=== PATIENT | female | born 1930 | race American Indian/Alaskan Native ===

== ENCOUNTER 2016-04-16 16:20 | Inpatient (IN) | payer MEDICARE ==
--- NOTE | 2016-04-16 16:50 | Emergency Department Report ---
Chief Complaint: Chest Pain Stated Complaint: CHEST PAIN Time Seen by Provider: 04/16/16 16:48 - HPI History of Present Illness: Patient here reported chest pain after having dialysis today. She is complaining nausea without any vomiting. Patient has a history of coronary artery disease and reported that she's had chest pain in the past. She said the pain is 10 out of 10 and located at the mid chest. She denies any shortness of breath. Patient Kidney doctor is Dr. Rosenberg. She had dialysis today. - ROS Review of Systems: All systems are negative unless stated in HPI above. - Exam Vital Signs: Vital Signs 04/16/16 16:34 Temperature 98.3 F Pulse Rate 89 Respiratory 18 Rate Blood Pressure 151/72 O2 Sat by Pulse 99 Oximetry Physical Exam: GEN: This is a 85-year-old female well-nourished well-developed in no acute distress. CV: S1, S2. Regular rate and rhythm. Dialysis access to right arm. Lungs: Clear to auscultate bilaterally, no rhonchi wheezes or rales. Normal work of breathing. MSE screening note: Focused history and physical exam performed. Due to findings the following was ordered:TBD ED Medical Decision Making - Medical Decision Making Medical decision making: Patient seen by provider in triage area. Appropriate protocol activated and patient to main ED to be seen by physician. ED Disposition for MSE Condition: Stable
[2016-04-16 17:44] LABS: Basophils % (Auto) 0.7 % (0.0-1.8); Eosinophils % (Auto) 3.4 % (0.0-4.3); Hematocrit 37.6 % (30.3-42.9); Hemoglobin 11.9 gm/dl (10.1-14.3); Mean Corpuscular HGB Conc 32 % (30-34); Mean Corpuscular Hemoglobin 25 pg (28-32); Mean Corpuscular Volume 79 fl (79-97); Platelet Count 164 K/mm3 (140-440); Red Blood Count 4.77 M/mm3 (3.65-5.03); Red Cell Distribution Width 16.5 % (13.2-15.2); White Blood Count 5.7 K/mm3 (4.5-11.0)
[2016-04-16 18:12] LABS: Creatine Kinase MB 1.6 ng/mL (0.0-4.0)
[2016-04-16 18:14] LABS: BUN/Creatinine Ratio 4.13; Calcium 9.5 mg/dL (8.4-10.2); Chloride 95.1 mmol/L (98-107); Potassium 4.7 mmol/L (3.6-5.0)
[2016-04-16 18:16] LABS: Alanine Aminotransferase 8 units/L (7-56); Albumin/Globulin Ratio 1.3 %; Alkaline Phosphatase 204 units/L (35-129); Bilirubin,Total 0.7 mg/dL (0.1-1.2); Total Protein 7.1 g/dL (6.3-8.2)
[2016-04-16 18:32] LABS: Bilirubin,Direct < 0.2 mg/dL (0-0.2); Bilirubin,Indirect 0.5 mg/dL
--- NOTE | 2016-04-16 18:32 | Admit Criteria Form ---
Admission Criteria Documentation: CHEST PAIN Clinical Indications for Admission to Inpatient Care (Place 'X' for any and all applicable criteria): Admission is indicated for chest pain and ANY ONE of the following(1)(2)(3)(4)(5 ): [ ]I. Angina with acute coronary syndrome (Also use Myocardial Infarction or Angina guideline) [ ]II. Hemodynamic instability [X]III. Angina needing acute intervention as indicated by ALL of the following( 11)(12): [X]a) Unstable angina is present as indicated by angina that is ANY ONE of the following: [ ]i) New onset [X]ii) Nocturnal [ ]iii) Prolonged at rest [ ]iv) Progressive [X]b) Angina warrants acute intervention as indicated by ANY ONE of the following: [ ]i) Recurrent angina (e.g, not responding as previously to treatment) [ ]ii) Angina at rest or with low-level activities despite initial medical therapy [ ]iii) New or presumably new ST-segment depression on ECG [ ]iv) Signs or symptoms of heart failure (eg, dyspnea, pulmonary edema) [ ]v) New or worsening mitral regurgitation [ ]vi) Hemodynamic instability [ ]vii) Dangerous arrhythmia (eg, sustained ventricular tachycardia) [ ]viii) History of percutaneous coronary intervention within 6 months [ ]ix) History of coronary artery bypass graft surgery [X]x) VALENTE risk score of 2 or greater[A] [ ]xi) History of Diabetes(14) [ ]xii) High-risk cardiac ischemia findings on noninvasive testing (e.g, echocardiogram, treadmill testing, nuclear scan) [X]xiii) Chronic renal insufficiency (ie, estimated GFR less than 60 mL/min/1.732m) [ ]xiv) Left ventricular ejection fraction less than 40% [X]IV. Evidence of GA (eg, cardiac biomarkers positive, ST-segment elevation on ECG) also use Myocardial Infarction Criteria Form. [ ]V. Pulmonary edema [ ]. Respiratory distress [ ]VII. Chest pain indicative of serious diagnosis other than coronary artery disease (eg, aortic dissection) [ ]VIII. Contraindications and/or Inappropriate clinical situations for Observational Care in patients with Chest Pain, when ANY ONE of the following is required: [ ]a) Patient with risk factor for pulmonary embolism, acute coronary syndrome and myocardial infarction (18) [ ]b) Patient with Pulmonary embolism require an average LOS of 4.3 days, therefore emergency department observation management is inappropriate 18,23 [ ]c) Painful condition/s in the elderly, have the highest rate of recidivism after emergency department observation management (10.8%) 20,21,22 [ ]d) Elevated cardiac biomarker requires intensive and exhaustive care (19) [ ]IX. General contraindications and/or Inappropriate clinical situations for Observational Care in patients with Chest Pain, when ANY ONE of the following is required: [ ]a) Prediction of prolongation of LOS based on ANY ONE of the following may be considered as a contraindication for observational care 2, 3, 4, 5, 6, 7, 8, 9, 10, 11 [ ]i) Age > 65 yrs. [ ]ii) Patient arriving by ambulance [ ]iii) Patient with high acuity [ ]iv) Patient requiring vital sign monitoring [ ]v) Patient on IV medication [ ]b) Systolic blood pressures 180mmHg 3,12 [ ]c) Patient with altered mental status including delirium and other alteration of consciousness, (3) [ ]d) Patient whose discharge disposition will be to a snf home or rehabilitation home should not be managed in Emergency Department Observation Unit. CMS rule requires 3 days hospital stay before such placement. 3,13 [ ]e) Patient with failure to thrive due to broad array of etiologies 3,16,17 [ ]f) Inability to ambulate 3,14 Extended stay beyond goal length of stay may be needed for (1)(28): [ ]a) Specific condition diagnosed after evaluation (eg, pulmonary embolism, aortic dissection) [ ]b) Unstable angina [ ]c) Continued suspicion of acute coronary syndrome with inability to complete needed cardiac evaluation (eg, patient clinically unable to undergo stress testing) [ ]d) Myocardial infarction (Contents from ANGINA and CHEST PAIN clinical indications for admission to inpatient care have been integrated in this form) The original [employer] content created by [employer] has been revised. The portions of the content which have been revised are identified through the use of italic text or in bold, and [employer] [employer] has neither reviewed nor approved the modified material. All other unmodified content is copyright [employer]. Please see references footnoted in the original [employer] edition 2016 Admission Criteria Met: Yes
[2016-04-16] MEDS ORDERED: NITROSTAT SL PRN (19:25)
[2016-04-16] MEDS ORDERED: ASPIRIN PO ONE (19:25)
--- NOTE | 2016-04-16 19:27 | Emergency Department Report ---
ED Chest Pain HPI - General Chief Complaint: Chest Pain Stated Complaint: CHEST PAIN Time Seen by Provider: 04/16/16 16:48 Source: patient Mode of arrival: Wheelchair Limitations: No Limitations - History of Present Illness Initial Comments: 85-year-old female presents to the emergency department complaining of chest pain. Patient states that she went to dialysis this morning per usual. She states when she arrived home she began feeling not well. She states that she went to sleep and was awakened at approximately 4:30 this afternoon complaining of midsternal chest pressure radiating to her left arm. She reports associated generalized weakness and nausea. She denies shortness of breath, dizziness, or diaphoresis. Chest pain has persisted since onset. There are no other complaints. MD Complaint: chest pain -: Sudden, This afternoon Time: 16:30 Onset: during rest Pain Location: substernal Pain Radiation: LUE Severity: moderate Severity scale (0 -10): 6 Quality: pressure Consistency: constant Improves With: nothing Worsens With: nothing re: nausea Treatments Prior to Arrival: none Aspirin use within the Past 7 Days: (1) Yes - Related Data Home Medications Medication Instructions Recorded Confirmed Last Taken Aspirin [[place] Aspirin] 81 mg PO DAILY 03/27/13 04/16/16 1 Day Ago Calcium Acetate [Phoslo] 667 mg PO QAM&QHS 03/27/13 04/16/16 1 Day Ago Gabapentin 100 mg PO DAILY 03/27/13 04/16/16 1 Day Ago Hydralazine HCl [Apresoline TAB] 50 mg PO BID 03/27/13 04/16/16 1 Day Ago Simvastatin [Zocor TAB] 40 mg PO DAILY 03/27/13 04/16/16 1 Day Ago Cholecalciferol Vit D3 [Vitamin D3] 1,000 unit PO QDAY 05/23/15 04/16/16 1 Day Ago Vit B Cplx #11/FA/C/Biot/Zn Ox 1 each PO DAILY 05/23/15 04/16/16 1 Day Ago [Dialyvite with Zinc Tablet] Previous Rx's Medication Instructions Recorded Last Taken Type Metoprolol [Lopressor TAB] 25 mg PO BID #60 tablet 02/08/16 Unknown Rx Allergies Allergy/AdvReac Type Severity Reaction Status Date / Time cefazolin sodium [From Anc] Allergy Unknown Verified 06/29/14 10:46 enalapril maleate Allergy Angioedema Verified 06/29/14 10:46 [From Vasotec] enalaprilat dihydrate Allergy Angioedema Verified 06/29/14 10:46 [From Vasotec] pseudoephedrine HCl Allergy Swelling Verified 06/29/14 10:46 [From Sudafed] Sulfa (Sulfonamide Allergy Hives Verified 06/29/14 10:46 Antibiotics) VALENTE score - Valente Score Age > 65: (1) Yes Aspirin use within the Past 7 Days: (1) Yes 3 or more CAD Risk Factors: (1) Yes 2 or more Angina events in past 24 hrs: (0) No Known CAD with more than 50% Stenosis: (0) No Elevated Cardiac Markers: (1) Yes ST Deviation Greater than 0.5mm: (0) No VALENTE Score: 4 ED Review of Systems ROS: Stated complaint: CHEST PAIN Other details as noted in HPI Comment: All other systems reviewed and negative Constitutional: weakness Cardiovascular: chest pain Gastrointestinal: nausea ED Past Medical Hx - Past Medical History Previous Medical History?: Yes Hx Hypertension: Yes Hx Heart Attack/AMI: (coronary artery disease) Hx Congestive Heart Failure: Yes Hx Renal Disease: Yes (dialysis MWF) Hx Arthritis: Yes Hx HIV: No - Surgical History Past Surgical History?: Yes Hx Cholecystectomy: Yes Hx Appendectomy: Yes Additional Surgical History: Hysterectomy, tubal ligation, fistula in right arm , "surgery to place a plate in neck" - Family History Family history: no significant - Social History Smoking Status: Former Smoker Substance Use Type: Prescribed - Medications Home Medications: Home Medications Medication Instructions Recorded Confirmed Last Taken Type Aspirin [[place] Aspirin] 81 mg PO DAILY 03/27/13 04/16/16 1 Day Ago History Calcium Acetate [Phoslo] 667 mg PO QAM&QHS 03/27/13 04/16/16 1 Day Ago History Gabapentin 100 mg PO DAILY 03/27/13 04/16/16 1 Day Ago History Hydralazine HCl [Apresoline TAB] 50 mg PO BID 03/27/13 04/16/16 1 Day Ago History Simvastatin [Zocor TAB] 40 mg PO DAILY 03/27/13 04/16/16 1 Day Ago History Cholecalciferol Vit D3 [Vitamin D3] 1,000 unit PO QDAY 05/23/15 04/16/16 1 Day Ago History Vit B Cplx #11/FA/C/Biot/Zn Ox 1 each PO DAILY 05/23/15 04/16/16 1 Day Ago History [Dialyvite with Zinc Tablet] Metoprolol [Lopressor TAB] 25 mg PO BID #60 tablet 02/08/16 04/16/16 Unknown Rx ED Physical Exam - General Limitations: No Limitations General appearance: alert, in no apparent distress - Head Head exam: Present: atraumatic, normocephalic - Eye Eye exam: Present: normal appearance, PERRL, EOMI - ENT ENT exam: Present: normal exam, normal orophraynx, mucous membranes moist - Neck Neck exam: Present: normal inspection, full ROM. Absent: tenderness - Respiratory Respiratory exam: Present: normal lung sounds bilaterally, chest wall tenderness (anterior chest wall tender to palpation. Tenderness is different than her chief complaint.). Absent: respiratory distress - Cardiovascular Cardiovascular Exam: Present: regular rate, normal rhythm, normal heart sounds - GI/Abdominal GI/Abdominal exam: Present: soft, normal bowel sounds. Absent: distended, tenderness - Extremities Exam Extremities exam: Present: normal inspection, full ROM. Absent: tenderness - Back Exam Back exam: Present: normal inspection, full ROM. Absent: tenderness - Neurological Exam Neurological exam: Present: alert, oriented X3. Absent: motor sensory deficit - Skin Skin exam: Present: warm, dry, intact ED Course Vital Signs 04/16/16 04/16/16 16:34 18:18 Temperature 98.3 F Pulse Rate 89 Respiratory 18 16 Rate Blood Pressure 151/72 O2 Sat by Pulse 99 99 Oximetry ED Medical Decision Making - Lab Data Result diagrams: 04/16/16 17:20 04/16/16 17:20 - EKG Data -: EKG Interpreted by Me EKG shows normal: sinus rhythm, axis, ST-T waves Rate: normal - EKG Data When compared to previous EKG there are: no significant change Interpretation: unchanged when compared t (02/05/2016), other (right bundle branch block) - Radiology Data Radiology results: image reviewed interpreted by me: Chest x-ray shows no acute cardiopulmonary abnormality. - Medical Decision Making Lab and imaging results reviewed and discussed with the patient. I've spoken with Dr. Cooper, cardiology. Patient is to be admitted by the hospitalist. Nephrology will also be consulted. - Differential Diagnosis ACS, chest wall pain, electrolyte abnormality Critical care attestation.: If time is entered above; I have spent that time in minutes in the direct care of this critically ill patient, excluding procedure time. ED Disposition Clinical Impression: Acute chest pain, ESRD on dialysis Disposition: OP ADMITTED IP TO THIS HOSP Is pt being admited?: Yes Condition: Stable Instructions: Chest Pain (ED) Time of Disposition: 19:33
--- NOTE | 2016-04-16 19:40 | History and Physical Report ---
History of Present Illness Date of examination: 04/16/16 Date of admission: 04/16/16 Chief complaint: chest pain today History of present illness: Miss Tracey is an 85-year-old -Citizen Of [place] female who presented to the emergency room complaining of central pressing chest pain which started about 4: 30. She reported that she went to dialysis and had returned home. She started to have some nausea and she decided to lay down. She reported that she was awoken by the chest pain. No radiation. She had shortness of breath and palpitations. No diaphoresis. At the time of evaluation she had no chest pain. Of note she has a history of nonobstructive coronary artery disease and in April she had an abnormal stress test which showed mild ischemia. Continuation of medical management was recommended as her chest pain resolved. Past History Past Medical History: CAD, dialysis, ESRD, hypertension, other Past Surgical History: Other (cholecystectomy, hysterectomy, Other (right arm fistula, metal plate in the neck due to fracture)) Social history: full code. denies: smoking, alcohol abuse, prescription drug abuse, IV drug use Family history: hypertension Medications and Allergies Allergies Allergy/AdvReac Type Severity Reaction Status Date / Time cefazolin sodium [From Ancef] Allergy Unknown Verified 06/29/14 10:46 enalapril maleate Allergy Angioedema Verified 06/29/14 10:46 [From Vasotec] enalaprilat dihydrate Allergy Angioedema Verified 06/29/14 10:46 [From Vasotec] pseudoephedrine HCl Allergy Swelling Verified 06/29/14 10:46 [From Sudafed] Sulfa (Sulfonamide Allergy Hives Verified 06/29/14 10:46 Antibiotics) Home Medications Medication Instructions Recorded Confirmed Last Taken Type Aspirin [[place] Aspirin] 81 mg PO DAILY 03/27/13 04/16/16 1 Day Ago History Calcium Acetate [Phoslo] 667 mg PO QAM&QHS 03/27/13 04/16/16 1 Day Ago History Gabapentin 100 mg PO DAILY 03/27/13 04/16/16 1 Day Ago History Hydralazine HCl [Apresoline TAB] 50 mg PO BID 03/27/13 04/16/16 1 Day Ago History Simvastatin [Zocor TAB] 40 mg PO DAILY 03/27/13 04/16/16 1 Day Ago History Cholecalciferol Vit D3 [Vitamin D3] 1,000 unit PO QDAY 05/23/15 04/16/16 1 Day Ago History Vit B Cplx #11/FA/C/Biot/Zn Ox 1 each PO DAILY 05/23/15 04/16/16 1 Day Ago History [Dialyvite with Zinc Tablet] Metoprolol [Lopressor TAB] 25 mg PO BID #60 tablet 02/08/16 04/16/16 Unknown Rx Active Meds: Active Medications Nitroglycerin (Nitrostat) 0.4 mg SL .Q5MIN PRN PRN Reason: Chest Pain Review of Systems All systems: negative Constitutional: no weight loss, no weight gain, no fever Ears, nose, mouth and throat: no ear pain, no ear discharge, no tinnitis, no decreased hearing Breasts: normal Cardiovascular: other (as in the history of presenting complaint) Respiratory: no cough, no cough with sputum, no excessive sputum, no hemoptysis , no shortness of breath Gastrointestinal: no abdominal pain, no diarrhea Genitourinary Female: other (anuric) Rectal: no pain, no incontinence, no bleeding Musculoskeletal: no neck stiffness, no neck pain, no shooting arm pain Integumentary: no rash, no pruritis, no redness, no sores Neurological: no head injury, no transient paralysis, no paralysis, no weakness Psychiatric: no anxiety, no memory loss, no change in sleep habits Endocrine: no cold intolerance, no heat intolerance, no polyphagia Hematologic/Lymphatic: no easy bruising, no easy bleeding Allergic/Immunologic: no urticaria, no allergic rhinitis Exam - Constitutional Vitals: Temp Pulse Resp BP Pulse Ox 98.3 F 89 16 151/72 99 04/16/16 16:34 04/16/16 16:34 04/16/16 18:18 04/16/16 16:34 04/16/16 18:18 General appearance: Present: no acute distress, well-nourished - EENT Eyes: Present: PERRL, EOM intact. Absent: scleral icterus, conjunctival injection ENT: hearing intact, clear oral mucosa, no oropharyngeal erythema, no poor dentition - Neck Neck: Present: supple, normal ROM. Absent: enlarged thyroid, masses or JVD - Respiratory Respiratory effort: normal Respiratory: negative: diminished, rales, rhonchi, wheezing - Cardiovascular Rhythm: regular Heart Sounds: Present: S1 & S2. Absent: gallop - Extremities Extremities: no ischemia, pulses intact, pulses symmetrical, No edema Peripheral Pulses: within normal limits - Abdominal General gastrointestinal: Present: soft, non-tender, non-distended, normal bowel sounds Female genitourinary: Present: deferred - Rectal Rectal Exam: deferred - Integumentary Integumentary: Present: clear - Musculoskeletal Musculoskeletal: strength equal bilaterally - Psychiatric Psychiatric: appropriate mood/affect, intact judgment & insight, cooperative - Neurologic Neurologic: CNII-XII intact, moves all extremities Results - Labs CBC & Chem 7: 04/16/16 17:20 04/16/16 17:20 Labs: Abnormal lab results 04/16/16 04/16/16 04/16/16 Range/Units 17:20 17:20 17:20 MCH 25 L (28-32) pg RDW 16.5 H (13.2-15.2) % Darke % (Auto) 10.2 H (0.0-7.3) % Lymph # 0.8 L (1.2-5.4) K/mm3 Seg Neutrophils % 70.9 H (40.0-70.0) % Chloride 95.1 L (98-107) mmol/L BUN 19 H (7-17) mg/dL Creatinine 4.6 H (0.7-1.2) mg/dL Alkaline Phosphatase 204 H (35-129) units/L Troponin T 0.031 H (0.00-0.029) ng/mL Non-obstructive CAD [facility] 11/2011: 50-60% mid distal LAD, 40% mid OM2, 40% distal RCA 05/15 stress test- mild ischemia Echocardiogram ejection fraction 55-60%. Diastolic dysfunction - Imaging and Cardiology EKG: image reviewed (RBBB not new; PAC) Chest x-ray: pending Assessment and Plan 1. Atypical chest pain on a background history of nonobstructive coronary artery disease and abnormal stress test in April 2015-we'll admit as an inpatient as more than 2 midnights and required treatment. To rule out acute coronary syndrome. Will do serial cardiac enzymes. Restart her home medications with aspirin and statin. Beta mercy. We'll consult cardiology for further recommendations 2. Benign hypertension-uncontrolled with urgency-will restart antihypertensive medications. IV hydralazine as needed for systolic greater than or equal to 160. 3. End-stage renal disease on hemodialysis-we'll consult nephrology for routine hemodialysis. Monitor electrolytes. Restart home medications. 4. DVT prophylaxis-heparin
[2016-04-16] MEDS: APRESOLINE IV PRN (23:00)
[2016-04-16] MEDS ORDERED: SODIUM CHLORIDE FLUSH SYRINGE 10 ML IV PRN (23:06)
[2016-04-16] MEDS ORDERED: MORPHINE IV PRN (23:06)
[2016-04-16] MEDS ORDERED: APRESOLINE ONE (23:13)
[2016-04-17] MEDS: HEPARIN SUB-Q SCH ×3 (00:52→22:30)
[2016-04-17] MEDS: PEPCID PO SCH ×2 (00:56→12:10)
[2016-04-17] MEDS: APRESOLINE IV PRN (06:23)
[2016-04-17 07:08] LABS: Basophils % (Auto) 0.7 % (0.0-1.8); Eosinophils % (Auto) 4.4 % (0.0-4.3); Hematocrit 32.8 % (30.3-42.9); Hemoglobin 10.5 gm/dl (10.1-14.3); Mean Corpuscular HGB Conc 32 % (30-34); Mean Corpuscular Volume 79 fl (79-97); Platelet Count 151 K/mm3 (140-440); Red Blood Count 4.18 M/mm3 (3.65-5.03); Red Cell Distribution Width 16.4 % (13.2-15.2)
[2016-04-17 07:24] LABS: BUN/Creatinine Ratio 4.31; Calcium 8.5 mg/dL (8.4-10.2); Chloride 101.5 mmol/L (98-107); Creatine Kinase MB 1.2 ng/mL (0.0-4.0); Potassium 4.3 mmol/L (3.6-5.0)
[2016-04-17 07:36] LABS: Mean Corpuscular Hemoglobin 25 pg (28-32)
--- NOTE | 2016-04-17 08:08 | XRay Report ---
ROUTINE CHEST, TWO VIEWS: HISTORY: chest pain. The trachea, heart, mediastinal contour, lung rangel and bony thorax are unremarkable. Lower cervical fusion changes are partially imaged. IMPRESSION: No acute cardiopulmonary process. No significant change since 02/06/16.
[2016-04-17] MEDS ORDERED: NACL 0.9% 1000 ML 100 ML IV PRN (08:58)
--- NOTE | 2016-04-17 08:59 | Consultation ---
<MADONNA BURTON N - Last Filed: 04/17/16 11:16> History of Present Illness Consult date: 04/17/16 Requesting physician: DOLLY KIRBY Consult reason: chest pain History of present illness: The patient is an 85 year old female who is followed by Dr. RYAN Stokes in the office with a history of non-obstructive CAD, hypertension, hyperlipidemia, ESRD on HD who presented with complaints of substernal chest pain that started yesterday morning after she got home from dialysis. She describes the pain as a "tightness" and states that it radiated to her left arm. Associated with nausea. No shortness of breath, vomiting or diaphoresis. She states the pain resolved several hours later after she received aspirin in the ER. Troponin level is 0.026, 0.024. Cardiac cath done 11/2011 showed 50-60% mid distal LAD, 40 % mid OM2, 40% distal RCA. Stress test done 04/2015 showed mild inferior ischemia but the the patient was continued on medical therapy at that time. Medications and Allergies Allergies Allergy/AdvReac Type Severity Reaction Status Date / Time cefazolin sodium [From Ancef] Allergy Unknown Verified 06/29/14 10:46 enalapril maleate Allergy Angioedema Verified 06/29/14 10:46 [From Vasotec] enalaprilat dihydrate Allergy Angioedema Verified 06/29/14 10:46 [From Vasotec] pseudoephedrine HCl Allergy Swelling Verified 06/29/14 10:46 [From Sudafed] Sulfa (Sulfonamide Allergy Hives Verified 06/29/14 10:46 Antibiotics) Home Medications Medication Instructions Recorded Confirmed Last Taken Type Aspirin [[place] Aspirin] 81 mg PO DAILY 03/27/13 04/16/16 1 Day Ago History Calcium Acetate [Phoslo] 667 mg PO QAM&QHS 03/27/13 04/16/16 1 Day Ago History Gabapentin 100 mg PO DAILY 03/27/13 04/16/16 1 Day Ago History Hydralazine HCl [Apresoline TAB] 50 mg PO BID 03/27/13 04/16/16 1 Day Ago History Simvastatin [Zocor TAB] 40 mg PO DAILY 03/27/13 04/16/16 1 Day Ago History Cholecalciferol Vit D3 [Vitamin D3] 1,000 unit PO QDAY 05/23/15 04/16/16 1 Day Ago History Vit B Cplx #11/FA/C/Biot/Zn Ox 1 each PO DAILY 05/23/15 04/16/16 1 Day Ago History [Dialyvite with Zinc Tablet] Metoprolol [Lopressor TAB] 25 mg PO BID #60 tablet 02/08/16 04/16/16 Unknown Rx Active Meds: Active Medications Aspirin (Ecotrin) 325 mg PO QDAY [facility] Epoetin Checo (Epogen) 20,000 unit IV ELDA PRN PRN Reason: hemodialysis Famotidine (Pepcid) 20 mg PO QAM [facility] Last Admin: 04/17/16 00:56 Dose: 20 mg Heparin Sodium (Porcine) (Heparin) 5,000 unit SUB-Q Q12HR [facility] Last Admin: 04/17/16 00:52 Dose: 5,000 unit Heparin Sodium (Porcine) (Heparin 10,000 Units/10 Ml) 1,000 unit IV ELDA PRN PRN Reason: hemodialysis Hydralazine HCl (Apresoline) 5 mg IV Q4H PRN PRN Reason: GIVE FOR SBP>165 Last Admin: 04/17/16 06:23 Dose: 5 mg Sodium Chloride (Nacl 0.9% 1000 Ml) 100 mls @ 999 mls/hr IV ELDA PRN PRN Reason: Hypotension Metoprolol Tartrate (Lopressor) 25 mg PO BID [facility] Morphine Sulfate (Morphine) 1 mg IV Q5MIN PRN PRN Reason: Chest Pain Nitroglycerin (Nitrostat) 0.4 mg SL .Q5MIN PRN PRN Reason: Chest Pain Simvastatin (Zocor) 40 mg PO QHS [facility] Sodium Chloride (Sodium Chloride Flush Syringe 10 Ml) 10 ml IV PRN PRN PRN Reason: LINE FLUSH Physical Examination Vital Signs Temp Pulse Resp BP Pulse Ox 98.3 F 89 18 151/72 99 04/16/16 16:34 04/16/16 16:34 04/16/16 16:34 04/16/16 16:34 04/16/16 16:34 Results 04/17/16 06:04 04/17/16 06:04 Cardiac Enzymes 04/17/16 Range/Units 06:04 CK-MB (CK-2) 1.2 (0.0-4.0) ng/mL CBC 04/17/16 Range/Units 06:04 WBC 5.0 (4.5-11.0) K/mm3 RBC 4.18 (3.65-5.03) M/mm3 Hgb 10.5 (10.1-14.3) gm/dl Hct 32.8 (30.3-42.9) % Plt Count 151 (140-440) K/mm3 Lymph # 1.1 L (1.2-5.4) K/mm3 Charles # 0.6 (0.0-0.8) K/mm3 Eos # 0.2 (0.0-0.4) K/mm3 Baso # 0.0 (0.0-0.1) K/mm3 Comprehensive Metabolic Panel 04/17/16 Range/Units 06:04 Sodium 144 (137-145) mmol/L Potassium 4.3 (3.6-5.0) mmol/L Chloride 101.5 (98-107) mmol/L Carbon Dioxide 29 (22-30) mmol/L BUN 25 H (7-17) mg/dL Creatinine 5.8 H (0.7-1.2) mg/dL Glucose 73 (65-100) mg/dL Calcium 8.5 (8.4-10.2) mg/dL Assessment and Plan Chest pain resolved stress MPI 04/2015: mild inferior ischemia continue ASA, statin, metoprolol Non-obstructive CAD [facility] 11/2011: 50-60% mid distal LAD, 40% mid OM2, 40% distal RCA continue ASA, statin, metoprolol Hypertension Hyperlipidemia ESRD on HD Given resolution of chest pain and only mild ischemia on stress MPI, recommend optimizing medical therapy. If chest pain recurs, may consider repeating left heart cath. Follow up appointment with Dr. RYAN Stokes in the [place] office on at 11:00am. The patient has been seen in conjunction with Dr. Briggs who agrees with the assessment and plan of care. <PEPPER PATHAK - Last Filed: 04/17/16 11:38> History of Present Illness Consult date: 04/17/16 Requesting physician: DOLLY KIRBY Consult reason: chest pain History of present illness: The patient is an 85 year old female who is followed by Dr. RYAN Stokes in the office with a history of non-obstructive CAD, hypertension, hyperlipidemia, ESRD on HD who presented with complaints of substernal chest pain that started yesterday morning after she got home from dialysis. She describes the pain as a "tightness" and states that it radiated to her left arm. Associated with nausea. No shortness of breath, vomiting or diaphoresis. She states the pain resolved several hours later after she received aspirin in the ER. Troponin level is 0.026, 0.024. Cardiac cath done 11/2011 showed 50-60% mid distal LAD, 40 % mid OM2, 40% distal RCA. Stress test done 04/2015 showed mild inferior ischemia but the the patient was continued on medical therapy at that time. Past History Past Medical History: CAD, dialysis, ESRD, hypertension, hyperlipidemia Past Surgical History: Other (cholecystectomy, hysterectomy, Other (right arm fistula, metal plate in the neck due to fracture)) Social history: full code. denies: smoking, alcohol abuse, prescription drug abuse, IV drug use Family history: hypertension Medications and Allergies Active Meds: Active Medications Aspirin (Ecotrin) 325 mg PO QDAY [facility] Famotidine (Pepcid) 20 mg PO QAM [facility] Last Admin: 04/17/16 00:56 Dose: 20 mg Heparin Sodium (Porcine) (Heparin) 5,000 unit SUB-Q Q12HR [facility] Last Admin: 04/17/16 00:52 Dose: 5,000 unit Hydralazine HCl (Apresoline) 5 mg IV Q4H PRN PRN Reason: GIVE FOR SBP>165 Last Admin: 04/17/16 06:23 Dose: 5 mg Morphine Sulfate (Morphine) 1 mg IV Q5MIN PRN PRN Reason: Chest Pain Nitroglycerin (Nitrostat) 0.4 mg SL .Q5MIN PRN PRN Reason: Chest Pain Sodium Chloride (Sodium Chloride Flush Syringe 10 Ml) 10 ml IV PRN PRN PRN Reason: LINE FLUSH Review of Systems Constitutional: no fever, no chills Ears, nose, mouth and throat: no nasal congestion, no nasal discharge, no sinus pressure Cardiovascular: chest pain, no syncope, no shortness of breath, no dyspnea on exertion Respiratory: no cough, no shortness of breath, no dyspnea on exertion, no congestion, no wheezing Gastrointestinal: nausea, no abdominal pain, no vomiting, no diarrhea, no constipation Genitourinary Female: no dysuria, no urgency Musculoskeletal: no neck stiffness, no neck pain, no myalgias Integumentary: no rash, no pruritis Neurological: no parathesias, no numbness, no tingling, no headaches Endocrine: no cold intolerance, no heat intolerance Hematologic/Lymphatic: no easy bruising, no easy bleeding Allergic/Immunologic: no urticaria, no wheezing Physical Examination Vital Signs Temp Pulse Resp BP Pulse Ox 98.3 F 89 18 151/72 99 04/16/16 16:34 04/16/16 16:34 04/16/16 16:34 04/16/16 16:34 04/16/16 16:34 General appearance: no acute distress HEENT: Positive: Normocephaly, Mucus Membranes Moist Neck: Positive: neck supple, trachea midline Cardiac: Positive: Reg Rate and Rhythm, S1/S2 Lungs: Positive: clear to auscultation Neuro: Positive: Grossly Intact Abdomen: Positive: Soft, Active Bowel Sounds. Negative: Tender Skin: Positive: Clear. Negative: Rash Extremities: Present: normal. Absent: edema Results 04/17/16 06:04 04/17/16 06:04 Cardiac Enzymes 04/17/16 Range/Units 06:04 CK-MB (CK-2) 1.2 (0.0-4.0) ng/mL CBC 04/17/16 Range/Units 06:04 WBC 5.0 (4.5-11.0) K/mm3 RBC 4.18 (3.65-5.03) M/mm3 Hgb 10.5 (10.1-14.3) gm/dl Hct 32.8 (30.3-42.9) % Plt Count 151 (140-440) K/mm3 Lymph # 1.1 L (1.2-5.4) K/mm3 Charles # 0.6 (0.0-0.8) K/mm3 Eos # 0.2 (0.0-0.4) K/mm3 Baso # 0.0 (0.0-0.1) K/mm3 Comprehensive Metabolic Panel 04/17/16 Range/Units 06:04 Sodium 144 (137-145) mmol/L Potassium 4.3 (3.6-5.0) mmol/L Chloride 101.5 (98-107) mmol/L Carbon Dioxide 29 (22-30) mmol/L BUN 25 H (7-17) mg/dL Creatinine 5.8 H (0.7-1.2) mg/dL Glucose 73 (65-100) mg/dL Calcium 8.5 (8.4-10.2) mg/dL - Imaging and Cardiology Echo: report reviewed (04/2015: EF 55-60%, diastolic dysfunction, RVSP 54 mmHg, mild-moderate TR) EKG: image reviewed EKG interpretations - Telemetry EKG Rhythm: Sinus Rhythm - EKG Sinus rhythms and dysrhythmias: sinus rhythm AV and intraventricular conduction: right bundle branch block Myocardial infarction: septal NM (old age or ind Assessment and Plan Chest pain resolved stress MPI 04/2015: mild inferior ischemia Echo 04/2015: EF 55-60%, diastolic dysfunction, mild to moderate TR, RVSP 54mmHg initiate imdur 30mg daily Non-obstructive CAD [facility] 11/2011: 50-60% mid distal LAD, 40% mid OM2, 40% distal RCA continue ASA, statin, metoprolol Hypertension Hyperlipidemia ESRD on HD Given recurrent chest pain and mildly abnormal stress test last year, will proceed with left heart cath tomorrow for definitive diagnosis. Risks, benefits and alternatives were discussed with the patient and she agrees to proceed. The patient has been seen in conjunction with Dr. Rader who agrees with the assessment and plan of care. Thank you Dr. Kirby for allowing us to participate in the care of this patient.
--- NOTE | 2016-04-17 09:04 | Consultation ---
History of Present Illness - Reason for Consult Consult date: 04/17/16 end stage renal disease Requesting physician: JIMI GONZALEZ - History of Present Illness 85-year-old lady with a history of nonobstructive coronary artery disease, hypertension, end-stage renal disease on hemodialysis on a Thursday, Thursday and Thursday schedule. Patient was admitted in april 2015 and had a stress test then which showed mild ischemia. Medical management was recommended. She has been having lower abdominal pain and was treated for an infection with antibiotics. She does not believe it was a urinary tract infection. She does not make urine. She says it did not help. She was in this state of health until yesterday after dialysis she ate Grits and eggs and then started becoming nauseated. She went to lay down and was awakened later on with chest pain. She describes as a severe pain in the center of her chest radiating to the left. Pain was sharp, rates his as 10 over 10, persistent and was only relieved with pain medication in the hospital. Pain is worse on lying down. She still has abdominal pain which is severe. There is no associated shortness of breath, palpitations, dizziness or diaphoresis. No diarrhea. No urinary symptoms as she is anuric. Past History Past Medical History: CAD, dialysis, ESRD, hypertension, other Past Surgical History: Other (cholecystectomy, hysterectomy, Other (right arm fistula, metal plate in the neck due to fracture)) Social history: lives with family, full code. denies: smoking, alcohol abuse, prescription drug abuse, IV drug use Family history: diabetes, hypertension, stroke (father had a cerebrovascular accident and ), other (mother of heart disease during childbirth. Brother had hypertension, diabetes mellitus, end-stage renal disease before he ) Medications and Allergies Allergies Allergy/AdvReac Type Severity Reaction Status Date / Time cefazolin sodium [From Ancef] Allergy Unknown Verified 06/29/14 10:46 enalapril maleate Allergy Angioedema Verified 06/29/14 10:46 [From Vasotec] enalaprilat dihydrate Allergy Angioedema Verified 06/29/14 10:46 [From Vasotec] pseudoephedrine HCl Allergy Swelling Verified 06/29/14 10:46 [From Sudafed] Sulfa (Sulfonamide Allergy Hives Verified 06/29/14 10:46 Antibiotics) Home Medications Medication Instructions Recorded Confirmed Last Taken Type Aspirin [[place] Aspirin] 81 mg PO DAILY 03/27/13 04/16/16 1 Day Ago History Calcium Acetate [Phoslo] 667 mg PO QAM&QHS 03/27/13 04/16/16 1 Day Ago History Gabapentin 100 mg PO DAILY 03/27/13 04/16/16 1 Day Ago History Hydralazine HCl [Apresoline TAB] 50 mg PO BID 03/27/13 04/16/16 1 Day Ago History Simvastatin [Zocor TAB] 40 mg PO DAILY 03/27/13 04/16/16 1 Day Ago History Cholecalciferol Vit D3 [Vitamin D3] 1,000 unit PO QDAY 05/23/15 04/16/16 1 Day Ago History Vit B Cplx #11/FA/C/Biot/Zn Ox 1 each PO DAILY 05/23/15 04/16/16 1 Day Ago History [Dialyvite with Zinc Tablet] Metoprolol [Lopressor TAB] 25 mg PO BID #60 tablet 02/08/16 04/16/16 Unknown Rx Active Meds: Active Medications Aspirin (Ecotrin) 325 mg PO QDAY [facility] Epoetin Checo (Epogen) 20,000 unit IV ELDA PRN PRN Reason: hemodialysis Famotidine (Pepcid) 20 mg PO QAM [facility] Last Admin: 04/17/16 00:56 Dose: 20 mg Heparin Sodium (Porcine) (Heparin) 5,000 unit SUB-Q Q12HR [facility] Last Admin: 04/17/16 00:52 Dose: 5,000 unit Heparin Sodium (Porcine) (Heparin 10,000 Units/10 Ml) 1,000 unit IV ELDA PRN PRN Reason: hemodialysis Hydralazine HCl (Apresoline) 5 mg IV Q4H PRN PRN Reason: GIVE FOR SBP>165 Last Admin: 04/17/16 06:23 Dose: 5 mg Sodium Chloride (Nacl 0.9% 1000 Ml) 100 mls @ 999 mls/hr IV ELDA PRN PRN Reason: Hypotension Morphine Sulfate (Morphine) 1 mg IV Q5MIN PRN PRN Reason: Chest Pain Nitroglycerin (Nitrostat) 0.4 mg SL .Q5MIN PRN PRN Reason: Chest Pain Sodium Chloride (Sodium Chloride Flush Syringe 10 Ml) 10 ml IV PRN PRN PRN Reason: LINE FLUSH Review of Systems All systems: negative (Constitutional: no fever but he admits to chills. No anorexia or weight loss. HEENT: No sore throat or sinus drainage no hearing or vision impairment . Cardiovascular: See history of present illness Respiratory : Admits to cough but it is unproductive. No Sputum, shortness of breath, hemoptysis or wheezing. Gastrointestinal: No nausea, vomiting, diarrhea. Admits to lower abdominal pain, hematemesis or melena. Genitourinary: No frequency urgency dysuria or hematuria. hematologic: No abnormal bleeding or bruising. Integumentary: no pruritus or rash. Neurological: Admits to headache last night. No focal weakness or numbness, no syncope or seizures. Musculoskeletal: Admits to joint pains in the legs and low back. No stiffness. Psychiatry: no anxiety or depression) Exam - Vital Signs Vital signs: Vital Signs Temp Pulse Resp BP Pulse Ox 98.3 F 89 18 151/72 99 04/16/16 16:34 04/16/16 16:34 04/16/16 16:34 04/16/16 16:34 04/16/16 16:34 - Physical Exam Narrative exam: Frail elderly -[place] lady lying in bed in no acute distress HEENT normocephalic atraumatic, pupils equal reactive to light, pink, clear oropharynx Neck supple, no thyromegaly no jugular venous distention CVS S1-S2 regular rate rhythm without murmur, rub or gallop Chest clear to auscultation Abdomen soft nondistended nontender no organomegaly no bruit bowel sounds present Extremities arthritic deformities, no edema no cyanosis or clubbing Neuro awake, alert oriented x3 no gross deficit Results - Lab Results 04/18/16 05:18 04/18/16 05:18 Most recent lab results Calcium 8.5 mg/dL (8.4-10.2) 04/17/16 06:04 Assessment and Plan - Patient Problems (1) Acute chest pain Current Visit: Yes Status: Acute Plan to address problem: Patient with history of coronary artery disease. She is being evaluated by blast setter. (2) ESRD on dialysis Current Visit: Yes Status: Chronic Plan to address problem: Resume hemodialysis on a Thursday, Thursday and Thursday schedule (3) Hypertensive chronic kidney disease with stage 5 chronic kidney disease or end stage renal disease Current Visit: Yes Status: Acute Plan to address problem: Resume home medications. Follow-up blood pressure on current medications (4) Anemia in chronic kidney disease (CKD) Current Visit: Yes Status: Acute Plan to address problem: Give erythropoietin on dialysis. (5) Abdominal pain in female patient Current Visit: Yes Status: Acute Plan to address problem: Get abdominal ultrasound.
[2016-04-17] MEDS ORDERED: HEPARIN 10,000 UNITS/10 ML IV PRN (10:00)
--- NOTE | 2016-04-17 11:18 | Consultation ---
History of Present Illness Consult date: 04/17/16 Requesting physician: DOLLY SHELTON Consult reason: chest pain History of present illness: The patient is an 85 year old female who is followed by Dr. RYAN Stokes in the office with a history of non-obstructive CAD, hypertension, hyperlipidemia, ESRD on HD who presented with complaints of substernal chest pain that started yesterday morning after she got home from dialysis. She describes the pain as a "tightness" and states that it radiated to her left arm. Associated with nausea. No shortness of breath, vomiting or diaphoresis. She states the pain resolved several hours later after she received aspirin in the ER. Troponin level is 0.026, 0.024. Cardiac cath done 11/2011 showed 50-60% mid distal LAD, 40 % mid OM2, 40% distal RCA. Stress test done 04/2015 showed mild inferior ischemia but the the patient was continued on medical therapy at that time. Past History Past Medical History: CAD, dialysis, ESRD, hypertension, other Past Surgical History: Other (cholecystectomy, hysterectomy, Other (right arm fistula, metal plate in the neck due to fracture)) Social history: full code. denies: smoking, alcohol abuse, prescription drug abuse, IV drug use Family history: hypertension Medications and Allergies Allergies Allergy/AdvReac Type Severity Reaction Status Date / Time cefazolin sodium [From Ancef] Allergy Unknown Verified 06/29/14 10:46 enalapril maleate Allergy Angioedema Verified 06/29/14 10:46 [From Vasotec] enalaprilat dihydrate Allergy Angioedema Verified 06/29/14 10:46 [From Vasotec] pseudoephedrine HCl Allergy Swelling Verified 06/29/14 10:46 [From Sudafed] Sulfa (Sulfonamide Allergy Hives Verified 06/29/14 10:46 Antibiotics) Home Medications Medication Instructions Recorded Confirmed Last Taken Type Aspirin [[place] Aspirin] 81 mg PO DAILY 03/27/13 04/16/16 1 Day Ago History Calcium Acetate [Phoslo] 667 mg PO QAM&QHS 03/27/13 04/16/16 1 Day Ago History Gabapentin 100 mg PO DAILY 03/27/13 04/16/16 1 Day Ago History Hydralazine HCl [Apresoline TAB] 50 mg PO BID 03/27/13 04/16/16 1 Day Ago History Simvastatin [Zocor TAB] 40 mg PO DAILY 03/27/13 04/16/16 1 Day Ago History Cholecalciferol Vit D3 [Vitamin D3] 1,000 unit PO QDAY 05/23/15 04/16/16 1 Day Ago History Vit B Cplx #11/FA/C/Biot/Zn Ox 1 each PO DAILY 05/23/15 04/16/16 1 Day Ago History [Dialyvite with Zinc Tablet] Metoprolol [Lopressor TAB] 25 mg PO BID #60 tablet 02/08/16 04/16/16 Unknown Rx Active Meds: Active Medications Aspirin (Ecotrin) 325 mg PO QDAY [facility] Epoetin Checo (Epogen) 20,000 unit IV ELDA PRN PRN Reason: hemodialysis Famotidine (Pepcid) 20 mg PO QAM [facility] Last Admin: 04/17/16 00:56 Dose: 20 mg Heparin Sodium (Porcine) (Heparin) 5,000 unit SUB-Q Q12HR [facility] Last Admin: 04/17/16 00:52 Dose: 5,000 unit Heparin Sodium (Porcine) (Heparin 10,000 Units/10 Ml) 1,000 unit IV ELDA PRN PRN Reason: hemodialysis Hydralazine HCl (Apresoline) 5 mg IV Q4H PRN PRN Reason: GIVE FOR SBP>165 Last Admin: 04/17/16 06:23 Dose: 5 mg Sodium Chloride (Nacl 0.9% 1000 Ml) 100 mls @ 999 mls/hr IV ELDA PRN PRN Reason: Hypotension Metoprolol Tartrate (Lopressor) 25 mg PO BID [facility] Morphine Sulfate (Morphine) 1 mg IV Q5MIN PRN PRN Reason: Chest Pain Nitroglycerin (Nitrostat) 0.4 mg SL .Q5MIN PRN PRN Reason: Chest Pain Simvastatin (Zocor) 40 mg PO QHS [facility] Sodium Chloride (Sodium Chloride Flush Syringe 10 Ml) 10 ml IV PRN PRN PRN Reason: LINE FLUSH Physical Examination Vital Signs Temp Pulse Resp BP Pulse Ox 98.3 F 89 18 151/72 99 04/16/16 16:34 04/16/16 16:34 04/16/16 16:34 04/16/16 16:34 04/16/16 16:34 Results 04/17/16 06:04 04/17/16 06:04 Cardiac Enzymes 04/17/16 Range/Units 06:04 CK-MB (CK-2) 1.2 (0.0-4.0) ng/mL CBC 04/17/16 Range/Units 06:04 WBC 5.0 (4.5-11.0) K/mm3 RBC 4.18 (3.65-5.03) M/mm3 Hgb 10.5 (10.1-14.3) gm/dl Hct 32.8 (30.3-42.9) % Plt Count 151 (140-440) K/mm3 Lymph # 1.1 L (1.2-5.4) K/mm3 [place] # 0.6 (0.0-0.8) K/mm3 Eos # 0.2 (0.0-0.4) K/mm3 Baso # 0.0 (0.0-0.1) K/mm3 Comprehensive Metabolic Panel 04/17/16 Range/Units 06:04 Sodium 144 (137-145) mmol/L Potassium 4.3 (3.6-5.0) mmol/L Chloride 101.5 (98-107) mmol/L Carbon Dioxide 29 (22-30) mmol/L BUN 25 H (7-17) mg/dL Creatinine 5.8 H (0.7-1.2) mg/dL Glucose 73 (65-100) mg/dL Calcium 8.5 (8.4-10.2) mg/dL
--- NOTE | 2016-04-17 11:41 | Consultation ---
Addendum entered and electronically signed by MADONNA BURTON MD 12:26: BP high. Will increase Metoprolol to 50 mg BID. Restart hydralazine 50 mg PO BID. Cardiac cath in AM.The benefits and possible risks were discussed in detail with the patient and her son. They understand want us to proceed. Original Note: History of Present Illness Consult date: 04/17/16 Requesting physician: DOLLY KIRBY Consult reason: chest pain History of present illness: The patient is an 85 year old female who is followed by Dr. RYAN Stokes in the office with a history of non-obstructive CAD, hypertension, hyperlipidemia, ESRD on HD who presented with complaints of substernal chest pain that started yesterday morning after she got home from dialysis. She describes the pain as a "tightness" and states that it radiated to her left arm. Associated with nausea. No shortness of breath, vomiting or diaphoresis. She states the pain resolved several hours later after she received aspirin in the ER. Troponin level is 0.026, 0.024. Cardiac cath done 11/2011 showed 50-60% mid distal LAD, 40 % mid OM2, 40% distal RCA. Stress test done 04/2015 showed mild inferior ischemia but the the patient was continued on medical therapy at that time. Past History Past Medical History: CAD, dialysis, ESRD, hypertension, hyperlipidemia Past Surgical History: Other (cholecystectomy, hysterectomy, Other (right arm fistula, metal plate in the neck due to fracture)) Social history: full code. denies: smoking, alcohol abuse, prescription drug abuse, IV drug use Family history: hypertension Medications and Allergies Allergies Allergy/AdvReac Type Severity Reaction Status Date / Time cefazolin sodium [From Ancef] Allergy Unknown Verified 06/29/14 10:46 enalapril maleate Allergy Angioedema Verified 06/29/14 10:46 [From Vasotec] enalaprilat dihydrate Allergy Angioedema Verified 06/29/14 10:46 [From Vasotec] pseudoephedrine HCl Allergy Swelling Verified 06/29/14 10:46 [From Sudafed] Sulfa (Sulfonamide Allergy Hives Verified 06/29/14 10:46 Antibiotics) Home Medications Medication Instructions Recorded Confirmed Last Taken Type Aspirin [Trigg Aspirin] 81 mg PO DAILY 03/27/13 04/16/16 1 Day Ago History Calcium Acetate [Phoslo] 667 mg PO QAM&QHS 03/27/13 04/16/16 1 Day Ago History Gabapentin 100 mg PO DAILY 03/27/13 04/16/16 1 Day Ago History Hydralazine HCl [Apresoline TAB] 50 mg PO BID 03/27/13 04/16/16 1 Day Ago History Simvastatin [Zocor TAB] 40 mg PO DAILY 03/27/13 04/16/16 1 Day Ago History Cholecalciferol Vit D3 [Vitamin D3] 1,000 unit PO QDAY 05/23/15 04/16/16 1 Day Ago History Vit B Cplx #11/FA/C/Biot/Zn Ox 1 each PO DAILY 05/23/15 04/16/16 1 Day Ago History [Dialyvite with Zinc Tablet] Metoprolol [Lopressor TAB] 25 mg PO BID #60 tablet 02/08/16 04/16/16 Unknown Rx Active Meds: Active Medications Aspirin (Ecotrin) 325 mg PO QDAY [facility] Epoetin Checo (Epogen) 20,000 unit IV ELDA PRN PRN Reason: hemodialysis Famotidine (Pepcid) 20 mg PO QAM [facility] Last Admin: 04/17/16 00:56 Dose: 20 mg Heparin Sodium (Porcine) (Heparin) 5,000 unit SUB-Q Q12HR [facility] Last Admin: 04/17/16 00:52 Dose: 5,000 unit Heparin Sodium (Porcine) (Heparin 10,000 Units/10 Ml) 1,000 unit IV ELDA PRN PRN Reason: hemodialysis Hydralazine HCl (Apresoline) 5 mg IV Q4H PRN PRN Reason: GIVE FOR SBP>165 Last Admin: 04/17/16 06:23 Dose: 5 mg Sodium Chloride (Nacl 0.9% 1000 Ml) 100 mls @ 999 mls/hr IV ELDA PRN PRN Reason: Hypotension Isosorbide Mononitrate (Imdur) 30 mg PO QDAY [facility] Metoprolol Tartrate (Lopressor) 25 mg PO BID [facility] Morphine Sulfate (Morphine) 1 mg IV Q5MIN PRN PRN Reason: Chest Pain Nitroglycerin (Nitrostat) 0.4 mg SL .Q5MIN PRN PRN Reason: Chest Pain Simvastatin (Zocor) 40 mg PO QHS JONO Sodium Chloride (Sodium Chloride Flush Syringe 10 Ml) 10 ml IV PRN PRN PRN Reason: LINE FLUSH Review of Systems Constitutional: no fever, no chills Ears, nose, mouth and throat: no nasal congestion, no nasal discharge, no sinus pressure Cardiovascular: chest pain, no syncope, no shortness of breath, no dyspnea on exertion Respiratory: no cough, no shortness of breath, no dyspnea on exertion, no congestion, no wheezing Gastrointestinal: nausea, no abdominal pain, no vomiting, no diarrhea, no constipation Genitourinary Female: no dysuria, no urgency Musculoskeletal: no neck stiffness, no neck pain, no myalgias Integumentary: no rash, no pruritis Neurological: no parathesias, no numbness, no tingling, no headaches Endocrine: no cold intolerance, no heat intolerance Hematologic/Lymphatic: no easy bruising, no easy bleeding Allergic/Immunologic: no urticaria, no wheezing Physical Examination Vital Signs Temp Pulse Resp BP Pulse Ox 98.3 F 89 18 151/72 99 04/16/16 16:34 04/16/16 16:34 04/16/16 16:34 04/16/16 16:34 04/16/16 16:34 General appearance: no acute distress HEENT: Positive: Normocephaly, Mucus Membranes Moist Neck: Positive: neck supple, trachea midline Cardiac: Positive: Reg Rate and Rhythm, S1/S2 Lungs: Positive: clear to auscultation Neuro: Positive: Grossly Intact Abdomen: Positive: Soft, Active Bowel Sounds. Negative: Tender Skin: Positive: Clear. Negative: Rash Musculoskeletal: Normal Range of Motion Extremities: Present: normal. Absent: edema Results 04/17/16 06:04 04/17/16 06:04 Cardiac Enzymes 04/17/16 Range/Units 06:04 CK-MB (CK-2) 1.2 (0.0-4.0) ng/mL CBC 04/17/16 Range/Units 06:04 WBC 5.0 (4.5-11.0) K/mm3 RBC 4.18 (3.65-5.03) M/mm3 Hgb 10.5 (10.1-14.3) gm/dl Hct 32.8 (30.3-42.9) % Plt Count 151 (140-440) K/mm3 Lymph # 1.1 L (1.2-5.4) K/mm3 [place] # 0.6 (0.0-0.8) K/mm3 Eos # 0.2 (0.0-0.4) K/mm3 Baso # 0.0 (0.0-0.1) K/mm3 Comprehensive Metabolic Panel 04/17/16 Range/Units 06:04 Sodium 144 (137-145) mmol/L Potassium 4.3 (3.6-5.0) mmol/L Chloride 101.5 (98-107) mmol/L Carbon Dioxide 29 (22-30) mmol/L BUN 25 H (7-17) mg/dL Creatinine 5.8 H (0.7-1.2) mg/dL Glucose 73 (65-100) mg/dL Calcium 8.5 (8.4-10.2) mg/dL - Imaging and Cardiology Echo: report reviewed (04/2015: EF 55-60%, diastolic dysfunction, mild to moderate TR, RVSP 54mmHg) EKG: image reviewed EKG interpretations - Telemetry EKG Rhythm: Sinus Rhythm - EKG Sinus rhythms and dysrhythmias: sinus rhythm AV and intraventricular conduction: right bundle branch block Myocardial infarction: septal [place] (old age or ind Assessment and Plan Chest pain resolved stress MPI 04/2015: mild inferior ischemia Echo 04/2015: EF 55-60%, diastolic dysfunction, mild to moderate TR, RVSP 54mmHg initiate imdur 30mg daily Non-obstructive CAD [facility] 11/2011: 50-60% mid distal LAD, 40% mid OM2, 40% distal RCA continue ASA, statin, metoprolol Hypertension Hyperlipidemia ESRD on HD Given recurrent chest pain and mildly abnormal stress test last year, will proceed with left heart cath tomorrow for definitive diagnosis. Risks, benefits and alternatives were discussed with the patient and she agrees to proceed. The patient has been seen in conjunction with Dr. Rader who agrees with the assessment and plan of care. Thank you Dr. Kirby for allowing us to participate in the care of this patient.
[2016-04-17] MEDS: ECOTRIN PO SCH (12:10)
[2016-04-17] MEDS: LOPRESSOR PO SCH ×2 (12:24→21:36)
[2016-04-17] MEDS: IMDUR PO SCH (12:24)
--- NOTE | 2016-04-17 18:21 | Progress Note ---
[id number] of nonobstructive coronary artery disease. Followed by cardiology. For cardiac cath in am. ESRD on hemodialysis. Managed by Nephrology. Hypertension. Stable. CAD. had abnormal stress test in Apr 2015 DVT prophylaxis. Full code status History Interval history: Chest pain. shortness of breath nausea Hospitalist Physical - Physical exam Narrative exam: Gen appearance : not in acute distress, HEENT: Normocephalic atraumatic, Neck: supple, no JVD. Lungs: clear to auscultation bilaterally, no crackles no wheezes Heart: S1 and S2 regular, no murmurs no gallop Abdomen: soft, non-tender, non-distended ,normal bowel sounds Extremities: No edema, no clubbing or cyanosis Neuro: Awake alert oriented, no focal signs - Constitutional Vitals: Temp Pulse Resp BP Pulse Ox 99.5 F 83 18 192/80 98 04/17/16 06:00 04/17/16 06:23 04/17/16 06:00 04/17/16 12:24 04/17/16 06:00 General appearance: Present: no acute distress - EENT Eyes: Present: PERRL ENT: hearing intact, clear oral mucosa - Neck Neck: Present: supple, normal ROM - Respiratory Respiratory effort: normal Respiratory: bilateral: CTA, negative: diminished, rales, rhonchi, wheezing - Cardiovascular Rhythm: regular Heart Sounds: Present: S1 & S2 (S1 and S2 reg) - Extremities Extremities: no ischemia, No edema, normal temperature, normal color - Abdominal General gastrointestinal: soft, non-tender, non-distended, normal bowel sounds - Integumentary Integumentary: Present: clear - Neurologic Neurologic: other (awke,alert,oriented) Results - Labs CBC & Chem 7: 04/18/16 05:18 04/18/16 05:18 Labs: Laboratory Last Values WBC 5.0 K/mm3 (4.5-11.0) 04/17/16 06:04 RBC 4.18 M/mm3 (3.65-5.03) 04/17/16 06:04 Hgb 10.5 gm/dl (10.1-14.3) 04/17/16 06:04 Hct 32.8 % (30.3-42.9) 04/17/16 06:04 MCV 79 fl (79-97) 04/17/16 06:04 MCH 25 pg (28-32) L 04/17/16 06:04 MCHC 32 % (30-34) 04/17/16 06:04 RDW 16.4 % (13.2-15.2) H 04/17/16 06:04 Plt Count 151 K/mm3 (140-440) 04/17/16 06:04 Lymph % (Auto) 21.5 % (13.4-35.0) 04/17/16 06:04 [place] % (Auto) 11.4 % (0.0-7.3) H 04/17/16 06:04 Eos % (Auto) 4.4 % (0.0-4.3) H 04/17/16 06:04 Baso % (Auto) 0.7 % (0.0-1.8) 04/17/16 06:04 Lymph # 1.1 K/mm3 (1.2-5.4) L 04/17/16 06:04 [place] # 0.6 K/mm3 (0.0-0.8) 04/17/16 06:04 Eos # 0.2 K/mm3 (0.0-0.4) 04/17/16 06:04 Baso # 0.0 K/mm3 (0.0-0.1) 04/17/16 06:04 Seg Neutrophils % 62.0 % (40.0-70.0) 04/17/16 06:04 Seg Neutrophils # 3.1 K/mm3 (1.8-7.7) 04/17/16 06:04 Sodium 144 mmol/L (137-145) 04/17/16 06:04 Potassium 4.3 mmol/L (3.6-5.0) 04/17/16 06:04 Chloride 101.5 mmol/L (98-107) 04/17/16 06:04 Carbon Dioxide 29 mmol/L (22-30) 04/17/16 06:04 Anion Gap 18 mmol/L 04/17/16 06:04 BUN 25 mg/dL (7-17) H 04/17/16 06:04 Creatinine 5.8 mg/dL (0.7-1.2) H 04/17/16 06:04 Estimated GFR 8 ml/min 04/17/16 06:04 BUN/Creatinine Ratio 4.31 % 04/17/16 06:04 Glucose 73 mg/dL (65-100) 04/17/16 06:04 Calcium 8.5 mg/dL (8.4-10.2) 04/17/16 06:04 Total Bilirubin 0.7 mg/dL (0.1-1.2) 04/16/16 17:20 Direct Bilirubin < 0.2 mg/dL (0-0.2) 04/16/16 17:20 Indirect Bilirubin 0.5 mg/dL 04/16/16 17:20 AST 23 units/L (5-40) 04/16/16 17:20 ALT 8 units/L (7-56) 04/16/16 17:20 Alkaline Phosphatase 204 units/L (35-129) H 04/16/16 17:20 Total Creatine Kinase 40 units/L (30-135) 04/17/16 06:04 CK-MB (CK-2) 1.2 ng/mL (0.0-4.0) 04/17/16 06:04 CK-MB (CK-2) Rel Index 3.0 (0-4) 04/17/16 06:04 Troponin T 0.024 ng/mL (0.00-0.029) 04/17/16 06:04 Total Protein 7.1 g/dL (6.3-8.2) 04/16/16 17:20 Albumin 4.0 g/dL (3.9-5) 04/16/16 17:20 Albumin/Globulin Ratio 1.3 % 04/16/16 17:20 Triglycerides 93 mg/dL (2-149) 04/16/16 17:20 Cholesterol 192 mg/dL (50-199) 04/16/16 17:20 LDL Cholesterol Direct 116 mg/dL (50-130) 04/16/16 17:20 HDL Cholesterol 58 mg/dL (40-59) 04/16/16 17:20 Cholesterol/HDL Ratio 3.31 % 04/16/16 17:20
--- NOTE | 2016-04-17 19:07 | Echocardiography Report ---
Transthoracic Echocardiogram Indication: Chest pain BP: 192/80 Conclusions *Global left ventricular systolic function is normal. *The estimated ejection fraction is 55-60%. *Abnormal left ventricular diastolic filling is observed, consistent with impaired relaxation. *The left atrium is mildly dilated. *The right ventricular global systolic function is normal. *The interatrial septum appears normal. *The aortic valve leaflets are mildly thickened. *There is mitral annular calcification. *There is trace of mitral regurgitation. *There is moderate tricuspid regurgitation. *The right ventricular systolic pressure is calculated at 61 mmHg. *There is evidence of moderate pulmonary hypertension. *A trivial pericardial effusion is visualized. *There is no dilatation of the aortic root. *There is no dilatation of the ascending aorta. Findings Left Ventricle: The left ventricular chamber size is normal. Global left ventricular wall motion and contractility are within normal limits. Global left ventricular systolic function is normal. The estimated ejection fraction is 55-60%. Abnormal left ventricular diastolic filling is observed, consistent with impaired relaxation. Left Atrium: The left atrium is mildly dilated. Right Ventricle: The right ventricular cavity size is normal. The right ventricular global systolic function is normal. Right Atrium: The right atrium appears normal. The interatrial septum appears normal. Aortic Valve: The aortic valve leaflets are mildly thickened. There is no evidence of aortic regurgitation. There is no evidence of aortic stenosis. Mitral Valve: There is mitral annular calcification. The mitral valve leaflets are mildly thickened. There is trace of mitral regurgitation. There is no evidence of mitral stenosis. Tricuspid Valve: The tricuspid valve leaflets are normal. There is moderate tricuspid regurgitation. The right ventricular systolic pressure is calculated at 61 mmHg. There is evidence of moderate pulmonary hypertension. There is no tricuspid stenosis. Pulmonic Valve: The pulmonic valve appears normal. There is trace pulmonic regurgitation. There is no pulmonic stenosis. Pericardium: A trivial pericardial effusion is visualized. Aorta: There is no dilatation of the ascending aorta. There is no dilatation of the descending thoracic aorta. There is no dilatation of the aortic root. Venous: The inferior vena cava appears normal in size. Measurements Chambers MM Name Value Normal Range Ao root diameter (MM) 3 cm (2 - 3.7) LA dimension (AP) MM 4.4 cm (1.9 - 4) LA:Ao ratio (MM) 1.47 ratio - AV cusp separation (MM) 1.3 cm (1.5 - 2.6) Chambers 2D Name Value Normal Range IVSd (2D) 1.03 cm (0.6 - 1.1) LVPWd (2D) 1.08 cm (0.6 - 1.1) IVS:LVPW ratio (2D) 0.95 ratio - LVIDd (2D) 4.86 cm (3.7 - 5.6) LVIDs (2D) 2.76 cm (2 - 3.8) LV FS (Teichholz) (2D) 43.2 % - LV FS (cube) (2D) 43.2 % - EF Teichholz (2D) 74.3 % - Ao root diameter (2D) 3.1 cm (2 - 3.7) LA dimension (AP) 2D 4.2 cm (1.9 - 4) LA:Ao ratio (2D) 1.35 ratio - Volumes/Mass Name Value Normal Range LA ESV SP 4CH (MOD) 41 ml - LA ESV SP 2CH (MOD) 70 ml - LA ESV BP (MOD) 57 ml - LA ESV BP (MOD) index 36.1 ml/m2 - Diastolic/Systolic Function Name Value Normal Range MV E-wave Vmax 0.85 m/sec - MV deceleration time 218 msec - MV A-wave Vmax 1.22 m/sec - MV E:A ratio 0.7 ratio - LV septal e' Vmax 0.04 m/sec - LV lateral e' Vmax 0.07 m/sec - LV E:e' septal ratio 19.2 ratio - LV E:e' lateral ratio 12.6 ratio - Aortic Valve Name Value Normal Range AV VTI 37 cm - AV mean gradient 7 mmHg - LVOT diameter 2 cm - LVOT VTI 28 cm - LVOT mean gradient 3 mmHg - SV LVOT 88 ml - ESTELA (continuity VTI) 2.38 cm2 - Mitral Valve Name Value Normal Range MV PHT 52 msec - MVA (PHT) 4.23 cm2 - Tricuspid Valve Name Value Normal Range TR Vmax 3.81 m/sec - TR peak gradient 58 mmHg - RAP 3 mmHg - RVSP 61 mmHg - Pulmonic Valve/Qp:Qs Name Value Normal Range PV Vmax 1.53 m/sec - PV peak gradient 9 mmHg - IN end-diastolic Vmax 1.01 m/sec - PV acceleration time 123 msec -
[2016-04-17] MEDS ORDERED: NACL 0.9% 500 ML 500 ML IV SCH (20:00)
[2016-04-17] MEDS: ZOCOR PO SCH (21:36)
[2016-04-18] MEDS: APRESOLINE IV PRN (00:33)
[2016-04-18 05:58] LABS: Basophils % (Auto) 0.4 % (0.0-1.8); Eosinophils % (Auto) 3.9 % (0.0-4.3); Hematocrit 32.8 % (30.3-42.9); Hemoglobin 10.3 gm/dl (10.1-14.3); Mean Corpuscular HGB Conc 32 % (30-34); Mean Corpuscular Volume 79 fl (79-97); Platelet Count 148 K/mm3 (140-440); Red Blood Count 4.14 M/mm3 (3.65-5.03); Red Cell Distribution Width 16.4 % (13.2-15.2); White Blood Count 5.8 K/mm3 (4.5-11.0)
[2016-04-18 06:07] LABS: INR 1.19 (0.87-1.13)
[2016-04-18 06:08] LABS: Partial Thromboplastin Time 38.7 Sec. (24.2-36.6)
[2016-04-18 06:10] LABS: Mean Corpuscular Hemoglobin 25 pg (28-32)
[2016-04-18 06:14] LABS: BUN/Creatinine Ratio 4.44; Calcium 8.4 mg/dL (8.4-10.2); Chloride 101.2 mmol/L (98-107); Potassium 4.1 mmol/L (3.6-5.0)
[2016-04-18] MEDS ORDERED: ECOTRIN PO ONE (07:49)
[2016-04-18] MEDS: ECOTRIN PO SCH ×2 (07:52→10:21)
--- NOTE | 2016-04-18 08:43 | Progress Note ---
Addendum entered and electronically signed by PEPPER PATHAK NP 04/18/16 11:24: Cardiac cath revealed non-obstructive disease. Recommend continuing medical management and BP control. Original Note: Assessment and Plan Chest pain resolved stress MPI 04/2015: mild inferior ischemia Echo 03/2016: EF 55-60%, impaired relaxation, RVSP 61 mmHg continue Imdur await left heart cath findings Non-obstructive CAD [facility] 11/2011: 50-60% mid distal LAD, 40% mid OM2, 40% distal RCA continue ASA, statin, metoprolol Hypertension Hyperlipidemia ESRD on HD Await left heart cath findings. The patient has been seen in conjunction with Dr. Stokes who agrees with the assessment and plan of care. Subjective Date of service: 04/18/16 Principal diagnosis: chest pain Interval history: Awaiting left heart cath this morning. Sinus rhythm on the monitor. Objective Last Vital Signs Temp 98.5 F 04/18/16 05:32 Pulse 72 04/18/16 07:30 Resp 18 04/18/16 05:32 BP 152/65 04/18/16 05:32 Pulse Ox 98 04/18/16 05:32 - Physical Examination General: No Apparent Distress HEENT: Positive: Normocephaly, Mucus Membranes Moist Neck: Positive: neck supple, trachea midline Cardiac: Positive: Reg Rate and Rhythm, S1/S2 Lungs: Positive: clear to auscultation Neuro: Positive: Grossly Intact Abdomen: Positive: Soft, Active Bowel Sounds. Negative: Tender Skin: Positive: Clear. Negative: Rash Musculoskeletal: Normal Range of Motion Extremities: Present: normal. Absent: edema - Labs and Meds Coagulation 04/18/16 Range/Units 05:18 PT 15.0 H (12.2-14.9) Sec. INR 1.19 H (0.87-1.13) APTT 38.7 H (24.2-36.6) Sec. CBC 04/18/16 Range/Units 05:18 WBC 5.8 (4.5-11.0) K/mm3 RBC 4.14 (3.65-5.03) M/mm3 Hgb 10.3 (10.1-14.3) gm/dl Hct 32.8 (30.3-42.9) % Plt Count 148 (140-440) K/mm3 Lymph # 1.3 (1.2-5.4) K/mm3 [place] # 0.6 (0.0-0.8) K/mm3 Eos # 0.2 (0.0-0.4) K/mm3 Baso # 0.0 (0.0-0.1) K/mm3 Comprehensive Metabolic Panel 04/18/16 Range/Units 05:18 Sodium 144 (137-145) mmol/L Potassium 4.1 (3.6-5.0) mmol/L Chloride 101.2 (98-107) mmol/L Carbon Dioxide 28 (22-30) mmol/L BUN 32 H (7-17) mg/dL Creatinine 7.2 H (0.7-1.2) mg/dL Glucose 76 (65-100) mg/dL Calcium 8.4 (8.4-10.2) mg/dL - Imaging and Cardiology EKG: image reviewed Echo: report reviewed (03/2016: EF 55-60%, impaired relaxation, RVSP 61 mmHg) - Telemetry EKG Rhythm: Sinus Rhythm - EKG Sinus rhythms and dysrhythmias: sinus rhythm AV and intraventricular conduction: right bundle branch block Myocardial infarction: septal [place] (old age or ind
--- NOTE | 2016-04-18 09:52 | Progress Note ---
Assessment and Plan - Patient Problems (1) Acute chest pain Current Visit: Yes Status: Acute Plan to address problem: Patient with history of coronary artery disease. She is being evaluated by manager pulmonary.She is getting cardiac catheterization this morning. (2) ESRD on dialysis Current Visit: Yes Status: Chronic Plan to address problem: Resume hemodialysis on a Thursday, Thursday and Thursday schedule (3) Anemia in chronic kidney disease (CKD) Current Visit: Yes Status: Acute Plan to address problem: Give erythropoietin on dialysis. (4) Abdominal pain in female patient Current Visit: Yes Status: Acute Plan to address problem: Get CT of the abdomen and pelvis with oral contrast only. (5) Hypertensive chronic kidney disease with stage 5 chronic kidney disease or end stage renal disease Current Visit: Yes Status: Acute Plan to address problem: Blood pressure is still not at goal. Medications adjusted by manager pulmonary. Follow-up blood pressure Subjective Date of service: 04/18/16 Principal diagnosis: chest pain Interval history: Patient seen in preop area. Awaiting cardiac catheterization. No chest pain this morning but did have last night. Still complaining of lower abdominal pain Objective - Exam Narrative Exam: Frail elderly -[place] lady lying in bed in no acute distress HEENT normocephalic atraumatic, pupils equal reactive to light, pink, clear oropharynx Neck supple, no thyromegaly no jugular venous distention CVS S1-S2 regular rate rhythm without murmur, rub or gallop Chest clear to auscultation Abdomen soft nondistended nontender no organomegaly no bruit bowel sounds present Extremities arthritic deformities, no edema Neuro awake, alert oriented x3 no gross deficit - Vital Signs Vital signs: Vital Signs - 12hr 04/18/16 04/18/16 04/18/16 00:53 05:32 07:30 Temperature 98.9 F 98.5 F Pulse Rate 72 Pulse Rate [ 76 78 Right Radial] Respiratory 18 18 Rate Blood Pressure 190/77 152/65 [Left Arm] O2 Sat by Pulse 99 98 Oximetry - Lab 04/18/16 05:18 04/18/16 05:18 Most recent lab results Calcium 8.4 mg/dL (8.4-10.2) 04/18/16 05:18
[2016-04-18] MEDS ORDERED: HEPARIN/NS 5000 UNIT/500ML(CATH LAB) 1,000 ML IR ONE (10:00)
[2016-04-18] MEDS ORDERED: NITROGLYCERIN SYRINGE 0 ML ONE (10:01)
[2016-04-18] MEDS: SUBLIMAZE ONE ×2 (10:15→10:23)
[2016-04-18] MEDS: VERSED ONE ×2 (10:15→10:22)
[2016-04-18] MEDS: XYLOCAINE 2% INFILTRATI ONE ×2 (10:20→10:22)
[2016-04-18] MEDS: APRESOLINE PO SCH ×3 (10:20→22:41)
[2016-04-18] MEDS: LOPRESSOR PO SCH ×2 (10:21→22:41)
[2016-04-18] MEDS: HEPARIN SUB-Q SCH ×2 (10:21→22:42)
[2016-04-18] MEDS: IMDUR PO SCH ×2 (10:21→18:22)
[2016-04-18] MEDS: PEPCID PO SCH ×2 (10:22→18:23)
[2016-04-18] MEDS: APRESOLINE ONE ×2 (10:24→10:35)
--- NOTE | 2016-04-18 11:55 | Cardiac Catherization Report ---
REFERRING PHYSICIAN: Dr. Broderick. INDICATION FOR PROCEDURE: The patient is a pleasant 85-year-old -[place] female with history of dialysis, nonobstructive disease, referred for left heart catheterization. Risks, benefits, and potential alternatives were explained at length prior to obtaining informed consent. PROCEDURE IN DETAIL: The patient was brought to laboratory supervisor in a postabsorptive state, prepped and draped in sterile fashion. She is a dialysis patient. We used the groin approach. An 8 mL of 2% lidocaine used to anesthetize the right groin. A standard 6 [place] sheath used to cannulate the right common femoral artery via modified Seldinger technique. All exchanges performed to exchange a J-tip guidewire. JL3.5 catheter used to engage the left main. No dampening or ventricularization. Cineangiography performed in multiple projections. JR4 catheter used to cross the aortic valve under fluoroscopic guidance. Left ventriculography performed in 30 KIRKL[place] and 30 QATARI projections via hand injections, catheter flushed. Manual pullback performed with continuous pressure monitoring. Catheter used to engage the right coronary. No dampening or ventricularization. Cineangiography performed in multiple projections. Next, catheter removed from the body of wire, sheath removed. Manual pressured used to achieve hemostasis. DATA: Aortic pressure is 180/70, LV pressure is 180, LVEP of 14 mmHg. Left ventriculography revealed hyperdynamic LV with estimated ejection fraction of 65%. Normal LVEDP. No evidence of aortic stenosis. CORONARY ANATOMY: This is a right dominant system. Right coronary is a moderate-sized vessel, courses AV groove, distally bifurcates in the posterior descending and posterolateral branch. No discrete stenosis noted. Left main without significant disease. It bifurcates into left anterior descending and left circumflex. The circumflex is a moderate-sized vessel, courses AV groove. 25% stenosis in the mid segment. No obstructive disease identified. The LAD is a moderate-sized vessel, courses anterior intergroove, wraps around the apex, no significant disease. ASSESSMENT: In summary, the patient is a pleasant 85-year-old -[place] female. 1. Mild nonobstructive coronary artery disease with 25% mid left circumflex stenosis. No other significant stenosis is identified. 2. Right dominant system. 3. Hyperdynamic LV function, estimated ejection fraction is greater than 65%. 4. Uncontrolled hypertension. 5. No evidence of aortic stenosis. These findings are likely consistent with hypertensive heart disease. Aggressive blood pressure control recommended. Risk factor modification. Stable cardiac status post sheath once blood pressure controlled. Bed rest for 6 hours. Dialysis later today. Results of procedure explained in length to the patient and family. All questions and concerns were addressed. JOB# [id number] SBM/NTS
--- NOTE | 2016-04-18 18:00 | Progress Note ---
Assessment and Plan Assessment and plan: Chest pain. He had abnormal stress test in April 2015 and has history of nonobstructive coronary artery disease. Patient had cardiac cath today showing mild nonobstructive coronary artery disease. Chest pain is noncardiac likely GERD. ESRD on hemodialysis. Managed by Nephrology. Hypertension. Stable. CAD, mild nonobstructive. Abdominal pain. Tab Card Press Operator has ordered a CT abdomen to rule out any serious pathology. She may be discharged home if CT abdomen negative DVT prophylaxis. Full code status History Interval history: Chest pain. shortness of breath nausea Hospitalist Physical - Physical exam Narrative exam: Gen appearance : not in acute distress, HEENT: Normocephalic atraumatic, Neck: supple, no JVD. Lungs: clear to auscultation bilaterally, no crackles no wheezes Heart: S1 and S2 regular, no murmurs no gallop Abdomen: soft, non-tender, non-distended ,normal bowel sounds Extremities: No edema, no clubbing or cyanosis Neuro: Awake alert oriented, no focal signs - Constitutional Vitals: Temp Pulse Resp BP Pulse Ox 98.6 F 66 20 170/62 97 04/18/16 17:19 04/18/16 17:19 04/18/16 17:19 04/18/16 17:19 04/18/16 15:00 General appearance: Present: no acute distress Results - Labs CBC & Chem 7: 04/18/16 05:18 04/18/16 05:18 Labs: Laboratory Last Values WBC 5.8 K/mm3 (4.5-11.0) 04/18/16 05:18 RBC 4.14 M/mm3 (3.65-5.03) 04/18/16 05:18 Hgb 10.3 gm/dl (10.1-14.3) 04/18/16 05:18 Hct 32.8 % (30.3-42.9) 04/18/16 05:18 MCV 79 fl (79-97) 04/18/16 05:18 MCH 25 pg (28-32) L 04/18/16 05:18 MCHC 32 % (30-34) 04/18/16 05:18 RDW 16.4 % (13.2-15.2) H 04/18/16 05:18 Plt Count 148 K/mm3 (140-440) 04/18/16 05:18 Lymph % (Auto) 22.1 % (13.4-35.0) 04/18/16 05:18 [place] % (Auto) 9.6 % (0.0-7.3) H 04/18/16 05:18 Eos % (Auto) 3.9 % (0.0-4.3) 04/18/16 05:18 Baso % (Auto) 0.4 % (0.0-1.8) 04/18/16 05:18 Lymph # 1.3 K/mm3 (1.2-5.4) 04/18/16 05:18 [place] # 0.6 K/mm3 (0.0-0.8) 04/18/16 05:18 Eos # 0.2 K/mm3 (0.0-0.4) 04/18/16 05:18 Baso # 0.0 K/mm3 (0.0-0.1) 04/18/16 05:18 Seg Neutrophils % 64.0 % (40.0-70.0) 04/18/16 05:18 Seg Neutrophils # 3.7 K/mm3 (1.8-7.7) 04/18/16 05:18 PT 15.0 Sec. (12.2-14.9) H 04/18/16 05:18 INR 1.19 (0.87-1.13) H 04/18/16 05:18 APTT 38.7 Sec. (24.2-36.6) H 04/18/16 05:18 Sodium 144 mmol/L (137-145) 04/18/16 05:18 Potassium 4.1 mmol/L (3.6-5.0) 04/18/16 05:18 Chloride 101.2 mmol/L (98-107) 04/18/16 05:18 Carbon Dioxide 28 mmol/L (22-30) 04/18/16 05:18 Anion Gap 19 mmol/L 04/18/16 05:18 BUN 32 mg/dL (7-17) H 04/18/16 05:18 Creatinine 7.2 mg/dL (0.7-1.2) H 04/18/16 05:18 Estimated GFR 7 ml/min 04/18/16 05:18 BUN/Creatinine Ratio 4.44 % 04/18/16 05:18 Glucose 76 mg/dL (65-100) 04/18/16 05:18 POC Glucose 80 (70-105) 04/18/16 06:43 Calcium 8.4 mg/dL (8.4-10.2) 04/18/16 05:18 Total Bilirubin 0.7 mg/dL (0.1-1.2) 04/16/16 17:20 Direct Bilirubin < 0.2 mg/dL (0-0.2) 04/16/16 17:20 Indirect Bilirubin 0.5 mg/dL 04/16/16 17:20 AST 23 units/L (5-40) 04/16/16 17:20 ALT 8 units/L (7-56) 04/16/16 17:20 Alkaline Phosphatase 204 units/L (35-129) H 04/16/16 17:20 Total Creatine Kinase 40 units/L (30-135) 04/17/16 06:04 CK-MB (CK-2) 1.2 ng/mL (0.0-4.0) 04/17/16 06:04 CK-MB (CK-2) Rel Index 3.0 (0-4) 04/17/16 06:04 Troponin T 0.024 ng/mL (0.00-0.029) 04/17/16 06:04 Total Protein 7.1 g/dL (6.3-8.2) 04/16/16 17:20 Albumin 4.0 g/dL (3.9-5) 04/16/16 17:20 Albumin/Globulin Ratio 1.3 % 04/16/16 17:20 Triglycerides 93 mg/dL (2-149) 04/16/16 17:20 Cholesterol 192 mg/dL (50-199) 04/16/16 17:20 LDL Cholesterol Direct 116 mg/dL (50-130) 04/16/16 17:20 HDL Cholesterol 58 mg/dL (40-59) 04/16/16 17:20 Cholesterol/HDL Ratio 3.31 % 04/16/16 17:20
[2016-04-18] MEDS: ZOCOR PO SCH (22:41)
[2016-04-18] MEDS ORDERED: TYLENOL PO PRN (23:30)
[2016-04-19] MEDS: APRESOLINE IV PRN (04:32)
--- NOTE | 2016-04-19 10:43 | Progress Note ---
Assessment and Plan Chest pain resolved stress MPI 04/2015: mild inferior ischemia Echo 03/2016: EF 55-60%, impaired relaxation, RVSP 61 mmHg continue Imdur Non-obstructive CAD on cath continue ASA, statin, metoprolol Hypertension Hyperlipidemia ESRD on HD Agree with D/C planning - Patient Problems (1) Chest pain Current Visit: No Status: Acute Qualifiers: Chest pain type: unspecified Qualified Code(s): R07.9 - Chest pain, unspecified (2) CAD (coronary artery disease) Current Visit: No Status: Chronic (3) HTN (hypertension) Current Visit: No Status: Chronic Subjective Date of service: 04/19/16 Principal diagnosis: chest pain Interval history: Doing better Abdominal pain is better.No cardiac sx Discussed with Dr Orellana Objective Vital Signs Temp Pulse Pulse Pulse Pulse Resp Resp 04/19/16 10:33 65 04/19/16 08:25 98.3 F 68 18 04/19/16 05:51 98.6 F 76 18 04/19/16 04:32 76 04/19/16 00:44 20 04/19/16 00:40 98.7 F 81 18 04/18/16 23:44 20 04/18/16 22:41 79 04/18/16 20:26 98.5 F 79 18 04/18/16 19:50 82 20 20 04/18/16 18:56 66 04/18/16 18:22 04/18/16 17:19 98.6 F 66 20 04/18/16 16:55 66 04/18/16 16:45 72 04/18/16 16:30 78 04/18/16 16:25 62 04/18/16 16:15 75 04/18/16 16:00 83 04/18/16 15:45 83 04/18/16 15:30 80 04/18/16 15:15 85 04/18/16 15:00 98.6 F 66 66 22 04/18/16 14:45 69 04/18/16 14:30 75 04/18/16 14:15 72 04/18/16 14:00 71 04/18/16 13:55 69 04/18/16 13:40 98.6 F 76 22 04/18/16 13:00 72 22 04/18/16 12:54 97.4 F L 71 20 04/18/16 12:30 97.4 F L 73 20 04/18/16 12:00 74 20 04/18/16 11:30 72 18 04/18/16 11:15 72 20 04/18/16 11:00 72 20 04/18/16 10:50 97.0 F L 73 20 BP BP Pulse Ox 04/19/16 10:33 04/19/16 08:25 184/77 98 04/19/16 05:51 196/79 100 04/19/16 04:32 196/79 04/19/16 00:44 04/19/16 00:40 165/70 98 04/18/16 23:44 04/18/16 22:41 167/70 04/18/16 20:26 167/70 98 04/18/16 19:50 97 04/18/16 18:56 04/18/16 18:22 170/76 04/18/16 17:19 170/62 04/18/16 16:55 170/62 04/18/16 16:45 146/62 04/18/16 16:30 175/72 04/18/16 16:25 121/60 04/18/16 16:15 122/58 04/18/16 16:00 120/63 04/18/16 15:45 129/73 04/18/16 15:30 148/60 04/18/16 15:15 134/66 04/18/16 15:00 159/56 156/66 97 04/18/16 14:45 174/54 04/18/16 14:30 163/69 04/18/16 14:15 183/60 04/18/16 14:00 201/57 04/18/16 13:55 186/70 04/18/16 13:40 185/66 04/18/16 13:00 182/78 96 04/18/16 12:54 198/84 97 04/18/16 12:30 182/73 04/18/16 12:00 186/82 04/18/16 11:30 193/78 96 04/18/16 11:15 190/70 04/18/16 11:00 192/88 95 04/18/16 10:50 196/94 - Physical Examination General: No Apparent Distress HEENT: Positive: Normocephaly, Mucus Membranes Moist Neck: Positive: neck supple, trachea midline Cardiac: Positive: Reg Rate and Rhythm Lungs: Positive: clear to auscultation Neuro: Positive: Grossly Intact Abdomen: Positive: Soft, Active Bowel Sounds. Negative: Tender Skin: Positive: Clear. Negative: Rash Musculoskeletal: Normal Range of Motion Extremities: Present: normal. Absent: edema - Imaging and Cardiology EKG: image reviewed Echo: report reviewed (03/2016: EF 55-60%, impaired relaxation, RVSP 61 mmHg) - EKG Sinus rhythms and dysrhythmias: sinus rhythm AV and intraventricular conduction: right bundle branch block Myocardial infarction: septal ID (old age or ind
--- NOTE | 2016-04-19 11:08 | Cat Scan Report ---
CT scan of abdomen and pelvis without IV contrast: History: Lower abdominal pain. Findings: Normal lung bases. No pleural or pericardial effusion. Minimal pericardial thickening. Normal liver spleen and pancreas. Patient status post cholecystectomy. No intrahepatic duct dilatation. Normal adrenals. Bilateral atrophic kidneys without hydronephrosis or mass. Normal bladder. No free intra-peritoneal fluid or air. No evidence of adenopathy. Atherosclerotic aorta without aneurysm. Distended rectum and sigmoid filled with moderate volume stool. No evidence of appendicitis or diverticulitis. Impression: Bilateral atrophic small kidneys. Moderate volume stool in the rectosigmoid.
[2016-04-19] MEDS: IMDUR PO SCH (11:18)
[2016-04-19] MEDS: HEPARIN SUB-Q SCH (11:19)
[2016-04-19] MEDS: LOPRESSOR PO SCH (11:19)
[2016-04-19] MEDS: PEPCID PO SCH (11:19)
[2016-04-19] MEDS: ECOTRIN PO SCH (11:19)
[2016-04-19] MEDS: APRESOLINE PO SCH ×3 (11:19→13:17)
[2016-04-19] MEDS ORDERED: APRESOLINE IV PRN (11:56)
--- NOTE | 2016-04-19 11:58 | Discharge Summary ---
Providers - Providers Date of Admission: 04/16/16 19:33 Date of discharge: 04/19/16 Attending physician: AUSTEN QUINTEROS 04/16/16 19:34 Consult to Physician [CONS] Routine Consulting Provider: CARINE SAXENA Reason For Exam: esrd on hd Place consult to:: Dr. Saxena Notified:: yes Phone number called:: [phone] Was contact made?: Yes If yes, spoke with:: Dr. Saxena Time called:: 19:48 Primary care physician: LEXI LEE Hospitalization Condition: Stable Hospital course: Patient is 85-year-old with a history of nonobstructive coronary artery disease , ESRD on hemodialysis. She presents with chest pain. She was given aspirin and admitted to rule out acute coronary syndrome. She was initially managed conservatively but chest pain persisted therefore cardiac cath was done. Cardiac cath showed nonobstructive single 25% lesion in mid left circumflex. Chest Pain is noncardiac, due to GERD. Patient also had abdominal pain and CT abdomen was done which was unremarkable. She was subsequently discharged home. Total time spent on discharge 32 minutes Disposition: DISCHARGED TO HOME OR SELFCARE - Discharge Diagnoses (1) Chest pain Status: Acute Qualifiers: Chest pain type: unspecified Qualified Code(s): R07.9 - Chest pain, unspecified Comment: due to GERD (2) CAD (coronary artery disease) Status: Chronic Qualifiers: Coronary Disease-Associated Artery/Lesion type: [place] artery [place] vs. transplanted heart: [place] heart Associated angina: without angina Qualified Code(s): I25.10 - Atherosclerotic heart disease of [place] coronary artery without angina pectoris (3) ESRD on dialysis Status: Chronic (4) Hypertensive urgency Status: Acute (5) GERD (gastroesophageal reflux disease) Status: Acute Qualifiers: Esophagitis presence: E Core Measure Documentation - Palliative Care Palliative Care/ Comfort Measures: Not Applicable - Core Measures Any of the following diagnoses?: none Exam - Physical Exam Narrative exam: Gen appearance : not in acute distress, HEENT: Normocephalic atraumatic, Neck: supple, no JVD. Lungs: clear to auscultation bilaterally, no crackles no wheezes Heart: S1 and S2 regular, no murmurs no gallop Abdomen: soft, non-tender, non-distended ,normal bowel sounds Extremities: No edema, no clubbing or cyanosis Neuro: Awake alert oriented, no focal signs - Constitutional Vitals: Temp Pulse Resp BP Pulse Ox 98.4 F 76 18 188/77 99 04/19/16 11:37 04/19/16 11:37 04/19/16 11:37 04/19/16 11:37 04/19/16 11:37 Plan Activity: advance as tolerated Diet: low fat, low cholesterol, low salt Additional Instructions: 1.Follow up with PCP in 1 week. 2.Continue hemodialysis as scheduled. 3.follow up with Cardiology in 1 week. Follow up with: LEXI LEE MD [Primary Care Provider] - 3-5 Days Prescriptions: Aspirin EC [Aspirin Enteric Coated TAB] 325 mg PO QDAY #30 tablet Famotidine [Pepcid] 20 mg PO BID #60 tablet ISOSORBIDE MONOnitrate [Imdur ER] 30 mg PO QDAY #30 tablet Metoprolol [Lopressor TAB] 50 mg PO BID #60 tablet hydrALAZINE [Apresoline TAB] 100 mg PO TID #30 tab
[2016-04-19] MEDS ORDERED: MIRALAX 3350 PO SCH (12:00)
[2016-04-19] MEDS ORDERED: APRESOLINE PO SCH (12:00)
[2016-04-19 15:26] VITALS: BP 156/69
--- NOTE | 2016-04-19 15:50 | Progress Note ---
Assessment and Plan - Patient Problems (1) Acute chest pain Current Visit: Yes Status: Acute Plan to address problem: Cardiac catheterization showed nonobstructive coronary artery disease. Medical management recommended by check inspector (2) ESRD on dialysis Current Visit: Yes Status: Chronic Plan to address problem: Resume hemodialysis on a Thursday, Thursday and Thursday schedule (3) Anemia in chronic kidney disease (CKD) Current Visit: Yes Status: Acute Plan to address problem: Give erythropoietin on dialysis. (4) Abdominal pain in female patient Current Visit: Yes Status: Acute Plan to address problem: CT scan shows bilateral atrophic kidneys with constipation. We'll give laxatives (5) Hypertensive chronic kidney disease with stage 5 chronic kidney disease or end stage renal disease Current Visit: Yes Status: Acute Plan to address problem: Blood pressure is still not at goal. Medications adjusted by check inspector. Follow-up blood pressure Subjective Date of service: 04/19/16 Principal diagnosis: chest pain Interval history: Patient seen lying in bed. No chest pain. No shortness of breath. No nausea or vomiting Objective - Exam Narrative Exam: Frail elderly -[place] lady lying in bed in no acute distress HEENT normocephalic atraumatic, pupils equal reactive to light, pink, clear oropharynx Neck supple, no thyromegaly no jugular venous distention CVS S1-S2 regular rate rhythm without murmur, rub or gallop Chest clear to auscultation Abdomen soft nondistended nontender no organomegaly no bruit bowel sounds present Extremities arthritic deformities, no edema Neuro awake, alert oriented x3 no gross deficit - Vital Signs Vital signs: Vital Signs - 12hr 04/19/16 04/19/16 04/19/16 04:32 05:51 08:25 Temperature 98.6 F 98.3 F Pulse Rate 76 Pulse Rate [ 76 Apical] Pulse Rate [ 68 Left Radial] Respiratory 18 18 Rate Blood Pressure 196/79 Blood Pressure 196/79 184/77 [Left Arm] O2 Sat by Pulse 100 98 Oximetry 04/19/16 04/19/16 04/19/16 10:33 11:37 15:22 Temperature 98.4 F 98.5 F Pulse Rate 65 Pulse Rate [ Apical] Pulse Rate [ 76 72 Left Radial] Respiratory 18 18 Rate Blood Pressure Blood Pressure 188/77 156/69 [Left Arm] O2 Sat by Pulse 99 97 Oximetry - Lab 04/18/16 05:18 04/18/16 05:18 Most recent lab results Calcium 8.4 mg/dL (8.4-10.2) 04/18/16 05:18
[2016-04-19] MEDS ORDERED: PNEUMOVAX 23 IM ONE (16:16)
[2016-04-20] MEDS ORDERED: PNEUMOVAX 23 IM ONE (12:00)
== END 2016-04-19 16:24 | disposition home or self-care (01) | DRG 286 ==
LOC: ED 16:20 → 4A 19:33
PROVIDERS: ADMIT Hospitalist; ATTEND Internal Medicine
PROC: 4A023N7 Measurement of Cardiac Sampling and Pressure, Left Heart, Percutaneous Approach (ICD-10-PCS; principal; 2016-04-18)
PROC: B2151ZZ Fluoroscopy of Left Heart using Low Osmolar Contrast (ICD-10-PCS; 2016-04-18)
DX: I16.0 Hypertensive urgency (principal); N18.6 End stage renal disease; I25.119 Atherosclerotic heart disease of native coronary artery with unspecified angina pectoris; I12.0 Hypertensive chronic kidney disease with stage 5 chronic kidney disease or end stage renal disease; D63.1 Anemia in chronic kidney disease; E78.5 Hyperlipidemia, unspecified; M19.90 Unspecified osteoarthritis, unspecified site; Z99.2 Dependence on renal dialysis; Z90.49 Acquired absence of other specified parts of digestive tract; Z87.891 Personal history of nicotine dependence; Z98.51 Tubal ligation status; Z90.710 Acquired absence of both cervix and uterus; Z79.82 Long term (current) use of aspirin; Z82.49 Family history of ischemic heart disease and other diseases of the circulatory system
CPT/HCPCS: 36415; 71020; 74176; 80048; 80061; 80074; 82550; 82553; 82962; 84484; 85025; 85610; 85730; 90471; 90732; 93005; 93010; 93306; 93458; 99285; C1894; G0009; J0360; J0885; J1644; J2250; J2270; J3010; J7030; J7040; Q9967

== ENCOUNTER 2016-11-18 07:47 | Outpatient (CLI) | payer MEDICARE ==
--- NOTE | 2016-11-18 09:48 | Ultrasound Report ---
Bilateral Baseline digital diagnostic mammogram with CAD and right whole breast ultrasound including all 4 quadrants and subareolar regions. History: 86 year-old female with no prior mammogram presents with right breast skin thickening. Findings: The breast parenchyma is heterogeneously dense. Numerous bilateral linear calcifications have benign features. No suspicious microcalcifications are seen. There is moderate skin thickening on the right. There is no nipple retraction. Right whole breast ultrasound demonstrates a 9 x 6 by 8mm irregular hypoechoic mass at the 2:00 position in the subareolar region. There is no acoustic shadowing. Minimal vascular flow is seen peripherally. No additional focal abnormalities are seen. Impression: Irregular hypoechoic right breast mass at 2:00 position with associated skin thickening. BI-RADS code:5 Recommendation: Ultrasound guided core biopsy. Comment: These findings were discussed in detail with the patient and her [id number] as well as her referring physician .
--- NOTE | 2016-11-20 16:04 | Mammography Report ---
Bilateral Baseline digital diagnostic mammogram with CAD and right whole breast ultrasound including all 4 quadrants and subareolar regions. History: 86 year-old female with no prior mammogram presents with right breast skin thickening. Findings: The breast parenchyma is heterogeneously dense. Numerous bilateral linear calcifications have benign features. No suspicious microcalcifications are seen. There is moderate skin thickening on the right. There is no nipple retraction. Right whole breast ultrasound demonstrates a 9 x 6 by 8mm irregular hypoechoic mass at the 2:00 position in the subareolar region. There is no acoustic shadowing. Minimal vascular flow is seen peripherally. No additional focal abnormalities are seen. Impression: Irregular hypoechoic right breast mass at 2:00 position with associated skin thickening. BI-RADS code:5 Recommendation: Ultrasound guided core biopsy. Comment: These findings were discussed in detail with the patient and her [id number] as well as her referring physician .
== END 2016-11-18 07:48 | disposition home or self-care (01) ==
LOC: MAMMO 07:47
PROVIDERS: ATTEND Internal Medicine Nephrology
DX: N63 Unspecified lump in breast (principal); N64.59 Other signs and symptoms in breast; I13.2 Hypertensive heart and chronic kidney disease with heart failure and with stage 5 chronic kidney disease, or end stage renal disease; I50.9 Heart failure, unspecified; N18.6 End stage renal disease; D63.1 Anemia in chronic kidney disease; I25.10 Atherosclerotic heart disease of native coronary artery without angina pectoris
CPT/HCPCS: 76641; G0204; 77066

== ENCOUNTER 2016-12-16 08:01 | Outpatient (CLI) | payer MEDICARE ==
--- NOTE | 2016-12-16 09:51 | Ultrasound Report ---
RIGHT BREAST ULTRASOUND: 12/16/16 08:01:00 CLINICAL: The patient presented for ultrasound guided biopsy of a subareolar mass described to be at 2 o'clock on an ultrasound from 11/18/16. COMPARISON: 11/18/16 bilateral mammogram and right breast ultrasound. FINDINGS: Ultrasound of the right breast demonstrated no mass, cyst or shadowing to correlate with the previously described finding. Persistent moderate skin thickening of the breast but slight improvement. Mild edema of the breast. On physical exam, the right arm is markedly swollen and there is asymmetric edema of the right breast when compared to the left. IMPRESSION: Persistent nonspecific skin thickening and edema of the right breast but no mass to biopsy. Recommend a short-term three month followup right mammogram and right breast ultrasound and surgical consultation with a breast specialist. BI-RADS 3 - - Probably Benign
== END 2016-12-16 08:02 | disposition home or self-care (01) ==
LOC: SPVWC 08:01
PROVIDERS: ATTEND Internal Medicine Nephrology
DX: N63 Unspecified lump in breast (principal); R60.0 Localized edema; I13.0 Hypertensive heart and chronic kidney disease with heart failure and stage 1 through stage 4 chronic kidney disease, or unspecified chronic kidney disease; I50.9 Heart failure, unspecified; N18.6 End stage renal disease; D63.1 Anemia in chronic kidney disease

== ENCOUNTER 2017-02-23 11:09 | Day surgery (SDC) | payer MEDICARE ==
[2017-02-23] MEDS ORDERED: SODIUM CHLORIDE FLUSH SYRINGE 10 ML IV NR (12:00)
[2017-02-23 12:19] LABS: Calcium 8.8 mg/dL (8.4-10.2); Chloride 100.4 mmol/L (98-107); Potassium 4.7 mmol/L (3.6-5.0)
--- NOTE | 2017-02-23 12:44 | Short Stay Summary ---
Short Stay Documentation Date of service: 02/23/17 - History Principal diagnosis: Malfunctioning dialysis access Past Medical History: dialysis, ESRD Past Surgical History: Other (multiple AVF) Social history: no significant social history - Allergies and Medications Current Medications: Allergies cefazolin sodium [From Ancef] Allergy (Verified 06/29/14 10:46) Unknown enalapril maleate [From Vasotec] Allergy (Verified 06/29/14 10:46) Angioedema enalaprilat dihydrate [From Vasotec] Allergy (Verified 06/29/14 10:46) Angioedema pseudoephedrine HCl [From Sudafed] Allergy (Verified 06/29/14 10:46) Swelling Sulfa (Sulfonamide Antibiotics) Allergy (Verified 06/29/14 10:46) Hives Home Medications Medication Instructions Recorded Confirmed Last Taken Type Calcium Acetate [Phoslo] 667 mg PO QAM&QHS 03/27/13 02/23/17 02/22/17 History 667mg Gabapentin 100 mg PO DAILY 03/27/13 02/23/17 02/22/17 History 100mg Simvastatin [Zocor TAB] 40 mg PO DAILY 03/27/13 02/23/17 02/22/17 History 40mg B Complex 11/Folic/C/Biot/Zinc 1 each PO DAILY 05/23/15 02/23/17 02/22/17 History [Dialyvite with Zinc Tablet] 1 Cholecalciferol Vit D3 [Vitamin D3] 1,000 unit PO QDAY 05/23/15 02/23/17 History 1000 units Aspirin EC [Aspirin Enteric Coated 325 mg PO QDAY #30 tablet 04/19/16 02/23/17 02/22/17 Rx TAB] 325mg Famotidine [Pepcid] 20 mg PO BID #60 tablet 04/19/16 02/23/17 02/22/17 Rx 20mg ISOSORBIDE MONOnitrate [Imdur ER] 30 mg PO QDAY #30 tablet 04/19/16 02/23/17 Rx 30mg Metoprolol [Lopressor TAB] 50 mg PO BID #60 tablet 04/19/16 02/23/17 02/22/17 Rx 50mg hydrALAZINE [Apresoline TAB] 100 mg PO TID #30 tab 04/19/16 02/23/17 02/22/17 Rx 100mg Active Medications Sodium Chloride (Sodium Chloride Flush Syringe 10 Ml) 10 ml IV PRN NR Stop: 03/05/17 11:59 - Physical exam General appearance: no acute distress Integumentary: no rash HEENT: Atraumatic Lungs: Normal air movement Breasts: deferred Heart: Regular rate Gastrointestinal: normal Female Genitourinary: deferred Rectal Exam: deferred Extremities: no ischemia Neurological: Normal speech, Normal tone - Brief post op/procedure progress note Date of procedure: 02/23/17 Pre-op diagnosis: Thrombosed AVG Post-op diagnosis: same Procedure: RUE declot, venoplasty with DCB Anesthesia: local Surgeon: NITHIN GARCIA Estimated blood loss: minimal Pathology: none Condition: stable - Disposition Condition at discharge: Good Disposition: DC-01 TO HOME OR SELFCARE Short Stay Discharge Plan Activity: advance as tolerated Weight Bearing Status: Weight Bear as Tolerated Diet: renal Wound: keep clean and dry, per your surgeon's advice Follow up with: LEXI LEE MD [Primary Care Provider] - 7 Days Forms: AVG Arteriogram D/CInstruction
[2017-02-23] MEDS ORDERED: XYLOCAINE 2% INFILTRATI ONE (12:48)
[2017-02-23] MEDS ORDERED: HEPARIN/NS 5000 UNIT/500ML(CATH LAB) 1,000 ML IR ONE (12:48)
[2017-02-23] MEDS ORDERED: CATHFLO ONE (13:07)
[2017-02-23] MEDS ORDERED: WATER FOR INJ (PF) 10 ML ONE (13:08)
[2017-02-23] MEDS ORDERED: HEPARIN 10,000 UNITS/10 ML ONE (13:11)
[2017-02-23] MEDS ORDERED: HEPARIN/NS 5000 UNIT/500ML(CATH LAB) 500 ML IR ONE (13:41)
--- NOTE | 2017-02-23 14:32 | Operative Report ---
Operative Report Operative Report: EXAM: RIGHT UPPER EXTREMITY FISTULOGRAM, THROMBECTOMY, VENOPLASTY OF CENTRAL VENOUS STENOSIS WITH DRUG-COATED BALLOON CLINICAL INDICATION: PATIENT WITH THROMBOSED RIGHT UPPER EXTREMITY GRAFT AND RECURRENT CENTRAL VENOUS STENOSIS DATE: 02/23/2017 PROCEDURE: Following an explanation of the risks, benefits and alternatives; written informed consent was obtained. The patient was brought to the angiographic suite and placed in supine position on the examination table. Initial ultrasound evaluation of the right arm demonstrated thrombus extending from the arterial anastomosis to the axilla. The central veins were not imaging with ultrasound of. The patient's right upper arm was prepped and draped in usual sterile fashion. 1% lidocaine was used for anesthesia. Under ultrasound guidance, the graft was cannulated towards the venous anastomosis using a 7 cm 21-gauge needle. A 0.018 guidewire was advanced centrally under fluoroscopy. The needle was removed and a micro-sheath placed. The 0.018 guidewire was exchanged for a 0.035 guidewire and the micro-sheath exchanged for a 7 [place] vascular sheath. A 4 [place] vertebral catheter was advanced over the guidewire centrally. There is complete occlusion of the central veins extending from the SVC to the sheath insertion site. The central venous stenosis has completely occluded. A 0.035 guidewire and the 4 [place] vertebral catheter were manipulated through the occluded Central venous stenosis. Contrast was injected through the catheter to document intravenous positioning. 4 mg of TPA was then infused throughout the clot as the vertebral catheter was withdrawn throughout the length of the clot to the sheath insertion site. Following a dwell time of 10 minutes, mechanical thrombectomy with a AngioJet mechanical thrombectomy device was performed from the central veins to the sheath insertion site. Post thrombectomy venoplasty was then performed using an 8 mm balloon from the central veins to the sheath insertion site. Accessed towards the arterial anastomosis was obtained in a similar fashion as above under ultrasound guidance and a 6 [place] sheath placed towards the arterial anastomosis. A 0.035 guidewire and 4 [place] vertebral catheter were advanced to the arterial anastomosis. Contrast was injected which demonstrated thrombus extending from the arterial anastomosis to the sheath insertion site. The catheter was removed over the guidewire and a 5.5 [place] balloon was advanced over the guidewire. The arterial plug was swept multiple times. The vertebral catheter was again advanced into the brachial artery over the guidewire and the guidewire were removed. Post thrombectomy imaging demonstrated a significant 80% stenosis 2 cm distal to the arterial anastomosis. This was sequentially dilated using a 5 mm balloon by a 7 mm balloon. Post venoplasty imaging demonstrated reduction of the stenosis to less than 20%. Attention was then turned towards the Central venous stenosis/occlusion. The vertebral catheter and guidewire were manipulated across the stenosis the vertebral catheter was removed and venoplasty was performed using a 12 mm x 40 mm Lutonix drug-coated balloon insufflated to 4 antony for 2 minutes. Post venoplasty imaging demonstrated reduction of the stenosis to 40%. At this point, the catheters, guidewires and she's were removed and hemostasis achieved using 4-0 Vicryl suture. Palpable thrill was present throughout the length of the graft at the conclusion of the case. Continuous cardiopulmonary monitoring was utilized. No conscious sedation was given secondary to patient's preference. The patient tolerated the procedure well. There were no immediate post procedure competitions. IMPRESSION: 1) Right upper extremity fistulogram demonstrating thrombus extending from the arterial anastomosis to the SVC. 2) Mechanical thrombectomy using AngioJet mechanical thrombectomy device. 3) Additional imaging demonstrating 80% juxta anastomotic stenosis and occlusion of the SVC. 4) Venoplasty of the juxta anastomotic stenosis reducing the stenosis to less than 20%. 5) Venoplasty of the Central venous stenosis using drug-coated balloon with residual less than 40% stenosis. A palpable thrill is present at the conclusion of the case.
[2017-02-23 14:53] VITALS: BP 183/62
--- NOTE | 2017-02-24 08:02 | Vascular Lab Report ---
MISCELLANEOUS VESSEL IDENTIFICATION: The arteriovenous access was identified in the left upper extremity and under real-time ultrasound guidance was cannulated. IMPRESSION: Successful ultrasound guided cannulation of the arteriovenous access site.
== END 2017-02-23 15:00 | disposition home or self-care (01) ==
LOC: CATHLABREC 11:09
PROVIDERS: ATTEND Radiology Diagnostic Radiology
DX: T82.868A Thrombosis due to vascular prosthetic devices, implants and grafts, initial encounter (principal); T82.858A Stenosis of other vascular prosthetic devices, implants and grafts, initial encounter; I25.10 Atherosclerotic heart disease of native coronary artery without angina pectoris; I13.2 Hypertensive heart and chronic kidney disease with heart failure and with stage 5 chronic kidney disease, or end stage renal disease; N18.6 End stage renal disease; M19.90 Unspecified osteoarthritis, unspecified site; Z98.51 Tubal ligation status; Z88.2 Allergy status to sulfonamides; Z88.8 Allergy status to other drugs, medicaments and biological substances; Z79.899 Other long term (current) drug therapy; Z79.82 Long term (current) use of aspirin; Z98.42 Cataract extraction status, left eye; Z98.41 Cataract extraction status, right eye; Z90.49 Acquired absence of other specified parts of digestive tract; Z90.710 Acquired absence of both cervix and uterus; Z98.890 Other specified postprocedural states; Z90.89 Acquired absence of other organs; Y83.2 Surgical operation with anastomosis, bypass or graft as the cause of abnormal reaction of the patient, or of later complication, without mention of misadventure at the time of the procedure
CPT/HCPCS: 36415; 36905; 36907; 76937; 80048; 99152; 99153; C1725; C1751; C1757; C1769; C1894; J1644; J2997; Q9967

== ENCOUNTER 2017-03-01 18:35 | Inpatient (IN) | payer MEDICARE ==
[2017-03-01 19:45] LABS: Basophils % (Auto) 0.6 % (0.0-1.8); Eosinophils % (Auto) 6.6 % (0.0-4.3); Hematocrit 30.7 % (30.3-42.9); Hemoglobin 9.8 gm/dl (10.1-14.3); Mean Corpuscular HGB Conc 32 % (30-34); Mean Corpuscular Volume 78 fl (79-97); Platelet Count 163 K/mm3 (140-440); Red Blood Count 3.96 M/mm3 (3.65-5.03); Red Cell Distribution Width 15.9 % (13.2-15.2); White Blood Count 5.8 K/mm3 (4.5-11.0)
[2017-03-01 20:00] LABS: Albumin 3.6 g/dL (3.9-5); Albumin/Globulin Ratio 1.7 %; Alkaline Phosphatase 149 units/L (35-129); BUN/Creatinine Ratio 8; Blood Urea Nitrogen 61 mg/dL (7-17); Calcium 8.7 mg/dL (8.4-10.2); Carbon Dioxide 29 mmol/L (22-30); Glucose 84 mg/dL (65-100); Total Protein 5.7 g/dL (6.3-8.2)
[2017-03-01 20:01] LABS: Anion Gap 20 mmol/L; Chloride 96.3 mmol/L (98-107); Potassium 4.1 mmol/L (3.6-5.0); Sodium 141 mmol/L (137-145)
[2017-03-01 20:02] LABS: Mean Corpuscular Hemoglobin 25 pg (28-32)
[2017-03-01 20:05] LABS: Alanine Aminotransferase < 5 units/L (7-56)
[2017-03-01] MEDS ORDERED: DILAUDID IV ONE (22:36)
[2017-03-01] MEDS ORDERED: ZOFRAN IV ONE (22:43)
--- NOTE | 2017-03-02 00:31 | Cat Scan Report ---
FINAL REPORT EXAM: CT HEAD/BRAIN WO CON HISTORY: right leg weak/numb TECHNIQUE: Standard unenhanced CT of the head at 5.0 millimeter axial increments. PRIORS: CT head 08/15/2014 FINDINGS: The ventricular system is normal in size and configuration. There is. Mild cerebral atrophy again noted. Several small areas of low-density in the periventricular white matter bilaterally are similar to the previous study, consistent with small vessel ischemic changes. There is no evidence for mass lesion, mass effect, midline shift, acute intracranial hemorrhage, or acute ischemia/ infarction. No evidence for acute skull fracture is seen. No abnormality in the overlying scalp soft tissues is seen. Visualized paranasal sinuses are clear. IMPRESSION: No acute intracranial process noted. No change. Atrophy and small vessel ischemic changes again noted.
--- NOTE | 2017-03-02 00:45 | Cat Scan Report ---
FINAL REPORT EXAM: CT ABDOMEN PELVIS WO CON HISTORY: right leg weak/numb, suprapubic pain TECHNIQUE: Standard unenhanced CT of the abdomen and pelvis. Coronal and sagittal reconstruction was also performed PRIORS: CT a/P 04/19/2016 FINDINGS: Within the abdomen, the liver, spleen, pancreas, and adrenal glands are unremarkable. Gallbladder has been surgically removed. The kidneys are atrophic, unchanged. No evidence for retroperitoneal or pelvic lymphadenopathy is seen. Moderate stool is present throughout the colon. There is a small amount of nonspecific low-density free fluid in the dependent pelvis. The bowel loops have normal caliber. No soft tissue mass, loculated fluid collection, inflammatory change, or free air is seen within the abdomen or pelvis. The appendix has been surgically removed. Moderate calcification of aorta is seen. A tiny midline umbilical hernia, unchanged, containing only fat. Within the pelvis, the bladder is collapsed. The uterus has been surgically removed. No evidence for mass or lymphadenopathy is seen in the pelvis. Images through the upper abdomen include the lung bases which demonstrate linear fibrotic changes in each lung base, stable. Bony structures show diffuse sclerosis, unchanged. IMPRESSION: No acute intra-abdominal process noted. Stable exam.
--- NOTE | 2017-03-02 01:46 | Emergency Department Report ---
ED Extremity Problem HPI - General Chief complaint: Extremity Problem,Nontraumatic Stated complaint: CANT STAND UP Time Seen by Provider: 03/01/17 22:06 Source: patient, EMS Mode of arrival: Wheelchair Limitations: No Limitations - History of Present Illness Initial comments: 86-year-old female with past medical history of end-stage renal disease on dialysis, CHF, CAD, hypertension and previous hysterectomy, appendectomy, and cholecystectomy presents to the hospital with complaints of right leg pain and suprapubic abdominal pain. Right leg pain was sudden onset at 1 PM and occurred while standing. Patient describes pain as severe and associated with numbness to the right leg. Her son helped her to bed but upon awakening at 8: 30 PM she continued to have pain and weakness and therefore decided to come to the ER. No recent trauma reported. No recent travel or history of PE/DVT reported. Patient denies history of sciatica or back pain but does has a history of bilateral pins and needle sensation to feet. No other extremity weakness or numbness reported. She reports ongoing suprapubic pain 3 weeks secondary to UTI. Although patient does not make urine and she states that she had similar pain in the past with UTI and on the last 3 weeks she has been on antibiotics without improvement. No reports of fever, nausea, vomiting, or diarrhea. Patient has been compliant with dialysis. Junior Estimator: Dr. Rosenberg Severity scale (0 -10): 0 - Related Data Home Medications Medication Instructions Recorded Confirmed Last Taken Gabapentin 100 mg PO DAILY 03/27/13 03/01/17 02/22/17 100mg Simvastatin [Zocor TAB] 40 mg PO DAILY 03/27/13 03/01/17 02/22/17 40mg Previous Rx's Medication Instructions Recorded Last Taken Type Aspirin EC [Aspirin Enteric Coated 325 mg PO QDAY #30 tablet 04/19/16 02/22/17 Rx TAB] 325mg Metoprolol [Lopressor TAB] 50 mg PO BID #60 tablet 04/19/16 02/22/17 Rx 50mg hydrALAZINE [Apresoline TAB] 100 mg PO TID #30 tab 04/19/16 02/22/17 Rx 100mg Allergies Allergy/AdvReac Type Severity Reaction Status Date / Time cefazolin sodium [From [facility]] Allergy Unknown Verified 06/29/14 10:46 enalapril maleate Allergy Angioedema Verified 06/29/14 10:46 [From Vasotec] enalaprilat dihydrate Allergy Angioedema Verified 06/29/14 10:46 [From Vasotec] pseudoephedrine HCl Allergy Swelling Verified 06/29/14 10:46 [From Sudafed] Sulfa (Sulfonamide Allergy Hives Verified 06/29/14 10:46 Antibiotics) ED Review of Systems ROS: Stated complaint: CANT STAND UP Other details as noted in HPI Comment: All other systems reviewed and negative Other: Constitutional: No fevers chills Eyes: No eye pain visual changes ENT: No ear pain or throat pain Neck: Denies pain Respiratory: Denies cough wheezing shortness of breath Cardiovascular: Denies chest pain, palpitations, syncope GI: Denies nausea, vomiting, diarrhea : no urine output Musculoskeletal: Denies back pain Skin: Denies rash, lesions, erythema Neurologic: Denies headache, numbness, weakness Psychiatric: Denies suicidal ideation, hallucinations ED Past Medical Hx - Past Medical History Hx Hypertension: Yes Hx Heart Attack/AMI: (coronary artery disease) Hx Congestive Heart Failure: Yes Hx Renal Disease: Yes (dialysis MWF) Hx Arthritis: Yes Hx HIV: No - Surgical History Hx Cholecystectomy: Yes Hx Appendectomy: Yes Additional Surgical History: Hysterectomy, tubal ligation, fistula in right arm , "surgery to place a plate in neck" - Social History Smoking Status: Former Smoker Substance Use Type: None - Medications Home Medications: Home Medications Medication Instructions Recorded Confirmed Last Taken Type Gabapentin 100 mg PO DAILY 03/27/13 03/01/17 02/22/17 History 100mg Simvastatin [Zocor TAB] 40 mg PO DAILY 03/27/13 03/01/17 02/22/17 History 40mg Aspirin EC [Aspirin Enteric Coated 325 mg PO QDAY #30 tablet 04/19/16 03/01/17 02/22/17 Rx TAB] 325mg Metoprolol [Lopressor TAB] 50 mg PO BID #60 tablet 04/19/16 03/01/17 02/22/17 Rx 50mg hydrALAZINE [Apresoline TAB] 100 mg PO TID #30 tab 04/19/16 03/01/17 02/22/17 Rx 100mg ED Physical Exam - General Limitations: No Limitations - Other Other exam information: General: No limitations, patient is alert in no acute distress Head exam: Atraumatic, normocephalic Eyes exam: Normal appearance ENT: Moist mucous membrane, normal oropharynx Neck exam: Normal inspection, full range of motion, no meningismus nontender Respiratory exam: Clear to auscultation bilateral, no wheezes, rales, crackles Cardiovascular: Normal rate and rhythm, normal heart sounds Abdomen: Soft, nondistended, suprapubic tenderness, with normal bowel sounds, no rebound, or guarding Extremity: Full range of motion normal inspection no deformity. No edema or calf asymmetry. Tenderness to the right lateral calf muscle to palpation. Limited plantar and dorsiflexion secondary to pain that is weaker compared to the left. 2+ DP pulse on the right. Back: Normal Inspection, full range of motion, no tenderness Neurologic: Alert, oriented x3, cranial nerves intact, right lower leg weakness and would not lift right leg off the bed secondary to pain. 5/5 upper and left lower extremity strength. Sensation grossly intact. Psychiatric: normal affect, normal mood Skin: Warm, dry, intact ED Course Vital Signs 03/01/17 03/01/17 03/01/17 19:09 21:32 22:31 Temperature 98.7 F 98.4 F Pulse Rate 70 63 72 Respiratory 18 14 11 L Rate Blood Pressure 140/46 178/62 Blood Pressure 165/54 [Left] O2 Sat by Pulse 98 99 100 Oximetry 03/01/17 03/02/17 23:31 01:01 Temperature Pulse Rate 76 71 Respiratory 12 18 Rate Blood Pressure 131/44 166/55 Blood Pressure [Left] O2 Sat by Pulse 96 98 Oximetry - Reevaluation(s) Reevaluation #1: 03/02/17 01:55 After receiving the Dilaudid 0.5 mg and Zofran patient has improved strength in the right leg and reports pain as 0/10 - Consultations Consultation #1: 03/02/17 01:[address] Marquez, we will admit pt to obtaine doppler and dialysis tomorrow prior to d/c since doppler is not available tonight and pt unable to return tomorrow as an outpatient due to scheduled dialysis ED Medical Decision Making - Lab Data Result diagrams: 03/01/17 19:29 03/01/17 19:29 Lab Results 03/01/17 03/01/17 Range/Units 19:29 19:29 WBC 5.8 (4.5-11.0) K/mm3 RBC 3.96 (3.65-5.03) M/mm3 Hgb 9.8 L (10.1-14.3) gm/dl Hct 30.7 (30.3-42.9) % MCV 78 L (79-97) fl MCH 25 L (28-32) pg MCHC 32 (30-34) % RDW 15.9 H (13.2-15.2) % Plt Count 163 (140-440) K/mm3 Lymph % (Auto) 16.1 (13.4-35.0) % Ray % (Auto) 8.5 H (0.0-7.3) % Eos % (Auto) 6.6 H (0.0-4.3) % Baso % (Auto) 0.6 (0.0-1.8) % Lymph # 0.9 L (1.2-5.4) K/mm3 Ray # 0.5 (0.0-0.8) K/mm3 Eos # 0.4 (0.0-0.4) K/mm3 Baso # 0.0 (0.0-0.1) K/mm3 Seg Neutrophils % 68.2 (40.0-70.0) % Seg Neutrophils # 3.9 (1.8-7.7) K/mm3 Sodium 141 (137-145) mmol/L Potassium 4.1 (3.6-5.0) mmol/L Chloride 96.3 L (98-107) mmol/L Carbon Dioxide 29 (22-30) mmol/L Anion Gap 20 mmol/L BUN 61 H (7-17) mg/dL Creatinine 7.8 H (0.7-1.2) mg/dL Estimated GFR 6 ml/min BUN/Creatinine Ratio 8 % Glucose 84 (65-100) mg/dL Calcium 8.7 (8.4-10.2) mg/dL Total Bilirubin 0.40 (0.1-1.2) mg/dL AST 13 (5-40) units/L ALT < 5 L (7-56) units/L Alkaline Phosphatase 149 H (35-129) units/L Total Protein 5.7 L (6.3-8.2) g/dL Albumin 3.6 L (3.9-5) g/dL Albumin/Globulin Ratio 1.7 % - Radiology Data Radiology results: report reviewed CT head: No acute findings CT abdomen and pelvis noncontrast, no acute findings - Medical Decision Making Plans admit patient to the hospital for further treatment included Doppler examination in the a.m. Nephrology to manage dialysis. Patient insisted UTI with no leukocytosis, fever and negative CT abdomen and pelvis and patient does not have any urine output at her baseline. She appears to have ongoing suprapubic abdominal pain with unremarkable CT - Differential Diagnosis radiculopathy, sciatica, DVT, arthritis, CVA Critical Care Time: No Critical care attestation.: If time is entered above; I have spent that time in minutes in the direct care of this critically ill patient, excluding procedure time. ED Disposition Clinical Impression: Right leg pain, ESRD (end stage renal disease) on dialysis Disposition: OP ADMIT IP TO THIS HOSP Is pt being admited?: Yes Condition: Stable Time of Disposition: 01:48 (Dr Mayberry/hosp)
[2017-03-02] MEDS ORDERED: APRESOLINE IV PRN (02:58)
[2017-03-02] MEDS ORDERED: ZOFRAN IV PRN (02:58)
[2017-03-02] MEDS ORDERED: TYLENOL PO PRN (02:58)
[2017-03-02] MEDS ORDERED: DULCOLAX PR PRN (02:58)
[2017-03-02] MEDS ORDERED: MILK OF MAGNESIA PO PRN (02:58)
[2017-03-02] MEDS ORDERED: PERCOCET 5/325 PO PRN (02:58)
--- NOTE | 2017-03-02 03:08 | History and Physical Report ---
History of Present Illness Date of examination: 03/02/17 History of present illness: 86-year-old woman with a history of coronary artery disease, end-stage renal disease on dialysis, hypertension, CHF comes to the emergency room with complaints of right leg pain that developed suddenly today. Described the pain as a heaviness, constant, intensity 7/10, no radiation, had difficulty ambulating and pain was relieved with pain medication given in the emergency room. No shortness of breath, palpitations Review Of Systems: Constitutional: no weight loss Ears, eyes, nose, mouth and throat: no nasal congestion, no nasal discharge, no sinus pressure, blurry vision, diplopia Neck: No neck pain or rigidity. Cardiovascular: no chest pain, orthopnea, palpitations Respiratory: No shortness of breath, cough Gastrointestinal: no abdominal pain, hematochezia Genitourinary : no dysuria, frequency , hematuria Musculoskeletal: no muscle ache Integumentary: no rash, no pruritis Neurological: no parathesias, focal weakness Endocrine: no cold or heat intolerance, no polyuria or polydipsia Hematologic/Lymphatic: no easy bruising, no easy bleeding, no gland swelling Allergic/Immunologic: no urticaria, no angioedema. PAST MEDICAL HISTORY:coronary artery disease, end-stage renal disease on dialysis, hypertension, CHF PAST SURGICAL HISTORY:cholecystectomy, hysterectomy, AV Fistula, neck surgery FAMILY HISTORY:hypertension SOCIAL HISTORY:denies: smoking, alcohol abuse, prescription drug abuse, IV drug use Medications and Allergies Allergies Allergy/AdvReac Type Severity Reaction Status Date / Time cefazolin sodium [From Ancef] Allergy Unknown Verified 06/29/14 10:46 enalapril maleate Allergy Angioedema Verified 06/29/14 10:46 [From Vasotec] enalaprilat dihydrate Allergy Angioedema Verified 06/29/14 10:46 [From Vasotec] pseudoephedrine HCl Allergy Swelling Verified 06/29/14 10:46 [From Sudafed] Sulfa (Sulfonamide Allergy Hives Verified 06/29/14 10:46 Antibiotics) Home Medications Medication Instructions Recorded Confirmed Last Taken Type Gabapentin 100 mg PO DAILY 03/27/13 03/09/17 1 Day Ago History ~03/08/17 Aspirin EC [Aspirin Enteric Coated 325 mg PO QDAY #30 tablet 04/19/16 03/09/17 1 Day Ago Rx TAB] ~03/08/17 Acetaminophen [Acetaminophen TAB] 650 mg PO Q4H PRN tablet 03/02/17 03/09/17 2 Weeks Ago Rx ~02/23/17 Bisacodyl [Dulcolax suppos] 10 mg UT QDAY PRN supp.rect 03/02/17 03/09/17 1 Week Ago Rx ~03/02/17 Metoprolol [Lopressor TAB] 50 mg PO BID #60 tablet 03/02/17 03/09/17 1 Day Ago Rx ~03/08/17 Simvastatin [Zocor TAB] 40 mg PO DAILY #30 tablet 03/02/17 03/09/17 1 Day Ago Rx ~03/08/17 hydrALAZINE [Apresoline TAB] 100 mg PO TID #30 tab 03/02/17 03/09/17 1 Day Ago Rx ~03/08/17 Exam - Physical Exam Narrative exam: Gen. appearance: Patient lying in bed in no acute distress HEENT: Normocephalic/atraumatic, pupils equal round reactive to light, extra alkaline movement intact, no scleral icterus, no JVD or thyromegaly or nodule, neck is supple, mucous membrane moist, no erythema or exudate Heart: S1-S2, regular rate and rhythm Lungs: Clear to auscultation bilateral breathing comfortable Abdomen: Positive bowel sounds, nontender, nondistended, no organomegaly Extremities: No edema, cyanosis, clubbing Neuro:: Oriented 3 , cranial nerves II-12 intact, speech, motor intact Skin: No rash, nodules, warm dry - Constitutional Vitals: Temp Pulse Resp BP Pulse Ox 98.4 F 71 18 166/55 98 03/01/17 21:32 03/02/17 01:01 03/02/17 01:01 03/02/17 01:01 03/02/17 01:01 Results - Labs CBC & Chem 7: 03/01/17 19:29 03/01/17 19:29 Labs: Abnormal lab results 03/01/17 03/01/17 Range/Units 19:29 19:29 Hgb 9.8 L (10.1-14.3) gm/dl MCV 78 L (79-97) fl MCH 25 L (28-32) pg RDW 15.9 H (13.2-15.2) % Sullivan % (Auto) 8.5 H (0.0-7.3) % Eos % (Auto) 6.6 H (0.0-4.3) % Lymph # 0.9 L (1.2-5.4) K/mm3 Chloride 96.3 L (98-107) mmol/L BUN 61 H (7-17) mg/dL Creatinine 7.8 H (0.7-1.2) mg/dL ALT < 5 L (7-56) units/L Alkaline Phosphatase 149 H (35-129) units/L Total Protein 5.7 L (6.3-8.2) g/dL Albumin 3.6 L (3.9-5) g/dL - Imaging and Cardiology CT scan - abdomen: report reviewed CT Scan - head: report reviewed CT scan - pelvis: report reviewed Assessment and Plan Assessment Right leg pain, rule out DVT End-stage renal disease needing dialysis Hypertension Coronary artery disease Plan Admit to medicine Check Doppler of the leg, start pain medication Consult renal for dialysis Continue appropriate outpatient medications DVT prophylaxis
[2017-03-02] MEDS ORDERED: LOVENOX SUB-Q SCH (10:00)
--- NOTE | 2017-03-02 10:40 | Consultation ---
History of Present Illness - Reason for Consult Consult date: 03/02/17 Requesting physician: LAMBERTO MADDEN Medications and Allergies Allergies Allergy/AdvReac Type Severity Reaction Status Date / Time cefazolin sodium [From Ancef] Allergy Unknown Verified 06/29/14 10:46 enalapril maleate Allergy Angioedema Verified 06/29/14 10:46 [From Vasotec] enalaprilat dihydrate Allergy Angioedema Verified 06/29/14 10:46 [From Vasotec] pseudoephedrine HCl Allergy Swelling Verified 06/29/14 10:46 [From Sudafed] Sulfa (Sulfonamide Allergy Hives Verified 06/29/14 10:46 Antibiotics) Home Medications Medication Instructions Recorded Confirmed Last Taken Type Gabapentin 100 mg PO DAILY 03/27/13 03/01/17 02/22/17 History 100mg Simvastatin [Zocor TAB] 40 mg PO DAILY 03/27/13 03/01/17 02/22/17 History 40mg Aspirin EC [Aspirin Enteric Coated 325 mg PO QDAY #30 tablet 04/19/16 03/01/17 02/22/17 Rx TAB] 325mg Metoprolol [Lopressor TAB] 50 mg PO BID #60 tablet 04/19/16 03/01/17 02/22/17 Rx 50mg hydrALAZINE [Apresoline TAB] 100 mg PO TID #30 tab 04/19/16 03/01/17 02/22/17 Rx 100mg Active Meds: Active Medications Acetaminophen (Tylenol) 650 mg PO Q4H PRN PRN Reason: Pain MILD(1-3)/Fever >100.5/MERCEDES Bisacodyl (Dulcolax) 10 mg VA QDAY PRN PRN Reason: Constipation unrelieved by MOM Enoxaparin Sodium (Lovenox) 30 mg SUB-Q QDAY JONO Last Admin: 03/02/17 10:34 Dose: 30 mg Hydralazine HCl (Apresoline) 5 mg IV Q6H PRN PRN Reason: Hypertension Sodium Chloride (Nacl 0.9%) 100 mls @ 999 mls/hr IV ELDA PRN PRN Reason: Hypotension Magnesium Hydroxide (Milk Of Magnesia) 30 ml PO Q4H PRN PRN Reason: Constipation Ondansetron HCl (Zofran) 4 mg IV Q8H PRN PRN Reason: N/V unrelieved by Reglan Oxycodone/Acetaminophen (Percocet 5/325) 1 tab PO Q6H PRN PRN Reason: Pain, Moderate (4-6) Last Admin: 03/02/17 05:42 Dose: 1 tab Pneumococcal Polyvalent Vaccine (Pneumovax 23) 0.5 ml IM .ONCE ONE Stop: 03/02/17 12:01 Exam - Constitutional Vitals: Temp Pulse Resp BP Pulse Ox 98.2 F 65 16 135/36 97 03/02/17 07:39 03/02/17 07:39 03/02/17 07:39 03/02/17 07:39 03/02/17 07:39 Results - Labs CBC & Chem 7: 03/01/17 19:29 03/01/17 19:29 Labs: Abnormal lab results 03/01/17 03/01/17 Range/Units 19:29 19:29 Hgb 9.8 L (10.1-14.3) gm/dl MCV 78 L (79-97) fl MCH 25 L (28-32) pg RDW 15.9 H (13.2-15.2) % Daniels % (Auto) 8.5 H (0.0-7.3) % Eos % (Auto) 6.6 H (0.0-4.3) % Lymph # 0.9 L (1.2-5.4) K/mm3 Chloride 96.3 L (98-107) mmol/L BUN 61 H (7-17) mg/dL Creatinine 7.8 H (0.7-1.2) mg/dL ALT < 5 L (7-56) units/L Alkaline Phosphatase 149 H (35-129) units/L Total Protein 5.7 L (6.3-8.2) g/dL Albumin 3.6 L (3.9-5) g/dL
[2017-03-02] MEDS ORDERED: NACL 0.9% 100 ML IV PRN (11:00)
--- NOTE | 2017-03-02 11:58 | Discharge Summary ---
Providers - Providers Date of Admission: 03/02/17 02:58 Date of discharge: 03/02/17 Attending physician: JONAH ESCOBAR 03/02/17 01:08 Consult to Physician [CONS] Urgent Consulting Provider: CHAVEZ LORD Reason For Exam: esrd Notified:: y Primary care physician: LEXI LEE Hospitalization Condition: Stable Pertinent studies: CT scan abdomen pelvis unremarkable. #2 ultrasound negative for DVT. Hospital course: He should've a 86-year-old female with a history of coronary disease, end-stage renal disease, hypertension, hyperlipidemia presented with right leg pain. Upon presentation patient found to have end-stage renal disease and required dialysis. Patient was admitted for dialysis. Patient right leg pain worked up with abdominal pelvis CT negative DVT. Patient pain resolved as soon as she became to the ER. Patient describes the pain as numbness at best she has some neuropathy along the peroneal longus area. But is nonpainful no lesions no wounds no edema no pain to palpation. Discharge home after hemodialysis today. Disposition: DC- TO HOME OR SELFCARE Core Measure Documentation - Palliative Care Palliative Care/ Comfort Measures: Not Applicable - Core Measures Any of the following diagnoses?: none Exam - Constitutional Vitals: Temp Pulse Resp BP Pulse Ox 98.2 F 65 16 135/36 97 03/02/17 07:39 03/02/17 07:39 03/02/17 07:39 03/02/17 07:39 03/02/17 07:39 General appearance: Present: no acute distress, well-nourished - EENT Eyes: Present: PERRL ENT: hearing intact, clear oral mucosa - Neck Neck: Present: supple, normal ROM - Respiratory Respiratory effort: normal Respiratory: bilateral: CTA - Cardiovascular Heart Sounds: Present: S1 & S2. Absent: rub, click - Extremities Extremities: pulses symmetrical, No edema Peripheral Pulses: within normal limits - Abdominal General gastrointestinal: Present: soft, non-tender, non-distended, normal bowel sounds Female genitourinary: Present: normal - Integumentary Integumentary: Present: clear, warm, dry - Musculoskeletal Musculoskeletal: gait normal, strength equal bilaterally - Psychiatric Psychiatric: appropriate mood/affect, intact judgment & insight - Neurologic Neurologic: CNII-XII intact, moves all extremities, other (normal paresthesia on the right. peroneal longus) Plan Activity: no restrictions Weight Bearing Status: Full Weight Bearing Diet: renal Follow up with: LEXI LEE MD [Primary Care Provider] - 3-5 Days Prescriptions: hydrALAZINE [Apresoline TAB] 100 mg PO TID #30 tab Metoprolol [Lopressor TAB] 50 mg PO BID #60 tablet oxyCODONE /ACETAMINOPHEN [Percocet 5/325 mg] 1 tab PO Q6H PRN #20 tablet PRN Reason: Pain, Moderate (4-6) Simvastatin [Zocor TAB] 40 mg PO DAILY #30 tablet
[2017-03-02] MEDS ORDERED: PNEUMOVAX 23 IM ONE (12:00)
[2017-03-02] MEDS ORDERED: NACL 0.9 (PRIMING MACHINE ONLY DIALYSIS) MC ONE (16:08)
[2017-03-02 17:40] VITALS: BP 165/50
--- NOTE | 2017-03-03 11:12 | Vascular Lab Report ---
Right Lower Extremity Venous Duplex Study: Reason for Exam: Pain of the right lower extremity. Comments on the Right: All veins visualized are freely compressible without evidence of internal echogenicity. Flow is spontaneous and phasic throughout. No evidence of acute or chronic thrombus is seen in any of the vessels visualized. Comments on the Left: A limited duplex study was done of the proximal veins of the left lower extremity. All veins visualized are freely compressible without evidence of internal echogenicity. Flow is spontaneous and phasic throughout. No evidence of acute or chronic thrombus is seen in any of the vessels visualized. Impression: No evidence of acute or chronic deep venous thrombosis in the right lower extremity.
== END 2017-03-02 18:40 | disposition home or self-care (01) | DRG 291 ==
LOC: ED 18:35 → 3A 03-02 02:58
PROVIDERS: ADMIT Internal Medicine; ATTEND Internal Medicine
PROC: 5A1D70Z Performance of Urinary Filtration, Intermittent, Less than 6 Hours Per Day (ICD-10-PCS; principal; 2017-03-02)
PROC: 3E0234Z Introduction of Serum, Toxoid and Vaccine into Muscle, Percutaneous Approach (ICD-10-PCS; 2017-03-02)
DX: I13.2 Hypertensive heart and chronic kidney disease with heart failure and with stage 5 chronic kidney disease, or end stage renal disease (principal); N18.6 End stage renal disease; M79.604 Pain in right leg; I25.10 Atherosclerotic heart disease of native coronary artery without angina pectoris; M19.90 Unspecified osteoarthritis, unspecified site; I50.9 Heart failure, unspecified; E78.5 Hyperlipidemia, unspecified; Z23 Encounter for immunization; Z99.2 Dependence on renal dialysis; Z90.710 Acquired absence of both cervix and uterus; Z90.49 Acquired absence of other specified parts of digestive tract; Z88.2 Allergy status to sulfonamides; Z88.8 Allergy status to other drugs, medicaments and biological substances; Z98.51 Tubal ligation status; Z87.891 Personal history of nicotine dependence; Z82.49 Family history of ischemic heart disease and other diseases of the circulatory system
CPT/HCPCS: 36415; 70450; 74176; 80053; 85025; 90732; 96372; 96374; 96375; 99285; J1170; J1650; J2405; J7030

== ENCOUNTER 2017-03-07 04:42 | Inpatient (IN) | payer MEDICARE ==
[2017-03-07] MEDS ORDERED: ASPIRIN PO ONE (05:21)
[2017-03-07 05:48] LABS: Basophils % (Auto) 1.4 % (0.0-1.8); Hemoglobin 9.3 gm/dl (10.1-14.3); Mean Corpuscular HGB Conc 32 % (30-34); Mean Corpuscular Volume 79 fl (79-97); Red Blood Count 3.66 M/mm3 (3.65-5.03); Red Cell Distribution Width 16.2 % (13.2-15.2); White Blood Count 4.6 K/mm3 (4.5-11.0)
[2017-03-07 05:59] LABS: Mean Corpuscular Hemoglobin 25 pg (28-32); Platelet Count 155 K/mm3 (140-440)
[2017-03-07 06:04] LABS: Calcium 8.1 mg/dL (8.4-10.2); Chloride 102.7 mmol/L (98-107); Potassium 3.8 mmol/L (3.6-5.0)
[2017-03-07] MEDS ORDERED: NITRO-BID 2% TP ONE (09:16)
[2017-03-07 09:39] LABS: Partial Thromboplastin Time 30.9 Sec. (24.2-36.6)
[2017-03-07 09:49] LABS: Alanine Aminotransferase < 5 units/L (7-56); Albumin 3.1 g/dL (3.9-5); Albumin/Globulin Ratio 1.4 %; Alkaline Phosphatase 134 units/L (35-129); Bilirubin,Direct < 0.2 mg/dL (0-0.2); Total Protein 5.3 g/dL (6.3-8.2)
--- NOTE | 2017-03-07 10:28 | Emergency Department Report ---
ED Chest Pain HPI - General Chief Complaint: Chest Pain Stated Complaint: DEVIKA Time Seen by Provider: 03/07/17 09:03 Source: patient, EMS Mode of arrival: Stretcher Limitations: No Limitations - History of Present Illness Initial Comments: Patient is an end-stage renal patient on dialysis of 86 years of age. She has been previously admitted here and seen by sudden part for chest pain. She was found to have a 25% circumflex lesion. She has no history of venous thromboembolism. She states that she woke up and arrives with her daughter that confirms chest pain at about about 2 AM at night. It is an anterior tightness and associated with shortness of breath. The pain was not radiating nor pleuritic. There was no acute cough and no hemoptysis. Patient states that she had some odd radiation of the pain and she told me in the epigastric area. However she apparently told the nurse there was radiation to her feet. She is now largely asymptomatic in no distress. She does not complain of any shortness of breath. She denies nausea vomiting dizziness or feeling like she was going to pass out. She denies sweating. MD Complaint: chest pain -: During the night Onset: during rest Pain Location: substernal Pain Radiation: none Severity: moderate, severe Severity scale (0 -10): 8 Quality: tightness Consistency: now resolved (largely resolved) Improves With: nothing Worsens With: nothing re: dyspnea. denies: nausea, vomting, diaphoresis, sense of impending doom Other Symptoms: denies: cough, fever, syncope, rash, acid taste in mouth, leg swelling Treatments Prior to Arrival: none - Related Data Home Medications Medication Instructions Recorded Confirmed Last Taken Gabapentin 100 mg PO DAILY 03/27/13 03/01/17 02/22/17 100mg Previous Rx's Medication Instructions Recorded Last Taken Type Aspirin EC [Aspirin Enteric Coated 325 mg PO QDAY #30 tablet 04/19/16 02/22/17 Rx TAB] 325mg Acetaminophen [Acetaminophen TAB] 650 mg PO Q4H PRN tablet 03/02/17 Unknown Rx Bisacodyl [Dulcolax suppos] 10 mg IA QDAY PRN supp.rect 03/02/17 Unknown Rx Metoprolol [Lopressor TAB] 50 mg PO BID #60 tablet 03/02/17 Unknown Rx Simvastatin [Zocor TAB] 40 mg PO DAILY #30 tablet 03/02/17 Unknown Rx hydrALAZINE [Apresoline TAB] 100 mg PO TID #30 tab 03/02/17 Unknown Rx oxyCODONE /ACETAMINOPHEN [Percocet 1 tab PO Q6H PRN #20 tablet 03/02/17 Unknown Rx 5/325 mg] Allergies Allergy/AdvReac Type Severity Reaction Status Date / Time cefazolin sodium [From Ancef] Allergy Unknown Verified 06/29/14 10:46 enalapril maleate Allergy Angioedema Verified 06/29/14 10:46 [From Vasotec] enalaprilat dihydrate Allergy Angioedema Verified 06/29/14 10:46 [From Vasotec] pseudoephedrine HCl Allergy Swelling Verified 06/29/14 10:46 [From Sudafed] Sulfa (Sulfonamide Allergy Hives Verified 06/29/14 10:46 Antibiotics) Heart Score - HEART Score History: Slightly suspicious EKG: Normal Age: < 45 Risk factors: > 3 risk factors or hx of atherosclerotic disease Troponin: 1-3x normal limit HEART Score: 3 - Critical Actions Critical Actions: 0-3 pts:0.9-1.7%risk of adverse cardiac event.Candidate for discharge ED Review of Systems ROS: Stated complaint: DEVIKA Other details as noted in HPI Constitutional: denies: chills, fever Eyes: denies: eye pain, eye discharge, vision change ENT: denies: ear pain, throat pain Respiratory: shortness of breath. denies: cough, wheezing Cardiovascular: chest pain. denies: palpitations Endocrine: no symptoms reported Gastrointestinal: denies: abdominal pain, nausea, diarrhea Genitourinary: denies: urgency, dysuria, discharge Musculoskeletal: denies: back pain, joint swelling, arthralgia Skin: denies: rash, lesions Neurological: denies: headache, weakness, paresthesias Psychiatric: denies: anxiety, depression Hematological/Lymphatic: denies: easy bleeding, easy bruising ED Past Medical Hx - Past Medical History Hx Hypertension: Yes Hx Heart Attack/AMI: (coronary artery disease) Hx Congestive Heart Failure: Yes Hx Renal Disease: Yes (dialysis MWF) Hx Arthritis: Yes Hx HIV: No - Surgical History Hx Cholecystectomy: Yes Hx Appendectomy: Yes Additional Surgical History: Hysterectomy, tubal ligation, fistula in right arm , "surgery to place a plate in neck" - Social History Smoking Status: Unknown if ever smoked Substance Use Type: None - Medications Home Medications: Home Medications Medication Instructions Recorded Confirmed Last Taken Type Gabapentin 100 mg PO DAILY 03/27/13 03/01/17 02/22/17 History 100mg Aspirin EC [Aspirin Enteric Coated 325 mg PO QDAY #30 tablet 04/19/16 03/01/17 02/22/17 Rx TAB] 325mg Acetaminophen [Acetaminophen TAB] 650 mg PO Q4H PRN tablet 03/02/17 Unknown Rx Bisacodyl [Dulcolax suppos] 10 mg IA QDAY PRN supp.rect 03/02/17 Unknown Rx Metoprolol [Lopressor TAB] 50 mg PO BID #60 tablet 03/02/17 Unknown Rx Simvastatin [Zocor TAB] 40 mg PO DAILY #30 tablet 03/02/17 Unknown Rx hydrALAZINE [Apresoline TAB] 100 mg PO TID #30 tab 03/02/17 Unknown Rx oxyCODONE /ACETAMINOPHEN [Percocet 1 tab PO Q6H PRN #20 tablet 03/02/17 Unknown Rx 5/325 mg] ED Physical Exam - General Limitations: No Limitations General appearance: alert, in no apparent distress - Head Head exam: Present: atraumatic, normocephalic - Eye Eye exam: Present: normal appearance, PERRL, EOMI. Absent: scleral icterus - ENT ENT exam: Present: mucous membranes moist - Neck Neck exam: Present: normal inspection - Respiratory Respiratory exam: Present: normal lung sounds bilaterally. Absent: respiratory distress - Cardiovascular Cardiovascular Exam: Present: regular rate, normal rhythm. Absent: systolic murmur, diastolic murmur, rubs, gallop - GI/Abdominal GI/Abdominal exam: Present: soft, normal bowel sounds. Absent: distended, tenderness, guarding, rebound, rigid - Extremities Exam Extremities exam: Present: normal inspection, normal capillary refill. Absent: pedal edema, joint swelling, calf tenderness - Back Exam Back exam: Present: normal inspection - Neurological Exam Neurological exam: Present: alert, oriented X3, CN II-XII intact. Absent: motor sensory deficit - Psychiatric Psychiatric exam: Present: normal affect, normal mood - Skin Skin exam: Present: warm, dry, intact, normal color. Absent: rash ED Course Vital Signs 03/07/17 03/07/17 03/07/17 04:56 05:00 05:14 Temperature 98.2 F Pulse Rate 66 67 66 Respiratory 13 13 20 Rate Blood Pressure 157/43 163/49 Blood Pressure 163/49 [Left] O2 Sat by Pulse 100 100 100 Oximetry 03/07/17 03/07/17 03/07/17 05:16 05:19 05:28 Temperature Pulse Rate 64 66 Respiratory 14 20 Rate Blood Pressure 163/49 Blood Pressure [Left] O2 Sat by Pulse 100 Oximetry 03/07/17 03/07/17 03/07/17 05:30 05:46 06:00 Temperature Pulse Rate 68 64 68 Respiratory 10 L 15 12 Rate Blood Pressure 136/40 127/43 127/43 Blood Pressure [Left] O2 Sat by Pulse 100 99 98 Oximetry 03/07/17 03/07/17 03/07/17 06:16 06:30 06:46 Temperature Pulse Rate 70 66 70 Respiratory 14 16 12 Rate Blood Pressure 160/51 161/52 142/34 Blood Pressure [Left] O2 Sat by Pulse 97 99 97 Oximetry 03/07/17 03/07/17 03/07/17 06:49 07:40 09:34 Temperature 98.1 F Pulse Rate 66 63 67 Respiratory 16 Rate Blood Pressure 155/59 Blood Pressure 144/42 [Left] O2 Sat by Pulse 97 Oximetry - Reevaluation(s) Reevaluation #1: The case scan was ordered. The patient is noted to have a right bundle branch block which looks like it's a progression from an intraventricular conduction delay seen on 11/07/2016. I don't think this is necessarily the harbinger of anything acute. However it is noted. A VQ scan is pending. Dr. Louise, the hospitalist, is admitting the patient at this time. 03/07/17 10:29 VALENTE score - Valente Score Age > 65: (1) Yes Aspirin use within the Past 7 Days: (1) Yes 3 or more CAD Risk Factors: (1) Yes 2 or more Angina events in past 24 hrs: (0) No Known CAD with more than 50% Stenosis: (0) No Elevated Cardiac Markers: (1) Yes ST Deviation Greater than 0.5mm: (0) No VALENTE Score: 4 ED Medical Decision Making - Lab Data Result diagrams: 03/07/17 05:21 03/07/17 05:21 Laboratory Results - last 24 hr 03/07/17 03/07/17 03/07/17 05:21 05:21 08:24 WBC 4.6 RBC 3.66 Hgb 9.3 L Hct 29.0 L MCV 79 MCH 25 L MCHC 32 RDW 16.2 H Plt Count 155 Lymph % (Auto) 19.1 [place] % (Auto) 10.0 H Eos % (Auto) 4.0 Baso % (Auto) 1.4 Lymph # 0.9 L [place] # 0.5 Eos # 0.2 Baso # 0.1 Seg Neutrophils % 65.5 Seg Neutrophils # 3.0 PT INR APTT D-Dimer Sodium 145 Potassium 3.8 Chloride 102.7 Carbon Dioxide 29 Anion Gap 17 BUN 23 H Creatinine 4.9 H Estimated GFR 10 BUN/Creatinine Ratio 5 Glucose 85 Calcium 8.1 L Magnesium Total Bilirubin Direct Bilirubin AST ALT Alkaline Phosphatase Troponin T 0.040 H 0.041 H NT-Pro-B Natriuret Pep Total Protein Albumin Albumin/Globulin Ratio Triglycerides 60 Cholesterol 135 LDL Cholesterol Direct 67 HDL Cholesterol 56 Cholesterol/HDL Ratio 2.41 03/07/17 03/07/17 09:15 09:15 WBC RBC Hgb Hct MCV MCH MCHC RDW Plt Count Lymph % (Auto) [place] % (Auto) Eos % (Auto) Baso % (Auto) Lymph # [place] # Eos # Baso # Seg Neutrophils % Seg Neutrophils # PT 13.7 INR 1.00 APTT 30.9 D-Dimer 492.32 H Sodium Potassium Chloride Carbon Dioxide Anion Gap BUN Creatinine Estimated GFR BUN/Creatinine Ratio Glucose Calcium Magnesium 1.90 Total Bilirubin 0.50 Direct Bilirubin < 0.2 AST 14 ALT < 5 L Alkaline Phosphatase 134 H Troponin T NT-Pro-B Natriuret Pep 36881 H Total Protein 5.3 L Albumin 3.1 L Albumin/Globulin Ratio 1.4 Triglycerides Cholesterol LDL Cholesterol Direct HDL Cholesterol Cholesterol/HDL Ratio Critical care attestation.: If time is entered above; I have spent that time in minutes in the direct care of this critically ill patient, excluding procedure time. ED Disposition Clinical Impression: ESRD on dialysis, Right bundle branch block, Elevated d-dimer Chest pain Qualifiers: Chest pain type: unspecified Qualified Code(s): R07.9 - Chest pain, unspecified Anemia Qualifiers: Anemia type: due to chronic kidney disease Chronic kidney disease stage: on chronic dialysis Qualified Code(s): N18.6 - End stage renal disease; D63.1 - Anemia in chronic kidney disease; D63.1 - Anemia in chronic kidney disease; Z99.2 - Dependence on renal dialysis; Z99.2 - Dependence on renal dialysis; Z99.2 - Dependence on renal dialysis; Z99.2 - Dependence on renal dialysis Hypertension Qualifiers: Hypertension type: essential hypertension Qualified Code(s): I10 - Essential ( primary) hypertension Disposition: OP ADMIT IP TO THIS HOSP Is pt being admited?: Yes Does the pt Need Aspirin: Yes Condition: Stable Instructions: Chest Pain (ED), Hypertension (ED) Referrals: PRIMARY CARE, [Primary Care Provider] - 3-5 Days Time of Disposition: 10:31
--- NOTE | 2017-03-07 10:44 | XRay Report ---
AP CHEST : 03/07/17 CLINICAL: Chest pain. COMPARISON:04/16/16 FINDINGS: Stable cardiomegaly. Mild central vascular congestion. The lungs are normally expanded and clear. No airspace disease or pleural effusion. No tubes or lines. IMPRESSION: Cardiomegaly and pulmonary venous hypertension. No pulmonary edema.
[2017-03-07] MEDS ORDERED: TYLENOL PO PRN (10:47)
--- NOTE | 2017-03-07 11:09 | History and Physical Report ---
History of Present Illness Date of examination: 03/07/17 Chief complaint: Chest pain History of present illness: Patient is 86-year-old woman with a history of anuric end-stage renal disease on hemodialysis Thursday followed by Dr. Rosenberg, coronary artery disease, tobacco dependency/snuff, osteoarthritis and hypertension who presents to the emergency department at [facility] chief complaint of substernal severe nonradiating pressure-like intermittent chest pains started at 4 AM this morning associated with extreme shortness of breath and gasping for air. Once breathing better the chest pain went away. Patient denies any aggravating factors. Patient had dialysis yesterday. She came back from dialysis yesterday she did not feel well but no specific complaints just weakness. She denies any syncope, seizures, headaches, fever, chills, new cough. She c/o abdominal pain left lower quadrant for about 3 or 4 months, she told Dr. Rosenberg. She never had a colonoscopy that she was told she is too old. She thinks she has cancer. She is scheduled for diagnostic mammogram on 03/10/2017 at [facility]. Patient was recently discharged from here on 06/2016; it appears she was admitted for dialysis. She is accompanied by [id number] Tootie at bedside. 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, hysterectomy, tubal ligation, appendectomy, cholecystectomy, neck surgery with a plate in her neck, bilateral cataracts removed Social history: Ex-smoker, snuff, occasional alcohol, full code no drugs Family history: Hypertension, Her twin brother , he had end-stage renal disease and peripheral artery disease and hypertension ROS: Constitutional: no weight gain, no chills, no sweats, no fatigue, no weakness, no poor appetite Ears, nose, mouth and throat: no deferred, no ear pain, no decreased hearing, no sinus pressure, no bleeding gums, no dental pain, no mouth pain, no hoarseness, no sore throat, no swelling in mouth, no post-nasal drip, no headache, no vertigo, no pain front of neck, no neck lump Cardiovascular: chest pain Respiratory: no excessive sputum, no hemoptysis, no pleurisy, no pain, no pain on inspiration, no respiratory infections, no other Gastrointestinal: no nausea, no diarrhea,+constipation, no hematemesis, no hematochezia, no loss of appetite, no early satiety, no indigestion, no dyspepsia/bloating Genitourinary Male: no flank pain, no discharge, no urinary hesitancy, no nocturia Rectal: no incontinence, no bleeding, no itching, no discharge Musculoskeletal: no shooting arm pain, no arm numbness/tingling, no shooting leg pain, no leg numbness/tingling, no atrophy, no limitation of motion, no fractures, no loss of height, no prior amputations, no arthritis Integumentary: no depigmentation, no dryness, no unusual bruising Neurological: no weakness, no tingling, no syncope, no vertigo, no migraines, no aphasia, no change in mentation, no changes in smell/taste, no balance difficulties, no double vision, no burning pain, no paralysis Psychiatric: hypersomnia, change in libido, irritability, no anxiety, no memory loss, no sleep disturbances, no change in appetite, no disorientation, no hallucinations, no paranoia, no hopelessness, no anxiety attacks, no confusion Endocrine: no cold intolerance, no polyphagia, no polydipsia, no polyuria, no nocturia, no proptosis, no palpatations, no high blood sugars, no low blood sugars, no fatigue Hematologic/Lymphatic: no easy bruising, no lymphedema Allergic/Immunologic: no urticaria, no allergic rhinitis, no anaphylaxis Medications and Allergies Allergies Allergy/AdvReac Type Severity Reaction Status Date / Time cefazolin sodium [From Ancef] Allergy Unknown Verified 06/29/14 10:46 enalapril maleate Allergy Angioedema Verified 06/29/14 10:46 [From Vasotec] enalaprilat dihydrate Allergy Angioedema Verified 06/29/14 10:46 [From Vasotec] pseudoephedrine HCl Allergy Swelling Verified 06/29/14 10:46 [From Sudafed] Sulfa (Sulfonamide Allergy Hives Verified 06/29/14 10:46 Antibiotics) Home Medications Medication Instructions Recorded Confirmed Last Taken Type Gabapentin 100 mg PO DAILY 03/27/13 03/01/17 02/22/17 History 100mg Aspirin EC [Aspirin Enteric Coated 325 mg PO QDAY #30 tablet 04/19/16 03/01/1702/22/17 Rx TAB] 325mg Acetaminophen [Acetaminophen TAB] 650 mg PO Q4H PRN tablet 03/02/17 Unknown Rx Bisacodyl [Dulcolax suppos] 10 mg ME QDAY PRN supp.rect 03/02/17 Unknown Rx Metoprolol [Lopressor TAB] 50 mg PO BID #60 tablet 03/02/17 Unknown Rx Simvastatin [Zocor TAB] 40 mg PO DAILY #30 tablet 03/02/17 Unknown Rx hydrALAZINE [Apresoline TAB] 100 mg PO TID #30 tab 03/02/17 Unknown Rx oxyCODONE /ACETAMINOPHEN [Percocet 1 tab PO Q6H PRN #20 tablet 03/02/17 Unknown Rx 5/325 mg] Active Meds: Active Medications Acetaminophen (Tylenol) 650 mg PO Q4H PRN PRN Reason: Pain MILD(1-3)/Fever >100.5/MERCEDES Aspirin (Ecotrin) 325 mg PO QDAY JONO Bisacodyl (Dulcolax) 10 mg ME QDAY PRN PRN Reason: Constipation unrelieved by MOM Gabapentin (Neurontin) 100 mg PO DAILY JONO Heparin Sodium (Porcine) (Heparin) 5,000 unit SUB-Q Q12HR JONO Hydralazine HCl (Apresoline) 100 mg PO TID JONO Metoprolol Tartrate (Lopressor) 50 mg PO BID JONO Miscellaneous Medication (Simvastatin) 40 mg PO DAILY JONO Oxycodone/Acetaminophen (Percocet 5/325) 1 tab PO Q6H PRN PRN Reason: Pain, Moderate (4-6) Exam - Physical Exam Narrative exam: GEN: thin frial, NAD, AWAKE, ALERT, ORIENTATED x 3 HEENT: NCAT, EOMI, PERRL, OP Clear NECK: supple, no adenopathy, no thyromegaly, no JVD CVS/HEART: RRR, NORMAL S1S2, NO JVD, pulses present bilaterally CHEST/LUNGS: CTA B, Symmetrical chest expansion, good air entry bilaterally, reproducible chest wall tendernes GI/Abdomen: soft, diffuse tenderness, nondistended good bowel sounds, no guarding or rebound /Bladder: no suprapubic tenderness, no CVA or paraspinal tenderness EXT/Skin: no c/c/e, no obvious rash MSK: FROM x 4 Neuro: CN 2-12 grossly intact, no new focal deficits Psych: calm - Constitutional Vitals: Temp Pulse Resp BP Pulse Ox 98.1 F 67 16 155/59 97 03/07/17 07:40 03/07/17 09:34 03/07/17 07:40 03/07/17 09:34 03/07/17 07:40 Results - Labs CBC & Chem 7: 03/07/17 05:21 03/07/17 05:21 Labs: Abnormal lab results 03/07/17 03/07/17 03/07/17 Range/Units 05:21 05:21 08:24 Hgb 9.3 L (10.1-14.3) gm/dl Hct 29.0 L (30.3-42.9) % MCH 25 L (28-32) pg RDW 16.2 H (13.2-15.2) % [place] % (Auto) 10.0 H (0.0-7.3) % Lymph # 0.9 L (1.2-5.4) K/mm3 D-Dimer (0-234) ng/mlDDU BUN 23 H (7-17) mg/dL Creatinine 4.9 H (0.7-1.2) mg/dL Calcium 8.1 L (8.4-10.2) mg/dL ALT (7-56) units/L Alkaline Phosphatase (35-129) units/L Troponin T 0.040 H 0.041 H (0.00-0.029) ng/mL NT-Pro-B Natriuret Pep (0-900) pg/mL Total Protein (6.3-8.2) g/dL Albumin (3.9-5) g/dL 03/07/17 03/07/17 Range/Units 09:15 09:15 Hgb (10.1-14.3) gm/dl Hct (30.3-42.9) % MCH (28-32) pg RDW (13.2-15.2) % [place] % (Auto) (0.0-7.3) % Lymph # (1.2-5.4) K/mm3 D-Dimer 492.32 H (0-234) ng/mlDDU BUN (7-17) mg/dL Creatinine (0.7-1.2) mg/dL Calcium (8.4-10.2) mg/dL ALT < 5 L (7-56) units/L Alkaline Phosphatase 134 H (35-129) units/L Troponin T (0.00-0.029) ng/mL NT-Pro-B Natriuret Pep 42807 H (0-900) pg/mL Total Protein 5.3 L (6.3-8.2) g/dL Albumin 3.1 L (3.9-5) g/dL - Imaging and Cardiology EKG: image reviewed Assessment and Plan Patient is 86-year-old woman with a history of anuric end-stage renal disease on hemodialysis Thursday followed by Dr. Rosenberg, coronary artery disease, tobacco dependency/snuff, osteoarthritis and hypertension who presents to the emergency department at [facility] chief complaint of substernal severe nonradiating pressure-like intermittent chest pains started at 4 AM this morning associated with extreme shortness of breath and gasping for air. Once breathing better the chest pain went away. Patient denies any aggravating factors. Patient had dialysis yesterday. She came back from dialysis yesterday she did not feel well but no specific complaints just weakness. She denies any syncope, seizures, headaches, fever, chills, new cough. She c/o abdominal pain left lower quadrant for about 3 or 4 months, she told Dr. Rosenberg. She never had a colonoscopy that she was told she is too old. She thinks she has cancer. She is scheduled for diagnostic mammogram on 03/10/2017 at [facility]. Patient was recently discharged from here on 06/2016; it appears she was admitted for dialysis. She is accompanied by [id number] Tootie at bedside. -Chest pain, atypical and reproducible but abnormal different EKG from previous (check digoxin level): consult Cardiology -ESRD on HD: consult Dr. Rosenberg -Accelerated hypertension: prn iv hydralazine -Mild malnutrition, albumin 3.1: consult Cable Rigger -Chronic abd pains, last ct ap was 02/2017, showed constipation: will treat with dulcolax suppository -AOCD: advised her to get colonoscopy -Elevated Dimer: v/q pending since patient is going for v/q scan then stress test will be delay, so I consulted Cardiology
[2017-03-07] MEDS: APRESOLINE PO SCH ×2 (14:46→22:32)
--- NOTE | 2017-03-07 15:46 | Consultation ---
History of Present Illness Consult date: 03/07/17 Requesting physician: RAYNA HU Consult reason: chest pain History of present illness: She claims that she woke up suddenly this morning with lower substernal chest tightness/pressure associated with shortness of breath. Her d-dimer is elevated. Notably, she underwent coronary angiography in March 2016 which revealed non-obstructive CAD with 25% mid circumflex stenosis. Past History Past Medical History: CAD (mild nonobstructive CAD with 25% mid circumflex stenosis in March 2016), ESRD, hypertension Past Surgical History: Other (dialysis access) Social history: lives with family, other (9 out of 13 children are living). denies: smoking, alcohol abuse Family history: denies: CAD Medications and Allergies Allergies Allergy/AdvReac Type Severity Reaction Status Date / Time cefazolin sodium [From Ancef] Allergy Unknown Verified 06/29/14 10:46 enalapril maleate Allergy Angioedema Verified 06/29/14 10:46 [From Vasotec] enalaprilat dihydrate Allergy Angioedema Verified 06/29/14 10:46 [From Vasotec] pseudoephedrine HCl Allergy Swelling Verified 06/29/14 10:46 [From Sudafed] Sulfa (Sulfonamide Allergy Hives Verified 06/29/14 10:46 Antibiotics) Home Medications Medication Instructions Recorded Confirmed Last Taken Type Gabapentin 100 mg PO DAILY 03/27/13 03/01/17 02/22/17 History 100mg Aspirin EC [Aspirin Enteric Coated 325 mg PO QDAY #30 tablet 04/19/16 03/01/17 02/22/17 Rx TAB] 325mg Acetaminophen [Acetaminophen TAB] 650 mg PO Q4H PRN tablet 03/02/17 Unknown Rx Bisacodyl [Dulcolax suppos] 10 mg ND QDAY PRN supp.rect 03/02/17 Unknown Rx Metoprolol [Lopressor TAB] 50 mg PO BID #60 tablet 03/02/17 Unknown Rx Simvastatin [Zocor TAB] 40 mg PO DAILY #30 tablet 03/02/17 Unknown Rx hydrALAZINE [Apresoline TAB] 100 mg PO TID #30 tab 03/02/17 Unknown Rx oxyCODONE /ACETAMINOPHEN [Percocet 1 tab PO Q6H PRN #20 tablet 03/02/17 Unknown Rx 5/325 mg] Active Meds: Active Medications Acetaminophen (Tylenol) 650 mg PO Q4H PRN PRN Reason: Pain MILD(1-3)/Fever >100.5/MERCEDES Aspirin (Ecotrin) 325 mg PO QDAY [facility] Bisacodyl (Dulcolax) 10 mg ND QDAY PRN PRN Reason: Constipation unrelieved by MOM Gabapentin (Neurontin) 100 mg PO DAILY [facility] Heparin Sodium (Porcine) (Heparin) 5,000 unit SUB-Q Q12HR [facility] Hydralazine HCl (Apresoline) 100 mg PO TID [facility] Last Admin: 03/07/17 14:46 Dose: 100 mg Isosorbide Mononitrate (Imdur) 60 mg PO QDAY [facility] Metoprolol Tartrate (Lopressor) 50 mg PO BID [facility] Oxycodone/Acetaminophen (Percocet 5/325) 1 tab PO Q6H PRN PRN Reason: Pain, Moderate (4-6) Pravastatin Sodium (Pravachol) 80 mg PO QHS [facility] Review of Systems Constitutional: no fever, no chills Ears, nose, mouth and throat: no ear pain, no ear discharge, no sore throat Cardiovascular: chest pain, shortness of breath, no palpitations, no edema, no lightheadedness Respiratory: shortness of breath, no cough, no hemoptysis Gastrointestinal: no abdominal pain, no nausea, no vomiting, no diarrhea, no constipation Genitourinary Female: no dysuria, no urinary frequency Rectal: no pain, no bleeding Musculoskeletal: no neck stiffness, no neck pain, no myalgias Integumentary: no rash, no pruritis Neurological: no weakness, no parathesias, no headaches Endocrine: no cold intolerance, no heat intolerance Hematologic/Lymphatic: no easy bruising, no easy bleeding Allergic/Immunologic: no urticaria, no wheezing Physical Examination Vital Signs Last Vital Signs Temp 98.1 F 03/07/17 07:40 Pulse 65 03/07/17 12:40 Resp 16 03/07/17 12:40 BP 139/47 03/07/17 12:40 Pulse Ox 100 03/07/17 12:40 General appearance: no acute distress HEENT: Positive: EOMI, Normocephaly, Mucus Membranes Moist Neck: Positive: neck supple, trachea midline Cardiac: Positive: Reg Rate and Rhythm, S1/S2 Lungs: Positive: clear to auscultation Neuro: Positive: Grossly Intact Abdomen: Positive: Soft, Active Bowel Sounds. Negative: Tender Skin: Positive: Clear. Negative: Rash Musculoskeletal: Normal Range of Motion Extremities: Present: normal. Absent: edema Results 03/07/17 05:21 03/07/17 05:21 Cardiac Enzymes 03/07/17 Range/Units 09:15 AST 14 (5-40) units/L Coagulation 03/07/17 Range/Units 09:15 PT 13.7 (12.2-14.9) Sec. INR 1.00 (0.87-1.13) APTT 30.9 (24.2-36.6) Sec. Lipids 03/07/17 Range/Units 05:21 Triglycerides 60 (2-149) mg/dL Cholesterol 135 (50-199) mg/dL HDL Cholesterol 56 (40-59) mg/dL Cholesterol/HDL Ratio 2.41 % CBC 03/07/17 Range/Units 05:21 WBC 4.6 (4.5-11.0) K/mm3 RBC 3.66 (3.65-5.03) M/mm3 Hgb 9.3 L (10.1-14.3) gm/dl Hct 29.0 L (30.3-42.9) % Plt Count 155 (140-440) K/mm3 Lymph # 0.9 L (1.2-5.4) K/mm3 [place] # 0.5 (0.0-0.8) K/mm3 Eos # 0.2 (0.0-0.4) K/mm3 Baso # 0.1 (0.0-0.1) K/mm3 Comprehensive Metabolic Panel 03/07/17 03/07/17 Range/Units 05:21 09:15 Sodium 145 (137-145) mmol/L Potassium 3.8 (3.6-5.0) mmol/L Chloride 102.7 (98-107) mmol/L Carbon Dioxide 29 (22-30) mmol/L BUN 23 H (7-17) mg/dL Creatinine 4.9 H (0.7-1.2) mg/dL Glucose 85 (65-100) mg/dL Calcium 8.1 L (8.4-10.2) mg/dL Direct Bilirubin < 0.2 (0-0.2) mg/dL AST 14 (5-40) units/L ALT < 5 L (7-56) units/L Alkaline Phosphatase 134 H (35-129) units/L Total Protein 5.3 L (6.3-8.2) g/dL Albumin 3.1 L (3.9-5) g/dL - Imaging and Cardiology EKG: image reviewed EKG interpretations - Telemetry EKG Rhythm: Sinus Rhythm - EKG Sinus rhythms and dysrhythmias: sinus rhythm AV and intraventricular conduction: right bundle branch block Assessment and Plan Obtain VQ scan. Initiate oral nitrates. No indication for ischemia evaluation at this time. - Patient Problems (1) Chest pain Current Visit: Yes Status: Acute Qualifiers: Chest pain type: unspecified Qualified Code(s): R07.9 - Chest pain, unspecified (2) Elevated troponin Current Visit: Yes Status: Acute (3) Elevated d-dimer Current Visit: Yes Status: Acute (4) Mild CAD Current Visit: Yes Status: Chronic (5) ESRD on dialysis Current Visit: Yes Status: Chronic (6) HTN (hypertension) Current Visit: Yes Status: Chronic Qualifiers: Hypertension type: essential hypertension Qualified Code(s): I10 - Essential (primary) hypertension
--- NOTE | 2017-03-07 17:29 | Nuclear Medicine Report ---
FINAL REPORT EXAM: NM LUNG SCAN PERF/VENT HISTORY: CP mildly elevated dimer TECHNIQUE: Profusion imaging of the lungs was performed in multiple planar projections. Ventilation images were obtained posteriorly for initial, equilibrium, and washout phases. Correlation with a chest x-ray dated 03/07/2017 was made. DOSE: 15.0 millicuries Xe-133 gas; 5.0 millicuries 99m Tc MAA given IV. PRIORS: None. FINDINGS: There is a subsegmental perfusion defect in the superior segment of the left lower lobe. There is also significant lobar decrease in the right upper lobe and right middle lobe perfusion. On ventilation, no significant matching of these areas is seen. There is mild air trapping in the right apex and left base on washout phase. IMPRESSION: High probability v/Q scan
[2017-03-07] MEDS: HEPARIN/ 0.45% NACL-25,000 UNIT/500 ML 25,000 UNIT/500 ML BAG IV SCH (18:01)
[2017-03-07] MEDS: IMDUR PO SCH (18:03)
[2017-03-07 18:35] LABS: Hemoglobin 9.1 gm/dl (10.1-14.3)
[2017-03-07 18:46] LABS: INR 1.07 (0.87-1.13)
[2017-03-07 18:47] LABS: Partial Thromboplastin Time 30.9 Sec. (24.2-36.6)
[2017-03-07] MEDS ORDERED: NON-FORMULARY (Simvastatin 40 MG) PO SCH (22:00)
[2017-03-07] MEDS: PRAVACHOL PO SCH (22:31)
[2017-03-07] MEDS: PERCOCET 5/325 PO PRN (22:32)
[2017-03-07] MEDS: LOPRESSOR PO SCH (22:33)
[2017-03-08] MEDS: HEPARIN/ 0.45% NACL-25,000 UNIT/500 ML 25,000 UNIT/500 ML BAG IV SCH ×4 (05:14→22:11)
[2017-03-08] MEDS: APRESOLINE PO SCH ×3 (09:10→22:07)
[2017-03-08] MEDS: IMDUR PO SCH (09:29)
[2017-03-08] MEDS: ECOTRIN PO SCH (09:30)
[2017-03-08] MEDS: NEURONTIN PO SCH (09:30)
[2017-03-08] MEDS: LOPRESSOR PO SCH ×2 (09:30→22:06)
[2017-03-08] MEDS ORDERED: HEPARIN SUB-Q SCH (10:00)
[2017-03-08 11:15] LABS: INR 1.08 (0.87-1.13)
--- NOTE | 2017-03-08 12:39 | Progress Note ---
Assessment and Plan Assessment and plan: Patient is 86-year-old woman with a history of anuric end-stage renal disease on hemodialysis Thursday followed by Dr. Rosenberg, coronary artery disease, tobacco dependency/snuff, osteoarthritis and hypertension who presents to the emergency department at [facility] chief complaint of substernal severe nonradiating pressure-like intermittent chest pains started at 4 AM this morning associated with extreme shortness of breath and gasping for air. Once breathing better the chest pain went away. Patient denies any aggravating factors. Patient had dialysis yesterday. She came back from dialysis yesterday she did not feel well but no specific complaints just weakness. She denies any syncope, seizures, headaches, fever, chills, new cough. She c/o abdominal pain left lower quadrant for about 3 or 4 months, she told Dr. Rosenberg. She never had a colonoscopy that she was told she is too old. She thinks she has cancer. She is scheduled for diagnostic mammogram on 03/10/2017 at [facility]. Patient was recently discharged from here on 06/2016; it appears she was admitted for dialysis. She is accompanied by [id number] Tootie at bedside. -Chest pain, atypical and reproducible but abnormal different EKG from previous (check digoxin level): consult Cardiology -ESRD on HD: consulted Dr. Rosenberg -Accelerated hypertension: prn iv hydralazine -Mild malnutrition, albumin 3.1: consult [employer] -Chronic abd pains, last ct ap was 02/2017, showed constipation: will treat with dulcolax suppository -AOCD: advised her to get colonoscopy -Suspected Acute Bilateral PE: on heparin drip since patient is going for v/q scan then stress test will be delay, so I consulted Cardiology v/q shows high probab for pe, started heparin drip, ECHO pending, IR/Vascular consulted patient can have cta chest because she is anuric but should be done on the day of hemodialysis (prior to hd on thursday) Start coumadin today. History Interval history: Patient was seen and examined. Follow-up on current diagnosis. Overnight uneventful. Patient denies any nausea/vomiting or severe headaches. Imaging, nursing note, chart, labs and old chart reviewed. Discussed with patient. Still with sob. Hospitalist Physical - Physical exam Narrative exam: GEN: thin frial, NAD, AWAKE, ALERT, ORIENTATED x 3 HEENT: NCAT, EOMI, PERRL, OP Clear NECK: supple, no adenopathy, no thyromegaly, no JVD CVS/HEART: RRR, NORMAL S1S2, NO JVD, pulses present bilaterally CHEST/LUNGS: CTA B, Symmetrical chest expansion, good air entry bilaterally, reproducible chest wall tendernes GI/Abdomen: soft, diffuse tenderness, nondistended good bowel sounds, no guarding or rebound /Bladder: no suprapubic tenderness, no CVA or paraspinal tenderness EXT/Skin: no c/c/e, no obvious rash MSK: FROM x 4 Neuro: CN 2-12 grossly intact, no new focal deficits Psych: calm - Constitutional Vitals: Temp Pulse Resp BP Pulse Ox 98.5 F 62 18 133/41 100 03/08/17 12:15 03/08/17 12:15 03/08/17 12:15 03/08/17 12:15 03/08/17 12:15 General appearance: Present: no acute distress Results - Labs CBC & Chem 7: 03/07/17 18:03 03/07/17 05:21 Labs: Laboratory Last Values WBC 4.6 K/mm3 (4.5-11.0) 03/07/17 05:21 RBC 3.66 M/mm3 (3.65-5.03) 03/07/17 05:21 Hgb 9.1 gm/dl (10.1-14.3) L 03/07/17 18:03 Hct 29.0 % (30.3-42.9) L 03/07/17 18:03 MCV 79 fl (79-97) 03/07/17 05:21 MCH 25 pg (28-32) L 03/07/17 05:21 MCHC 32 % (30-34) 03/07/17 05:21 RDW 16.2 % (13.2-15.2) H 03/07/17 05:21 Plt Count 153 K/mm3 (140-440) 03/07/17 18:03 Lymph % (Auto) 19.1 % (13.4-35.0) 03/07/17 05:21 [place] % (Auto) 10.0 % (0.0-7.3) H 03/07/17 05:21 Eos % (Auto) 4.0 % (0.0-4.3) 03/07/17 05:21 Baso % (Auto) 1.4 % (0.0-1.8) 03/07/17 05:21 Lymph # 0.9 K/mm3 (1.2-5.4) L 03/07/17 05:21 [place] # 0.5 K/mm3 (0.0-0.8) 03/07/17 05:21 Eos # 0.2 K/mm3 (0.0-0.4) 03/07/17 05:21 Baso # 0.1 K/mm3 (0.0-0.1) 03/07/17 05:21 Seg Neutrophils % 65.5 % (40.0-70.0) 03/07/17 05:21 Seg Neutrophils # 3.0 K/mm3 (1.8-7.7) 03/07/17 05:21 PT 14.6 Sec. (12.2-14.9) 03/08/17 10:35 INR 1.08 (0.87-1.13) 03/08/17 10:35 APTT 30.9 Sec. (24.2-36.6) 03/07/17 18:03 D-Dimer 492.32 ng/mlDDU (0-234) H 03/07/17 09:15 Heparin Anti-Xa Level 0.30 U.I./ml (0.3-0.7) 03/08/17 05:45 Sodium 145 mmol/L (137-145) 03/07/17 05:21 Potassium 3.8 mmol/L (3.6-5.0) 03/07/17 05:21 Chloride 102.7 mmol/L (98-107) 03/07/17 05:21 Carbon Dioxide 29 mmol/L (22-30) 03/07/17 05:21 Anion Gap 17 mmol/L 03/07/17 05:21 BUN 23 mg/dL (7-17) H 03/07/17 05:21 Creatinine 4.9 mg/dL (0.7-1.2) H 03/07/17 05:21 Estimated GFR 10 ml/min 03/07/17 05:21 BUN/Creatinine Ratio 5 % 03/07/17 05:21 Glucose 85 mg/dL (65-100) 03/07/17 05:21 Calcium 8.1 mg/dL (8.4-10.2) L 03/07/17 05:21 Magnesium 1.90 mg/dL (1.7-2.3) 03/07/17 09:15 Total Bilirubin 0.50 mg/dL (0.1-1.2) 03/07/17 09:15 Direct Bilirubin < 0.2 mg/dL (0-0.2) 03/07/17 09:15 AST 14 units/L (5-40) 03/07/17 09:15 ALT < 5 units/L (7-56) L 03/07/17 09:15 Alkaline Phosphatase 134 units/L (35-129) H 03/07/17 09:15 Troponin T 0.042 ng/mL (0.00-0.029) H 03/07/17 11:16 NT-Pro-B Natriuret Pep 93104 pg/mL (0-900) H 03/07/17 09:15 Total Protein 5.3 g/dL (6.3-8.2) L 03/07/17 09:15 Albumin 3.1 g/dL (3.9-5) L 03/07/17 09:15 Albumin/Globulin Ratio 1.4 % 03/07/17 09:15 Triglycerides 60 mg/dL (2-149) 03/07/17 05:21 Cholesterol 135 mg/dL (50-199) 03/07/17 05:21 LDL Cholesterol Direct 67 mg/dL (50-130) 03/07/17 05:21 HDL Cholesterol 56 mg/dL (40-59) 03/07/17 05:21 Cholesterol/HDL Ratio 2.41 % 03/07/17 05:21 Digoxin 0.3 ng/mL (0.9-2.0) L 03/07/17 11:39
--- NOTE | 2017-03-08 14:07 | Progress Note ---
Assessment and Plan Obtain bilateral lower extremity venous duplex. - Patient Problems (1) Acute pulmonary embolism Current Visit: Yes Status: Acute (2) Chest pain Current Visit: Yes Status: Acute Qualifiers: Chest pain type: unspecified Qualified Code(s): R07.9 - Chest pain, unspecified (3) Elevated troponin Current Visit: Yes Status: Acute (4) Mild CAD Current Visit: Yes Status: Chronic (5) ESRD on dialysis Current Visit: Yes Status: Chronic (6) HTN (hypertension) Current Visit: Yes Status: Chronic Qualifiers: Hypertension type: essential hypertension Qualified Code(s): I10 - Essential (primary) hypertension Subjective Date of service: 03/08/17 Principal diagnosis: Chest pain, Elevated Tn, Acute PE, Mild CAD, ESRD Interval history: Chest pain is better. We discussed her VQ scan findings. Objective Vital Signs Temp Pulse Resp BP BP Pulse Ox 03/08/17 13:13 16 03/08/17 12:15 98.5 F 62 18 133/41 100 03/08/17 11:39 59 L 03/08/17 10:57 16 03/08/17 09:30 70 153/51 03/08/17 09:29 70 153/51 03/08/17 08:55 98.4 F 66 18 153/51 99 03/08/17 05:37 98.8 F 64 20 137/44 98 03/08/17 04:34 63 03/08/17 00:03 98.4 F 63 20 122/46 97 03/07/17 22:33 70 134/45 03/07/17 22:32 20 03/07/17 20:06 98.8 F 70 18 134/45 98 03/07/17 18:03 65 139/47 03/07/17 17:46 98.3 F 69 18 139/44 100 03/07/17 14:57 171/106 - Physical Examination General: No Apparent Distress HEENT: Positive: EOMI, Normocephaly, Mucus Membranes Moist Neck: Positive: neck supple, trachea midline Cardiac: Positive: Reg Rate and Rhythm, S1/S2 Lungs: Positive: clear to auscultation Neuro: Positive: Grossly Intact Abdomen: Positive: Soft, Active Bowel Sounds. Negative: Tender Skin: Positive: Clear. Negative: Rash Musculoskeletal: Normal Range of Motion Extremities: Present: normal. Absent: edema - Labs and Meds Coagulation 03/07/17 03/08/17 Range/Units 18:03 10:35 PT 14.5 14.6 (12.2-14.9) Sec. INR 1.07 1.08 (0.87-1.13) APTT 30.9 (24.2-36.6) Sec. CBC 03/07/17 Range/Units 18:03 Hgb 9.1 L (10.1-14.3) gm/dl Hct 29.0 L (30.3-42.9) % Plt Count 153 (140-440) K/mm3 - Imaging and Cardiology EKG: image reviewed - Telemetry EKG Rhythm: Sinus Rhythm - EKG Sinus rhythms and dysrhythmias: sinus rhythm AV and intraventricular conduction: right bundle branch block
[2017-03-08] MEDS: COUMADIN PO SCH (17:30)
[2017-03-08] MEDS: DULCOLAX PR PRN (19:21)
--- NOTE | 2017-03-08 20:42 | Consultation ---
History of Present Illness - Reason for Consult Consult date: 03/08/17 end stage renal disease Requesting physician: RAYNA HU - History of Present Illness 86-year-old woman with a history of End-stage renal disease on hemodialysis x 17 years, Thursday schedule at [facility], coronary artery disease, and hypertension admitted after she presents to the emergency department with a chief complaint of substernal severe nonradiating pressure- like intermittent chest pains started at 4 AM this morning associated with extreme shortness of breath and gasping for air. Once breathing better the chest pain went away. Patient denies any aggravating/relieving factors. She had V/Q scan done which suggested PE. We are consulted for management of her ESRD/HTN and anemia. Past History Past Medical History: CAD (mild nonobstructive CAD with 25% mid circumflex stenosis in March 2016), ESRD, hypertension Past Surgical History: Other (dialysis access) Social history: lives with family, other (9 out of 13 children are living). denies: smoking, alcohol abuse Family history: denies: CAD Medications and Allergies Allergies Allergy/AdvReac Type Severity Reaction Status Date / Time cefazolin sodium [From Ancef] Allergy Unknown Verified 06/29/14 10:46 enalapril maleate Allergy Angioedema Verified 06/29/14 10:46 [From Vasotec] enalaprilat dihydrate Allergy Angioedema Verified 06/29/14 10:46 [From Vasotec] pseudoephedrine HCl Allergy Swelling Verified 06/29/14 10:46 [From Sudafed] Sulfa (Sulfonamide Allergy Hives Verified 06/29/14 10:46 Antibiotics) Home Medications Medication Instructions Recorded Confirmed Last Taken Type Gabapentin 100 mg PO DAILY 03/27/13 03/01/17 02/22/17 History 100mg Aspirin EC [Aspirin Enteric Coated 325 mg PO QDAY #30 tablet 04/19/16 03/01/17 02/22/17 Rx TAB] 325mg Acetaminophen [Acetaminophen TAB] 650 mg PO Q4H PRN tablet 03/02/17 Unknown Rx Bisacodyl [Dulcolax suppos] 10 mg DC QDAY PRN supp.rect 03/02/17 Unknown Rx Metoprolol [Lopressor TAB] 50 mg PO BID #60 tablet 03/02/17 Unknown Rx Simvastatin [Zocor TAB] 40 mg PO DAILY #30 tablet 03/02/17 Unknown Rx hydrALAZINE [Apresoline TAB] 100 mg PO TID #30 tab 03/02/17 Unknown Rx oxyCODONE /ACETAMINOPHEN [Percocet 1 tab PO Q6H PRN #20 tablet 03/02/17 Unknown Rx 5/325 mg] Active Meds: Active Medications Acetaminophen (Tylenol) 650 mg PO Q4H PRN PRN Reason: Pain MILD(1-3)/Fever >100.5/MERCEDES Last Admin: 03/08/17 13:13 Dose: 650 mg Aspirin (Ecotrin) 325 mg PO QDAY [facility] Last Admin: 03/08/17 09:30 Dose: 325 mg Bisacodyl (Dulcolax) 10 mg DC QDAY PRN PRN Reason: Constipation unrelieved by MOM Last Admin: 03/08/17 19:21 Dose: 10 mg Gabapentin (Neurontin) 100 mg PO DAILY [facility] Last Admin: 03/08/17 09:30 Dose: 100 mg Hydralazine HCl (Apresoline) 100 mg PO TID [facility] Last Admin: 03/08/17 14:19 Dose: 100 mg Heparin Sodium/Sodium Chloride (Heparin/ 0.45% Nacl-25,000 Unit/500 Ml) 25,000 unit in 500 mls @ 15 mls/hr IV TITR [facility]; 750 UNITS/HR PRN Reason: Protocol Last Admin: 03/08/17 17:38 Dose: 800 units/hr, 16 mls/hr Isosorbide Mononitrate (Imdur) 60 mg PO QDAY [facility] Last Admin: 03/08/17 09:29 Dose: 60 mg Metoprolol Tartrate (Lopressor) 50 mg PO BID [facility] Last Admin: 03/08/17 09:30 Dose: 50 mg Oxycodone/Acetaminophen (Percocet 5/325) 1 tab PO Q6H PRN PRN Reason: Pain, Moderate (4-6) Last Admin: 03/07/17 22:32 Dose: 1 tab Pravastatin Sodium (Pravachol) 80 mg PO QHS [facility] Last Admin: 03/07/17 22:31 Dose: 80 mg Warfarin Sodium (Coumadin Pharmacy To Dose) 1 each PO PKCONSULT [facility] PRN Reason: Protocol Warfarin Sodium (Coumadin) 5 mg PO DAILY@1700 [facility] Last Admin: 03/08/17 17:30 Dose: 5 mg Review of Systems Constitutional: no weight loss, no weight gain Ears, nose, mouth and throat: no tinnitis, no decreased hearing, no nose pain, no nasal congestion Cardiovascular: chest pain, no orthopnea, no palpitations, no edema Respiratory: shortness of breath, pleurisy, no cough, no pain Gastrointestinal: abdominal pain (chronic lower abdominal pain ), no nausea, no vomiting, no diarrhea Genitourinary Female: pelvic pain, no menorrhagia, no dysuria, no urinary frequency, no urgency Rectal: no pain, no incontinence Musculoskeletal: no neck stiffness, no neck pain, no low back pain Integumentary: no rash, no pruritis, no redness Neurological: no paralysis, no weakness, no parathesias, no seizures, no syncope Psychiatric: no memory loss, no change in sleep habits Endocrine: no cold intolerance, no heat intolerance Hematologic/Lymphatic: no easy bruising, no easy bleeding Exam - Vital Signs Vital signs: Vital Signs Pulse Resp Pulse Ox 66 13 100 03/07/17 04:56 03/07/17 04:56 03/07/17 04:56 - General Appearance General appearance: well-developed, well-nourished, appears stated age EENT: PERRL, mucous membranes moist Neck: Present: neck supple, trachea midline. Absent: JVD/HJR, Masses Respiratory: Clear to Ascultation, Other (no wheeing ) Heart: regular, normal heart rate, S1S2, no murmurs Gastrointestinal: Present: normoactive bowel sounds. Absent: tenderness Integumentary: no rash, warm and dry Neurologic: no focal deficit, alert and oriented x3, gait normal, strength 5/5 Musculoskeletal: Absent: deformities, joint swelling Psychiatric: mood/affect appropriate, cooperative Results - Lab Results 03/07/17 18:03 03/07/17 05:21 Most recent lab results Calcium 8.1 mg/dL (8.4-10.2) L 03/07/17 05:21 Magnesium 1.90 mg/dL (1.7-2.3) 03/07/17 09:15 Assessment and Plan (1) Acute pulmonary embolism/DVT Current Visit: Yes Status: Acute Plan to address problem: On heparin gtt. Coumadin started (2) ESRD on dialysis Current Visit: Yes Status: Chronic Plan to address problem: Hemodialysis on a Thursday, Thursday and Thursday schedule (3) Anemia in chronic kidney disease (CKD) Current Visit: Yes Status: Acute Plan to address problem: Erythropoietin on dialysis. (4) Chronic lower Abdominal pain Current Visit: Yes Status: chronic Plan to address problem: Previous work ups nonrevealing other than constipation. Lactulose for constipation Consider GI consult. (5) Hypertensive chronic kidney disease with stage 5 chronic kidney disease or end stage renal disease Current Visit: Yes Status: Acute Plan to address problem: BP well controlled at this time. Continue present management
[2017-03-08] MEDS ORDERED: NACL 0.9% 100 ML IV PRN ×2 (21:05→21:06)
[2017-03-08] MEDS ORDERED: PROCRIT IV PRN (21:06)
[2017-03-08] MEDS: PERCOCET 5/325 PO PRN (22:07)
[2017-03-09] MEDS: PRAVACHOL PO SCH ×2 (02:54→22:50)
[2017-03-09] MEDS: HEPARIN/ 0.45% NACL-25,000 UNIT/500 ML 25,000 UNIT/500 ML BAG IV SCH (03:03)
[2017-03-09 06:49] LABS: Hematocrit 26.5 % (30.3-42.9); Hemoglobin 8.6 gm/dl (10.1-14.3)
--- NOTE | 2017-03-09 07:31 | Vascular Lab Report ---
LOWER EXTREMITY VENOUS DUPLEX: REASON FOR EXAM: Acute pulmonary embolism. COMMENTS ON THE RIGHT: Acute deep venous thrombosis is noted in the femoral vein extending into the common femoral. The remaining veins visualized are freely compressible without evidence of internal echogenicity. Spontaneous and phasic flow is present proximally. COMMENTS ON THE LEFT: All veins visualized are freely compressible without evidence of internal echogenicity. Flow is spontaneous and phasic throughout. IMPRESSION: Acute deep venous thrombosis in the right lower extremity
[2017-03-09] MEDS: APRESOLINE PO SCH ×3 (08:44→22:50)
--- NOTE | 2017-03-09 09:42 | Gastroenterology Consultation ---
History of Present Illness - Reason for Consult Consult date: 03/09/17 constipation Requesting physician: RAYNA HU - History of Present Illness The patient is an 86 year old female with ESRD admitted with a DVT for whom consultation was requested for chronic constipation. She has never had a colonoscopy and has previously been told that she is "too old." The patient has had modest weight loss of 7 pounds in recent months associated with a diminished appetite. She denies any BRBPR, abdominal pain, melena or change in her chronic constipation pattern. No FH of colon cancer. Past History Past Medical History: CAD (mild nonobstructive CAD with 25% mid circumflex stenosis in March 2016), ESRD, hypertension Past Surgical History: Other (dialysis access) Social history: lives with family, other (9 out of 13 children are living). denies: smoking, alcohol abuse Family history: denies: CAD Medications and Allergies Allergies Allergy/AdvReac Type Severity Reaction Status Date / Time cefazolin sodium [From Ancef] Allergy Unknown Verified 06/29/14 10:46 enalapril maleate Allergy Angioedema Verified 06/29/14 10:46 [From Vasotec] enalaprilat dihydrate Allergy Angioedema Verified 06/29/14 10:46 [From Vasotec] pseudoephedrine HCl Allergy Swelling Verified 06/29/14 10:46 [From Sudafed] Sulfa (Sulfonamide Allergy Hives Verified 06/29/14 10:46 Antibiotics) Home Medications Medication Instructions Recorded Confirmed Last Taken Type Gabapentin 100 mg PO DAILY 03/27/13 03/09/17 1 Day Ago History ~03/08/17 Aspirin EC [Aspirin Enteric Coated 325 mg PO QDAY #30 tablet 04/19/16 03/09/17 1 Day Ago Rx TAB] ~03/08/17 Acetaminophen [Acetaminophen TAB] 650 mg PO Q4H PRN tablet 03/02/17 03/09/17 2 Weeks Ago Rx ~02/23/17 Bisacodyl [Dulcolax suppos] 10 mg [place] QDAY PRN supp.rect 03/02/17 03/09/17 1 Week Ago Rx ~03/02/17 Metoprolol [Lopressor TAB] 50 mg PO BID #60 tablet 03/02/17 03/09/17 1 Day Ago Rx ~03/08/17 Simvastatin [Zocor TAB] 40 mg PO DAILY #30 tablet 03/02/17 03/09/17 1 Day Ago Rx ~03/08/17 hydrALAZINE [Apresoline TAB] 100 mg PO TID #30 tab 03/02/17 03/09/17 1 Day Ago Rx ~03/08/17 Active Meds: Active Medications Acetaminophen (Tylenol) 650 mg PO Q4H PRN PRN Reason: Pain MILD(1-3)/Fever >100.5/MERCEDES Last Admin: 03/08/17 13:13 Dose: 650 mg Aspirin (Ecotrin) 325 mg PO QDAY [facility] Last Admin: 03/08/17 09:30 Dose: 325 mg Bisacodyl (Dulcolax) 10 mg [place] QDAY PRN PRN Reason: Constipation unrelieved by MOM Last Admin: 03/08/17 19:21 Dose: 10 mg Epoetin [place] (Procrit) 10,000 unit IV ELDA PRN PRN Reason: hemodialysis Gabapentin (Neurontin) 100 mg PO DAILY [facility] Last Admin: 03/08/17 09:30 Dose: 100 mg Hydralazine HCl (Apresoline) 100 mg PO TID [facility] Last Admin: 03/09/17 08:44 Dose: 100 mg Heparin Sodium/Sodium Chloride (Heparin/ 0.45% Nacl-25,000 Unit/500 Ml) 25,000 unit in 500 mls @ 15 mls/hr IV TITR [facility]; 750 UNITS/HR PRN Reason: Protocol Last Admin: 03/09/17 03:03 Dose: 800 units/hr, 16 mls/hr Sodium Chloride (Nacl 0.9%) 100 mls @ 999 mls/hr IV ELDA PRN PRN Reason: Hypotension Isosorbide Mononitrate (Imdur) 60 mg PO QDAY [facility] Last Admin: 03/08/17 09:29 Dose: 60 mg Metoprolol Tartrate (Lopressor) 50 mg PO BID [facility] Last Admin: 03/08/17 22:06 Dose: 50 mg Oxycodone/Acetaminophen (Percocet 5/325) 1 tab PO Q6H PRN PRN Reason: Pain, Moderate (4-6) Last Admin: 03/08/17 22:07 Dose: 1 tab Pravastatin Sodium (Pravachol) 80 mg PO QHS [facility] Last Admin: 12/11/17 02:54 Dose: 80 mg Warfarin Sodium (Coumadin Pharmacy To Dose) 1 each PO PKCONSULT [facility] PRN Reason: Protocol Warfarin Sodium (Coumadin) 5 mg PO DAILY@1700 [facility] Last Admin: 03/08/17 17:30 Dose: 5 mg Review of Systems - Review of Systems Constitutional: weight loss, no fever, no chills Eyes: no change in vision Ears, Nose, Throat: no decreased hearing, no difficulty swallowing, no epistaxis Breasts: deferred Cardiovascular: shortness of breath, no chest pain Gastrointestinal: constipation, no abdominal pain, no nausea, no vomiting, no diarrhea, no change in bowel habits, no BRBPR, no melena, no hematochezia Rectal: no pain Female Genitourinary: deferred Musculoskeletal: joint pain Integumentary: no rash, no pruritis, no jaundice Neurological: no head injury, no paralysis, no weakness Psychiatric: no anxiety, no memory loss, no change in sleep habits Endocrine: no cold intolerance Hematologic/Lymphatic: no easy bruising, no easy bleeding Allergic/Immunologic: no wheezing, no angioedema Exam - Constitutional Vital Signs: Temp Pulse Resp BP Pulse Ox 98.2 F 61 16 138/45 99 03/09/17 08:29 03/09/17 08:29 03/09/17 08:29 03/09/17 08:29 03/09/17 08:29 General appearance: no acute distress, well-nourished - EENT Eyes: PERRL ENT: hearing intact, clear oral mucosa - Neck Neck: supple, normal ROM, no masses or JVD - Respiratory Respiratory effort: normal Respiratory: bilateral: CTA - Breasts Breasts: deferred - Cardiovascular Rhythm: regular Heart Sounds: Present: S1 & S2. Absent: gallop, rub Extremities: pulses intact, No edema, normal color, Full ROM - Gastrointestinal General gastrointestinal: Present: deferred Rectal Exam: deferred - Genitourinary Female Genitourinary: deferred - Integumentary Integumentary: Present: clear, warm, dry - Neurologic Neurological: alert and oriented x3 - Psychiatric Psychiatric: appropriate mood/affect, intact judgment & insight, memory intact - Labs CBC & Chem 7: 03/09/17 06:13 03/07/17 05:21 Lab Results: Laboratory Results - last 24 hr 03/08/17 03/08/17 03/08/17 10:35 14:35 22:49 Hgb Hct Plt Count PT 14.6 INR 1.08 Heparin Anti-Xa Level 0.28 L 0.43 03/09/17 03/09/17 06:13 06:13 Hgb 8.6 L Hct 26.5 L Plt Count 164 PT INR Heparin Anti-Xa Level 0.39 Assessment and Plan - Patient Problems (1) Constipation Current Visit: Yes Status: Acute Plan to address problem: The patient has chronic constipation. There has been no evidence of GI blood loss by symptoms or observation since admission. Screening colonoscopy is generally not recommended in patients of this age with multiple co morbid conditions ( ESRD, DVT, hx CAD, CHF, now DVT) as the risks outweigh the benefits. I favor conservative care. May consider barium enema if exclusion of a mass lesion is felt necessary in which case anticoagulation for her active DVT can be considered. The patient is in agreement with conservative care and does not desire colonoscopy. Thank you for this consultation. Please call as needed. (2) Anemia Current Visit: Yes Status: Chronic Qualifiers: Anemia type: due to chronic kidney disease Chronic kidney disease stage: on chronic dialysis Qualified Code(s): N18.6 - End stage renal disease; D63.1 - Anemia in chronic kidney disease; D63.1 - Anemia in chronic kidney disease; Z99.2 - Dependence on renal dialysis; Z99.2 - Dependence on renal dialysis; Z99.2 - Dependence on renal dialysis; Z99.2 - Dependence on renal dialysis (3) ESRD on dialysis Current Visit: Yes Status: Chronic (4) HTN (hypertension) Current Visit: Yes Status: Chronic Qualifiers: Hypertension type: essential hypertension Qualified Code(s): I10 - Essential (primary) hypertension (5) CAD (coronary artery disease) Current Visit: No Status: Chronic Qualifiers: Coronary Disease-Associated Artery/Lesion type: [place] artery [place] vs. transplanted heart: [place] heart Associated angina: without angina Qualified Code(s): I25.10 - Atherosclerotic heart disease of [place] coronary artery without angina pectoris (6) CHF (congestive heart failure) Current Visit: No Status: Chronic (7) Neuropathy Current Visit: No Status: Chronic
[2017-03-09 11:12] LABS: INR 1.15 (0.87-1.13)
[2017-03-09] MEDS ORDERED: NACL 0.9 (PRIMING MACHINE ONLY DIALYSIS) MC ONE (11:22)
--- NOTE | 2017-03-09 11:28 | Consultation ---
History of Present Illness - Reason for Consult Consult date: 03/09/17 DVT - History of Present Illness Patient is an 86-year-old female with a significant past medical history including end-stage renal disease on hemodialysis who presents with a DVT and of possible pulmonary emboli. At time of examination, the patient is resting comfortably with no respiratory issues or chest pain. Her echo demonstrates common hypertension however no evidence of right-sided heart strain. Past History Past Medical History: CAD (mild nonobstructive CAD with 25% mid circumflex stenosis in March 2016), ESRD, hypertension Past Surgical History: Other (dialysis access) Social history: lives with family, other (9 out of 13 children are living). denies: smoking, alcohol abuse Family history: denies: CAD Medications and Allergies Allergies Allergy/AdvReac Type Severity Reaction Status Date / Time cefazolin sodium [From Ancef] Allergy Unknown Verified 06/29/14 10:46 enalapril maleate Allergy Angioedema Verified 06/29/14 10:46 [From Vasotec] enalaprilat dihydrate Allergy Angioedema Verified 06/29/14 10:46 [From Vasotec] pseudoephedrine HCl Allergy Swelling Verified 06/29/14 10:46 [From Sudafed] Sulfa (Sulfonamide Allergy Hives Verified 06/29/14 10:46 Antibiotics) Home Medications Medication Instructions Recorded Confirmed Last Taken Type Gabapentin 100 mg PO DAILY 03/27/13 03/09/17 1 Day Ago History ~03/08/17 Aspirin EC [Aspirin Enteric Coated 325 mg PO QDAY #30 tablet 04/19/16 03/09/17 1 Day Ago Rx TAB] ~03/08/17 Acetaminophen [Acetaminophen TAB] 650 mg PO Q4H PRN tablet 03/02/17 03/09/17 2 Weeks Ago Rx ~02/23/17 Bisacodyl [Dulcolax suppos] 10 mg [place] QDAY PRN supp.rect 03/02/17 03/09/17 1 Week Ago Rx ~03/02/17 Metoprolol [Lopressor TAB] 50 mg PO BID #60 tablet 03/02/17 03/09/17 1 Day Ago Rx ~03/08/17 Simvastatin [Zocor TAB] 40 mg PO DAILY #30 tablet 03/02/17 03/09/17 1 Day Ago Rx ~03/08/17 hydrALAZINE [Apresoline TAB] 100 mg PO TID #30 tab 03/02/17 03/09/17 1 Day Ago Rx ~03/08/17 Active Meds: Active Medications Acetaminophen (Tylenol) 650 mg PO Q4H PRN PRN Reason: Pain MILD(1-3)/Fever >100.5/MERCEDES Last Admin: 03/08/17 13:13 Dose: 650 mg Aspirin (Ecotrin) 325 mg PO QDAY REPLACED BY [facility] Last Admin: 03/08/17 09:30 Dose: 325 mg Bisacodyl (Dulcolax) 10 mg [place] QDAY PRN PRN Reason: Constipation unrelieved by MOM Last Admin: 03/08/17 19:21 Dose: 10 mg Epoetin Checo (Procrit) 10,000 unit IV ELDA PRN PRN Reason: hemodialysis Last Admin: 03/09/17 11:22 Dose: 10,000 unit Gabapentin (Neurontin) 100 mg PO DAILY REPLACED BY [facility] Last Admin: 03/08/17 09:30 Dose: 100 mg Hydralazine HCl (Apresoline) 100 mg PO TID REPLACED [facility] Last Admin: 03/09/17 08:44 Dose: 100 mg Heparin Sodium/Sodium Chloride (Heparin/ 0.45% Nacl-25,000 Unit/500 Ml) 25,000 unit in 500 mls @ 15 mls/hr IV TITR [facility]; 750 UNITS/HR PRN Reason: Protocol Last Admin: 03/09/17 03:03 Dose: 800 units/hr, 16 mls/hr Sodium Chloride (Nacl 0.9%) 100 mls @ 999 mls/hr IV EDLA PRN PRN Reason: Hypotension Isosorbide Mononitrate (Imdur) 60 mg PO QDAY REPLACED BY [facility] Last Admin: 03/08/17 09:29 Dose: 60 mg Metoprolol Tartrate (Lopressor) 50 mg PO BID REPLACED [facility] Last Admin: 03/08/17 22:06 Dose: 50 mg Oxycodone/Acetaminophen (Percocet 5/325) 1 tab PO Q6H PRN PRN Reason: Pain, Moderate (4-6) Last Admin: 03/08/17 22:07 Dose: 1 tab Pravastatin Sodium (Pravachol) 80 mg PO QHS REPLACED [facility] Last Admin: 03/09/17 02:54 Dose: 80 mg Warfarin Sodium (Coumadin Pharmacy To Dose) 1 each PO PKCONSULT REPLACED BY [facility] PRN Reason: Protocol Warfarin Sodium (Coumadin) 5 mg PO DAILY@1700 REPLACED BY [facility] Last Admin: 03/08/17 17:30 Dose: 5 mg Review of Systems All systems: negative Exam - Constitutional Vitals: Temp Pulse Resp BP Pulse Ox 98.2 F 58 L 18 134/62 99 03/09/17 10:28 03/09/17 11:15 03/09/17 11:06 03/09/17 11:15 03/09/17 08:29 General appearance: Present: no acute distress - EENT Eyes: Present: PERRL ENT: hearing intact - Neck Neck: Present: supple, normal ROM - Respiratory Respiratory effort: normal - Extremities Extremities: no ischemia Extremity abnormal: edema, other (RUE graft) - Abdominal General gastrointestinal: Present: deferred - Rectal Rectal Exam: deferred - Integumentary Integumentary: Present: clear - Psychiatric Psychiatric: appropriate mood/affect, cooperative Results - Labs CBC & Chem 7: 03/09/17 06:13 03/07/17 05:21 Labs: Abnormal lab results 03/08/17 03/09/17 03/09/17 Range/Units 14:35 06:13 06:13 Hgb 8.6 L (10.1-14.3) gm/dl Hct 26.5 L (30.3-42.9) % PT 15.3 H (12.2-14.9) Sec. INR 1.15 H (0.87-1.13) Heparin Anti-Xa Level 0.28 L (0.3-0.7) U.I./ml - Imaging and Cardiology Venous US: report reviewed Assessment and Plan Patient with a history of DVT and possible PE. Agree with starting patient on long-term anticoagulation.
--- NOTE | 2017-03-09 11:44 | Progress Note ---
Assessment and Plan Echo reviewed - EF 55-60%, impaired relaxation, LA mildly dilated, RV cavity size normal, RA mildly dilated, mild to mod MR, mod TR, RVSP 66mmHg, moderate pulm HTN, no evidence of RV strain. Suspect elevated troponins are secondary to acute PE. No indication for repeat ischemic evaluation at this time. Currently stable cardiac status. Cont coumadin with heparin gtt with tx INR 2-3 per primary team. The patient has been seen in conjunction with Dr. Rader who agrees with the assessment and plan of care. - Patient Problems (1) Acute pulmonary embolism Current Visit: Yes Status: Acute (2) Acute DVT (deep venous thrombosis) Current Visit: Yes Status: Acute (3) Atypical chest pain Current Visit: Yes Status: Acute (4) ESRD on dialysis Current Visit: Yes Status: Chronic (5) Mild CAD Current Visit: Yes Status: Chronic (6) Elevated troponin Current Visit: Yes Status: Acute (7) HTN (hypertension) Current Visit: Yes Status: Chronic Qualifiers: Hypertension type: essential hypertension Qualified Code(s): I10 - Essential (primary) hypertension (8) Anemia Current Visit: Yes Status: Chronic Qualifiers: Anemia type: due to chronic kidney disease Chronic kidney disease stage: on chronic dialysis Qualified Code(s): N18.6 - End stage renal disease; D63.1 - Anemia in chronic kidney disease; D63.1 - Anemia in chronic kidney disease; Z99.2 - Dependence on renal dialysis; Z99.2 - Dependence on renal dialysis; Z99.2 - Dependence on renal dialysis; Z99.2 - Dependence on renal dialysis (9) Pulmonary HTN Current Visit: Yes Status: Chronic Subjective Date of service: 03/09/17 Principal diagnosis: Chest pain, Elevated Tn, Acute PE, Mild CAD, ESRD Interval history: Pt seen in HD. C/o pain with palpation under the left breast. Heparin gtt infusing. Objective Last Vital Signs Temp 98.2 F 03/09/17 10:28 Pulse 58 L 03/09/17 11:15 Resp 18 03/09/17 11:06 BP 134/62 03/09/17 11:15 Pulse Ox 99 03/09/17 08:29 - Physical Examination General: No Apparent Distress HEENT: Positive: EOMI, Normocephaly, Mucus Membranes Moist Neck: Positive: neck supple, trachea midline. Negative: JVD/HJR, Masses Cardiac: Positive: Reg Rate and Rhythm, S1/S2, Systolic Murmur Lungs: Positive: clear to auscultation Neuro: Positive: Grossly Intact Abdomen: Positive: Soft, Active Bowel Sounds. Negative: Tender Skin: Positive: Clear. Negative: Rash Musculoskeletal: Normal Range of Motion Extremities: Present: normal. Absent: edema - Labs and Meds Coagulation 03/09/17 Range/Units 06:13 PT 15.3 H (12.2-14.9) Sec. INR 1.15 H (0.87-1.13) CBC 03/09/17 Range/Units 06:13 Hgb 8.6 L (10.1-14.3) gm/dl Hct 26.5 L (30.3-42.9) % Plt Count 164 (140-440) K/mm3 - Imaging and Cardiology EKG: image reviewed - EKG Sinus rhythms and dysrhythmias: sinus rhythm AV and intraventricular conduction: right bundle branch block
--- NOTE | 2017-03-09 15:22 | Progress Note ---
Assessment and Plan (1) Acute pulmonary embolism/DVT Current Visit: Yes Status: Acute Plan to address problem: On heparin gtt. Coumadin started (2) ESRD on dialysis Current Visit: Yes Status: Chronic Plan to address problem: Hemodialysis on a Thursday, Thursday and Thursday schedule (3) Anemia in chronic kidney disease (CKD) Current Visit: Yes Status: Acute Plan to address problem: Erythropoietin on dialysis. (4) Chronic lower Abdominal pain Current Visit: Yes Status: chronic Plan to address problem: Previous work ups nonrevealing other than constipation. Lactulose for constipation GI recommendations noted. Agree with conservative management (5) Hypertensive chronic kidney disease with stage 5 chronic kidney disease or end stage renal disease Current Visit: Yes Status: Acute Plan to address problem: BP well controlled at this time. Continue present management Subjective Date of service: 03/09/17 Principal diagnosis: Chest pain, Elevated Tn, Acute PE, Mild CAD, ESRD Interval history: No new changes, c/o chronic lower abdominal pain Objective - Vital Signs Vital signs: Vital Signs - 12hr 03/09/17 03/09/17 03/09/17 04:59 08:29 10:00 Temperature 98.2 F 98.2 F Pulse Rate 61 61 58 L Pulse Rate [ Apical] Respiratory 28 H 16 Rate Blood Pressure 125/39 138/45 O2 Sat by Pulse 100 99 Oximetry 03/09/17 03/09/17 03/09/17 10:28 10:30 10:45 Temperature 98.2 F Pulse Rate 64 58 L 56 L Pulse Rate [ Apical] Respiratory 18 Rate Blood Pressure 132/46 114/44 116/38 O2 Sat by Pulse Oximetry 03/09/17 03/09/17 03/09/17 11:00 11:06 11:15 Temperature Pulse Rate 58 L 58 L Pulse Rate [ 61 Apical] Respiratory 18 Rate Blood Pressure 116/50 134/62 O2 Sat by Pulse Oximetry 03/09/17 03/09/17 03/09/17 11:30 11:45 12:00 Temperature Pulse Rate 58 L 56 L 68 Pulse Rate [ Apical] Respiratory Rate Blood Pressure 112/38 120/44 112/78 O2 Sat by Pulse Oximetry 03/09/17 03/09/17 03/09/17 12:15 12:30 12:45 Temperature Pulse Rate 54 L 56 L 56 L Pulse Rate [ Apical] Respiratory Rate Blood Pressure 118/32 126/44 118/42 O2 Sat by Pulse Oximetry 03/09/17 03/09/17 03/09/17 13:08 13:15 13:58 Temperature 98 F Pulse Rate 52 L 56 L 58 L Pulse Rate [ Apical] Respiratory 18 Rate Blood Pressure 124/42 112/40 134/62 O2 Sat by Pulse Oximetry - General Appearance General appearance: well-developed, well-nourished, appears stated age EENT: PERRL, mucous membranes moist Neck: no JVD, no thyromegaly, no carotid bruit, supple Respiratory: Present: Clear to Ascultation. Absent: Wheezes Cardiology: regular, normal heart rate, S1S2, no murmurs Gastrointestinal: normoactive bowel sounds, no distended Integumentary: no rash, warm and dry Neurologic: no focal deficit, alert and oriented x3, reflexes 2+ and symmetric, gait normal, strength 5/5 Musculoskeletal: no deformities, no erythema, no cyanosis, no clubbing Psychiatric: mood/affect appropriate, cooperative - Lab 03/09/17 06:13 03/07/17 05:21 Most recent lab results Calcium 8.1 mg/dL (8.4-10.2) L 03/07/17 05:21 Magnesium 1.90 mg/dL (1.7-2.3) 03/07/17 09:15
[2017-03-09] MEDS: IMDUR PO SCH (15:31)
[2017-03-09] MEDS: NEURONTIN PO SCH (15:31)
[2017-03-09] MEDS: ECOTRIN PO SCH (15:31)
[2017-03-09] MEDS: LOPRESSOR PO SCH ×2 (15:32→22:50)
--- NOTE | 2017-03-09 16:39 | Progress Note ---
Assessment and Plan Assessment and plan: Patient is 86-year-old woman with a history of anuric end-stage renal disease on hemodialysis Thursday followed by Dr. Rosenberg, coronary artery disease, tobacco dependency/snuff, osteoarthritis and hypertension who presents to the emergency department at [facility] chief complaint of substernal severe nonradiating pressure-like intermittent chest pains started at 4 AM this morning associated with extreme shortness of breath and gasping for air. Once breathing better the chest pain went away. Patient denies any aggravating factors. Patient had dialysis yesterday. She came back from dialysis yesterday she did not feel well but no specific complaints just weakness. She denies any syncope, seizures, headaches, fever, chills, new cough. She c/o abdominal pain left lower quadrant for about 3 or 4 months, she told Dr. Rosenberg. She never had a colonoscopy that she was told she is too old. She thinks she has cancer. She is scheduled for diagnostic mammogram on 03/10/2017 at [facility]. Patient was recently discharged from here on 06/2016; it appears she was admitted for dialysis. She is accompanied by [id number] Tootie at bedside. -Chest pain, atypical and reproducible but abnormal different EKG from previous (check digoxin level): consult Cardiology -ESRD on HD: consulted Dr. Rosenberg -Accelerated hypertension: prn iv hydralazine -Mild malnutrition, albumin 3.1: consult Neurosurgical Nurse Practitioner -Chronic abd pains, last ct ap was 02/2017, showed constipation: will treat with dulcolax suppository -AOCD: advised her to get colonoscopy -Suspected Acute Bilateral PE: on heparin drip since patient is going for v/q scan then stress test will be delay, so I consulted Cardiology v/q shows high probab for pe, started heparin drip, ECHO pending, IR/Vascular consulted patient can have cta chest because she is anuric but should be done on the day of hemodialysis (prior to hd on thursday) Start coumadin today. venous doppler shows acute right leg DVT, cancel CTA chest. Day 2/5 on a/c overlap History Interval history: Patient was seen and examined. Follow-up on current diagnosis. Overnight uneventful. Patient denies any nausea/vomiting or severe headaches. Imaging, nursing note, chart, labs and old chart reviewed. Discussed with patient. Still with sob. Hospitalist Physical - Physical exam Narrative exam: GEN: thin frial, NAD, AWAKE, ALERT, ORIENTATED x 3 HEENT: NCAT, EOMI, PERRL, OP Clear NECK: supple, no adenopathy, no thyromegaly, no JVD CVS/HEART: RRR, NORMAL S1S2, NO JVD, pulses present bilaterally CHEST/LUNGS: CTA B, Symmetrical chest expansion, good air entry bilaterally, reproducible chest wall tendernes GI/Abdomen: soft, diffuse tenderness, nondistended good bowel sounds, no guarding or rebound /Bladder: no suprapubic tenderness, no CVA or paraspinal tenderness EXT/Skin: no c/c/e, no obvious rash MSK: FROM x 4 Neuro: CN 2-12 grossly intact, no new focal deficits Psych: calm - Constitutional Vitals: Temp Pulse Resp BP Pulse Ox 98 F 61 18 134/52 99 03/09/17 13:15 03/09/17 15:31 03/09/17 13:15 03/09/17 15:31 03/09/17 08:29 General appearance: Present: no acute distress Results - Labs CBC & Chem 7: 03/09/17 06:13 03/07/17 05:21 Labs: Laboratory Last Values WBC 4.6 K/mm3 (4.5-11.0) 03/07/17 05:21 RBC 3.66 M/mm3 (3.65-5.03) 03/07/17 05:21 Hgb 8.6 gm/dl (10.1-14.3) L 03/09/17 06:13 Hct 26.5 % (30.3-42.9) L 03/09/17 06:13 MCV 79 fl (79-97) 03/07/17 05:21 MCH 25 pg (28-32) L 03/07/17 05:21 MCHC 32 % (30-34) 03/07/17 05:21 RDW 16.2 % (13.2-15.2) H 03/07/17 05:21 Plt Count 164 K/mm3 (140-440) 03/09/17 06:13 Lymph % (Auto) 19.1 % (13.4-35.0) 03/07/17 05:21 [place] % (Auto) 10.0 % (0.0-7.3) H 03/07/17 05:21 Eos % (Auto) 4.0 % (0.0-4.3) 03/07/17 05:21 Baso % (Auto) 1.4 % (0.0-1.8) 03/07/17 05:21 Lymph # 0.9 K/mm3 (1.2-5.4) L 03/07/17 05:21 [place] # 0.5 K/mm3 (0.0-0.8) 03/07/17 05:21 Eos # 0.2 K/mm3 (0.0-0.4) 03/07/17 05:21 Baso # 0.1 K/mm3 (0.0-0.1) 03/07/17 05:21 Seg Neutrophils % 65.5 % (40.0-70.0) 03/07/17 05:21 Seg Neutrophils # 3.0 K/mm3 (1.8-7.7) 03/07/17 05:21 PT 15.3 Sec. (12.2-14.9) H 03/09/17 06:13 INR 1.15 (0.87-1.13) H 03/09/17 06:13 APTT 30.9 Sec. (24.2-36.6) 03/07/17 18:03 D-Dimer 492.32 ng/mlDDU (0-234) H 03/07/17 09:15 Heparin Anti-Xa Level 0.39 U.I./ml (0.3-0.7) 03/09/17 06:13 Sodium 145 mmol/L (137-145) 03/07/17 05:21 Potassium 3.8 mmol/L (3.6-5.0) 03/07/17 05:21 Chloride 102.7 mmol/L (98-107) 03/07/17 05:21 Carbon Dioxide 29 mmol/L (22-30) 03/07/17 05:21 Anion Gap 17 mmol/L 03/07/17 05:21 BUN 23 mg/dL (7-17) H 03/07/17 05:21 Creatinine 4.9 mg/dL (0.7-1.2) H 03/07/17 05:21 Estimated GFR 10 ml/min 03/07/17 05:21 BUN/Creatinine Ratio 5 % 03/07/17 05:21 Glucose 85 mg/dL (65-100) 03/07/17 05:21 Calcium 8.1 mg/dL (8.4-10.2) L 03/07/17 05:21 Magnesium 1.90 mg/dL (1.7-2.3) 03/07/17 09:15 Total Bilirubin 0.50 mg/dL (0.1-1.2) 03/07/17 09:15 Direct Bilirubin < 0.2 mg/dL (0-0.2) 03/07/17 09:15 AST 14 units/L (5-40) 03/07/17 09:15 ALT < 5 units/L (7-56) L 03/07/17 09:15 Alkaline Phosphatase 134 units/L (35-129) H 03/07/17 09:15 Troponin T 0.042 ng/mL (0.00-0.029) H 03/07/17 11:16 NT-Pro-B Natriuret Pep 68239 pg/mL (0-900) H 03/07/17 09:15 Total Protein 5.3 g/dL (6.3-8.2) L 03/07/17 09:15 Albumin 3.1 g/dL (3.9-5) L 03/07/17 09:15 Albumin/Globulin Ratio 1.4 % 03/07/17 09:15 Triglycerides 60 mg/dL (2-149) 03/07/17 05:21 Cholesterol 135 mg/dL (50-199) 03/07/17 05:21 LDL Cholesterol Direct 67 mg/dL (50-130) 03/07/17 05:21 HDL Cholesterol 56 mg/dL (40-59) 03/07/17 05:21 Cholesterol/HDL Ratio 2.41 % 03/07/17 05:21 Digoxin 0.3 ng/mL (0.9-2.0) L 03/07/17 11:39
[2017-03-09] MEDS: COUMADIN PO SCH (17:17)
[2017-03-10] MEDS: HEPARIN/ 0.45% NACL-25,000 UNIT/500 ML 25,000 UNIT/500 ML BAG IV SCH (07:03)
[2017-03-10 07:30] LABS: INR 1.63 (0.87-1.13)
--- NOTE | 2017-03-10 07:59 | Progress Note ---
Assessment and Plan (1) Acute pulmonary embolism/DVT Current Visit: Yes Status: Acute Plan to address problem: On heparin gtt. Coumadin started (2) ESRD on dialysis Current Visit: Yes Status: Chronic Plan to address problem: Hemodialysis on a Thursday, Thursday and Thursday schedule (3) Anemia in chronic kidney disease (CKD) Current Visit: Yes Status: Acute Plan to address problem: Erythropoietin on dialysis. (4) Chronic lower Abdominal pain Current Visit: Yes Status: chronic Plan to address problem: Previous work ups nonrevealing other than constipation. Lactulose for constipation GI recommendations noted. Agree with conservative management (5) Hypertensive chronic kidney disease with stage 5 chronic kidney disease or end stage renal disease Current Visit: Yes Status: Acute Plan to address problem: BP well controlled at this time. Continue present management Discussed with RN Subjective Date of service: 03/10/17 Principal diagnosis: Chest pain, Elevated Tn, Acute PE, Mild CAD, ESRD Interval history: No new changes Objective - Vital Signs Vital signs: Vital Signs - 12hr 03/09/17 03/10/17 03/10/17 22:50 00:00 01:07 Temperature 99.0 F Pulse Rate 65 80 Respiratory 16 Rate Blood Pressure 121/35 107/40 O2 Sat by Pulse Oximetry 03/10/17 03/10/17 03/10/17 02:00 04:58 06:17 Temperature 99.1 F Pulse Rate 66 66 Respiratory 16 Rate Blood Pressure 119/36 O2 Sat by Pulse 98 Oximetry - General Appearance General appearance: well-developed, well-nourished, appears stated age EENT: PERRL, mucous membranes moist Neck: no JVD, no thyromegaly, no carotid bruit, supple Respiratory: Present: Clear to Ascultation Cardiology: regular, normal heart rate, S1S2, no murmurs Gastrointestinal: normoactive bowel sounds, no distended Integumentary: no rash, warm and dry Neurologic: no focal deficit, alert and oriented x3, reflexes 2+ and symmetric, gait normal, strength 5/5 Musculoskeletal: no deformities, no erythema, no cyanosis, no clubbing Psychiatric: mood/affect appropriate, cooperative - Lab 03/09/17 06:13 03/07/17 05:21 Most recent lab results Calcium 8.1 mg/dL (8.4-10.2) L 03/07/17 05:21 Magnesium 1.90 mg/dL (1.7-2.3) 03/07/17 09:15
[2017-03-10] MEDS: APRESOLINE PO SCH ×3 (08:32→21:00)
[2017-03-10] MEDS: ECOTRIN PO SCH (09:41)
[2017-03-10] MEDS: NEURONTIN PO SCH (09:42)
[2017-03-10] MEDS: LOPRESSOR PO SCH ×2 (09:42→22:35)
[2017-03-10] MEDS: IMDUR PO SCH (09:42)
--- NOTE | 2017-03-10 14:12 | Progress Note ---
Assessment and Plan Assessment and plan: Patient is 86-year-old woman with a history of anuric end-stage renal disease on hemodialysis Thursday followed by Dr. Rosenberg, coronary artery disease, tobacco dependency/snuff, osteoarthritis and hypertension who presents to the emergency department at [facility] chief complaint of substernal severe nonradiating pressure-like intermittent chest pains started at 4 AM this morning associated with extreme shortness of breath and gasping for air. Once breathing better the chest pain went away. Patient denies any aggravating factors. Patient had dialysis yesterday. She came back from dialysis yesterday she did not feel well but no specific complaints just weakness. She denies any syncope, seizures, headaches, fever, chills, new cough. She c/o abdominal pain left lower quadrant for about 3 or 4 months, she told Dr. Rosenberg. She never had a colonoscopy that she was told she is too old. She thinks she has cancer. She is scheduled for diagnostic mammogram on 03/10/2017 at [facility]. Patient was recently discharged from here on 06/2016; it appears she was admitted for dialysis. She is accompanied by [id number] Tootie at bedside. -Chest pain, due to acute bilateral PD -ESRD on HD: consulted Dr. Rosenberg -Accelerated hypertension: prn iv hydralazine -Mild malnutrition, albumin 3.1: consult Remote Sensing Program Manager -Chronic abd pains, last ct ap was 02/2017, showed constipation: will treat with dulcolax suppository -AOCD: advised her to get colonoscopy -Acute Bilateral PE/acute right leg DVT: on heparin drip since patient is going for v/q scan then stress test will be delay, so I consulted Cardiology v/q shows high probab for pe, started heparin drip, ECHO pending, IR/Vascular consulted patient can have cta chest because she is anuric but should be done on the day of hemodialysis (prior to hd on thursday) Start coumadin today. venous doppler shows acute right leg DVT, cancelled CTA chest. Day 3/ on a/c overlap History Interval history: Patient was seen and examined. Follow-up on current diagnosis. Overnight uneventful. Patient denies any nausea/vomiting or severe headaches. Imaging, nursing note, chart, labs and old chart reviewed. Discussed with patient. Still with sob. Hospitalist Physical - Physical exam Narrative exam: GEN: thin frial, NAD, AWAKE, ALERT, ORIENTATED x 3 HEENT: NCAT, EOMI, PERRL, OP Clear NECK: supple, no adenopathy, no thyromegaly, no JVD CVS/HEART: RRR, NORMAL S1S2, NO JVD, pulses present bilaterally CHEST/LUNGS: CTA B, Symmetrical chest expansion, good air entry bilaterally, reproducible chest wall tendernes GI/Abdomen: soft, diffuse tenderness, nondistended good bowel sounds, no guarding or rebound /Bladder: no suprapubic tenderness, no CVA or paraspinal tenderness EXT/Skin: no c/c/e, no obvious rash MSK: FROM x 4 Neuro: CN 2-12 grossly intact, no new focal deficits Psych: calm - Constitutional Vitals: Temp Pulse Resp BP Pulse Ox 97.8 F 62 16 110/35 100 03/10/17 08:12 03/10/17 12:03 03/10/17 10:00 03/10/17 12:03 03/10/17 12:03 General appearance: Present: no acute distress Results - Labs CBC & Chem 7: 03/09/17 06:13 03/07/17 05:21 Labs: Laboratory Last Values WBC 4.6 K/mm3 (4.5-11.0) 03/07/17 05:21 RBC 3.66 M/mm3 (3.65-5.03) 03/07/17 05:21 Hgb 8.6 gm/dl (10.1-14.3) L 03/09/17 06:13 Hct 26.5 % (30.3-42.9) L 03/09/17 06:13 MCV 79 fl (79-97) 03/07/17 05:21 MCH 25 pg (28-32) L 03/07/17 05:21 MCHC 32 % (30-34) 03/07/17 05:21 RDW 16.2 % (13.2-15.2) H 03/07/17 05:21 Plt Count 164 K/mm3 (140-440) 03/09/17 06:13 Lymph % (Auto) 19.1 % (13.4-35.0) 03/07/17 05:21 [place] % (Auto) 10.0 % (0.0-7.3) H 03/07/17 05:21 Eos % (Auto) 4.0 % (0.0-4.3) 03/07/17 05:21 Baso % (Auto) 1.4 % (0.0-1.8) 03/07/17 05:21 Lymph # 0.9 K/mm3 (1.2-5.4) L 03/07/17 05:21 [place] # 0.5 K/mm3 (0.0-0.8) 03/07/17 05:21 Eos # 0.2 K/mm3 (0.0-0.4) 03/07/17 05:21 Baso # 0.1 K/mm3 (0.0-0.1) 03/07/17 05:21 Seg Neutrophils % 65.5 % (40.0-70.0) 03/07/17 05:21 Seg Neutrophils # 3.0 K/mm3 (1.8-7.7) 03/07/17 05:21 PT 20.3 Sec. (12.2-14.9) H 03/10/17 06:59 INR 1.63 (0.87-1.13) H 03/10/17 06:59 APTT 30.9 Sec. (24.2-36.6) 03/07/17 18:03 D-Dimer 492.32 ng/mlDDU (0-234) H 03/07/17 09:15 Heparin Anti-Xa Level 0.30 U.I./ml (0.3-0.7) 03/10/17 07:47 Sodium 145 mmol/L (137-145) 03/07/17 05:21 Potassium 3.8 mmol/L (3.6-5.0) 03/07/17 05:21 Chloride 102.7 mmol/L (98-107) 03/07/17 05:21 Carbon Dioxide 29 mmol/L (22-30) 03/07/17 05:21 Anion Gap 17 mmol/L 03/07/17 05:21 BUN 23 mg/dL (7-17) H 03/07/17 05:21 Creatinine 4.9 mg/dL (0.7-1.2) H 03/07/17 05:21 Estimated GFR 10 ml/min 03/07/17 05:21 BUN/Creatinine Ratio 5 % 03/07/17 05:21 Glucose 85 mg/dL (65-100) 03/07/17 05:21 Calcium 8.1 mg/dL (8.4-10.2) L 03/07/17 05:21 Magnesium 1.90 mg/dL (1.7-2.3) 03/07/17 09:15 Total Bilirubin 0.50 mg/dL (0.1-1.2) 03/07/17 09:15 Direct Bilirubin < 0.2 mg/dL (0-0.2) 03/07/17 09:15 AST 14 units/L (5-40) 03/07/17 09:15 ALT < 5 units/L (7-56) L 03/07/17 09:15 Alkaline Phosphatase 134 units/L (35-129) H 03/07/17 09:15 Troponin T 0.042 ng/mL (0.00-0.029) H 03/07/17 11:16 NT-Pro-B Natriuret Pep 05752 pg/mL (0-900) H 03/07/17 09:15 Total Protein 5.3 g/dL (6.3-8.2) L 03/07/17 09:15 Albumin 3.1 g/dL (3.9-5) L 03/07/17 09:15 Albumin/Globulin Ratio 1.4 % 03/07/17 09:15 Triglycerides 60 mg/dL (2-149) 03/07/17 05:21 Cholesterol 135 mg/dL (50-199) 03/07/17 05:21 LDL Cholesterol Direct 67 mg/dL (50-130) 03/07/17 05:21 HDL Cholesterol 56 mg/dL (40-59) 03/07/17 05:21 Cholesterol/HDL Ratio 2.41 % 03/07/17 05:21 Digoxin 0.3 ng/mL (0.9-2.0) L 03/07/17 11:39
--- NOTE | 2017-03-10 15:18 | Progress Note ---
Assessment and Plan Telemetry reviewed - pt in SR with frequent PACs. Repeat EKG. Currently stable cardiac status. Cont coumadin with heparin gtt with tx INR 2-3 per primary team. The patient has been seen in conjunction with Dr. Rader who agrees with the assessment and plan of care. - Patient Problems (1) Acute pulmonary embolism Current Visit: Yes Status: Acute (2) Acute DVT (deep venous thrombosis) Current Visit: Yes Status: Acute (3) Atypical chest pain Current Visit: Yes Status: Acute (4) ESRD on dialysis Current Visit: Yes Status: Chronic (5) Mild CAD Current Visit: Yes Status: Chronic (6) Elevated troponin Current Visit: Yes Status: Acute (7) HTN (hypertension) Current Visit: Yes Status: Chronic Qualifiers: Hypertension type: essential hypertension Qualified Code(s): I10 - Essential (primary) hypertension (8) Anemia Current Visit: Yes Status: Chronic Qualifiers: Anemia type: due to chronic kidney disease Chronic kidney disease stage: on chronic dialysis Qualified Code(s): N18.6 - End stage renal disease; D63.1 - Anemia in chronic kidney disease; D63.1 - Anemia in chronic kidney disease; Z99.2 - Dependence on renal dialysis; Z99.2 - Dependence on renal dialysis; Z99.2 - Dependence on renal dialysis; Z99.2 - Dependence on renal dialysis (9) Pulmonary HTN Current Visit: Yes Status: Chronic Subjective Date of service: 03/10/17 Principal diagnosis: Chest pain, Elevated Tn, Acute PE, Mild CAD, ESRD Interval history: Pt resting in bed, no current complaints. Heparin gtt infusing. Telemetry reviewed - pt in SR HR 60s with frequent PACs, no evidence of AFib/AFlutter overnight. Objective Last Vital Signs Temp 97.8 F 03/10/17 08:12 Pulse 62 03/10/17 12:03 Resp 16 03/10/17 10:00 BP 110/35 03/10/17 12:03 Pulse Ox 100 03/10/17 12:03 - Physical Examination General: No Apparent Distress HEENT: Positive: EOMI, Normocephaly, Mucus Membranes Moist Neck: Positive: neck supple, trachea midline. Negative: JVD/HJR, Masses Cardiac: Positive: Reg Rate and Rhythm, S1/S2, Systolic Murmur Lungs: Positive: Decreased Breath Sounds Neuro: Positive: Grossly Intact Abdomen: Positive: Soft, Active Bowel Sounds. Negative: Tender Skin: Positive: Clear. Negative: Rash Musculoskeletal: Normal Range of Motion Extremities: Present: normal. Absent: edema - Labs and Meds Coagulation 03/10/17 Range/Units 06:59 PT 20.3 H (12.2-14.9) Sec. INR 1.63 H (0.87-1.13) - Imaging and Cardiology EKG: image reviewed - EKG Sinus rhythms and dysrhythmias: sinus rhythm AV and intraventricular conduction: right bundle branch block
[2017-03-10] MEDS: COUMADIN PO SCH (16:58)
[2017-03-10] MEDS: PRAVACHOL PO SCH (22:34)
[2017-03-10] MEDS: PERCOCET 5/325 PO PRN (22:37)
[2017-03-11] MEDS: HEPARIN/ 0.45% NACL-25,000 UNIT/500 ML 25,000 UNIT/500 ML BAG IV SCH ×2 (04:50→16:53)
[2017-03-11 06:17] LABS: Hematocrit 26.8 % (30.3-42.9); Hemoglobin 8.5 gm/dl (10.1-14.3)
[2017-03-11 06:27] LABS: INR 2.5 (0.87-1.13)
[2017-03-11 06:40] LABS: Calcium 7.9 mg/dL (8.4-10.2); Chloride 97.8 mmol/L (98-107); Potassium 4.2 mmol/L (3.6-5.0)
[2017-03-11] MEDS: APRESOLINE PO SCH ×4 (08:00→21:06)
[2017-03-11] MEDS: IMDUR PO SCH ×2 (10:00→17:04)
[2017-03-11] MEDS: NEURONTIN PO SCH ×2 (10:00→17:04)
[2017-03-11] MEDS: ECOTRIN PO SCH ×2 (10:00→17:03)
[2017-03-11] MEDS: LOPRESSOR PO SCH ×3 (10:00→21:06)
[2017-03-11] MEDS ORDERED: NACL 0.9 (PRIMING MACHINE ONLY DIALYSIS) MC ONE (10:15)
--- NOTE | 2017-03-11 14:17 | Progress Note ---
Assessment and Plan Assessment and plan: Patient is 86-year-old woman with a history of anuric end-stage renal disease on hemodialysis Thursday followed by Dr. Rosenberg, coronary artery disease, tobacco dependency/snuff, osteoarthritis and hypertension who presents to the emergency department at [facility] chief complaint of substernal severe nonradiating pressure-like intermittent chest pains started at 4 AM this morning associated with extreme shortness of breath and gasping for air. Once breathing better the chest pain went away. Patient denies any aggravating factors. Patient had dialysis yesterday. She came back from dialysis yesterday she did not feel well but no specific complaints just weakness. She denies any syncope, seizures, headaches, fever, chills, new cough. She c/o abdominal pain left lower quadrant for about 3 or 4 months, she told Dr. Rosenberg. She never had a colonoscopy that she was told she is too old. She thinks she has cancer. She is scheduled for diagnostic mammogram on 03/10/2017 at [facility]. Patient was recently discharged from here on 06/2016; it appears she was admitted for dialysis. She is accompanied by [id number] Tootie at bedside. -Chest pain, due to acute bilateral PD -ESRD on HD: consulted Dr. Rosenberg -Accelerated hypertension: prn iv hydralazine -Mild malnutrition, albumin 3.1: consult In Flight Technician -Chronic abd pains, last ct ap was 02/2017, showed constipation: will treat with dulcolax suppository -AOCD: advised her to get colonoscopy -Acute Bilateral PE/acute right leg DVT: on heparin drip since patient is going for v/q scan then stress test will be delay, so I consulted Cardiology v/q shows high probab for pe, started heparin drip, ECHO pending, IR/Vascular consulted patient can have cta chest because she is anuric but should be done on the day of hemodialysis (prior to hd on thursday) Start coumadin today. venous doppler shows acute right leg DVT, cancelled CTA chest. Day 4/5 on a/c overlap, although INR is 2.50 will continue heparin because the rise was too fast, adjust Warfarin History Interval history: Patient was seen and examined. Follow-up on current diagnosis. Overnight uneventful. Patient denies any nausea/vomiting or severe headaches. Imaging, nursing note, chart, labs and old chart reviewed. Discussed with patient. Still with sob. Hospitalist Physical - Physical exam Narrative exam: GEN: thin frial, NAD, AWAKE, ALERT, ORIENTATED x 3 HEENT: NCAT, EOMI, PERRL, OP Clear NECK: supple, no adenopathy, no thyromegaly, no JVD CVS/HEART: RRR, NORMAL S1S2, NO JVD, pulses present bilaterally CHEST/LUNGS: CTA B, Symmetrical chest expansion, good air entry bilaterally, reproducible chest wall tendernes GI/Abdomen: soft, diffuse tenderness, nondistended good bowel sounds, no guarding or rebound /Bladder: no suprapubic tenderness, no CVA or paraspinal tenderness EXT/Skin: no c/c/e, no obvious rash MSK: FROM x 4 Neuro: CN 2-12 grossly intact, no new focal deficits Psych: calm - Constitutional Vitals: Temp Pulse Resp BP Pulse Ox 98.2 F 58 L 18 140/48 99 03/11/17 11:40 03/11/17 11:40 03/11/17 11:40 03/11/17 11:40 03/11/17 03:55 General appearance: Present: no acute distress Results - Labs CBC & Chem 7: 03/11/17 04:00 03/11/17 04:00 Labs: Laboratory Last Values WBC 4.6 K/mm3 (4.5-11.0) 03/07/17 05:21 RBC 3.66 M/mm3 (3.65-5.03) 03/07/17 05:21 Hgb 8.5 gm/dl (10.1-14.3) L 03/11/17 04:00 Hct 26.8 % (30.3-42.9) L 03/11/17 04:00 MCV 79 fl (79-97) 03/07/17 05:21 MCH 25 pg (28-32) L 03/07/17 05:21 MCHC 32 % (30-34) 03/07/17 05:21 RDW 16.2 % (13.2-15.2) H 03/07/17 05:21 Plt Count 158 K/mm3 (140-440) 03/11/17 04:00 Lymph % (Auto) 19.1 % (13.4-35.0) 03/07/17 05:21 [place] % (Auto) 10.0 % (0.0-7.3) H 03/07/17 05:21 Eos % (Auto) 4.0 % (0.0-4.3) 03/07/17 05:21 Baso % (Auto) 1.4 % (0.0-1.8) 03/07/17 05:21 Lymph # 0.9 K/mm3 (1.2-5.4) L 03/07/17 05:21 [place] # 0.5 K/mm3 (0.0-0.8) 03/07/17 05:21 Eos # 0.2 K/mm3 (0.0-0.4) 03/07/17 05:21 Baso # 0.1 K/mm3 (0.0-0.1) 03/07/17 05:21 Seg Neutrophils % 65.5 % (40.0-70.0) 03/07/17 05:21 Seg Neutrophils # 3.0 K/mm3 (1.8-7.7) 03/07/17 05:21 PT 28.5 Sec. (12.2-14.9) H 03/11/17 05:00 INR 2.50 (0.87-1.13) H 03/11/17 05:00 APTT 30.9 Sec. (24.2-36.6) 03/07/17 18:03 D-Dimer 492.32 ng/mlDDU (0-234) H 03/07/17 09:15 Heparin Anti-Xa Level 0.42 U.I./ml (0.3-0.7) 03/11/17 05:00 Sodium 138 mmol/L (137-145) 03/11/17 04:00 Potassium 4.2 mmol/L (3.6-5.0) 03/11/17 04:00 Chloride 97.8 mmol/L (98-107) L 03/11/17 04:00 Carbon Dioxide 26 mmol/L (22-30) 03/11/17 04:00 Anion Gap 18 mmol/L 03/11/17 04:00 BUN 25 mg/dL (7-17) H 03/11/17 04:00 Creatinine 6.2 mg/dL (0.7-1.2) H 03/11/17 04:00 Estimated GFR 8 ml/min 03/11/17 04:00 BUN/Creatinine Ratio 4 % 03/11/17 04:00 Glucose 92 mg/dL (65-100) 03/11/17 04:00 Calcium 7.9 mg/dL (8.4-10.2) L 03/11/17 04:00 Magnesium 1.90 mg/dL (1.7-2.3) 03/07/17 09:15 Total Bilirubin 0.50 mg/dL (0.1-1.2) 03/07/17 09:15 Direct Bilirubin < 0.2 mg/dL (0-0.2) 03/07/17 09:15 AST 14 units/L (5-40) 03/07/17 09:15 ALT < 5 units/L (7-56) L 03/07/17 09:15 Alkaline Phosphatase 134 units/L (35-129) H 03/07/17 09:15 Troponin T 0.042 ng/mL (0.00-0.029) H 03/07/17 11:16 NT-Pro-B Natriuret Pep 96877 pg/mL (0-900) H 03/07/17 09:15 Total Protein 5.3 g/dL (6.3-8.2) L 03/07/17 09:15 Albumin 3.1 g/dL (3.9-5) L 03/07/17 09:15 Albumin/Globulin Ratio 1.4 % 03/07/17 09:15 Triglycerides 60 mg/dL (2-149) 03/07/17 05:21 Cholesterol 135 mg/dL (50-199) 03/07/17 05:21 LDL Cholesterol Direct 67 mg/dL (50-130) 03/07/17 05:21 HDL Cholesterol 56 mg/dL (40-59) 03/07/17 05:21 Cholesterol/HDL Ratio 2.41 % 03/07/17 05:21 Digoxin 0.3 ng/mL (0.9-2.0) L 03/07/17 11:39
--- NOTE | 2017-03-11 14:43 | Progress Note ---
Assessment and Plan Currently stable cardiac status. Nothing further to add from cardiac perspective. Will follow on as needed basis. Recommend follow up in our office with Dr. Elkins within 1-2 weeks of hospital discharge ([phone]). The patient has been seen in conjunction with Dr. Rader who agrees with the assessment and plan of care. - Patient Problems (1) Acute pulmonary embolism Current Visit: Yes Status: Acute (2) Acute DVT (deep venous thrombosis) Current Visit: Yes Status: Acute (3) Atypical chest pain Current Visit: Yes Status: Acute (4) ESRD on dialysis Current Visit: Yes Status: Chronic (5) Mild CAD Current Visit: Yes Status: Chronic (6) Elevated troponin Current Visit: Yes Status: Acute (7) HTN (hypertension) Current Visit: Yes Status: Chronic Qualifiers: Hypertension type: essential hypertension Qualified Code(s): I10 - Essential (primary) hypertension (8) Anemia Current Visit: Yes Status: Chronic Qualifiers: Anemia type: due to chronic kidney disease Chronic kidney disease stage: on chronic dialysis Qualified Code(s): N18.6 - End stage renal disease; D63.1 - Anemia in chronic kidney disease; D63.1 - Anemia in chronic kidney disease; Z99.2 - Dependence on renal dialysis; Z99.2 - Dependence on renal dialysis; Z99.2 - Dependence on renal dialysis; Z99.2 - Dependence on renal dialysis (9) Pulmonary HTN Current Visit: Yes Status: Chronic Subjective Date of service: 03/11/17 Principal diagnosis: Chest pain, Elevated Tn, Acute PE, Mild CAD, ESRD Interval history: Pt seen in HD, no current complaints. Telemetry reviewed - pt in SR HR 60s with frequent PACs, no evidence of AFib/AFlutter overnight. INR 2.5 this AM. Objective Last Vital Signs Temp 98.2 F 03/11/17 11:40 Pulse 58 L 03/11/17 11:40 Resp 18 03/11/17 11:40 BP 140/48 03/11/17 11:40 Pulse Ox 99 03/11/17 03:55 - Physical Examination General: No Apparent Distress HEENT: Positive: EOMI, Normocephaly, Mucus Membranes Moist Neck: Positive: neck supple, trachea midline. Negative: JVD/HJR, Masses Cardiac: Positive: Reg Rate and Rhythm, S1/S2, Systolic Murmur Lungs: Positive: clear to auscultation Neuro: Positive: Grossly Intact Abdomen: Positive: Soft, Active Bowel Sounds. Negative: Tender Skin: Positive: Clear. Negative: Rash Musculoskeletal: Normal Range of Motion Extremities: Present: normal. Absent: edema - Labs and Meds Coagulation 03/11/17 Range/Units 05:00 PT 28.5 H (12.2-14.9) Sec. INR 2.50 H (0.87-1.13) CBC 03/11/17 Range/Units 04:00 Hgb 8.5 L (10.1-14.3) gm/dl Hct 26.8 L (30.3-42.9) % Plt Count 158 (140-440) K/mm3 Comprehensive Metabolic Panel 03/11/17 Range/Units 04:00 Sodium 138 (137-145) mmol/L Potassium 4.2 (3.6-5.0) mmol/L Chloride 97.8 L (98-107) mmol/L Carbon Dioxide 26 (22-30) mmol/L BUN 25 H (7-17) mg/dL Creatinine 6.2 H (0.7-1.2) mg/dL Glucose 92 (65-100) mg/dL Calcium 7.9 L (8.4-10.2) mg/dL - Imaging and Cardiology EKG: image reviewed - EKG Sinus rhythms and dysrhythmias: sinus rhythm AV and intraventricular conduction: right bundle branch block
[2017-03-11] MEDS: COUMADIN PO SCH (17:01)
--- NOTE | 2017-03-11 19:19 | Progress Note ---
Assessment and Plan - Patient Problems (1) Anemia in chronic kidney disease Current Visit: Yes Status: Acute Plan to address problem: Continue Erythropoetin on dialysis (2) ESRD on dialysis Current Visit: Yes Status: Chronic Plan to address problem: Continue hemodialysis on Thursday, Thursday and Thursday as scheduled (3) HTN (hypertension) Current Visit: Yes Status: Chronic Qualifiers: Hypertension type: essential hypertension Qualified Code(s): I10 - Essential (primary) hypertension (4) Anemia in chronic kidney disease (CKD) Current Visit: No Status: Acute Plan to address problem: Erythropoetin on dialysis (5) Hypertensive chronic kidney disease with stage 5 chronic kidney disease or end stage renal disease Current Visit: No Status: Acute Plan to address problem: Follow up Blood pressure on current medications Subjective Date of service: 03/11/17 Principal diagnosis: Chest pain, Elevated Tn, Acute PE, Mild CAD, ESRD Interval history: Patient seen lying in bed. She feels better. She denies any chest pain, shortness of breath, nausea or vomiting. Objective - Exam Narrative Exam: Elderly -Pakistani female lying in bed in no acute distress HEENT: NCAT, pink oral mucous membrane Neck: Supple, no venous distention CVS: S1S2 RRR with no murmur, rub or gallop Chest: Clear to auscultation Abdomen: Protuberant, soft, nontender, no organomegaly, bowel sounds are present Extremities: edema, skin warm and dry Neuro: Awake, alert no focal deficits - Vital Signs Vital signs: Vital Signs - 12hr 03/11/17 03/11/17 03/11/17 10:00 11:40 17:04 Temperature 98.2 F Pulse Rate 64 58 L 52 L Respiratory 18 Rate Blood Pressure 140/48 150/46 03/11/17 03/11/17 17:05 18:00 Temperature Pulse Rate 52 L 60 Respiratory Rate Blood Pressure 150/46 - Lab 03/11/17 04:00 03/11/17 04:00 Most recent lab results Calcium 7.9 mg/dL (8.4-10.2) L 03/11/17 04:00 Magnesium 1.90 mg/dL (1.7-2.3) 03/07/17 09:15
[2017-03-11] MEDS: PRAVACHOL PO SCH (21:06)
[2017-03-11] MEDS: PERCOCET 5/325 PO PRN (21:07)
[2017-03-12 06:28] LABS: INR 2.21 (0.87-1.13)
[2017-03-12] MEDS: APRESOLINE PO SCH ×2 (08:47→14:30)
[2017-03-12] MEDS: DULCOLAX PR PRN (08:47)
--- NOTE | 2017-03-12 08:58 | Progress Note ---
Assessment and Plan - Patient Problems (1) Anemia in chronic kidney disease Current Visit: Yes Status: Acute Plan to address problem: Continue Erythropoetin on dialysis (2) ESRD on dialysis Current Visit: Yes Status: Chronic Plan to address problem: Continue hemodialysis on Thursday, Thursday and Thursday as scheduled. We'll dialyze in the outpatient clinic tomorrow if discharged today (3) HTN (hypertension) Current Visit: Yes Status: Chronic Qualifiers: Hypertension type: essential hypertension Qualified Code(s): I10 - Essential (primary) hypertension Plan to address problem: Follow-up blood pressure on current medications (4) Anemia in chronic kidney disease (CKD) Current Visit: No Status: Acute Plan to address problem: Erythropoetin on dialysis (5) Hypertensive chronic kidney disease with stage 5 chronic kidney disease or end stage renal disease Current Visit: No Status: Acute Plan to address problem: Follow up Blood pressure on current medications Subjective Date of service: 03/12/17 Principal diagnosis: Chest pain, Elevated Tn, Acute PE, Mild CAD, ESRD Interval history: Patient seen lying in bed. She feels better. She denies any chest pain, shortness of breath, nausea or vomiting. Objective - Exam Narrative Exam: Elderly -[place] female lying in bed in no acute distress HEENT: NCAT, pink oral mucous membrane Neck: Supple, no venous distention CVS: S1S2 RRR with no murmur, rub or gallop Chest: Clear to auscultation Abdomen: Protuberant, soft, nontender, no organomegaly, bowel sounds are present Extremities: edema, skin warm and dry Neuro: Awake, alert no focal deficits - Vital Signs Vital signs: Vital Signs - 12hr 03/11/17 03/12/17 03/12/17 23:17 04:19 07:08 Temperature 99.0 F 98.7 F 98.3 F Pulse Rate 59 L 59 L 57 L Respiratory 18 18 16 Rate Blood Pressure 124/39 140/44 133/40 O2 Sat by Pulse 98 98 100 Oximetry - Lab 03/11/17 04:00 03/11/17 04:00 Most recent lab results Calcium 7.9 mg/dL (8.4-10.2) L 03/11/17 04:00 Magnesium 1.90 mg/dL (1.7-2.3) 03/07/17 09:15
[2017-03-12] MEDS: LOPRESSOR PO SCH (09:20)
[2017-03-12] MEDS: NEURONTIN PO SCH (09:20)
[2017-03-12] MEDS: IMDUR PO SCH (09:20)
[2017-03-12] MEDS ORDERED: BABY ASPIRIN PO SCH (10:00)
--- NOTE | 2017-03-12 14:03 | Discharge Summary ---
Providers - Providers Date of Admission: 03/07/17 12:45 Date of discharge: 03/12/17 Attending physician: RAYNA HU 03/07/17 11:00 Consult to Physician [CONS] Routine Consulting Provider: LEXI ROSENBERG Reason For Exam: esrd on hd, pt known to you Place consult to:: Dr. Rosenberg Notified:: Coral RN Phone number called:: Was contact made?: Yes If yes, spoke with:: Amita-answering service Time called:: 14:08 03/07/17 17:44 Consult to Interventional Radiology [CONS] Routine Consulting Provider: NITHIN MITCHELL Reason For Exam: PE Place consult to:: Dr. Mitchell Notified:: Lola RN Phone number called:: Was contact made?: Yes If yes, spoke with:: Keila-answering service Time called:: 09:40 03/09/17 08:23 Consult to Physician [CONS] Routine Consulting Provider: ASHLEE BORGES Reason For Exam: constipation, looking for Cancer, needs colonoscop Place consult to:: gi Notified:: babita Was contact made?: Yes If yes, spoke with:: babita Time called:: 09:05 Primary care physician: [employer] Hospitalization Condition: Stable Hospital course: Patient is 86-year-old woman with a history of anuric end-stage renal disease on hemodialysis Thursday followed by Dr. Rosenberg, coronary artery disease, tobacco dependency/snuff, osteoarthritis and hypertension who presents to the emergency department at [facility] chief complaint of substernal severe nonradiating pressure-like intermittent chest pains started at 4 AM this morning associated with extreme shortness of breath and gasping for air. Once breathing better the chest pain went away. Patient denies any aggravating factors. Patient had dialysis yesterday. She came back from dialysis yesterday she did not feel well but no specific complaints just weakness. She denies any syncope, seizures, headaches, fever, chills, new cough. She c/o abdominal pain left lower quadrant for about 3 or 4 months, she told Dr. Rosenberg. She never had a colonoscopy that she was told she is too old. She thinks she has cancer. She is scheduled for diagnostic mammogram on 03/10/2017 at [facility]. Patient was recently discharged from here on 06/2016; it appears she was admitted for dialysis. She is accompanied by [id number] Tootie at bedside. -Chest pain, due to acute bilateral PD -ESRD on HD: consulted Dr. 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 venous doppler shows acute right leg DVT, cancelled CTA chest. Day 08/01 on a/c overlap Disposition: TO HOME OR SELFCARE Time spent for discharge: 35 minutes Core Measure Documentation - Palliative Care Palliative Care/ Comfort Measures: Not Applicable - Core Measures Any of the following diagnoses?: DVT/PE - VTE Discharge Requirements Deep Vein Thrombosis/Pulmonary Embolism Present on Admission: Yes Has pt received <5 days of overlap therapy or INR<2.0: Yes Anticoagulant overlap therapy prescribed at discharge: Yes Exam - Physical Exam Narrative exam: GEN: thin frial, NAD, AWAKE, ALERT, ORIENTATED x 3 HEENT: NCAT, EOMI, PERRL, OP Clear NECK: supple, no adenopathy, no thyromegaly, no JVD CVS/HEART: RRR, NORMAL S1S2, NO JVD, pulses present bilaterally CHEST/LUNGS: CTA B, Symmetrical chest expansion, good air entry bilaterally, reproducible chest wall tendernes GI/Abdomen: soft, diffuse tenderness, nondistended good bowel sounds, no guarding or rebound /Bladder: no suprapubic tenderness, no CVA or paraspinal tenderness EXT/Skin: no c/c/e, no obvious rash MSK: FROM x 4 Neuro: CN 2-12 grossly intact, no new focal deficits Psych: calm - Constitutional Vitals: Temp Pulse Resp BP Pulse Ox 98.3 F 57 L 16 133/40 100 03/12/17 07:08 03/12/17 10:00 03/12/17 07:08 03/12/17 07:08 03/12/17 07:08 Plan Activity: other (no strenous activity until cleared by pcp) Diet: renal Follow up with: [facility] [Provider Group] - 7 Days PRIMARY CARE, [Primary Care Provider] - 3-5 Days LEXI ROSENBERG MD [Staff Physician] - 7 Days Forms: Warfarin Discharge Instruction Prescriptions: hydrALAZINE [Apresoline TAB] 100 mg PO TID #90 tab ISOSORBIDE MONOnitrate [Imdur ER] 60 mg PO QDAY #30 tablet Metoprolol [Lopressor TAB] 50 mg PO BID #60 tablet oxyCODONE /ACETAMINOPHEN [Percocet 5/325 mg] 1 tab PO Q6H PRN #30 tablet PRN Reason: Pain , Severe (7-10) Simvastatin [Zocor TAB] 40 mg PO DAILY #30 tablet Warfarin [Coumadin] 3 mg PO DAILY@1700 #30 tablet
[2017-03-12 16:09] VITALS: BP 124/78
[2017-03-12] MEDS: COUMADIN PO SCH (16:54)
== END 2017-03-12 17:52 | disposition home or self-care (01) | DRG 175 ==
LOC: ED 04:42 → 4A 12:45
PROVIDERS: ADMIT Internal Medicine; ATTEND Internal Medicine
PROC: 5A1D70Z Performance of Urinary Filtration, Intermittent, Less than 6 Hours Per Day (ICD-10-PCS; principal; 2017-03-09)
PROC: 5A1D70Z Performance of Urinary Filtration, Intermittent, Less than 6 Hours Per Day (ICD-10-PCS; 2017-03-11)
DX: I26.99 Other pulmonary embolism without acute cor pulmonale (principal); N18.6 End stage renal disease; E44.1 Mild protein-calorie malnutrition; I13.2 Hypertensive heart and chronic kidney disease with heart failure and with stage 5 chronic kidney disease, or end stage renal disease; I82.401 Acute embolism and thrombosis of unspecified deep veins of right lower extremity; Z88.2 Allergy status to sulfonamides; Z88.8 Allergy status to other drugs, medicaments and biological substances; Z68.21 Body mass index [BMI] 21.0-21.9, adult; Z90.49 Acquired absence of other specified parts of digestive tract; Z90.710 Acquired absence of both cervix and uterus; Z98.51 Tubal ligation status; Z79.82 Long term (current) use of aspirin; Z99.2 Dependence on renal dialysis; I45.10 Unspecified right bundle-branch block; I25.10 Atherosclerotic heart disease of native coronary artery without angina pectoris; M19.90 Unspecified osteoarthritis, unspecified site; D63.1 Anemia in chronic kidney disease; K59.00 Constipation, unspecified; G62.9 Polyneuropathy, unspecified; I50.9 Heart failure, unspecified; I27.20 Pulmonary hypertension, unspecified; F17.200 Nicotine dependence, unspecified, uncomplicated
CPT/HCPCS: 36415; 71010; 78582; 80048; 80061; 80074; 80162; 83735; 83880; 84484; 85014; 85018; 85025; 85049; 85379; 85520; 85610; 85730; 93005; 93010; 93306; 93970; 99285; A9270-GY; A9540; A9558; J0885; J1644; J7030

== ENCOUNTER 2017-05-04 10:12 | Inpatient (IN) | payer MEDICARE ==
[2017-05-04] MEDS ORDERED: APRESOLINE PO ONE ×2 (11:38→12:23)
[2017-05-04 11:40] LABS: Hematocrit 37.8 % (30.3-42.9); Hemoglobin 11.8 gm/dl (10.1-14.3); Mean Corpuscular HGB Conc 31 % (30-34); Mean Corpuscular Volume 78 fl (79-97); Red Blood Count 4.87 M/mm3 (3.65-5.03); Red Cell Distribution Width 16.2 % (13.2-15.2)
[2017-05-04 11:44] LABS: Mean Corpuscular Hemoglobin 24 pg (28-32)
[2017-05-04 11:49] LABS: INR 3.31 (0.87-1.13)
[2017-05-04 11:54] LABS: Calcium 8.9 mg/dL (8.4-10.2)
--- NOTE | 2017-05-04 11:59 | Emergency Department Report ---
ED General Adult HPI - General Chief complaint: Extremity Problem,Nontraumatic Stated complaint: BLEEDING FROM DIALYSIS PORT Time Seen by Provider: 05/04/17 11:28 Source: patient, family Mode of arrival: Stretcher Limitations: No Limitations - History of Present Illness Initial comments: The patient is remarkably able to provide historical information. She states that she developed bleeding at the end of dialysis. She had a complete treatment. She has no other specific complaints. She was sent for a bleeding fistula after it was dressed. The dressing is now dry. She states that she takes metoprolol and hydralazine for her blood pressure. Her blood pressure was found to be elevated with a wide pulse pressure on her arrival. She does not complain of shortness of breath nor any other symptoms. -: Sudden - Related Data Home Medications Medication Instructions Recorded Confirmed Last Taken Gabapentin 100 mg PO DAILY 03/27/13 03/09/17 1 Day Ago ~03/08/17 Previous Rx's Medication Instructions Recorded Last Taken Type Acetaminophen [Acetaminophen TAB] 325 mg PO Q4H PRN #30 tablet 03/12/17 2 Weeks Ago Rx ~02/23/17 Aspirin [Aspirin BABY CHEW TAB] 81 mg PO QDAY #30 day 03/12/17 Unknown Rx Bisacodyl [Dulcolax suppos] 10 mg MO QDAY PRN #5 supp.rect 03/12/17 1 Week Ago Rx ~03/02/17 Epoetin Checo 10,000 Unit [Procrit] 10,000 unit IV ELDA PRN vial 03/12/17 Unknown Rx ISOSORBIDE MONOnitrate [Imdur ER] 60 mg PO QDAY #30 tablet 03/12/17 Unknown Rx Metoprolol [Lopressor TAB] 50 mg PO BID #60 tablet 03/12/17 Unknown Rx Simvastatin [Zocor TAB] 40 mg PO DAILY #30 tablet 03/12/17 Unknown Rx Warfarin [Coumadin] 3 mg PO DAILY@1700 #30 tablet 03/12/17 Unknown Rx hydrALAZINE [Apresoline TAB] 100 mg PO TID #90 tab 03/12/17 Unknown Rx oxyCODONE /ACETAMINOPHEN [Percocet 1 tab PO Q6H PRN #30 tablet 03/12/17 Unknown Rx 5/325 mg] Allergies Allergy/AdvReac Type Severity Reaction Status Date / Time cefazolin sodium [From Anc] Allergy Unknown Verified 06/29/14 10:46 enalapril maleate Allergy Angioedema Verified 06/29/14 10:46 [From Vasotec] enalaprilat dihydrate Allergy Angioedema Verified 06/29/14 10:46 [From Vasotec] pseudoephedrine HCl Allergy Swelling Verified 06/29/14 10:46 [From Sudafed] Sulfa (Sulfonamide Allergy Hives Verified 06/29/14 10:46 Antibiotics) ED Review of Systems ROS: Stated complaint: BLEEDING FROM DIALYSIS PORT Other details as noted in HPI Constitutional: denies: chills, fever Eyes: vision change. denies: eye pain, eye discharge ENT: denies: ear pain, throat pain Respiratory: no symptoms reported. denies: shortness of breath, wheezing Cardiovascular: denies: chest pain, syncope Endocrine: no symptoms reported Gastrointestinal: denies: abdominal pain, vomiting Genitourinary: other (dialysis patient without associated complaint) Musculoskeletal: denies: joint swelling, arthralgia Skin: denies: rash, lesions Neurological: denies: headache, weakness Psychiatric: denies: anxiety, depression Hematological/Lymphatic: as per HPI ED Past Medical Hx - Past Medical History Previous Medical History?: Yes Hx Hypertension: Yes Hx Heart Attack/AMI: Yes (coronary artery disease) Hx Congestive Heart Failure: Yes Hx Renal Disease: Yes (dialysis MWF) Hx Arthritis: Yes Hx HIV: No - Surgical History Past Surgical History?: No Hx Cholecystectomy: Yes Hx Appendectomy: Yes Additional Surgical History: Hysterectomy, tubal ligation, fistula in right arm , "surgery to place a plate in neck" - Social History Smoking Status: Never Smoker Substance Use Type: None - Medications Home Medications: Home Medications Medication Instructions Recorded Confirmed Last Taken Type Gabapentin 100 mg PO DAILY 03/27/13 03/09/17 1 Day Ago History ~03/08/17 Acetaminophen [Acetaminophen TAB] 325 mg PO Q4H PRN #30 tablet 03/12/17 2 Weeks Ago Rx ~02/23/17 Aspirin [Aspirin BABY CHEW TAB] 81 mg PO QDAY #30 day 03/12/17 Unknown Rx Bisacodyl [Dulcolax suppos] 10 mg MO QDAY PRN #5 supp.rect 03/12/17 03/09/17 1 Week Ago Rx ~03/02/17 Epoetin Checo 10,000 Unit [Procrit] 10,000 unit IV ELDA PRN vial 03/12/17 Unknown Rx ISOSORBIDE MONOnitrate [Imdur ER] 60 mg PO QDAY #30 tablet 03/12/17 Unknown Rx Metoprolol [Lopressor TAB] 50 mg PO BID #60 tablet 03/12/17 Unknown Rx Simvastatin [Zocor TAB] 40 mg PO DAILY #30 tablet 03/12/17 Unknown Rx Warfarin [Coumadin] 3 mg PO DAILY@1700 #30 tablet 03/12/17 Unknown Rx hydrALAZINE [Apresoline TAB] 100 mg PO TID #90 tab 03/12/17 Unknown Rx oxyCODONE /ACETAMINOPHEN [Percocet 1 tab PO Q6H PRN #30 tablet 03/12/17 Unknown Rx 5/325 mg] ED Physical Exam - General Limitations: No Limitations General appearance: alert, in no apparent distress - Head Head exam: Present: atraumatic, normocephalic - Eye Eye exam: Present: normal appearance. Absent: scleral icterus - ENT ENT exam: Present: mucous membranes moist - Neck Neck exam: Present: normal inspection. Absent: meningismus - Respiratory Respiratory exam: Present: normal lung sounds bilaterally. Absent: respiratory distress - Cardiovascular Cardiovascular Exam: Present: regular rate, normal rhythm. Absent: systolic murmur, diastolic murmur, rubs, gallop - GI/Abdominal GI/Abdominal exam: Present: soft, normal bowel sounds. Absent: distended, tenderness, guarding, rebound - Extremities Exam Extremities exam: Present: other (dressed fistula without bleeding) - Back Exam Back exam: Present: normal inspection - Neurological Exam Neurological exam: Present: alert, oriented X3, CN II-XII intact. Absent: motor sensory deficit - Psychiatric Psychiatric exam: Present: normal affect, normal mood - Skin Skin exam: Present: warm, dry, intact, normal color. Absent: rash ED Course Vital Signs 05/04/17 05/04/17 05/04/17 10:20 10:28 10:30 Temperature 97.7 F Pulse Rate 62 61 64 Respiratory 10 L 14 13 Rate Blood Pressure 192/59 192/59 O2 Sat by Pulse 100 100 Oximetry 05/04/17 05/04/17 05/04/17 11:00 11:30 11:43 Temperature Pulse Rate 60 59 L 55 L Respiratory 13 13 Rate Blood Pressure 210/63 210/63 199/58 O2 Sat by Pulse 100 100 Oximetry 05/04/17 05/04/17 12:00 12:44 Temperature Pulse Rate 56 L 62 Respiratory 17 Rate Blood Pressure 205/67 217/62 O2 Sat by Pulse Oximetry - Reevaluation(s) Reevaluation #1: Patient's blood pressure has been quite labile. However it is finally responding to hydralazine. She is a bit Coumadin toxic and has new thrombocytopenia. With this in mind we are going to admit the patient to the hospitalist service. 05/04/17 13:18 Reevaluation #2: Fistula has a good thrill. There is no bleeding through the dressing. They will remain dressed at this point. There is no sign of any vascular compromise. The dressing is not tight. 05/04/17 13:19 ED Medical Decision Making - Lab Data Result diagrams: 05/04/17 10:57 05/04/17 10:57 Laboratory Results - last 24 hr 05/04/17 05/04/17 05/04/17 10:57 10:57 10:57 WBC 4.0 L RBC 4.87 Hgb 11.8 Hct 37.8 MCV 78 L MCH 24 L MCHC 31 RDW 16.2 H PT 35.7 H INR 3.31 H Sodium 146 H Potassium 3.7 Chloride 101.4 Carbon Dioxide 32 H Anion Gap 16 BUN 14 Creatinine 3.5 H Estimated GFR 15 BUN/Creatinine Ratio 4 Glucose 101 H Calcium 8.9 Laboratory Results - last 24 hr 05/04/17 05/04/17 05/04/17 10:57 10:57 10:57 WBC 4.0 L RBC 4.87 Hgb 11.8 Hct 37.8 MCV 78 L MCH 24 L MCHC 31 RDW 16.2 H Add Manual Diff Complete Total Counted 100 Seg Neuts % (Manual) 66.0 Band Neutrophils % 0 Lymphocytes % (Manual) 21.0 Reactive Lymphs % (Man) 0 Monocytes % (Manual) 6.0 Eosinophils % (Manual) 6.0 H Basophils % (Manual) 1.0 Metamyelocytes % 0 Myelocytes % 0 Promyelocytes % 0 Blast Cells % 0 Nucleated RBC % Not Reportable Seg Neutrophils # Man 2.6 Band Neutrophils # 0.0 Lymphocytes # (Manual) 0.8 L Abs React Lymphs (Man) 0.0 Monocytes # (Manual) 0.2 Eosinophils # (Manual) 0.2 Basophils # (Manual) 0.0 Metamyelocytes # 0.0 Myelocytes # 0.0 Promyelocytes # 0.0 Blast Cells # 0.0 WBC Morphology Not Reportable Hypersegmented Neuts Not Reportable Hyposegmented Neuts Not Reportable Hypogranular Neuts Not Reportable Smudge Cells Not Reportable Toxic Granulation Not Reportable Toxic Vacuolation Not Reportable Dohle Bodies Not Reportable Pelger-Huet Anomaly Not Reportable Cornelius Rods Not Reportable Platelet Estimate Consistent w auto Clumped Platelets Not Reportable Plt Clumps, EDTA Not Reportable Large Platelets Not Reportable Giant Platelets Not Reportable Platelet Satelliting Not Reportable Plt Morphology Comment Not Reportable RBC Morphology Not Reportable Dimorphic RBCs Not Reportable Polychromasia Not Reportable Hypochromasia 1+ Poikilocytosis 1+ Anisocytosis 1+ Microcytosis 2+ Macrocytosis Not Reportable Spherocytes Not Reportable Pappenheimer Bodies Not Reportable Sickle Cells Not Reportable Target Cells Not Reportable Tear Drop Cells Not Reportable Ovalocytes Not Reportable Helmet Cells Not Reportable [place] Bodies Not Reportable Seney Rings Not Reportable [place] Cells Not Reportable Bite Cells Not Reportable Crenated Cell Not Reportable Elliptocytes Not Reportable Acanthocytes (Spur) Not Reportable Rouleaux Not Reportable Hemoglobin C Crystals Not Reportable Schistocytes Not Reportable Malaria parasites Not Reportable Erasmo Bodies Not Reportable Hem Pathologist Commnt No PT 35.7 H INR 3.31 H Sodium 146 H Potassium 3.7 Chloride 101.4 Carbon Dioxide 32 H Anion Gap 16 BUN 14 Creatinine 3.5 H Estimated GFR 15 BUN/Creatinine Ratio 4 Glucose 101 H Calcium 8.9 Critical care attestation.: If time is entered above; I have spent that time in minutes in the direct care of this critically ill patient, excluding procedure time. ED Disposition Clinical Impression: ESRD on dialysis, Thrombocytopenia, Over-anticoagulated, Labile hypertension Anemia Qualifiers: Anemia type: unspecified type Qualified Code(s): D64.9 - Anemia, unspecified Hemorrhage of arteriovenous fistula Qualifiers: Encounter type: initial encounter Qualified Code(s): T82.838A - Hemorrhage due to vascular prosthetic devices, implants and grafts, initial encounter Disposition: DC-09 OP ADMIT IP TO THIS HOSP Is pt being admited?: Yes Does the pt Need Aspirin: No (hold secondary to bleeding, increased INR and low platelets.) Condition: Stable Instructions: Hypertension (ED) Referrals: PRIMARY CARE, [Primary Care Provider] - 3-5 Days
[2017-05-04 12:39] LABS: Total Cells Counted 100
[2017-05-04 12:40] LABS: Anisocytosis 1+; Hypochromasia 1+; Platelet Estimate Consistent w Auto; Poikilocytosis 1+
[2017-05-04 12:47] LABS: Platelet Count 112 K/mm3 (140-440)
--- NOTE | 2017-05-04 13:16 | History and Physical Report ---
History of Present Illness Chief complaint: My arm is bleeding History of present illness: 86 YO Female with ESRD on HD(M,W,F), HTN, [place], CHF, OA presents to ED for evaluation. Pt states that she went to dialysis today and was found to have bleeding from her dialysis access after she had successfully completed her dialysis. Pt states that she has experienced pain in her right arm for the past 3 days, but the pain resolved when she was undergoing dialysis. Pt denies fever , chills, CP, Palpitations, NVD, syncope, trauma, BRBPR, productive cough or recent ill contacts. Pt seen and evaluated in ED and found to have hypertensive emergency with systolic around 210, as well as coumadin toxicity, as well as mild thrombocytopenia. Pt admitted to telemetry. Nephrology consulted in ED. Past History Past Medical History: acute [place], arthritis, CAD, ESRD, heart failure, hypertension Past Surgical History: appendectomy, cholecystectomy, hysterectomy, Other (RUE AVF Placement) Social history: . denies: smoking, alcohol abuse, prescription drug abuse Family history: hypertension Medications and Allergies Allergies Allergy/AdvReac Type Severity Reaction Status Date / Time cefazolin sodium [From Ancef] Allergy Unknown Verified 06/29/14 10:46 enalapril maleate Allergy Angioedema Verified 06/29/14 10:46 [From Vasotec] enalaprilat dihydrate Allergy Angioedema Verified 06/29/14 10:46 [From Vasotec] pseudoephedrine HCl Allergy Swelling Verified 06/29/14 10:46 [From Sudafed] Sulfa (Sulfonamide Allergy Hives Verified 06/29/14 10:46 Antibiotics) Home Medications Medication Instructions Recorded Confirmed Last Taken Type Gabapentin 100 mg PO DAILY 03/27/13 05/04/17 05/03/17 History ISOSORBIDE MONOnitrate [Imdur ER] 60 mg PO QDAY #30 tablet 03/12/17 05/04/1707/15 Rx Metoprolol [Lopressor TAB] 50 mg PO BID #60 tablet 03/12/17 05/04/17 05/03/17 Rx Simvastatin [Zocor TAB] 40 mg PO DAILY #30 tablet 03/12/17 05/04/17 05/03/17 Rx Warfarin [Coumadin] 3 mg PO DAILY@1700 #30 tablet 03/12/17 05/04/17 05/03/17 Rx hydrALAZINE [Apresoline TAB] 100 mg PO TID #90 tab 03/12/17 05/04/17 05/03/17 Rx B Complex 11/Folic/C/Biot/Zinc 1 each PO DAILY 05/04/17 05/04/17 05/03/17 History [Dialyvite with Zinc Tablet] Cinacalcet [Sensipar] 30 mg PO QDAY 05/04/17 05/04/17 05/03/17 History Review of Systems Constitutional: other (Bleeding, arm pain), no weight loss, no weight gain, no fever, no chills, no sweats, no night sweats Ears, nose, mouth and throat: no ear pain, no ear discharge, no tinnitis, no decreased hearing, no nose pain, no nasal congestion, no nasal discharge Breasts: no change in shape, no swelling, no mass Cardiovascular: no chest pain, no orthopnea, no palpitations, no rapid/ irregular heart beat, no edema Respiratory: no cough, no cough with sputum, no excessive sputum, no hemoptysis , no shortness of breath, no dyspnea on exertion Gastrointestinal: no nausea, no vomiting, no diarrhea, no constipation, no change in bowel habits, no hematemesis Genitourinary Female: no pelvic pain, no flank pain, no menorrhagia, no dysuria , no urinary frequency, no urgency Rectal: no pain, no incontinence, no bleeding Musculoskeletal: no neck stiffness, no neck pain, no shooting arm pain, no arm numbness/tingling, no low back pain Integumentary: no rash, no pruritis, no redness, no sores, no wounds Neurological: no transient paralysis, no paralysis, no weakness, no parathesias , no numbness, no tingling, no seizures Psychiatric: no anxiety, no memory loss, no change in sleep habits, no sleep disturbances, no insomnia, no hypersomnia Endocrine: no cold intolerance, no heat intolerance, no polyphagia, no excessive thirst, no polydipsia, no polyuria, no nocturia Hematologic/Lymphatic: easy bleeding, no easy bruising, no lymphadenopathy, no lymphedema Allergic/Immunologic: no urticaria, no allergic rhinitis, no wheezing, no persistent infections, no anaphylaxis Exam - Constitutional Vitals: Temp Pulse Resp BP Pulse Ox 97.7 F 62 17 217/62 100 05/04/17 10:28 05/04/17 12:44 05/04/17 12:00 05/04/17 12:44 05/04/17 11:30 General appearance: Present: mild distress - EENT Eyes: Present: PERRL ENT: hearing intact, clear oral mucosa - Neck Neck: Present: supple, normal ROM - Respiratory Respiratory effort: normal Respiratory: bilateral: CTA - Cardiovascular Heart Sounds: Present: S1 & S2. Absent: rub, click - Extremities Extremities: pulses symmetrical, No edema Peripheral Pulses: within normal limits - Abdominal General gastrointestinal: Present: soft, non-tender, non-distended, normal bowel sounds Female genitourinary: Present: normal - Integumentary Integumentary: Present: clear, warm, dry - Musculoskeletal Musculoskeletal: gait normal, strength equal bilaterally - Psychiatric Psychiatric: appropriate mood/affect, intact judgment & insight - Neurologic Neurologic: CNII-XII intact, moves all extremities Results - Labs CBC & Chem 7: 05/04/17 10:57 05/04/17 10:57 Labs: Abnormal lab results 05/04/17 05/04/17 05/04/17 Range/Units 10:57 10:57 10:57 WBC 4.0 L (4.5-11.0) K/mm3 MCV 78 L (79-97) fl MCH 24 L (28-32) pg RDW 16.2 H (13.2-15.2) % Plt Count 112 L (140-440) K/mm3 Eosinophils % (Manual) 6.0 H (0.0-4.3) % Lymphocytes # (Manual) 0.8 L (1.2-5.4) K/mm3 PT 35.7 H (12.2-14.9) Sec. INR 3.31 H (0.87-1.13) Sodium 146 H (137-145) mmol/L Carbon Dioxide 32 H (22-30) mmol/L Creatinine 3.5 H (0.7-1.2) mg/dL Glucose 101 H (65-100) mg/dL Assessment and Plan - Patient Problems (1) Hypertensive emergency Current Visit: Yes Status: Acute Plan to address problem: Monitor bp q shift, IV hydralazine prn, continue medical management. (2) Thrombocytopenia Current Visit: Yes Status: Acute Plan to address problem: bleeding resolved, repeat cbc (3) ESRD on dialysis Current Visit: Yes Status: Chronic Plan to address problem: Nephrology consulted in ED, dialysis as per renal team. (4) Coumadin toxicity Current Visit: Yes Status: Acute Qualifiers: Encounter type: initial encounter Plan to address problem: hold anticoagulation for now, repeat coagulation profile in AM. (5) DVT prophylaxis Current Visit: Yes Status: Acute
[2017-05-04] MEDS ORDERED: DULCOLAX PR PRN (13:17)
[2017-05-04] MEDS ORDERED: MILK OF MAGNESIA PO PRN (13:17)
[2017-05-04] MEDS ORDERED: PROVENTIL IH PRN (13:17)
[2017-05-04] MEDS ORDERED: ZOFRAN IV PRN (13:17)
[2017-05-04] MEDS: APRESOLINE IV PRN (16:02)
[2017-05-04] MEDS: TYLENOL PO PRN (20:18)
[2017-05-05] MEDS: APRESOLINE IV PRN ×2 (07:21→20:17)
[2017-05-05 11:55] LABS: Hematocrit 35.9 % (30.3-42.9); Hemoglobin 11.3 gm/dl (10.1-14.3)
--- NOTE | 2017-05-05 15:23 | Progress Note ---
Assessment and Plan Assessment and plan: 86 YO Female with ESRD on HD(M,W,F), HTN, [place], CHF, OA presents to ED for evaluation. Pt states that she went to dialysis today and was found to have bleeding from her dialysis access after she had successfully completed her dialysis. Pt states that she has experienced pain in her right arm for the past 3 days, but the pain resolved when she was undergoing dialysis. Pt denies fever , chills, CP, Palpitations, NVD, syncope, trauma, BRBPR, productive cough or recent ill contacts. Pt seen and evaluated in ED and found to have hypertensive emergency with systolic around 210, as well as coumadin toxicity, as well as mild thrombocytopenia. Hypertensive urgency * Resume home medications. Blood pressure normalizing. ENDStage renal disease * Nephrology consulted. 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 Hydralazine when necessary Hypercoagulable state * Hold Coumadin today repeat INR in a.m. DVT and GI prophylaxis Plan of care discussed as possible with the patient anticipate discharge in a.m. History Interval history: Patient seen and examined in no acute distress. She reports that she did have a bleed in AV graft on the right upper arm some tenderness distal to the area. Denies any fever nausea vomiting or diarrhea. Hospitalist Physical - Physical exam Narrative exam: VITAL SIGNS: Reviewed. GENERAL: The patient appeared well nourished and normally developed. Vital signs as documented. HEAD: No signs of head trauma. EYES: Pupils are equal. Extraocular motions intact. EARS: Hearing grossly intact. MOUTH: Oropharynx is normal. NECK: No adenopathy, no JVD. CHEST: Chest with clear breath sounds bilaterally. No wheezes, rales, or rhonchi. CARDIAC: Regular rate and rhythm. S1 and S2, without murmurs, gallops, or rubs. VASCULAR: Right upper extremity AV graft with positive thrill. No Edema. Peripheral pulses normal and equal in all extremities. ABDOMEN: Soft, without detectable tenderness. No sign of distention. No rebound or guarding, and no masses palpated. Bowel Sounds normal. MUSCULOSKELETAL: Good range of motion of all major joints. Extremities without clubbing, cyanosis or edema. NEUROLOGIC EXAM: Alert and oriented x 3. No focal sensory or strength deficits. Speech normal. Follows commands. PSYCHIATRIC: Mood normal. SKIN: Age-appropriate [place] some blemishes - Constitutional Vitals: Temp Pulse Resp BP Pulse Ox 98.0 F 74 18 142/41 99 05/05/17 14:34 05/05/17 14:00 05/05/17 14:34 05/05/17 14:34 05/05/17 10:00 General appearance: Present: mild distress Results - Labs CBC & Chem 7: 05/05/17 11:29 05/04/17 10:57 Labs: Laboratory Last Values WBC 4.0 K/mm3 (4.5-11.0) L 05/04/17 10:57 RBC 4.87 M/mm3 (3.65-5.03) 05/04/17 10:57 Hgb 11.3 gm/dl (10.1-14.3) 05/05/17 11:29 Hct 35.9 % (30.3-42.9) 05/05/17 11:29 MCV 78 fl (79-97) L 05/04/17 10:57 MCH 24 pg (28-32) L 05/04/17 10:57 MCHC 31 % (30-34) 05/04/17 10:57 RDW 16.2 % (13.2-15.2) H 05/04/17 10:57 Plt Count 112 K/mm3 (140-440) L 05/04/17 10:57 Add Manual Diff Complete 05/04/17 10:57 Total Counted 100 05/04/17 10:57 Seg Neuts % (Manual) 66.0 % (40.0-70.0) 05/04/17 10:57 Band Neutrophils % 0 % 05/04/17 10:57 Lymphocytes % (Manual) 21.0 % (13.4-35.0) 05/04/17 10:57 Reactive Lymphs % (Man) 0 % 05/04/17 10:57 Monocytes % (Manual) 6.0 % (0.0-7.3) 05/04/17 10:57 Eosinophils % (Manual) 6.0 % (0.0-4.3) H 05/04/17 10:57 Basophils % (Manual) 1.0 % (0.0-1.8) 05/04/17 10:57 Metamyelocytes % 0 % 05/04/17 10:57 Myelocytes % 0 % 05/04/17 10:57 Promyelocytes % 0 % 05/04/17 10:57 Blast Cells % 0 % 05/04/17 10:57 Nucleated RBC % Not Reportable 05/04/17 10:57 Seg Neutrophils # Man 2.6 K/mm3 (1.8-7.7) 05/04/17 10:57 Band Neutrophils # 0.0 K/mm3 05/04/17 10:57 Lymphocytes # (Manual) 0.8 K/mm3 (1.2-5.4) L 05/04/17 10:57 Abs React Lymphs (Man) 0.0 K/mm3 05/04/17 10:57 Monocytes # (Manual) 0.2 K/mm3 (0.0-0.8) 05/04/17 10:57 Eosinophils # (Manual) 0.2 K/mm3 (0.0-0.4) 05/04/17 10:57 Basophils # (Manual) 0.0 K/mm3 (0.0-0.1) 05/04/17 10:57 Metamyelocytes # 0.0 K/mm3 05/04/17 10:57 Myelocytes # 0.0 K/mm3 05/04/17 10:57 Promyelocytes # 0.0 K/mm3 05/04/17 10:57 Blast Cells # 0.0 K/mm3 05/04/17 10:57 WBC Morphology Not Reportable 05/04/17 10:57 Hypersegmented Neuts Not Reportable 05/04/17 10:57 Hyposegmented Neuts Not Reportable 05/04/17 10:57 Hypogranular Neuts Not Reportable 05/04/17 10:57 Smudge Cells Not Reportable 05/04/17 10:57 Toxic Granulation Not Reportable 05/04/17 10:57 Toxic Vacuolation Not Reportable 05/04/17 10:57 Dohle Bodies Not Reportable 05/04/17 10:57 Pelger-Huet Anomaly Not Reportable 05/04/17 10:57 Cornelius Rods Not Reportable 05/04/17 10:57 Platelet Estimate Consistent w auto 05/04/17 10:57 Clumped Platelets Not Reportable 05/04/17 10:57 Plt Clumps, EDTA Not Reportable 05/04/17 10:57 Large Platelets Not Reportable 05/04/17 10:57 Giant Platelets Not Reportable 05/04/17 10:57 Platelet Satelliting Not Reportable 05/04/17 10:57 Plt Morphology Comment Not Reportable 05/04/17 10:57 RBC Morphology Not Reportable 05/04/17 10:57 Dimorphic RBCs Not Reportable 05/04/17 10:57 Polychromasia Not Reportable 05/04/17 10:57 Hypochromasia 1+ 05/04/17 10:57 Poikilocytosis 1+ 05/04/17 10:57 Anisocytosis 1+ 05/04/17 10:57 Microcytosis 2+ 05/04/17 10:57 Macrocytosis Not Reportable 05/04/17 10:57 Spherocytes Not Reportable 05/04/17 10:57 Pappenheimer Bodies Not Reportable 05/04/17 10:57 Sickle Cells Not Reportable 05/04/17 10:57 Target Cells Not Reportable 05/04/17 10:57 Tear Drop Cells Not Reportable 05/04/17 10:57 Ovalocytes Not Reportable 05/04/17 10:57 Helmet Cells Not Reportable 05/04/17 10:57 [place] Bodies Not Reportable 05/04/17 10:57 [place] Rings Not Reportable 05/04/17 10:57 [place] Cells Not Reportable 05/04/17 10:57 Bite Cells Not Reportable 05/04/17 10:57 Crenated Cell Not Reportable 05/04/17 10:57 Elliptocytes Not Reportable 05/04/17 10:57 Acanthocytes (Spur) Not Reportable 05/04/17 10:57 Rouleaux Not Reportable 05/04/17 10:57 Hemoglobin C Crystals Not Reportable 05/04/17 10:57 Schistocytes Not Reportable 05/04/17 10:57 Malaria parasites Not Reportable 05/04/17 10:57 Erasmo Bodies Not Reportable 05/04/17 10:57 Hem Pathologist Commnt No 05/04/17 10:57 PT 35.7 Sec. (12.2-14.9) H 05/04/17 10:57 INR 3.31 (0.87-1.13) H 05/04/17 10:57 Sodium 146 mmol/L (137-145) H 05/04/17 10:57 Potassium 3.7 mmol/L (3.6-5.0) 05/04/17 10:57 Chloride 101.4 mmol/L (98-107) 05/04/17 10:57 Carbon Dioxide 32 mmol/L (22-30) H 05/04/17 10:57 Anion Gap 16 mmol/L 05/04/17 10:57 BUN 14 mg/dL (7-17) 05/04/17 10:57 Creatinine 3.5 mg/dL (0.7-1.2) H 05/04/17 10:57 Estimated GFR 15 ml/min 05/04/17 10:57 BUN/Creatinine Ratio 4 % 05/04/17 10:57 Glucose 101 mg/dL (65-100) H 05/04/17 10:57 Calcium 8.9 mg/dL (8.4-10.2) 05/04/17 10:57
[2017-05-05] MEDS: TYLENOL PO PRN (15:51)
--- NOTE | 2017-05-05 16:44 | Consultation ---
History of Present Illness - Reason for Consult Consult date: 05/05/17 end stage renal disease Requesting physician: MARIA L HUSDON - History of Present Illness This is a 86yo AAF with a history of End-stage renal disease on hemodialysis x 17 years on Thursday schedule at [facility], coronary artery disease, and hypertension admitted after she presents to the emergency department with a chief complaint of bleeding from her dialysis access after she had successfully completed her dialysis on Thursday. Pt states that she has experienced pain in her right arm for the past 3 days, but the pain resolved when she was undergoing dialysis. Pt is admitted for further vascular surgery evaluation. INR was mildly elevated at 3.3 and mild thrombocytopenia noted with plt count of 112. however hb was stable at 11.8. Renal consult is requested for management of ESRD/HD. Past History Past Medical History: acute [place], arthritis, CAD, ESRD, heart failure, hypertension Past Surgical History: appendectomy, cholecystectomy, hysterectomy, Other (RUE AVF Placement) Social history: . denies: smoking, alcohol abuse, prescription drug abuse Family history: hypertension Medications and Allergies Allergies Allergy/AdvReac Type Severity Reaction Status Date / Time cefazolin sodium [From Ancef] Allergy Unknown Verified 06/29/14 10:46 enalapril maleate Allergy Angioedema Verified 06/29/14 10:46 [From Vasotec] enalaprilat dihydrate Allergy Angioedema Verified 06/29/14 10:46 [From Vasotec] pseudoephedrine HCl Allergy Swelling Verified 06/29/14 10:46 [From Sudafed] Sulfa (Sulfonamide Allergy Hives Verified 06/29/14 10:46 Antibiotics) Home Medications Medication Instructions Recorded Confirmed Last Taken Type Gabapentin 100 mg PO DAILY 03/27/13 05/04/17 05/03/17 History ISOSORBIDE MONOnitrate [Imdur ER] 60 mg PO QDAY #30 tablet 03/12/17 05/04/1707/15 Rx Metoprolol [Lopressor TAB] 50 mg PO BID #60 tablet 03/12/17 05/04/17 05/03/17 Rx Simvastatin [Zocor TAB] 40 mg PO DAILY #30 tablet 03/12/17 05/04/17 05/03/17 Rx hydrALAZINE [Apresoline TAB] 100 mg PO TID #90 tab 03/12/17 05/04/17 05/03/17 Rx B Complex 11/Folic/C/Biot/Zinc 1 each PO DAILY 05/04/17 05/04/17 05/03/17 History [Dialyvite with Zinc Tablet] Cinacalcet [Sensipar] 30 mg PO QDAY 05/04/17 05/04/17 05/03/17 History Warfarin [Coumadin] 1 mg PO DAILY 05/04/17 05/04/17 05/03/17 History Active Meds: Active Medications Acetaminophen (Tylenol) 650 mg PO Q4H PRN PRN Reason: Pain MILD(1-3)/Fever >100.5/MERCEDES Last Admin: 05/05/17 15:51 Dose: 650 mg Albuterol (Proventil) 2.5 mg IH Q4HRT PRN PRN Reason: Shortness Of Breath Bisacodyl (Dulcolax) 10 mg MN QDAY PRN PRN Reason: Constipation unrelieved by MOM Hydralazine HCl (Apresoline) 10 mg IV Q4HR PRN PRN Reason: Hypertension Last Admin: 05/05/17 07:21 Dose: 10 mg Magnesium Hydroxide (Milk Of Magnesia) 30 ml PO Q4H PRN PRN Reason: Constipation Ondansetron HCl (Zofran) 4 mg IV Q8H PRN PRN Reason: N/V unrelieved by Reglan Review of Systems All systems: negative Hematologic/Lymphatic: other (bleeding from AVF site ) Exam - Vital Signs Vital signs: Vital Signs Pulse Resp 62 10 L 05/04/17 10:20 05/04/17 10:20 - General Appearance General appearance: well-developed, well-nourished, appears stated age EENT: ATNC, PERRL, mucous membranes moist Neck: Present: neck supple Respiratory: Clear to Ascultation Heart: regular, S1S2 Gastrointestinal: Present: normoactive bowel sounds Integumentary: no rash, other (no edema ) Neurologic: no focal deficit, alert and oriented x3, strength 5/5, CN 3-12 intact Psychiatric: mood/affect appropriate, cooperative Results - Lab Results 05/05/17 11:29 05/04/17 10:57 Most recent lab results Calcium 8.9 mg/dL (8.4-10.2) 05/04/17 10:57 Laboratory Tests 05/04/17 10:57 PT 35.7 H INR 3.31 H Assessment and Plan - Patient Problems (1) Hemorrhage of arteriovenous fistula Current Visit: Yes Status: Acute Qualifiers: Encounter type: initial encounter Qualified Code(s): T82.838A - Hemorrhage due to vascular prosthetic devices, implants and grafts, initial encounter Plan to address problem: no overt bleeding at AVF at present noted, AVF in dressing. follow vascular surgery recommendations (2) ESRD on dialysis Current Visit: Yes Status: Chronic Plan to address problem: cont maintenance HD on MWF schedule. will use AVF once cleared by vascular surgery (3) Coumadin toxicity Current Visit: Yes Status: Acute Qualifiers: Encounter type: initial encounter Plan to address problem: check serial INR, Vit K if bleeding continues (4) Labile hypertension Current Visit: Yes Status: Acute Plan to address problem: BP improved on IV hydralazine prn, resume home BP meds. will adjust UF with HD as tolerated for further volume/BP control (5) Thrombocytopenia Current Visit: Yes Status: Acute
--- NOTE | 2017-05-05 18:28 | Consultation ---
History of Present Illness - Reason for Consult Consult date: 05/05/17 Right arm pain and bleeding from av access Requesting physician: CARINE SCRUGGS - History of Present Illness The patient is an 86-year-old female with a history of end-stage renal disease currently on hemodialysis through a right arm AV graft. She presented to the hospital with complaints of inability to move her right arm since Thursday with significant amount of pain since Thursday. Her last dialysis session was yesterday and she states there was a significant amount of pulsatile bleeding that required a pressure bandage and transport from the dialysis center by EMS. She also complains of right lower extremity pain on the lateral aspect of her calf that is not associated with ambulation. She has no other complaints at this time. Past History Past Medical History: acute [place], arthritis, CAD, ESRD, heart failure, hypertension Past Surgical History: appendectomy, cholecystectomy, hysterectomy, Other (RUE AVF Placement) Social history: . denies: smoking, alcohol abuse, prescription drug abuse Family history: hypertension Medications and Allergies Allergies Allergy/AdvReac Type Severity Reaction Status Date / Time cefazolin sodium [From Ancef] Allergy Unknown Verified 06/29/14 10:46 enalapril maleate Allergy Angioedema Verified 06/29/14 10:46 [From Vasotec] enalaprilat dihydrate Allergy Angioedema Verified 06/29/14 10:46 [From Vasotec] pseudoephedrine HCl Allergy Swelling Verified 06/29/14 10:46 [From Sudafed] Sulfa (Sulfonamide Allergy Hives Verified 06/29/14 10:46 Antibiotics) Home Medications Medication Instructions Recorded Confirmed Last Taken Type Gabapentin 100 mg PO DAILY 03/27/13 05/04/17 05/03/17 History ISOSORBIDE MONOnitrate [Imdur ER] 60 mg PO QDAY #30 tablet 03/12/17 05/04/1707/15 Rx Metoprolol [Lopressor TAB] 50 mg PO BID #60 tablet 03/12/17 05/04/17 05/03/17 Rx Simvastatin [Zocor TAB] 40 mg PO DAILY #30 tablet 03/12/17 05/04/17 05/03/17 Rx hydrALAZINE [Apresoline TAB] 100 mg PO TID #90 tab 03/12/17 05/04/17 05/03/17 Rx B Complex 11/Folic/C/Biot/Zinc 1 each PO DAILY 05/04/17 05/04/17 05/03/17 History [Dialyvite with Zinc Tablet] Cinacalcet [Sensipar] 30 mg PO QDAY 05/04/17 05/04/17 05/03/17 History Warfarin [Coumadin] 1 mg PO DAILY 05/04/17 05/04/17 05/03/17 History Active Meds: Active Medications Acetaminophen (Tylenol) 650 mg PO Q4H PRN PRN Reason: Pain MILD(1-3)/Fever >100.5/MERCEDES Last Admin: 05/05/17 15:51 Dose: 650 mg Albuterol (Proventil) 2.5 mg IH Q4HRT PRN PRN Reason: Shortness Of Breath Bisacodyl (Dulcolax) 10 mg [place] QDAY PRN PRN Reason: Constipation unrelieved by MOM Hydralazine HCl (Apresoline) 10 mg IV Q4HR PRN PRN Reason: Hypertension Last Admin: 05/05/17 07:21 Dose: 10 mg Magnesium Hydroxide (Milk Of Magnesia) 30 ml PO Q4H PRN PRN Reason: Constipation Ondansetron HCl (Zofran) 4 mg IV Q8H PRN PRN Reason: N/V unrelieved by Reglan Review of Systems All systems: negative Exam - Constitutional Vitals: Temp Pulse Resp BP Pulse Ox 98.0 F 74 18 142/41 99 05/05/17 14:34 05/05/17 14:00 05/05/17 14:34 05/05/17 14:34 05/05/17 10:00 General appearance: Present: no acute distress - Neck Neck: Present: supple - Cardiovascular Rhythm: regular - Extremities Extremities: no ischemia, pulses intact (right radial pulse is intact. 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 She will be made nothing by mouth set up for a fistulogram with intervention tomorrow. The patient was given the risks, benefits and alternative procedures and consented to the procedure.
[2017-05-06] MEDS: APRESOLINE IV PRN (05:20)
[2017-05-06 05:30] LABS: INR 1.84 (0.87-1.13)
[2017-05-06] MEDS ORDERED: XYLOCAINE 2% INFILTRATI ONE (08:24)
[2017-05-06] MEDS ORDERED: HEPARIN/NS 5000 UNIT/500ML(CATH LAB) 500 ML IR ONE (08:24)
[2017-05-06] MEDS ORDERED: HEPARIN 10,000 UNITS/10 ML ONE (08:24)
[2017-05-06] MEDS ORDERED: NACL 0.9% 100 ML ONE (08:25)
--- NOTE | 2017-05-06 09:21 | Operative Report ---
Operative Report Operative Report: EXAM: RIGHT UPPER EXTREMITY FISTULOGRAM, VENOPLASTY OF PERIPHERAL AND CENTRAL VENOUS STENOSES CLINICAL INDICATION: PATIENT WITH RIGHT ARM SWELLING AND RIGHT ARM PAIN DATE: 05/06/2017 PROCEDURE: Following an explanation of the risks, benefits and alternatives; written informed consent was obtained. The patient was brought to the interventional suite and placed in supine position on the examination table. Initial evaluation of her patient demonstrated pulsatility along the inferior aspect of her fistula. A thrill was present throughout the fistula. The patient's right upper arm were prepped and draped in the usual sterile fashion. One percent lidocaine was used for anesthesia. 7 cm 21-gauge needle was advanced into the fistula. A 0.018 guidewire was then advanced through the needle and the needle exchanged for a micro-sheath. The 0.018 guidewire was exchanged for 0.035 guidewire and the microscope used to exchange for a 6 Wallisian vascular sheath. Contrast was injected through the sheath which demonstrates a stenosis within the outflow vein at the site of previously placed stent. This is approximately 60% lesion. 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 The guidewire was advanced across both lesions into the IVC. Venoplasty of both lesions was performed using an 8 mm x 40 mm balloon insufflated to nominal pressure for 30 seconds. Post venoplasty imaging demonstrated reduction of the venous outflow stenosis in the area over her stents. There is persistent stenosis centrally. The decision was made to treat this with Dr. Wood balloon. The sheath was upsized to a 8 Wallisian sheath. A Bard tonics 10 mm x 40 mm murrell Wood balloon was advanced across the lesion and deployed. The balloon was inflated to nominal pressure for 3 minutes. Post-deployment imaging demonstrated improved luminal flow with residual 30% stenosis. At this point, the catheters, guidewires and sheaths were removed and hemostasis achieved using 4-0 Vicryl suture and Dermabond. A sterile dressing was then applied. The patient tolerated the procedure well. There were no immediate post procedure consultations. Sedation was not utilized. No medication was given during the course of this procedure secondary to the patient's anaphylactic reactions. IMPRESSION: 1) Right upper extremity fistulogram demonstrating stenosis within the venous outflow and central veins. 2) Venoplasty with residual stenosis within the venous outflow of less than 10% and residual 80% stenosis within the central veins. 3) Treatment of the central venous stenosis with drug-coated balloon.
[2017-05-06] MEDS ORDERED: NON-FORMULARY (Simvastatin 40 MG) PO SCH (10:00)
--- NOTE | 2017-05-06 10:03 | Discharge Summary ---
Providers - Providers Date of Admission: 05/04/17 13:17 Attending physician: MARIA L HUDSON MD 05/05/17 11:14 Consult to Physician [CONS] Routine Consulting Provider: NITHIN TIRADO Reason For Exam: right upper ext av graft bleed Place consult to:: Notified:: Phone number called:: [phone] Was contact made?: Yes If yes, spoke with:: MICKY Naqvi called:: 11:27 Comment:: ALETHEA 05/05/17 13:46 Consult to Physician [CONS] Routine Consulting Provider: CARINE SCRUGGS Reason For Exam: esrd Place consult to:: Notified:: Phone number called:: [phone] Was contact made?: Yes If yes, spoke with:: RADHA Time called:: 14:23 Comment:: ALETHEA Primary care physician: SENIOR EN[employer]ONMENT[employer]ACTICE LEADER Hospitalization Reason for admission: AV access Condition: Stable Hospital course: 86 YO Female with ESRD on HD(M,W,F), HTN, [place], CHF, OA presents to ED for evaluation. Pt states that she went to dialysis today and was found to have bleeding from her dialysis access after she had successfully completed her dialysis. Pt states that she has experienced pain in her right arm for the past 3 days, but the pain resolved when she was undergoing dialysis. Pt denies fever , chills, CP, Palpitations, NVD, syncope, trauma, BRBPR, productive cough or recent ill contacts. Pt seen and evaluated in ED and found to have hypertensive emergency with systolic around 210, as well as coumadin toxicity, as well as mild thrombocytopenia. Treatment and plans as noted below. We did discuss with the patient and family to follow with glass curvature gauger. conjunctival discharge stable Hypertensive urgency * Corrected with resumption of home medications ENDStage renal disease * Nephrology consulted. And patient was dialyzed during his stay. Bleeding AV graft * Vascular did see the patient and placed a stent due to stenosis. 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 Hydralazine when necessary Hypercoagulable state * Coumadin was restarted S patient's INR fell to 1.8 Disposition: DC/TX-06 HOME UNDER HOME HL Time spent for discharge: 35 mins Core Measure Documentation - Palliative Care Palliative Care/ Comfort Measures: Not Applicable - Core Measures Any of the following diagnoses?: none - VTE Discharge Requirements Deep Vein Thrombosis/Pulmonary Embolism Present on Admission: No Exam - Physical Exam Narrative exam: VITAL SIGNS: Reviewed. GENERAL: The patient appeared well nourished and normally developed. Vital signs as documented. HEAD: No signs of head trauma. EYES: Pupils are equal. Extraocular motions intact. EARS: Hearing grossly intact. MOUTH: Oropharynx is normal. NECK: No adenopathy, no JVD. CHEST: Chest with clear breath sounds bilaterally. No wheezes, rales, or rhonchi. CARDIAC: Regular rate and rhythm. S1 and S2, without murmurs, gallops, or rubs. VASCULAR: Right upper extremity AV graft with positive thrill. No Edema. Peripheral pulses normal and equal in all extremities. ABDOMEN: Soft, without detectable tenderness. No sign of distention. No rebound or guarding, and no masses palpated. Bowel Sounds normal. MUSCULOSKELETAL: Good range of motion of all major joints. Extremities without clubbing, cyanosis or edema. NEUROLOGIC EXAM: Alert and oriented x 3. No focal sensory or strength deficits. Speech normal. Follows commands. PSYCHIATRIC: Mood normal. SKIN: Age-appropriate wrinkles and blemishes - Constitutional Vitals: Temp Pulse Resp BP Pulse Ox 98.1 F 69 15 169/58 98 05/06/17 09:20 05/06/17 09:40 05/06/17 09:40 05/06/17 09:40 05/06/17 09:40 Plan Activity: advance as tolerated Diet: renal Special Instructions: record daily BP diary, home health RN Additional Instructions: continue INR checks Follow up with: DILIP LICONA MD [Primary Care Provider] - 3-5 Days CARINE SCRUGGS MD [Staff Physician] - 7 Days Forms: Warfarin Discharge Instruction
[2017-05-06] MEDS ORDERED: NACL 0.9% 100 ML IV PRN (10:43)
--- NOTE | 2017-05-06 10:47 | Progress Note ---
Assessment and Plan - Patient Problems (1) ESRD on dialysis Current Visit: Yes Status: Chronic Plan to address problem: cont maintenance HD on MWF schedule. will use AVF once cleared by vascular surgery (2) Hemorrhage of arteriovenous fistula Current Visit: Yes Status: Acute Qualifiers: Encounter type: initial encounter Qualified Code(s): T82.838A - Hemorrhage due to vascular prosthetic devices, implants and grafts, initial encounter Plan to address problem: pt s/p fistulogram showing stenosis within the venous outflow and central veins ; s/p angioplasty. (3) Coumadin toxicity Current Visit: Yes Status: Acute Qualifiers: Encounter type: initial encounter Plan to address problem: INR therapeutic (4) Labile hypertension Current Visit: Yes Status: Acute Plan to address problem: resume home BP meds. will adjust UF with HD as tolerated for further volume/BP control (5) Thrombocytopenia Current Visit: Yes Status: Acute Subjective Date of service: 05/06/17 Principal diagnosis: ESRD Interval history: Pt awake, alert, in NAD. S/p angioplasty today Objective - Vital Signs Vital signs: Vital Signs - 12hr 05/06/17 05/06/17 05/06/17 05:07 05:20 07:23 Temperature 98.4 F Pulse Rate 64 64 70 Respiratory Rate Blood Pressure 185/48 174/56 Blood Pressure [Left] O2 Sat by Pulse 98 98 Oximetry 05/06/17 05/06/17 05/06/17 07:27 07:57 09:20 Temperature 98.5 F 98.4 F 98.1 F Pulse Rate 67 63 Respiratory 18 17 17 Rate Blood Pressure 199/54 Blood Pressure 196/59 [Left] O2 Sat by Pulse 98 98 Oximetry 05/06/17 09:40 Temperature Pulse Rate 69 Respiratory 15 Rate Blood Pressure 169/58 Blood Pressure [Left] O2 Sat by Pulse 98 Oximetry - General Appearance General appearance: well-developed, well-nourished, appears stated age EENT: ATNC, PERRL, mucous membranes moist Neck: no JVD Respiratory: Present: Clear to Ascultation Cardiology: regular, S1S2 Gastrointestinal: normoactive bowel sounds Integumentary: no rash, other (no edema ) Neurologic: no focal deficit, alert and oriented x3, strength 5/5, CN 3-12 intact Psychiatric: mood/affect appropriate, cooperative - Lab 05/05/17 11:29 05/04/17 10:57 Most recent lab results Calcium 8.9 mg/dL (8.4-10.2) 05/04/17 10:57
[2017-05-06] MEDS ORDERED: SENSIPAR PO SCH (11:00)
[2017-05-06] MEDS ORDERED: IMDUR PO SCH (11:00)
[2017-05-06] MEDS ORDERED: NEURONTIN PO SCH (11:00)
[2017-05-06] MEDS ORDERED: LOPRESSOR PO SCH (11:00)
[2017-05-06] MEDS ORDERED: APRESOLINE PO SCH (14:00)
[2017-05-06] MEDS ORDERED: COUMADIN PO SCH (17:00)
[2017-05-06 18:30] VITALS: BP 132/80
[2017-05-06] MEDS ORDERED: PRAVACHOL PO SCH (22:00)
== END 2017-05-06 19:05 | disposition home health service (06) | DRG 252 ==
LOC: ED 10:12 → 3A 13:17 → 2B-ACE 14:13
PROVIDERS: ADMIT Internal Medicine; ATTEND Internal Medicine
PROC: 057Y3ZZ Dilation of Upper Vein, Percutaneous Approach (ICD-10-PCS; principal; 2017-05-06)
PROC: B51W1ZZ Fluoroscopy of Dialysis Shunt/Fistula using Low Osmolar Contrast (ICD-10-PCS; 2017-05-06)
PROC: B31H1ZZ Fluoroscopy of Right Upper Extremity Arteries using Low Osmolar Contrast (ICD-10-PCS; 2017-05-06)
PROC: 5A1D70Z Performance of Urinary Filtration, Intermittent, Less than 6 Hours Per Day (ICD-10-PCS; 2017-05-06)
DX: T82.838A Hemorrhage due to vascular prosthetic devices, implants and grafts, initial encounter (principal); N18.6 End stage renal disease; I16.1 Hypertensive emergency; D68.59 Other primary thrombophilia; I13.2 Hypertensive heart and chronic kidney disease with heart failure and with stage 5 chronic kidney disease, or end stage renal disease; D69.6 Thrombocytopenia, unspecified; T45.515A Adverse effect of anticoagulants, initial encounter; I48.91 Unspecified atrial fibrillation; I50.9 Heart failure, unspecified; M19.90 Unspecified osteoarthritis, unspecified site; I25.10 Atherosclerotic heart disease of native coronary artery without angina pectoris; Z90.49 Acquired absence of other specified parts of digestive tract; Z88.2 Allergy status to sulfonamides; I25.2 Old myocardial infarction; Y92.89 Other specified places as the place of occurrence of the external cause; Z90.710 Acquired absence of both cervix and uterus; Z98.51 Tubal ligation status; Z82.49 Family history of ischemic heart disease and other diseases of the circulatory system
CPT/HCPCS: 36415; 36902; 36907; 80048; 85007; 85014; 85018; 85025; 85610; 96374; A9270-GY; C1725; C1751; C1769; C1894; J0360; J1644; Q9967

== ENCOUNTER 2017-06-14 09:52 | Emergency (ER) | payer MEDICARE ==
[2017-06-14 10:57] LABS: Hematocrit 36.2 % (30.3-42.9); Hemoglobin 11.2 gm/dl (10.1-14.3); Mean Corpuscular HGB Conc 31 % (30-34); Mean Corpuscular Volume 80 fl (79-97); Red Blood Count 4.54 M/mm3 (3.65-5.03)
[2017-06-14 10:58] LABS: Mean Corpuscular Hemoglobin 25 pg (28-32); Platelet Count 145 K/mm3 (140-440); Red Cell Distribution Width 21.1 % (13.2-15.2)
--- NOTE | 2017-06-14 11:07 | XRay Report ---
Chest 2 views: Compared to 10/27/15. History: Shortness of breath. Findings: Borderline cardiomegaly. Trachea is midline. No consolidation, pneumothorax or pleural effusion. Mild emphysema. Right hilum is more prominent compared to previous study. Impression: Right hilum more prominent compared to previous study. Recommend CT scan for further evaluation.
[2017-06-14 11:11] LABS: Calcium 8.1 mg/dL (8.4-10.2)
[2017-06-14 11:39] LABS: Chol/HDL Ratio 3.38 %
[2017-06-14 11:40] LABS: Anisocytosis 1+; Band Neutrophils # (Manual) 0.1 K/mm3; Basophils % (Manual) 0 % (0.0-1.8); Helmet Cells Few; Hypochromasia Few; Ovalocytes 1+; Poikilocytosis 1+; Schistocytes Rare; Target Cells Few; Total Cells Counted 100
--- NOTE | 2017-06-14 17:25 | Emergency Department Report ---
ED General Adult HPI - General Chief complaint: Upper Respiratory Infection Stated complaint: FLU LIKE SYMPOMS Time Seen by Provider: 06/14/17 17:15 Source: patient Mode of arrival: Ambulatory Limitations: No Limitations - History of Present Illness Initial comments: Patient is 86 years old female history of end-stage renal disease on hemodialysis schedule on Thursday, Thursday, Thursday. Patient also had history of coronary artery disease, CHF and hypertension. Patient presented to the ER with cough and congestion for the last week. Patient stated that she used over- the-counter medicine but no help. Patient did not missed any of her dialysis. Patient stated that her cough is productive with yellowish sputum. Patient denied any fever, nausea or vomiting. - Related Data Home Medications Medication Instructions Recorded Confirmed Last Taken Gabapentin 100 mg PO DAILY 03/27/13 05/04/17 05/03/17 B Complex /Folic/C/Biot/Zinc 1 each PO DAILY 05/04/17 05/04/17 05/03/17 [Dialyvite with Zinc Tablet] Cinacalcet [Sensipar] 30 mg PO QDAY 05/04/17 05/04/17 05/03/17 Warfarin [Coumadin] 1 mg PO DAILY 05/04/17 05/04/17 05/03/17 Previous Rx's Medication Instructions Recorded Last Taken Type ISOSORBIDE MONOnitrate [Imdur ER] 60 mg PO QDAY #30 tablet 03/12/17 05/03/17 Rx Metoprolol [Lopressor TAB] 50 mg PO BID #60 tablet 03/12/17 05/03/17 Rx Simvastatin [Zocor TAB] 40 mg PO DAILY #30 tablet 03/12/17 05/03/17 Rx hydrALAZINE [Apresoline TAB] 100 mg PO TID #90 tab 03/12/17 05/03/17 Rx Allergies Allergy/AdvReac Type Severity Reaction Status Date / Time cefazolin sodium [From Ancef] Allergy Unknown Verified 06/29/14 10:46 enalapril maleate Allergy Angioedema Verified 06/29/14 10:46 [From Vasotec] enalaprilat dihydrate Allergy Angioedema Verified 06/29/14 10:46 [From Vasotec] pseudoephedrine HCl Allergy Swelling Verified 06/29/14 10:46 [From Sudafed] Sulfa (Sulfonamide Allergy Hives Verified 06/29/14 10:46 Antibiotics) ED Review of Systems ROS: Stated complaint: FLU LIKE SYMPOMS Other details as noted in HPI Comment: All other systems reviewed and negative Constitutional: denies: chills, fever ENT: congestion. denies: ear pain, throat pain Respiratory: cough. denies: orthopnea, shortness of breath, SOB with exertion, SOB at rest Cardiovascular: denies: chest pain, palpitations, dyspnea on exertion, orthopnea Gastrointestinal: denies: abdominal pain, nausea, vomiting, diarrhea, constipation, hematemesis, melena, hematochezia Musculoskeletal: denies: back pain Neurological: denies: headache, weakness, numbness, paresthesias, confusion, abnormal gait ED Past Medical Hx - Past Medical History Previous Medical History?: Yes Hx Hypertension: Yes Hx Heart Attack/AMI: Yes (coronary artery disease) Hx Congestive Heart Failure: Yes Hx Renal Disease: Yes (dialysis MWF) Hx Arthritis: Yes Hx HIV: No - Surgical History Past Surgical History?: Yes Hx Cholecystectomy: Yes Hx Appendectomy: Yes Additional Surgical History: Hysterectomy, tubal ligation, fistula in right arm , "surgery to place a plate in neck" - Social History Smoking Status: Never Smoker Substance Use Type: Prescribed - Medications Home Medications: Home Medications Medication Instructions Recorded Confirmed Last Taken Type Gabapentin 100 mg PO DAILY 03/27/13 05/04/17 05/03/17 History ISOSORBIDE MONOnitrate [Imdur ER] 60 mg PO QDAY #30 tablet 03/12/17 05/04/1707/15 Rx Metoprolol [Lopressor TAB] 50 mg PO BID #60 tablet 03/12/17 05/04/17 05/03/17 Rx Simvastatin [Zocor TAB] 40 mg PO DAILY #30 tablet 03/12/17 05/04/17 05/03/17 Rx hydrALAZINE [Apresoline TAB] 100 mg PO TID #90 tab 03/12/17 05/04/17 05/03/17 Rx B Complex 11/Folic/C/Biot/Zinc 1 each PO DAILY 05/04/17 05/04/17 05/03/17 History [Dialyvite with Zinc Tablet] Cinacalcet [Sensipar] 30 mg PO QDAY 05/04/17 05/04/17 05/03/17 History Warfarin [Coumadin] 1 mg PO DAILY 05/04/17 05/04/17 05/03/17 History ED Physical Exam - General Limitations: No Limitations General appearance: alert, in no apparent distress - Head Head exam: Present: atraumatic, normocephalic - Eye Eye exam: Present: normal appearance, PERRL - ENT ENT exam: Present: normal exam, normal orophraynx, mucous membranes moist - Neck Neck exam: Present: normal inspection, full ROM. Absent: tenderness, meningismus, lymphadenopathy, thyromegaly - Respiratory Respiratory exam: Present: normal lung sounds bilaterally. Absent: respiratory distress, wheezes, rales, rhonchi, stridor, chest wall tenderness, accessory muscle use, decreased breath sounds, prolonged expiratory - Cardiovascular Cardiovascular Exam: Present: regular rate, normal rhythm, normal heart sounds - GI/Abdominal GI/Abdominal exam: Present: soft, normal bowel sounds. Absent: distended, tenderness, guarding, rebound, rigid, organomegaly, mass, bruit, pulsatile mass , hernia - Extremities Exam Extremities exam: Present: normal inspection, full ROM, normal capillary refill. Absent: tenderness, pedal edema, calf tenderness - Back Exam Back exam: Present: normal inspection, full ROM. Absent: tenderness, CVA tenderness (R), CVA tenderness (L) - Neurological Exam Neurological exam: Present: alert, oriented X3, CN II-XII intact, normal gait - Skin Skin exam: Present: warm, intact, normal color ED Course Vital Signs 06/14/17 06/14/17 06/14/17 10:17 14:12 14:15 Temperature 98.8 F Pulse Rate 68 65 64 Respiratory 18 14 12 Rate Blood Pressure 176/47 188/60 O2 Sat by Pulse 99 100 Oximetry 06/14/17 06/14/17 06/14/17 14:25 14:30 14:45 Temperature Pulse Rate 66 62 Respiratory 16 11 L 12 Rate Blood Pressure 173/51 178/60 O2 Sat by Pulse 98 100 Oximetry 06/14/17 06/14/17 06/14/17 15:01 15:15 15:30 Temperature Pulse Rate 63 70 67 Respiratory 10 L 16 15 Rate Blood Pressure 177/50 177/50 138/99 O2 Sat by Pulse 99 98 100 Oximetry 06/14/17 06/14/17 06/14/17 15:45 16:00 16:15 Temperature Pulse Rate 65 66 68 Respiratory 11 L 13 14 Rate Blood Pressure 184/71 166/45 182/58 O2 Sat by Pulse 98 100 99 Oximetry 06/14/17 06/14/17 06/14/17 16:30 16:45 17:01 Temperature Pulse Rate 66 64 64 Respiratory 17 14 15 Rate Blood Pressure 176/46 158/46 160/57 O2 Sat by Pulse 99 100 100 Oximetry 06/14/17 06/14/17 06/14/17 17:15 17:33 17:45 Temperature Pulse Rate 65 65 67 Respiratory 13 16 17 Rate Blood Pressure 186/57 186/57 186/57 O2 Sat by Pulse 99 98 99 Oximetry 06/14/17 18:02 Temperature Pulse Rate 68 Respiratory 12 Rate Blood Pressure 201/80 O2 Sat by Pulse 100 Oximetry ED Medical Decision Making - Lab Data Result diagrams: 06/14/17 10:32 06/14/17 10:32 - Radiology Data Radiology results: report reviewed Referring Physician: SAMUEL BUENO Patient Name: HARMEET MATA Date of : 1930 Sex: Female Report Date: 2017-06-14 Report Status: Finalized Findings [facility] [address] [place] [address] Cat Scan Report Signed Patient: HARMEET MATA MR#: [id number] : 1930 Acct:[id number] Age/Sex: 86 / F ADM Date: 06/14/17 Loc: ED Attending Dr: Ordering Physician: SAMUEL BUENO Date of Service: 06/14/17 Procedure(s): CT chest wo con Accession Number(s): [id number] cc: SAMUEL BUENO FINAL REPORT PROCEDURE: CT CHEST WO CON TECHNIQUE: Computerized axial tomography of the chest was performed without contrast material. This study is performed without intravenous contrast and the sensitivity for pathology, including neoplasms, adenopathy, abscess, pulmonary embolism and aortic dissection, is reduced. HISTORY: cough, shortness of breath, abnormal chest x-ray COMPARISON: No prior studies are available for comparison. TECHNICAL QUALITY: Satisfactory. FINDINGS: Irregular scarring is noted involving right lower lobe. There are no infiltrates or mass lesions. Mild prominence of interstitial markings is noted involving bilateral lower lobes. Pleural spaces are clear. Hilar structures are within normal limits as visualized on this noncontrast study. 1.7 centimeter subcarinal lymph node is noted. Thyroid is of normal size and demonstrates mild degree heterogeneity. aorta is of normal caliber. There is mild cardiomegaly. Coronary arterial calcification is noted. Kidneys are atrophic. There is diffusely increased bone density consistent with chronic renal failure. Vertebral height is within normal limits. Small hiatal hernia is noted.. IMPRESSION: No acute pulmonary process. Subcarinal lymphadenopathy is noted. Cardiomegaly with coronary arterial calcification. Chronic renal failure. Small hiatal hernia.. Transcribed By: [facility] Dictated By: SUSU PALACIOS Electronically Authenticated By: SUSU PALACIOS Signed Date/Time: 06/14/171745 DD/ 45 TD/TT: 06/14/171745 Critical care attestation.: If time is entered above; I have spent that time in minutes in the direct care of this critically ill patient, excluding procedure time. ED Disposition Clinical Impression: Shortness of breath, Acute bronchitis Disposition: DC-01 TO HOME OR SELFCARE Is pt being admited?: No Condition: Stable Instructions: Acute Bronchitis (ED) Referrals: PRIMARY CARE, [Primary Care Provider] - 3-5 Days
--- NOTE | 2017-06-14 17:51 | Cat Scan Report ---
FINAL REPORT PROCEDURE: CT CHEST WO CON TECHNIQUE: Computerized axial tomography of the chest was performed without contrast material. This study is performed without intravenous contrast and the sensitivity for pathology, including neoplasms, adenopathy, abscess, pulmonary embolism and aortic dissection, is reduced. HISTORY: cough, shortness of breath, abnormal chest x-ray COMPARISON: No prior studies are available for comparison. TECHNICAL QUALITY: Satisfactory. FINDINGS: Irregular scarring is noted involving right lower lobe. There are no infiltrates or mass lesions. Mild prominence of interstitial markings is noted involving bilateral lower lobes. Pleural spaces are clear. Hilar structures are within normal limits as visualized on this noncontrast study. 1.7 centimeter subcarinal lymph node is noted. Thyroid is of normal size and demonstrates mild degree heterogeneity. aorta is of normal caliber. There is mild cardiomegaly. Coronary arterial calcification is noted. Kidneys are atrophic. There is diffusely increased bone density consistent with chronic renal failure. Vertebral height is within normal limits. Small hiatal hernia is noted.. IMPRESSION: No acute pulmonary process. Subcarinal lymphadenopathy is noted. Cardiomegaly with coronary arterial calcification. Chronic renal failure. Small hiatal hernia..
[2017-06-14 18:42] VITALS: BP 167/51
== END 2017-06-14 18:53 | disposition home or self-care (01) ==
LOC: ED 09:52
DX: J20.9 Acute bronchitis, unspecified (principal); I13.2 Hypertensive heart and chronic kidney disease with heart failure and with stage 5 chronic kidney disease, or end stage renal disease; N18.6 End stage renal disease; I50.9 Heart failure, unspecified; I25.10 Atherosclerotic heart disease of native coronary artery without angina pectoris; M19.90 Unspecified osteoarthritis, unspecified site; Z90.49 Acquired absence of other specified parts of digestive tract; Z99.2 Dependence on renal dialysis; Z90.710 Acquired absence of both cervix and uterus; Z98.51 Tubal ligation status; Z88.1 Allergy status to other antibiotic agents; Z88.8 Allergy status to other drugs, medicaments and biological substances
CPT/HCPCS: 36415; 71046; 71250; 80048; 80061; 84484; 85007; 85025; 93005; 93010

== ENCOUNTER 2017-06-24 10:01 | Outpatient (CLI) | payer MEDICARE ==
--- NOTE | 2017-06-24 10:45 | XRay Report ---
CHEST 2 VIEWS INDICATION: Cough. COMPARISON: 06/14/2017 FINDINGS: PA and lateral chest radiographs demonstrate stable cardiomediastinal silhouette and clear lungs without pleural effusions or CHF. Stable bones, including multilevel thoracic spondylosis, kyphosis and possible renal osteodystrophy. Lower cervical fusion hardware. Right hemiabdomen surgical clips. Bilateral axillary/upper arm soft tissue iatrogenic changes. CONCLUSION: No acute chest process or significant interval change, as described. Thank you for the opportunity to participate in this patient's care.
== END 2017-06-24 10:02 | disposition home or self-care (01) ==
LOC: XRAY 10:01
PROVIDERS: ATTEND Internal Medicine Nephrology
DX: R05 Cough (principal); M47.894 Other spondylosis, thoracic region; M40.294 Other kyphosis, thoracic region; M43.22 Fusion of spine, cervical region
CPT/HCPCS: 71046

== ENCOUNTER 2017-09-04 09:39 | Emergency (ER) | payer MEDICARE ==
[2017-09-04] MEDS ORDERED: ASPIRIN PO ONE (09:55)
[2017-09-04 10:14] LABS: Hematocrit 32.3 % (30.3-42.9); Hemoglobin 10.5 gm/dl (10.1-14.3); Mean Corpuscular HGB Conc 33 % (30-34); Mean Corpuscular Volume 76 fl (79-97); Red Blood Count 4.27 M/mm3 (3.65-5.03); Red Cell Distribution Width 18.4 % (13.2-15.2)
[2017-09-04 10:22] LABS: Mean Corpuscular Hemoglobin 25 pg (28-32); Platelet Count 152 K/mm3 (140-440)
[2017-09-04 10:34] LABS: Calcium 8.7 mg/dL (8.4-10.2)
[2017-09-04] MEDS ORDERED: SUBLIMAZE IV ONE (10:35)
[2017-09-04] MEDS ORDERED: ZOFRAN IV ONE (10:37)
--- NOTE | 2017-09-04 10:54 | Emergency Department Report ---
HPI - General Chief Complaint: Chest Pain Time Seen by Provider: 09/04/17 10:28 - HPI HPI: The patient is a 87-year-old female with a significant history of end-stage renal disease, presents for evaluation of chest pain. The patient reports onset of midsternal pounding in quality racing of the heart while receiving dialysis this morning, approximately 1-2 hours prior to arrival. She states that the pain was mild in severity, exacerbated with leaning forward, and improved since onset, nearly resolved now. The patient denies trauma to the chest, cough, syncope, hemoptysis, unilateral leg swelling, recent immobilization. ED Past Medical Hx - Past Medical History Hx Hypertension: Yes Hx Heart Attack/AMI: Yes (coronary artery disease) Hx Congestive Heart Failure: Yes Hx Renal Disease: Yes (dialysis MWF) Hx Arthritis: Yes Hx HIV: No - Surgical History Hx Cholecystectomy: Yes Hx Appendectomy: Yes Additional Surgical History: Hysterectomy, tubal ligation, fistula in right arm , "surgery to place a plate in neck" - Social History Smoking Status: Never Smoker Substance Use Type: None - Medications Home Medications: Home Medications Medication Instructions Recorded Confirmed Last Taken Type hydrALAZINE [Apresoline TAB] 100 mg PO TID #90 tab 03/12/17 09/04/17 05/03/17 Rx Amlodipine Besylate [Norvasc] 5 mg PO QDAY 09/04/17 09/04/17 Unknown History Apixaban [Eliquis] 2.5 mg PO Q12H 09/04/17 09/04/17 Unknown History Simvastatin [Zocor TAB] 40 mg PO HS 09/04/17 09/04/17 Unknown History ED Review of Systems ROS: Stated complaint: CHEST PAIN Other details as noted in HPI Constitutional: denies: fever ENT: denies: throat or neck pain Respiratory: denies: cough, shortness of breath Cardiovascular: reports: palpitations and chest pain Endocrine: denies unexplained weight loss or gain Gastrointestinal: denies: abdominal pain, nausea Genitourinary: denies: dysuria Musculoskeletal: denies: leg swelling Skin: denies: rash Neurological: denies: headache Hematological/Lymphatic: denies: easy bleeding or easy bruising Psych: denies sadness or hopelessness Physical Exam - Physical Exam Vital Signs: Vital Signs 09/04/17 09:49 Temperature 98.2 F Pulse Rate 81 Respiratory 20 Rate Blood Pressure 177/52 O2 Sat by Pulse 97 Oximetry Physical Exam: General: well-nourished, well-developed, no acute distress Head: Normocephalic, atraumatic Eyes: normal sclera ENT: Mucous membranes are pale and dry Neck: No neck stiffness, no cervical adenopathy Respiratory: Breath sounds equal bilaterally, no wheezing, rales, or rhonchi Cardio: S1 and S2 present, no murmurs, rubs, gallops, capillary refill is delayed Abdomen: Normoactive bowel sounds, soft abdomen, no rigidity, no guarding or rebound tenderness Chest WALL/Back: No tenderness to palpation of the chest wall, no CVA tenderness with percussion Musc: No pitting edema Skin: No rash Neuro: no facial drooping, normal speech Psych: Normal affect ED Course Vital Signs 09/04/17 09:49 Temperature 98.2 F Pulse Rate 81 Respiratory 20 Rate Blood Pressure 177/52 O2 Sat by Pulse 97 Oximetry ED Medical Decision Making - Lab Data Result diagrams: 09/04/17 09:59 09/04/17 10:03 - Medical Decision Making The patient was seen and examined by myself. The patient is placed on a quality assurance monitor chassis and continuous pulse ox. On initial evaluation, the patient was found to be in no distress. EKG was negative for findings suggestive of acute cardiac infarct. Labs and imaging are obtained. Chest x-ray is negative for pneumothorax, focal consolidation, pulmonary vascular congestion, pleural effusion, or other obvious acute cardiopulmonary disease process. Lab results revealed elevated BUN/creatinine is a 33 and 2.3, consistent with no history of renal disease, and mildly elevated troponin level at baseline on multiple previous evaluations, secondary to renal insufficiency. Otherwise labs were not concerning. As the patient's pain is reproducible with chest wall palpitation and movement of the arms, the patient's pain is atypical for cardiac etiology, and is consistent with chest wall pain. The patient was reevaluated and reported that their symptoms were markedly improved. The patient is stable for discharge with outpatient follow-up. The patient is given follow-up and return instructions. The patient expressed understanding and agreed with the plan. The patient is discharged in stable condition. Critical care attestation.: If time is entered above; I have spent that time in minutes in the direct care of this critically ill patient, excluding procedure time. ED Disposition Clinical Impression: Heart palpitations, Acute chest pain, Chest wall pain, ESRD on dialysis Disposition: TO HOME OR SELFCARE Is pt being admited?: No Does the pt Need Aspirin: No Condition: Stable Instructions: Chest Pain (ED), Costochondritis (ED) Referrals: PRIMARY CARE,MD [Primary Care Provider] - 3-5 Days Time of Disposition: 14:18
[2017-09-04 10:55] LABS: INR 1.02 (0.87-1.13)
[2017-09-04 11:08] LABS: Band Neutrophils # (Manual) 0.1 K/mm3; Basophils % (Manual) 0 % (0.0-1.8); Total Cells Counted 100
[2017-09-04 11:09] LABS: Anisocytosis 1+; Hypochromasia 1+
[2017-09-04 11:10] LABS: Chol/HDL Ratio 2.25 %
[2017-09-04 11:10] LABS: Ovalocytes Few; Platelet Estimate Consistent w Auto; Schistocytes Rare; Tear Drop Cells Few
--- NOTE | 2017-09-04 11:49 | XRay Report ---
ROUTINE CHEST, TWO VIEWS: HISTORY: chest pain. The trachea, heart, mediastinal contour, lung rangel and bony thorax are unremarkable. IMPRESSION: No acute cardiopulmonary process. No significant change since 06/24/17.
[2017-09-04] MEDS ORDERED: APRESOLINE IV ONE (15:20)
[2017-09-04 15:28] VITALS: BP 158/41
== END 2017-09-04 15:15 | disposition home or self-care (01) ==
LOC: ED 09:39
DX: R07.89 Other chest pain (principal); R00.2 Palpitations; I12.0 Hypertensive chronic kidney disease with stage 5 chronic kidney disease or end stage renal disease; N18.6 End stage renal disease; Z99.2 Dependence on renal dialysis
CPT/HCPCS: 36415; 71046; 80048; 80061; 84484; 85007; 85025; 85610; 93005; 93010; 96374; 96375; 99284; J2405; J3010

== ENCOUNTER 2017-09-29 03:07 | Emergency (ER) | payer MEDICARE ==
[2017-09-29 03:41] LABS: Basophils % (Auto) 1.2 % (0.0-1.8); Eosinophils # (Auto) 0.3 K/mm3 (0.0-0.4); Eosinophils % (Auto) 6.9 % (0.0-4.3); Hematocrit 32.7 % (30.3-42.9); Hemoglobin 10.2 gm/dl (10.1-14.3); Lymphocytes # (Auto) 0.8 K/mm3 (1.2-5.4); Lymphocytes % (Auto) 19.9 % (13.4-35.0); Mean Corpuscular HGB Conc 31 % (30-34); Mean Corpuscular Hemoglobin 26 pg (28-32); Mean Corpuscular Volume 82 fl (79-97); Monocytes # (Auto) 0.4 K/mm3 (0.0-0.8); Monocytes % (Auto) 11.2 % (0.0-7.3); Platelet Count 162 K/mm3 (140-440); Red Blood Count 4.02 M/mm3 (3.65-5.03)
[2017-09-29 03:58] LABS: Albumin 3.9 g/dL (3.9-5); BUN/Creatinine Ratio 4; Blood Urea Nitrogen 19 mg/dL (7-17); Calcium 8.2 mg/dL (8.4-10.2); Hemolysis Index 4
[2017-09-29 03:59] LABS: Alanine Aminotransferase < 5 units/L (7-56)
[2017-09-29] MEDS ORDERED: TYLENOL PO ONE (06:11)
[2017-09-29] MEDS ORDERED: MACROBID PO ONE (06:11)
--- NOTE | 2017-09-29 06:13 | Emergency Department Report ---
ED Abdominal Pain HPI - General Chief Complaint: Abdominal Pain Stated Complaint: ABDOMINAL PAIN Time Seen by Provider: 09/29/17 06:04 Source: patient, family Mode of arrival: Wheelchair Limitations: No Limitations - History of Present Illness Initial Comments: Mrs Tracey is very pleasant 87 yo female with hx of ESRD on HD //. She also has hx of CAD. She has had recurrent suprapubic pain. She does not make urine. However she has been treated for bladder infections recently. She says normally 5 days of antibiotics cures her ailment. She developed suprapubic pain this morning. Dull no radiation. 8 out of 10 in severity. She also had associated chills. Her PCP ordered an " MRI of the bladder" last Thursday. She denies fever. She denies shortness of breath. Denies chest pain at this time. Last bowel movement was yesterday. She desires antibiotics. She also desires to be promptly discharged home. MD Complaint: abdominal pain -: Gradual, hour(s) (4) Radiation: suprapubic Migration to: no migration Severity: moderate Severity scale (0 -10): 8 Quality: dull Improves With: nothing Worsens With: nothing Context: recent surgery/procedure ("MRI of bladder" last Thursday) Associated Symptoms: chills. denies: constipation (last BM yesterday) - Related Data Home Medications Medication Instructions Recorded Confirmed Last Taken Amlodipine Besylate [Norvasc] 5 mg PO QDAY 09/04/17 09/04/17 Unknown Apixaban [Eliquis] 2.5 mg PO Q12H 09/04/17 09/04/17 Unknown Simvastatin [Zocor TAB] 40 mg PO HS 09/04/17 09/04/17 Unknown Previous Rx's Medication Instructions Recorded Last Taken Type hydrALAZINE [Apresoline TAB] 100 mg PO TID #90 tab 03/12/17 05/03/17 Rx Nitrofurantoin Macrocrystal 100 mg PO DAILY 5 Days #5 capsule 09/29/17 Unknown Rx [Nitrofurantoin] Allergies Allergy/AdvReac Type Severity Reaction Status Date / Time cefazolin sodium [From Ancef] Allergy Unknown Verified 09/04/17 09:49 enalapril maleate Allergy Angioedema Verified 09/04/17 09:49 [From Vasotec] enalaprilat dihydrate Allergy Angioedema Verified 09/04/17 09:49 [From Vasotec] pseudoephedrine HCl Allergy Swelling Verified 09/04/17 09:49 [From Sudafed] Sulfa (Sulfonamide Allergy Hives Verified 09/04/17 09:49 Antibiotics) ED Review of Systems ROS: Stated complaint: ABDOMINAL PAIN Other details as noted in HPI Comment: All other systems reviewed and negative Constitutional: chills. denies: malaise Respiratory: denies: cough Cardiovascular: denies: chest pain Gastrointestinal: abdominal pain Musculoskeletal: denies: back pain ED Past Medical Hx - Past Medical History Hx Hypertension: Yes Hx Heart Attack/AMI: Yes (coronary artery disease) Hx Congestive Heart Failure: Yes Hx Renal Disease: Yes (dialysis MWF) Hx Arthritis: Yes Hx HIV: No - Surgical History Hx Cholecystectomy: Yes Hx Appendectomy: Yes Additional Surgical History: Hysterectomy, tubal ligation, fistula in right arm , "surgery to place a plate in neck" - Social History Smoking Status: Never Smoker Substance Use Type: Alcohol Other Social History: lives with son who brought her to the ED this morning - Medications Home Medications: Home Medications Medication Instructions Recorded Confirmed Last Taken Type hydrALAZINE [Apresoline TAB] 100 mg PO TID #90 tab 03/12/17 09/04/17 05/03/17 Rx Amlodipine Besylate [Norvasc] 5 mg PO QDAY 09/04/17 09/04/17 Unknown History Apixaban [Eliquis] 2.5 mg PO Q12H 09/04/17 09/04/17 Unknown History Simvastatin [Zocor TAB] 40 mg PO HS 09/04/17 09/04/17 Unknown History Nitrofurantoin Macrocrystal 100 mg PO DAILY 5 Days #5 capsule 09/29/17 Unknown Rx [Nitrofurantoin] ED Physical Exam - General Limitations: No Limitations General appearance: alert, in no apparent distress - Head Head exam: Present: atraumatic, normocephalic - Eye Eye exam: Present: normal appearance - ENT ENT exam: Present: mucous membranes moist - Neck Neck exam: Present: normal inspection. Absent: tenderness, meningismus - Respiratory Respiratory exam: Present: normal lung sounds bilaterally. Absent: respiratory distress, wheezes, rales, rhonchi - Cardiovascular Cardiovascular Exam: Present: regular rate, normal rhythm, normal heart sounds. Absent: bradycardia, tachycardia, systolic murmur, diastolic murmur, rubs, gallop - GI/Abdominal GI/Abdominal exam: Present: soft, normal bowel sounds. Absent: distended, tenderness, guarding, rebound - Extremities Exam Extremities exam: Present: normal inspection - Back Exam Back exam: Present: normal inspection - Neurological Exam Neurological exam: Present: alert, oriented X3 - Psychiatric Psychiatric exam: Present: normal affect, normal mood, other (articulate and intelligent and insightful) - Skin Skin exam: Present: warm, dry, intact, normal color. Absent: rash ED Course Vital Signs 09/29/17 09/29/17 03:15 03:16 Temperature 99.0 F 99.0 F Pulse Rate 62 63 Respiratory 18 18 Rate Blood Pressure 177/49 Blood Pressure 177/49 [Left] O2 Sat by Pulse 100 99 Oximetry ED Medical Decision Making - Lab Data Result diagrams: 09/29/17 03:26 09/29/17 03:26 - Medical Decision Making Mrs. Tracey is a very pleasant 87-year-old female who presents with recurrent suprapubic pain. I did review abdominal pelvis CT performed in February. She did have suprapubic pain at that time. Also reviewed GI consultation in February. Mrs. Tracey desires to be probably discharged home. She also desires five-day course of antibiotics. I did give first dose of nitrofurantoin in the ED. Also prescribed 5 days of nitrofurantoin. She'll follow up with her primary physician. She understands to return if symptoms worsen. Critical care attestation.: If time is entered above; I have spent that time in minutes in the direct care of this critically ill patient, excluding procedure time. ED Disposition Clinical Impression: Acute suprapubic pain Disposition: -01 TO HOME OR SELFCARE Is pt being admited?: No Does the pt Need Aspirin: No Condition: Stable Instructions: Abdominal Pain (ED) Prescriptions: Nitrofurantoin Macrocrystal [Nitrofurantoin] 100 mg PO DAILY 5 Days #5 capsule Referrals: PRIMARY CARE, [Primary Care Provider] - 2-3 Days Time of Disposition: 06:20
[2017-09-29 06:44] VITALS: BP 193/68
== END 2017-09-29 06:45 | disposition home or self-care (01) ==
LOC: ED 03:07
DX: R10.30 Lower abdominal pain, unspecified (principal); R68.83 Chills (without fever); I25.2 Old myocardial infarction; I13.2 Hypertensive heart and chronic kidney disease with heart failure and with stage 5 chronic kidney disease, or end stage renal disease; N18.6 End stage renal disease; I50.9 Heart failure, unspecified; M19.90 Unspecified osteoarthritis, unspecified site; I25.10 Atherosclerotic heart disease of native coronary artery without angina pectoris; Z99.2 Dependence on renal dialysis; Z88.2 Allergy status to sulfonamides; Z88.8 Allergy status to other drugs, medicaments and biological substances
CPT/HCPCS: 36415; 80053; 85025; 99283

== ENCOUNTER 2017-12-13 15:29 | Emergency (ER) | payer MEDICARE ==
[2017-12-13 15:39] VITALS: BP 163/52
[2017-12-13 16:04] LABS: Hematocrit 29.8 % (30.3-42.9); Mean Corpuscular HGB Conc 34 % (30-34); Mean Corpuscular Hemoglobin 28 pg (28-32); Mean Corpuscular Volume 84 fl (79-97); Platelet Count 170 K/mm3 (140-440); Red Blood Count 3.56 M/mm3 (3.65-5.03); Red Cell Distribution Width 19.8 % (13.2-15.2)
--- NOTE | 2017-12-13 16:15 | Emergency Department Report ---
ED GI Bleed HPI - General Chief complaint: GI Bleed Stated complaint: BLOOD IN STOOL Time Seen by Provider: 12/13/17 16:02 Source: patient Mode of arrival: Wheelchair Limitations: No Limitations - History of Present Illness Initial comments: Mrs. Tracey is a very pleasant 87-year-old female with history of hypertension, coronary artery disease, CHF and end-stage renal disease on dialysis presents with rectal bleeding. 10 days ago she underwent colonoscopy and upper endoscopy and polypectomy. She restarted Eliquis approximately 5 days ago.She notice bright red blood with brown stool. When she had a second bowel movement the bleeding was not as much. She denies chest pain. She denies lightheadedness. She denies discomfort. She desires to be discharged home. complaint: other (bright red blood in toilet) -: This morning - Related Data Home Medications Medication Instructions Recorded Confirmed Last Taken Simvastatin [Zocor TAB] 40 mg PO HS 09/04/17 11/29/17 Unknown Megestrol [Megace] 20 mg PO QID 11/09/17 11/29/17 11/28/17 18:00 Pantoprazole [Protonix TAB] 40 mg PO QDAY 11/09/17 11/29/17 Unknown amLODIPine [Norvasc] 5 mg PO DAILY 11/29/17 11/29/17 11/28/17 10:00 Previous Rx's Medication Instructions Recorded Last Taken Type hydrALAZINE [Apresoline TAB] 100 mg PO TID #90 tab 03/12/17 11/28/17 17:00 Rx Apixaban [Eliquis] 2.5 mg PO Q12H #30 12/03/17 11/28/17 22:00 Rx Allergies Allergy/AdvReac Type Severity Reaction Status Date / Time cefazolin sodium [From Ancef] Allergy Unknown Verified 09/04/17 09:49 enalapril maleate Allergy Angioedema Verified 09/04/17 09:49 [From Vasotec] enalaprilat dihydrate Allergy Angioedema Verified 09/04/17 09:49 [From Vasotec] pseudoephedrine HCl Allergy Swelling Verified 09/04/17 09:49 [From Sudafed] Sulfa (Sulfonamide Allergy Hives Verified 09/04/17 09:49 Antibiotics) ED Review of Systems ROS: Stated complaint: BLOOD IN STOOL Other details as noted in HPI Comment: All other systems reviewed and negative Constitutional: denies: fever, malaise Respiratory: denies: cough Cardiovascular: denies: chest pain ED Past Medical Hx - Past Medical History Hx Hypertension: Yes Hx Heart Attack/AMI: Yes (coronary artery disease) Hx Congestive Heart Failure: Yes Hx Renal Disease: Yes (dialysis MWF) Hx Arthritis: Yes Hx HIV: No - Surgical History Hx Cholecystectomy: Yes Hx Appendectomy: Yes Additional Surgical History: Hysterectomy, tubal ligation, fistula in right arm , "surgery to place a plate in neck" - Social History Smoking Status: Never Smoker - Medications Home Medications: Home Medications Medication Instructions Recorded Confirmed Last Taken Type hydrALAZINE [Apresoline TAB] 100 mg PO TID #90 tab 03/12/17 11/29/17 11/28/17 17 :00 Rx Simvastatin [Zocor TAB] 40 mg PO HS 09/04/17 11/29/17 Unknown History Megestrol [Megace] 20 mg PO QID 11/09/17 11/29/17 11/28/17 18:00 History Pantoprazole [Protonix TAB] 40 mg PO QDAY 11/09/17 11/29/17 Unknown History amLODIPine [Norvasc] 5 mg PO DAILY 11/29/17 11/29/17 11/28/17 10:00 History Apixaban [Eliquis] 2.5 mg PO Q12H #30 12/03/17 11/29/17 11/28/17 22:00 Rx ED Physical Exam - General Limitations: No Limitations General appearance: alert, in no apparent distress - Head Head exam: Present: atraumatic, normocephalic - Eye Eye exam: Present: normal appearance - ENT ENT exam: Present: mucous membranes moist - Neck Neck exam: Present: normal inspection. Absent: tenderness - Respiratory Respiratory exam: Present: normal lung sounds bilaterally. Absent: respiratory distress, wheezes, rales, rhonchi - Cardiovascular Cardiovascular Exam: Present: regular rate, normal rhythm, normal heart sounds. Absent: bradycardia, tachycardia, systolic murmur, diastolic murmur, rubs, gallop - GI/Abdominal GI/Abdominal exam: Present: soft, normal bowel sounds. Absent: distended, tenderness, guarding, rebound - Rectal Rectal exam: Present: other (dark brown stool no gross blood) - Extremities Exam Extremities exam: Present: normal inspection - Back Exam Back exam: Present: normal inspection - Neurological Exam Neurological exam: Present: alert, oriented X3 - Psychiatric Psychiatric exam: Present: normal affect, normal mood - Skin Skin exam: Present: warm, dry, intact, normal color. Absent: rash ED Course Vital Signs 12/13/17 15:35 Temperature 99.3 F Pulse Rate 70 Blood Pressure 163/52 O2 Sat by Pulse 100 Oximetry ED Medical Decision Making - Lab Data Result diagrams: 12/13/17 15:47 12/13/17 15:47 - Medical Decision Making Mrs. Tracey is an 87 yo female who presents with rectal vs lower GI bleeding. Patient does not have hx of rectal bleeding or hemorrhoids. I did review EMR, patient underwent polypectomy. There is a risk of continued bleeding site of polyp removal. I have asked patient to stop Eliquis for the next 2 days. She will call 911 if the bleeding returns. She informed me that she will have a blood draw as scheduled on Thursday. Patient had extensive polyp removal. Critical care attestation.: If time is entered above; I have spent that time in minutes in the direct care of this critically ill patient, excluding procedure time. ED Disposition Clinical Impression: Rectal bleeding, ESRD on dialysis Disposition: - TO HOME OR SELFCARE Is pt being admited?: No Does the pt Need Aspirin: No Condition: Stable Instructions: Rectal Bleeding (ED) Time of Disposition: 16:47
[2017-12-13 16:25] LABS: Calcium 8.5 mg/dL (8.4-10.2)
[2017-12-13 16:59] LABS: Band Neutrophils # (Manual) 0.1 K/mm3; Basophils % (Manual) 0 % (0.0-1.8); Total Cells Counted 100
[2017-12-13 17:00] LABS: Acanthocytes Rare; Anisocytosis 1+; Hypochromasia 1+; Large Platelets Few; Ovalocytes Few; Platelet Estimate Consistent w Auto; Poikilocytosis 1+; Schistocytes Rare; Tear Drop Cells Few
== END 2017-12-13 17:38 | disposition home or self-care (01) ==
LOC: ED 15:29
DX: K62.5 Hemorrhage of anus and rectum (principal); I13.2 Hypertensive heart and chronic kidney disease with heart failure and with stage 5 chronic kidney disease, or end stage renal disease; N18.6 End stage renal disease; M19.90 Unspecified osteoarthritis, unspecified site; Z99.2 Dependence on renal dialysis; Z88.5 Allergy status to narcotic agent; Z88.2 Allergy status to sulfonamides; Z90.49 Acquired absence of other specified parts of digestive tract; Z90.710 Acquired absence of both cervix and uterus; Z98.51 Tubal ligation status
CPT/HCPCS: 36415; 80048; 85007; 85025; 86850; 86900; 86901; 99283

== ENCOUNTER 2018-04-19 14:21 | Inpatient (IN) | payer MEDICARE ==
[2018-04-19] MEDS ORDERED: ASPIRIN PO ONE (14:27)
--- NOTE | 2018-04-19 14:54 | Emergency Department Report ---
ED Chest Pain HPI - General Chief Complaint: Chest Pain Stated Complaint: CHEST PAIN Time Seen by Provider: 04/19/18 14:43 Source: patient Mode of arrival: Wheelchair Limitations: No Limitations - History of Present Illness Initial Comments: 87-year-old -Spanish female presents to the emergency department with complaint of midsternal to left-sided chest pain that started with about 20 minutes left in dialysis this afternoon. It is associated with some shortness of breath, but she denies any back pain, nausea, vomiting or diaphoresis. Patient gets dialysis on Thursday/Thursday/Thursday and her specialized developer is Dr. Guerrier. She also has a history of hypertension. There is a listing in her chart of a history of coronary artery disease and CHF but the patient denies this. 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 Stokes. She did not take an ything for her symptoms prior to arrival. Recent travel or sick contacts at home. - Related Data Home Medications Medication Instructions Recorded Confirmed Last Taken Simvastatin [Zocor TAB] 40 mg PO HS 09/04/17 11/29/17 Unknown Megestrol [Megace] 20 mg PO QID 11/09/17 11/29/17 11/28/17 18:00 Pantoprazole [Protonix TAB] 40 mg PO QDAY 11/09/17 11/29/17 Unknown amLODIPine [Norvasc] 5 mg PO DAILY 11/29/17 11/29/17 11/28/17 10:00 Previous Rx's Medication Instructions Recorded Last Taken Type hydrALAZINE [Apresoline TAB] 100 mg PO TID #90 tab 03/12/17 11/28/17 17:00 Rx Apixaban [Eliquis] 2.5 mg PO Q12H #30 12/03/17 11/28/17 22:00 Rx Allergies Allergy/AdvReac Type Severity Reaction Status Date / Time cefazolin sodium [From Ancef] Allergy Unknown Verified 09/04/17 09:49 enalapril maleate Allergy Angioedema Verified 09/04/17 09:49 [From Vasotec] enalaprilat dihydrate Allergy Angioedema Verified 09/04/17 09:49 [From Vasotec] pseudoephedrine HCl Allergy Swelling Verified 09/04/17 09:49 [From Sudafed] Sulfa (Sulfonamide Allergy Hives Verified 09/04/17 09:49 Antibiotics) Heart Score - HEART Score History: Moderately suspicious EKG: Non-specific Age: > 65 Risk factors: > 3 risk factors or hx of atherosclerotic disease Troponin: 1-3x normal limit HEART Score: 7 - Critical Actions Critical Actions: >7 pts:50-65% risk of adverse cardiac event. Early invasive measures ED Review of Systems ROS: Stated complaint: CHEST PAIN Other details as noted in HPI Comment: All other systems reviewed and negative Constitutional: denies: chills, fever Eyes: denies: eye pain, vision change ENT: denies: ear pain, throat pain Respiratory: shortness of breath. denies: cough Cardiovascular: chest pain. denies: palpitations Gastrointestinal: denies: abdominal pain, vomiting Genitourinary: denies: dysuria, discharge Musculoskeletal: denies: back pain, arthralgia Skin: denies: rash, lesions Neurological: denies: weakness, numbness ED Past Medical Hx - Past Medical History Hx Hypertension: Yes Hx Heart Attack/AMI: Yes (coronary artery disease) Hx Congestive Heart Failure: Yes Hx Renal Disease: Yes (dialysis MWF) Hx Arthritis: Yes Hx HIV: No - Surgical History Hx Cholecystectomy: Yes Hx Appendectomy: Yes Additional Surgical History: Hysterectomy, tubal ligation, fistula in right arm, "surgery to place a plate in neck" - Social History Smoking Status: Never Smoker Substance Use Type: None - Medications Home Medications: Home Medications Medication Instructions Recorded Confirmed Last Taken Type hydrALAZINE [Apresoline TAB] 100 mg PO TID #90 tab 03/12/17 11/29/17 11/28/17 17:00 Rx Simvastatin [Zocor TAB] 40 mg PO HS 09/04/17 11/29/17 Unknown History Megestrol [Megace] 20 mg PO QID 11/09/17 11/29/17 11/28/17 18:00 History Pantoprazole [Protonix TAB] 40 mg PO QDAY 11/09/17 11/29/17 Unknown History amLODIPine [Norvasc] 5 mg PO DAILY 11/29/17 11/29/17 11/28/17 10:00 History Apixaban [Eliquis] 2.5 mg PO Q12H #30 12/03/17 11/29/17 11/28/17 22:00 Rx ED Physical Exam - General Limitations: No Limitations - Other Other exam information: GENERAL: The patient is well-developed well-nourished. HEENT: Normocephalic. Atraumatic. Patient has moist mucous membranes. EYES: Extraocular motions are intact. Pupils are equal and reactive to light bilaterally. NECK: Supple. Trachea is midline. CHEST/LUNGS: Clear to auscultation. There is no respiratory distress noted. HEART/CARDIOVASCULAR: Regular. There is no tachycardia. There is no obvious murmur. ABDOMEN: Abdomen is soft, nontender. Patient has normal bowel sounds. There is no abdominal distention. SKIN: Skin is warm and dry. NEURO: The patient is awake, alert, and oriented. The patient is cooperative. The patient has no focal neurologic deficits. The patient has normal speech. MUSCULOSKELETAL: There is no tenderness or deformity. There is no evidence of acute injury. ED Course Vital Signs 04/19/18 04/19/18 04/19/18 14:25 15:13 15:15 Temperature 99 F Pulse Rate 89 69 Respiratory 20 12 7 L Rate Blood Pressure 124/68 126/43 O2 Sat by Pulse 98 100 Oximetry 04/19/18 04/19/18 04/19/18 15:30 15:45 16:00 Temperature Pulse Rate 67 64 61 Respiratory 13 12 12 Rate Blood Pressure 118/80 124/41 127/46 O2 Sat by Pulse 100 100 100 Oximetry 04/19/18 04/19/18 04/19/18 16:15 16:31 16:45 Temperature Pulse Rate 70 64 67 Respiratory 15 12 13 Rate Blood Pressure 143/53 143/53 143/53 O2 Sat by Pulse 100 98 100 Oximetry 04/19/18 17:01 Temperature Pulse Rate 65 Respiratory 14 Rate Blood Pressure 143/53 O2 Sat by Pulse 100 Oximetry - Consultations Consultation #1: I spoke to one of the nephrologists adjuster electrical contacts for this patient, Dr. Espinoza, who is aware of the patient's presentation and pending admission and will be happy to consult on the patient. 04/19/18 19:15 VALENTE score - Valente Score Age > 65: (1) Yes Aspirin use within the Past 7 Days: (1) Yes 3 or more CAD Risk Factors: (1) Yes 2 or more Angina events in past 24 hrs: (0) No Known CAD with more than 50% Stenosis: (0) No Elevated Cardiac Markers: (1) Yes ST Deviation Greater than 0.5mm: (0) No VALENTE Score: 4 ED Medical Decision Making - Lab Data Result diagrams: 04/19/18 14:50 04/19/18 14:50 - EKG Data -: EKG Interpreted by Me EKG shows normal: sinus rhythm, axis, intervals (prolonged QT interval), QRS complexes ( incomplete right bundle branch block), ST-T waves Rate: normal - EKG Data When compared to previous EKG there are: previous EKG unavailable Interpretation: other (sinus rhythm, incomplete left bundle branch block, prolonged QT intervals) - Radiology Data Radiology results: report reviewed, image reviewed interpreted by me: Chest x-ray does not show any pneumothorax, pleural effusion, pneumonia or obvious focal consolidation. EXAM: NM LUNG SCAN PERF/VENT HISTORY: SOB, CP TECHNIQUE: Ventilation-perfusion scan Perfusion study performed following intravenous administration of 5 millicuries technetium 99 M MAA Ventilation study performed with 10 millicuries of Xe-133 gas PRIORS: Correlated with chest radiograph of the same date FINDINGS: On perfusion study there is homogeneous distribution of the radiotracer. No perfusion defects are observed. On ventilation there is normal symmetric distribution and normal washout without evidence for significant air trapping.. IMPRESSION: Negative. No scintigraphic evidence for acute pulmonary embolus Transcribed By: [facility] Dictated By: BALTA REYNA MD Electronically Authenticated By: BALTA REYNA MD Signed Date/Time: 04/19/18 190 - Medical Decision Making Patient presents after having acute chest pain starting at the end of her dialysis session. EKG shows incomplete right bundle branch block that is consistent with previous EKGs. No signs of ST elevation ID. The first troponin is slightly elevated but the patient has end-stage renal disease. Chest x-ray does not show any pneumothorax, pneumonia, pleural effusions, focal consolidation, or any other acute process. She had a slightly elevated d-dimer level and therefore she had a VQ scan done that resulted as no evidence for pulmonary embolism. The patient will be admitted to the hospital for further evaluation and treatment and was accepted for admission by the hospitalist, Dr Ureña. - Differential Diagnosis ID, PE, CHF, Costochondritis Critical Care Time: No Critical care attestation.: If time is entered above; I have spent that time in minutes in the direct care of this critically ill patient, excluding procedure time. ED Disposition Clinical Impression: Acute chest pain, ESRD on dialysis Disposition: OP ADMIT IP TO THIS HOSP Is pt being admited?: Yes Condition: Stable Time of Disposition: 18:19
[2018-04-19 15:16] LABS: Basophils % (Auto) 0.9 % (0.0-1.8); Eosinophils # (Auto) 0.1 K/mm3 (0.0-0.4); Eosinophils % (Auto) 2.3 % (0.0-4.3); Hematocrit 38.5 % (30.3-42.9); Hemoglobin 12.3 gm/dl (10.1-14.3); Lymphocytes # (Auto) 0.8 K/mm3 (1.2-5.4); Lymphocytes % (Auto) 15.4 % (13.4-35.0); Mean Corpuscular HGB Conc 32 % (30-34); Mean Corpuscular Volume 84 fl (79-97); Monocytes # (Auto) 0.4 K/mm3 (0.0-0.8); Monocytes % (Auto) 8.5 % (0.0-7.3); Platelet Count 224 K/mm3 (140-440); Red Blood Count 4.56 M/mm3 (3.65-5.03); Red Cell Distribution Width 18.4 % (13.2-15.2)
--- NOTE | 2018-04-19 15:17 | XRay Report ---
AP CHEST: HISTORY: chest pain AP view of the chest demonstrates a normal mediastinal and cardiac contour with clear lungs and normal bony and soft tissue structures. IMPRESSION: No acute cardiopulmonary process. No significant change since 11/06/17.
[2018-04-19 15:37] LABS: INR 1.25 (0.87-1.13)
[2018-04-19 15:38] LABS: Partial Thromboplastin Time 32.3 Sec. (24.2-36.6)
[2018-04-19 15:44] LABS: Calcium 8.3 mg/dL (8.4-10.2)
[2018-04-19 16:26] LABS: Chol/HDL Ratio 3.16 %
--- NOTE | 2018-04-19 19:03 | Nuclear Medicine Report ---
FINAL REPORT EXAM: NM LUNG SCAN PERF/VENT HISTORY: SOB, CP TECHNIQUE: Ventilation-perfusion scan Perfusion study performed following intravenous administration of 5 millicuries technetium 99 M MAA Ventilation study performed with 10 millicuries of Xe-133 gas PRIORS: Correlated with chest radiograph of the same date FINDINGS: On perfusion study there is homogeneous distribution of the radiotracer. No perfusion defects are obs erved. On ventilation there is normal symmetric distribution and normal washout without evidence for signifi cant air trapping.. IMPRESSION: Negative. No scintigraphic evidence for acute pulmonary embolus
--- NOTE | 2018-04-19 21:32 | History and Physical Report ---
History of Present Illness Date of examination: 04/19/18 Date of admission: 04/19/18 18:19 Chief complaint: Chest pain for 1 hour after dialysis History of present illness: 87-year-old -Iraqi female with history of end-stage renal disease hypertension, GERD and PE for which she is on ELIQUIS comes in for chest pain which happened at the end of dialysis session. Chest pain is dull in character and continued for about 1 hour. During my examination it is nearly resolved. Intensity of pain is about 5 on a scale of 1-10. No diaphoresis no shortness of breath and no palpitations. No radiation. No recent travel. No exacerbating or relieving factors. Past Medical History Hypertension: Yes Heart Attack/AMI: Yes (coronary artery disease) Congestive Heart Failure: Yes Renal Disease: Yes (dialysis MWF) Arthritis: Yes Surgical History Cholecystectomy: Yes Appendectomy: Yes Additional Surgical History: Hysterectomy, tubal ligation, fistula in right arm, "surgery to place a plate in neck" Social History Smoking Status: Never Smoker Substance Use Type: None Family history Htn Medications Home Medications: Home Medications Medication Instructions Recorded Confirmed Last Taken Type hydrALAZINE [Apresoline TAB] 100 mg PO TID #90 tab 03/12/17 11/29/17 11/28/17 17:00 Rx Simvastatin [Zocor TAB] 40 mg PO HS 09/04/17 11/29/17 Unknown History Megestrol [Megace] 20 mg PO QID 11/09/17 11/29/17 11/28/17 18:00 History Pantoprazole [Protonix TAB] 40 mg PO QDAY 11/09/17 11/29/17 Unknown History amLODIPine [Norvasc] 5 mg PO DAILY 11/29/17 11/29/17 11/28/17 10:00 History Apixaban [Eliquis] 2.5 mg PO Q12H #30 12/03/17 11/29/17 11/28/17 22:00 Rx Review of Systems ROS: Stated complaint: CHEST PAIN Other details as noted in HPI Comment: All other systems reviewed and negative Constitutional: denies: chills, fever Eyes: denies: eye pain, vision change ENT: denies: ear pain, throat pain Respiratory: shortness of breath. denies: cough Cardiovascular: chest pain. denies: palpitations Gastrointestinal: denies: abdominal pain, vomiting Genitourinary: denies: dysuria, discharge Musculoskeletal: denies: back pain, arthralgia Skin: denies: rash, lesions Neurological: denies: weakness, numbness Medications and Allergies Allergies Allergy/AdvReac Type Severity Reaction Status Date / Time cefazolin sodium [From Ancef] Allergy Unknown Verified 09/04/17 09:49 enalapril maleate Allergy Angioedema Verified 09/04/17 09:49 [From Vasotec] enalaprilat dihydrate Allergy Angioedema Verified 09/04/17 09:49 [From Vasotec] pseudoephedrine HCl Allergy Swelling Verified 09/04/17 09:49 [From Sudafed] Sulfa (Sulfonamide Allergy Hives Verified 09/04/17 09:49 Antibiotics) Home Medications Medication Instructions Recorded Confirmed Last Taken Type hydrALAZINE [Apresoline TAB] 100 mg PO TID #90 tab 03/12/17 11/29/17 11/28/17 17:00 Rx Simvastatin [Zocor TAB] 40 mg PO HS 09/04/17 11/29/17 Unknown History Megestrol [Megace] 20 mg PO QID 11/09/17 11/29/17 11/28/17 18:00 History Pantoprazole [Protonix TAB] 40 mg PO QDAY 11/09/17 11/29/17 Unknown History amLODIPine [Norvasc] 5 mg PO DAILY 11/29/17 11/29/17 11/28/17 10:00 History Apixaban [Eliquis] 2.5 mg PO Q12H #30 12/03/17 11/29/17 11/28/17 22:00 Rx Exam - Constitutional Vitals: Temp Pulse Resp BP Pulse Ox 98.7 F 69 16 127/42 100 04/19/18 19:21 04/19/18 19:21 04/19/18 19:21 04/19/18 19:21 04/19/18 19:21 General appearance: Present: no acute distress, well-nourished - EENT Eyes: Present: PERRL ENT: hearing intact, clear oral mucosa - Neck Neck: Present: supple, normal ROM - Respiratory Respiratory effort: normal Respiratory: bilateral: CTA - Cardiovascular Heart rate: 69 Rhythm: regular Heart Sounds: Present: S1 & S2. Absent: rub, click - Extremities Extremities: no ischemia, pulses symmetrical, No edema Peripheral Pulses: within normal limits - Abdominal General gastrointestinal: Present: soft, non-tender, non-distended, normal bowel sounds Female genitourinary: Present: normal - Integumentary Integumentary: Present: clear, warm, dry - Musculoskeletal Musculoskeletal: gait normal, strength equal bilaterally - Psychiatric Psychiatric: appropriate mood/affect, intact judgment & insight - Neurologic Neurologic: CNII-XII intact, moves all extremities - Allied Health Allied health notes reviewed: nursing, case management Results - Labs CBC & Chem 7: 04/19/18 14:50 04/19/18 14:50 Labs: Laboratory Last Values WBC 5.3 K/mm3 (4.5-11.0) 04/19/18 14:50 RBC 4.56 M/mm3 (3.65-5.03) 04/19/18 14:50 Hgb 12.3 gm/dl (10.1-14.3) 04/19/18 14:50 Hct 38.5 % (30.3-42.9) 04/19/18 14:50 MCV 84 fl (79-97) 04/19/18 14:50 MCH 27 pg (28-32) L 04/19/18 14:50 MCHC 32 % (30-34) 04/19/18 14:50 RDW 18.4 % (13.2-15.2) H 04/19/18 14:50 Plt Count 224 K/mm3 (140-440) 04/19/18 14:50 Lymph % (Auto) 15.4 % (13.4-35.0) 04/19/18 14:50 Twiggs % (Auto) 8.5 % (0.0-7.3) H 04/19/18 14:50 Eos % (Auto) 2.3 % (0.0-4.3) 04/19/18 14:50 Baso % (Auto) 0.9 % (0.0-1.8) 04/19/18 14:50 Lymph # 0.8 K/mm3 (1.2-5.4) L 04/19/18 14:50 Twiggs # 0.4 K/mm3 (0.0-0.8) 04/19/18 14:50 Eos # 0.1 K/mm3 (0.0-0.4) 04/19/18 14:50 Baso # 0.0 K/mm3 (0.0-0.1) 04/19/18 14:50 Seg Neutrophils % 72.9 % (40.0-70.0) H 04/19/18 14:50 Seg Neutrophils # 3.9 K/mm3 (1.8-7.7) 04/19/18 14:50 PT 16.1 Sec. (12.2-14.9) H 04/19/18 14:50 INR 1.25 (0.87-1.13) H 04/19/18 14:50 APTT 32.3 Sec. (24.2-36.6) 04/19/18 14:50 D-Dimer 562.12 ng/mlDDU (0-234) H 04/19/18 14:50 Sodium 142 mmol/L (137-145) 04/19/18 14:50 Potassium 3.7 mmol/L (3.6-5.0) 04/19/18 14:50 Chloride 96.6 mmol/L (98-107) L 04/19/18 14:50 Carbon Dioxide 31 mmol/L (22-30) H 04/19/18 14:50 Anion Gap 18 mmol/L 04/19/18 14:50 BUN 27 mg/dL (7-17) H 04/19/18 14:50 Creatinine 5.3 mg/dL (0.7-1.2) H 04/19/18 14:50 Estimated GFR 9 ml/min 04/19/18 14:50 BUN/Creatinine Ratio 5 % 04/19/18 14:50 Glucose 104 mg/dL (65-100) H 04/19/18 14:50 Calcium 8.3 mg/dL (8.4-10.2) L 04/19/18 14:50 Troponin T 0.027 ng/mL (0.00-0.029) 04/19/18 20:25 NT-Pro-B Natriuret Pep 37255 pg/mL (0-900) H 04/19/18 14:50 Triglycerides 128 mg/dL (2-149) 04/19/18 14:50 Cholesterol 168 mg/dL (50-199) 04/19/18 14:50 LDL Cholesterol Direct 111 mg/dL (50-130) 04/19/18 14:50 HDL Cholesterol 53 mg/dL (40-59) 04/19/18 14:50 Cholesterol/HDL Ratio 3.16 % 04/19/18 14:50 Short CBC 04/19/18 Range/Units 14:50 WBC 5.3 (4.5-11.0) K/mm3 Hgb 12.3 (10.1-14.3) gm/dl Hct 38.5 (30.3-42.9) % Plt Count 224 (140-440) K/mm3 [facility] 04/19/18 14:50 Sodium 142 Potassium 3.7 Chloride 96.6 L Carbon Dioxide 31 H BUN 27 H Creatinine 5.3 H Glucose 104 H Calcium 8.3 L Cardiac Enzymes 04/19/18 04/19/18 04/19/18 Range/Units 14:50 17:00 20:25 Troponin T 0.034 H 0.023 0.027 (0.00-0.029) ng/mL Short CBC 04/19/18 Range/Units 14:50 WBC 5.3 (4.5-11.0) K/mm3 Hgb 12.3 (10.1-14.3) gm/dl Hct 38.5 (30.3-42.9) % Plt Count 224 (140-440) K/mm3 [facility] 04/19/18 14:50 Sodium 142 Potassium 3.7 Chloride 96.6 L Carbon Dioxide 31 H BUN 27 H Creatinine 5.3 H Glucose 104 H Calcium 8.3 L Cardiac Enzymes 04/19/18 04/19/18 04/19/18 Range/Units 14:50 17:00 20:25 Troponin T 0.034 H 0.023 0.027 (0.00-0.029) ng/mL - Imaging and Cardiology EKG: report reviewed Imaging and Cardiology: EKG Normal sinus rhythm Incomplete right bundle branch block Nonspecific T wave abnormalities lateral leads Prolonged QT interval Chest x-ray IMPRESSION: No acute cardiopulmonary process. No significant change since 11/06/17. VQ perfusion scan Normal Assessment and Plan Advance Directives: Yes (Full code) VTE prophylaxis?: Chemical Plan of care discussed with patient/family: Yes - Patient Problems (1) Acute chest pain Current Visit: Yes Status: Acute Plan to address problem: Chest pain r/o HI Serial Troponins Lexiscan in AM (2) Elevated troponin I level Current Visit: Yes Status: Acute Plan to address problem: Probably secondary to end-stage renal disease Patient due for Lexiscan in morning (3) ESRD on dialysis Current Visit: Yes Status: Chronic Plan to address problem: Continue hemodialysis (4) Hypertension Current Visit: Yes Status: Chronic Qualifiers: Hypertension type: essential hypertension Qualified Code(s): I10 - Essential (primary) hypertension Plan to address problem: Continue antihypertensives (5) Hyperlipidemia Current Visit: Yes Status: Chronic Qualifiers: Hyperlipidemia type: mixed hyperlipidemia Qualified Code(s): E78.2 - Mixed hyperlipidemia Plan to address problem: Continue statins (6) Personal history of PE (pulmonary embolism) Current Visit: No Status: Chronic Plan to address problem: Patient on anticoagulation--ELIQUIS (7) CHF (congestive heart failure) Current Visit: Yes Status: Chronic Qualifiers: Heart failure type: combined systolic and diastolic Plan to address problem: Increased BNP Increase ultrafiltration (8) DVT prophylaxis Current Visit: Yes Status: Acute Plan to address problem: On heparin and GI prophylaxis
[2018-04-20 08:42] VITALS: BP 152/52
[2018-04-20] MEDS ORDERED: NACL 0.9% 100 ML IV PRN (11:11)
--- NOTE | 2018-04-20 11:12 | Consultation ---
History of Present Illness - Reason for Consult Consult date: 04/20/18 end stage renal disease Requesting physician: KYREE JUDD - History of Present Illness This is a 87 yo F with PMHx of ESRD on HD, in the setting of HTN, DM, with a RUE AVF, s/p recent angioplasty, recently diagnosed with DVT/PE now on eliquis, who is admitted to [facility] after presenting with chest pain which started towards the end of HD treatment. Chest pain is dull in character and continued for about 1 hour, pt denies nausea, vomiting, diaphoresis, shortness of breath or palpitations. pt is non-radiating. No recent travel. No exacerbating or relieving factors reported. Labs in ER showed elevated proBNP > 39610, and mild troponin elevation of 0.034. Pt is admitted for further cardiac evaluation and renal consult is requested for management of ESRD/HD. Past History Past Medical History: CAD, ESRD, hypertension, hyperlipidemia, pulmonary embolism Past Surgical History: cholecystectomy, Other (AVF placement ) Social history: no significant social history, lives with family Family history: hypertension (brother had ESRD secondary to HTN) Medications and Allergies Allergies Allergy/AdvReac Type Severity Reaction Status Date / Time cefazolin sodium [From Ancef] Allergy Unknown Verified 09/04/17 09:49 enalapril maleate Allergy Angioedema Verified 09/04/17 09:49 [From Vasotec] enalaprilat dihydrate Allergy Angioedema Verified 09/04/17 09:49 [From Vasotec] pseudoephedrine HCl Allergy Swelling Verified 09/04/17 09:49 [From Sudafed] Sulfa (Sulfonamide Allergy Hives Verified 09/04/17 09:49 Antibiotics) Home Medications Medication Instructions Recorded Confirmed Last Taken Type hydrALAZINE [Apresoline TAB] 100 mg PO TID #90 tab 03/12/17 11/29/17 11/28/17 17:00 Rx Simvastatin [Zocor TAB] 40 mg PO HS 09/04/17 11/29/17 Unknown History Megestrol [Megace] 20 mg PO QID 11/09/17 11/29/17 11/28/17 18:00 History Pantoprazole [Protonix TAB] 40 mg PO QDAY 11/09/17 11/29/17 Unknown History amLODIPine [Norvasc] 5 mg PO DAILY 11/29/17 11/29/17 11/28/17 10:00 History Apixaban [Eliquis] 2.5 mg PO Q12H #30 12/03/17 11/29/17 11/28/17 22:00 Rx Review of Systems All systems: negative Constitutional: weakness Cardiovascular: chest pain Exam - Vital Signs Vital signs: Vital Signs Temp Pulse Resp BP Pulse Ox 99 F 89 20 124/68 98 04/19/18 14:25 04/19/18 14:25 04/19/18 14:25 04/19/18 14:25 04/19/18 14:25 - General Appearance General appearance: appears stated age, cachectic EENT: ATNC, PERRL, mucous membranes moist Neck: Present: neck supple Respiratory: Clear to Ascultation Heart: regular, S1S2 Gastrointestinal: Present: normoactive bowel sounds Integumentary: no rash, other (no edema ) Neurologic: no focal deficit, alert and oriented x3, strength 5/5, CN 3-12 intact Psychiatric: mood/affect appropriate, cooperative Results - Lab Results 04/19/18 14:50 04/19/18 14:50 Most recent lab results Calcium 8.3 mg/dL (8.4-10.2) L 04/19/18 14:50 Assessment and Plan - Patient Problems (1) ESRD on dialysis Current Visit: Yes Status: Chronic Plan to address problem: Patient with stable volume status, and stable electrolytes, no acute indication for renal replacement therapy. To cont her outpatient HD schedule on MWF. Orders placed. (2) Acute chest pain Current Visit: Yes Status: Acute Plan to address problem: follow cardiology recommendations (3) Hypertension Current Visit: Yes Status: Chronic Qualifiers: Hypertension type: essential hypertension Qualified Code(s): I10 - Essential (primary) hypertension Plan to address problem: BP stable. resume home BP meds. will adjust UF as indicated (4) Acute pulmonary embolism Current Visit: No Status: Acute Plan to address problem: on eliquis
[2018-04-20] MEDS ORDERED: SODIUM CHLORIDE FLUSH SYRINGE 10 ML IV PRN (11:14)
[2018-04-20] MEDS ORDERED: ZOFRAN IV PRN (11:14)
[2018-04-20] MEDS ORDERED: TYLENOL PO PRN (11:14)
[2018-04-20] MEDS ORDERED: PERCOCET 5/325 PO PRN (11:14)
[2018-04-20] MEDS ORDERED: ELIQUIS PO SCH (12:00)
[2018-04-20] MEDS ORDERED: NORVASC PO SCH (13:00)
--- NOTE | 2018-04-20 13:42 | Discharge Summary ---
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 he describes the pain as a constant midsternal aching pain which was nonexertional and nonradiating. The pain was associated with SOB No diaphoresis and no palpitations. No radiation. No recent travel. No exacerbating or relieving factors. The patient is currently chest pain free. ECG with no acute ischemic changes, Nigel minimally elevated and flat. Cardiology and Nephrology was consulted. Per cardiology Lexiscan MPI stress test done 10/2017 was negative. Echo done 10/2017 showed EF 65-70%, septal wall hypertrophy, LA mild to mod dilated, mod pulm HTN with RVSP 57mmHg. LHC done 03/2016 showed nonobstructive CAD, 25% mid left circ stenosis, EF >65%. Chest pain currently resolved. Minimal troponin elevation currently nonspecific. Recent stress test 10/2017 was negative. No plans for repeat ischemic evaluation or echo at this time. Pt may discharge home from cardiology standpoint on home cardiac regimen. Recommend follow up in our office with Dr. RYAN John within 1-2 weeks of hospital discharge (1) Acute chest pain secondary to NON OBSTRUCTIVE CAD (2) NSTEMI Type 2 (3) ESRD on dialysis (4) Hypertension (5) Hyperlipidemia (6) Personal history of PE (pulmonary embolism) (7) DVT (8) Pulmonary HTN Disposition: DC/TX-06 HOME UNDER [facility] Time spent for discharge: 35 mins Core Measure Documentation - Palliative Care Palliative Care/ Comfort Measures: Not Applicable - Core Measures Any of the following diagnoses?: none - VTE Discharge Requirements Deep Vein Thrombosis/Pulmonary Embolism Present on Admission: No Exam - Constitutional Vitals: Temp Pulse Resp BP Pulse Ox 98.8 F 68 18 152/52 100 04/20/18 08:40 04/20/18 08:40 04/20/18 08:40 04/20/18 08:40 04/20/18 08:40 General appearance: Present: no acute distress, cachectic - EENT Eyes: Present: PERRL ENT: hearing intact, clear oral mucosa - Neck Neck: Present: supple, normal ROM - Respiratory Respiratory effort: normal Respiratory: bilateral: diminished - Cardiovascular Rhythm: regular Heart Sounds: Present: S1 & S2. Absent: gallop - Extremities Extremities: no ischemia, pulses intact, pulses symmetrical, No edema, normal temperature, normal color Peripheral Pulses: within normal limits - Abdominal General gastrointestinal: Present: soft, non-tender, non-distended, normal bowel sounds - Integumentary Integumentary: Present: warm, dry - Musculoskeletal Musculoskeletal: strength equal bilaterally, right sided weakness - Psychiatric Psychiatric: appropriate mood/affect - Neurologic Neurologic: CNII-XII intact Plan Activity: advance as tolerated, fall precautions Diet: low salt, renal Special Instructions: record daily weights, record daily BP diary Follow up with: LLUVIA MARCIAL MD [Primary Care Provider] - 3-5 Days CHAVEZ LORD MD [Staff Physician] - 7 Days SELWYN JOHN MD [Staff Physician] - 7 Days
[2018-04-20] MEDS ORDERED: APRESOLINE PO SCH (14:00)
[2018-04-20] MEDS ORDERED: MEGACE PO SCH (14:00)
[2018-04-20] MEDS ORDERED: PROTONIX PO SCH (14:00)
--- NOTE | 2018-04-20 14:19 | Consultation ---
History of Present Illness Consult date: 04/20/18 Requesting physician: KYREE JUDD Consult reason: chest pain History of present illness: The pt is an 87 YO female with a past medical history of DVT, bilateral PE, anticoagulated with eliquis, ESRD on HD, nonobstructive CAD, HTN, HLP, pulmonary HTN. She is followed in our office by Dr. RYAN Stokes. She presented with com plaints of chest pain. She states that she went to dialysis as usual yesterday and when she returned home, she ate and took a nap. She was sleeping when chest pain awoke her from sleep. She describes the pain as a constant midsternal aching pain which was nonexertional and nonradiating. The pain was associated with diaphoresis and SOB. Her daughter insisted that she report to the ED. The pain lasted an hour or so and resolved on it's own. The patient is currently chest pain free. ECG with no acute ischemic changes, Nigel minimally elevated and flat. Lexiscan MPI stress test done 10/2017 was negative. Echo done 10/2017 showed EF 65-70%, septal wall hypertrophy, LA mild to mod dilated, mod pulm HTN with RVSP 57mmHg. LHC done 03/2016 showed nonobstructive CAD, 25% mid left circ stenosis, EF >65%. Past History Past Medical History: CAD, ESRD, hypertension, hyperlipidemia, pulmonary embolism Past Surgical History: cholecystectomy, Other (AVF placement ) Social history: no significant social history, lives with family Family history: hypertension (brother had ESRD secondary to HTN) Medications and Allergies Allergies Allergy/AdvReac Type Severity Reaction Status Date / Time cefazolin sodium [From Ancef] Allergy Unknown Verified 09/04/17 09:49 enalapril maleate Allergy Angioedema Verified 09/04/17 09:49 [From Vasotec] enalaprilat dihydrate Allergy Angioedema Verified 09/04/17 09:49 [From Vasotec] pseudoephedrine HCl Allergy Swelling Verified 09/04/17 09:49 [From Sudafed] Sulfa (Sulfonamide Allergy Hives Verified 09/04/17 09:49 Antibiotics) Home Medications Medication Instructions Recorded Confirmed Last Taken Type hydrALAZINE [Apresoline TAB] 100 mg PO TID #90 tab 03/12/17 11/29/17 04/19/18 21:00 Rx Simvastatin [Zocor TAB] 40 mg PO HS 09/04/17 11/29/17 04/19/18 21:00 History 100 Megestrol [Megace] 20 mg PO QID 11/09/17 11/29/17 04/19/18 21:00 History 20 Pantoprazole [Protonix TAB] 40 mg PO QDAY 11/09/17 11/29/17 04/19/18 09:00 History amLODIPine [Norvasc] 5 mg PO DAILY 11/29/17 11/29/17 04/19/18 21:00 History Apixaban [Eliquis] 2.5 mg PO Q12H #30 12/03/17 11/29/17 04/19/18 21:00 Rx Active Meds: Active Medications Acetaminophen (Tylenol) 650 mg PO Q4H PRN PRN Reason: Pain MILD(1-3)/Fever >100.5/MERCEDES Amlodipine Besylate (Norvasc) 5 mg PO DAILY JONO Apixaban (Eliquis) 2.5 mg PO Q12HR JONO; Protocol Hydralazine HCl (Apresoline) 100 mg PO TID [facility] Sodium Chloride (Nacl 0.9%) 100 mls @ 999 mls/hr IV ELDA PRN PRN Reason: Hypotension Megestrol Acetate (Megace) 20 mg PO QID JONO Ondansetron HCl (Zofran) 4 mg IV Q8H PRN PRN Reason: Nausea And Vomiting Oxycodone/Acetaminophen (Percocet 5/325) 1 tab PO Q6H PRN PRN Reason: Pain, Moderate (4-6) Pantoprazole Sodium (Protonix) 40 mg PO QDAY [facility] Pravastatin Sodium (Pravachol) 80 mg PO QHS [facility] Sodium Chloride (Sodium Chloride Flush Syringe 10 Ml) 10 ml IV BID [facility] Sodium Chloride (Sodium Chloride Flush Syringe 10 Ml) 10 ml IV PRN PRN PRN Reason: LINE FLUSH Review of Systems Constitutional: no weight loss, no weight gain, no fever, no chills, no sweats Ears, nose, mouth and throat: no ear pain, no nose pain, no sinus pressure, no sinus pain Cardiovascular: chest pain, no orthopnea, no palpitations, no rapid/irregular heart beat, no edema, no syncope, no lightheadedness, no shortness of breath, no dyspnea on exertion, no high blood pressure Respiratory: no cough, no shortness of breath, no dyspnea on exertion, no congestion, no wheezing, no pain on inspiration Gastrointestinal: no abdominal pain, no nausea, no vomiting, no diarrhea, no constipation, no change in bowel habits Genitourinary Female: no pelvic pain, no flank pain, no dysuria, no urinary frequency, no urgency Musculoskeletal: no neck stiffness, no neck pain Integumentary: no rash, no pruritis, no redness, no sores, no wounds Neurological: no head injury, no paralysis, no weakness, no parathesias, no nu mbness, no tingling, no seizures, no syncope Psychiatric: no anxiety Endocrine: no cold intolerance, no heat intolerance Hematologic/Lymphatic: no easy bruising, no easy bleeding Allergic/Immunologic: no urticaria, no wheezing Physical Examination Vital Signs Temp Pulse Resp BP Pulse Ox 99 F 89 20 124/68 98 04/19/18 14:25 04/19/18 14:25 04/19/18 14:25 04/19/18 14:25 04/19/18 14:25 General appearance: no acute distress HEENT: Positive: PERRL, Normocephaly, Mucus Membranes Moist Neck: Positive: neck supple, trachea midline Cardiac: Positive: Reg Rate and Rhythm, S1/S2 Lungs: Positive: clear to auscultation Neuro: Positive: Grossly Intact, Cranial Nerve 2-12 Intact Abdomen: Positive: Soft. Negative: Tender Skin: Negative: Rash, Wound Musculoskeletal: No Pain Extremities: Absent: edema Results 04/19/18 14:50 04/19/18 14:50 Coagulation 04/19/18 Range/Units 14:50 PT 16.1 H (12.2-14.9) Sec. INR 1.25 H (0.87-1.13) APTT 32.3 (24.2-36.6) Sec. Lipids 04/19/18 Range/Units 14:50 Triglycerides 128 (2-149) mg/dL Cholesterol 168 (50-199) mg/dL HDL Cholesterol 53 (40-59) mg/dL Cholesterol/HDL Ratio 3.16 % CBC 04/19/18 Range/Units 14:50 WBC 5.3 (4.5-11.0) K/mm3 RBC 4.56 (3.65-5.03) M/mm3 Hgb 12.3 (10.1-14.3) gm/dl Hct 38.5 (30.3-42.9) % Plt Count 224 (140-440) K/mm3 Lymph # 0.8 L (1.2-5.4) K/mm3 [place] # 0.4 (0.0-0.8) K/mm3 Eos # 0.1 (0.0-0.4) K/mm3 Baso # 0.0 (0.0-0.1) K/mm3 Comprehensive Metabolic Panel 04/19/18 Range/Units 14:50 Sodium 142 (137-145) mmol/L Potassium 3.7 (3.6-5.0) mmol/L Chloride 96.6 L (98-107) mmol/L Carbon Dioxide 31 H (22-30) mmol/L BUN 27 H (7-17) mg/dL Creatinine 5.3 H (0.7-1.2) mg/dL Glucose 104 H (65-100) mg/dL Calcium 8.3 L (8.4-10.2) mg/dL - Imaging and Cardiology Echo: report reviewed (10/2017 showed EF 65-70%, septal wall hypertrophy, LA mild to mod dilated, mod pulm HTN with RVSP 57mmHg. ) Cardiac cath: report reviewed ( 03/2016 showed nonobstructive CAD, 25% mid left circ stenosis, EF >65%. ) EKG: report reviewed, image reviewed EKG interpretations - Telemetry EKG Rhythm: Sinus Rhythm - EKG Sinus rhythms and dysrhythmias: sinus rhythm AV and intraventricular conduction: right bundle branch block Assessment and Plan Currently stable cardiac status. ECG with no acute ischemic changes. Chest pain currently resolved. Minimal troponin elevation currently nonspecific. Recent stress test 10/2017 was negative. No plans for repeat ischemic evaluation or echo at this time. Pt may discharge home from cardiology standpoint on home cardiac regimen. Recommend follow up in our office with Dr. RYAN Stokes within 1-2 weeks of hospital discharge ([phone]). The patient has been seen in conjunction with Dr. RYAN Stokes who agrees with the assessment and plan of care. - Patient Problems (1) Acute chest pain Current Visit: Yes Status: Acute (2) Nonobstructive atherosclerosis of coronary artery Current Visit: Yes Status: Chronic (3) Elevated troponin I level Current Visit: Yes Status: Chronic (4) ESRD on dialysis Current Visit: Yes Status: Chronic (5) Hypertension Current Visit: Yes Status: Chronic Qualifiers: Hypertension type: essential hypertension Qualified Code(s): I10 - Essential (primary) hypertension (6) History of DVT (deep vein thrombosis) Current Visit: Yes Status: Chronic (7) Personal history of PE (pulmonary embolism) Current Visit: Yes Status: Chronic (8) Pulmonary HTN Current Visit: Yes Status: Chronic
[2018-04-20] MEDS ORDERED: PEPCID PO SCH (22:00)
[2018-04-20] MEDS ORDERED: SODIUM CHLORIDE FLUSH SYRINGE 10 ML IV SCH (22:00)
[2018-04-20] MEDS ORDERED: PRAVACHOL PO SCH (22:00)
[2018-04-20] MEDS ORDERED: NON-FORMULARY (Simvastatin 40 MG) PO SCH (22:00)
== END 2018-04-20 16:05 | disposition home or self-care (01) | DRG 280 ==
LOC: ED 14:21 → 4A 18:19
PROVIDERS: ADMIT Internal Medicine; ATTEND Internal Medicine
DX: I21.A1 Myocardial infarction type 2 (principal); N18.6 End stage renal disease; I26.99 Other pulmonary embolism without acute cor pulmonale; I13.2 Hypertensive heart and chronic kidney disease with heart failure and with stage 5 chronic kidney disease, or end stage renal disease; I50.42 Chronic combined systolic (congestive) and diastolic (congestive) heart failure; I25.10 Atherosclerotic heart disease of native coronary artery without angina pectoris; I27.20 Pulmonary hypertension, unspecified; K21.9 Gastro-esophageal reflux disease without esophagitis; M19.90 Unspecified osteoarthritis, unspecified site; E78.2 Mixed hyperlipidemia; Z79.899 Other long term (current) drug therapy; Z90.49 Acquired absence of other specified parts of digestive tract; Z86.718 Personal history of other venous thrombosis and embolism; Z99.2 Dependence on renal dialysis; Z88.2 Allergy status to sulfonamides; Z86.711 Personal history of pulmonary embolism; Z82.49 Family history of ischemic heart disease and other diseases of the circulatory system; Z90.710 Acquired absence of both cervix and uterus; Z98.51 Tubal ligation status
CPT/HCPCS: 36415; 71045; 78582; 80048; 80061; 83036; 83880; 84484; 85025; 85379; 85610; 85730; 93005; 93010; G0378; A9540; A9558

== ENCOUNTER 2018-06-08 09:28 | Outpatient (CLI) | payer MEDICARE ==
--- NOTE | 2018-06-08 13:36 | Ultrasound Report ---
ULTRASOUND PELVIC COMPLETE HISTORY: Abdominal pain and female. COMPARISON: CT abdomen pelvis dated 11/29/17. TECHNIQUE: Transabdominal ultrasound with color doppler interrogation. FINDINGS: Total hysterectomy is suspected. The uterus and ovaries are not visualized on transabdominal ultrasound. No pelvic fluid or mass is identified. Normal color doppler interrogation. IMPRESSION: Total hysterectomy. No abnormality demonstrated in the pelvis.
--- NOTE | 2018-06-08 13:39 | Ultrasound Report ---
ULTRASOUND ABDOMEN COMPLETE: TECHNIQUE: Transabdominal ultrasound with color Doppler interrogation. HISTORY: Abdominal pain in female. COMPARISON: CT abdomen pelvis without contrast dated 11/29/17. FINDINGS: LIVER: Within normal limits. BILIARY SYSTEM: Cholecystectomy. The CBD measures 4 mm. PANCREAS: Normal. SPLEEN: Normal. KIDNEYS: Post kidneys are markedly atrophic and echogenic measuring 5 - 6 cm in length. No obvious renal lesion or hydronephrosis. AORTA/IVC: Within normal limits. ASCITES: None. IMPRESSION: Chronic renal parenchymal disease. Cholecystectomy. No acute abnormality is demonstrated.
== END 2018-06-08 09:29 | disposition home or self-care (01) ==
LOC: US 09:28
PROVIDERS: ATTEND Internal Medicine Nephrology
DX: I13.0 Hypertensive heart and chronic kidney disease with heart failure and stage 1 through stage 4 chronic kidney disease, or unspecified chronic kidney disease (principal); I50.9 Heart failure, unspecified; N18.6 End stage renal disease; M19.90 Unspecified osteoarthritis, unspecified site; Z90.49 Acquired absence of other specified parts of digestive tract; Z90.710 Acquired absence of both cervix and uterus
CPT/HCPCS: 76700; 76856

== ENCOUNTER 2018-08-27 16:05 | Emergency (ER) | payer MEDICARE ==
--- NOTE | 2018-08-27 16:20 | Event Note ---
ED Screening Note ED Screening Note: "I THINK I HAVE CANCER" "MY DOCTOR IS DR RUELAS ASS DOCTOR" LIVES WITH SON PMH CKD HTN HD THIS AM PE HPLD ESRD- RA FISTULA PSH APPY TUBAL P 13 KIDS HYSTERECTOMY G STONES NEG- CVA/ACS/CANCER CO R SIDE PAIN AND SOB; URGE TO URINATE AND SHE DOES NOT MAKE URINE. SHE FEELS PRESSURE ON BLADDER. ETOH OCC QUIT SMOKING WHEN YOUNG RX PYRIDIUM VIT D MEGASTROL STATIN METOPROLOL NORVASC ELOQUIS SESNSIPAR CIPRO EYE DROPS This initial assessment/diagnostic orders/clinical plan/treatment(s) is/are subject to change based on patients health status, clinical progression and re- assessment by fellow clinical providers in the ED. Further treatment and workup at subsequent clinical providers discretion. Patient/guardian urged not to elope from the ED as their condition may be serious if not clinically assessed and managed. Initial orders include: LABS
[2018-08-27 17:00] LABS: Hematocrit 27.2 % (30.3-42.9); Hemoglobin 8.4 gm/dl (10.1-14.3); Mean Corpuscular HGB Conc 31 % (30-34); Mean Corpuscular Volume 89 fl (79-97); Platelet Count 207 K/mm3 (140-440); Red Blood Count 3.07 M/mm3 (3.65-5.03); Red Cell Distribution Width 18.3 % (13.2-15.2)
[2018-08-27 17:12] LABS: Albumin 4.2 g/dL (3.9-5); Calcium 8.9 mg/dL (8.4-10.2)
[2018-08-27] MEDS ORDERED: NORCO 5/325 PO ONE (18:01)
--- NOTE | 2018-08-27 18:06 | Emergency Department Report ---
HPI - General Chief Complaint: Back Pain/Injury Time Seen by Provider: 08/27/18 16:20 - HPI HPI: Room 4 The patient is an 88-year-old female presenting with chief complaint right flank and lower abdominal pain. The patient states she's had pain in her right flank and lower abdomen intermittently for 4 months. The patient states the pain is dull in nature and sometimes associated with nausea with no vomiting. Patient denies history of fever. The patient states she does not have the pain when she is receiving dialysis when she goes home and eats the pain returns. The patient currently gives her pain a score of 9/10 Location: Right flank, lower abdomen Duration: Intermittent 4 months Quality: Dull Severity:9/10 Modifying factors: [see above] Context: [see above] Mode of transportation: [not driving] ED Past Medical Hx - Past Medical History Previous Medical History?: Yes Hx Hypertension: Yes Hx Heart Attack/AMI: Yes (coronary artery disease) Hx Congestive Heart Failure: Yes Hx Pulmonary Embolism: Yes Hx Renal Disease: Yes (dialysis MWF) Hx Arthritis: Yes - Surgical History Past Surgical History?: Yes Hx Cholecystectomy: Yes Hx Appendectomy: Yes Additional Surgical History: Hysterectomy, tubal ligation, fistula in right arm, "surgery to place a plate in neck" - Family History Family history: no significant - Social History Smoking Status: Former Smoker Substance Use Type: Alcohol - Medications Home Medications: Home Medications Medication Instructions Recorded Confirmed Last Taken Type hydrALAZINE [Apresoline TAB] 100 mg PO TID #90 tab 03/12/17 11/29/17 04/19/18 21:00 Rx Simvastatin [Zocor TAB] 40 mg PO HS 09/04/17 11/29/17 04/19/18 21:00 History 100 Megestrol [Megace] 20 mg PO QID 11/09/17 11/29/17 04/19/18 21:00 History 20 Pantoprazole [Protonix TAB] 40 mg PO QDAY 11/09/17 11/29/17 04/19/18 09:00 History amLODIPine [Norvasc] 5 mg PO DAILY 11/29/17 11/29/17 04/19/18 21:00 History Apixaban [Eliquis] 2.5 mg PO Q12H #30 12/03/17 11/29/17 04/19/18 21:00 Rx HYDROcodone/APAP 5-325 [[place] 1 each PO Q6HR PRN #14 tablet 08/27/18 Unknown Rx 5/325] ED Review of Systems ROS: Stated complaint: BACK PAIN/SOB Other details as noted in HPI Constitutional: denies: fever Eyes: denies: eye pain ENT: denies: throat pain Respiratory: no symptoms reported Cardiovascular: denies: chest pain Endocrine: no symptoms reported Gastrointestinal: abdominal pain, nausea. denies: vomiting Genitourinary: denies: dysuria (patient does not produce urine) Musculoskeletal: back pain Neurological: denies: headache Physical Exam - Physical Exam Vital Signs: Vital Signs 08/27/18 16:29 Temperature 98.3 F Pulse Rate 76 Respiratory 16 Rate Blood Pressure 122/90 [Right] O2 Sat by Pulse 98 Oximetry Physical Exam: GENERAL: The patient is well-developed well-nourished []. [] HEENT: Normocephalic. Atraumatic. Extraocular motions are intact. Patient has moist mucous membranes. NECK: Supple. Trachea midline CHEST/LUNGS: Clear to auscultation. There is no respiratory distress noted. HEART/CARDIOVASCULAR: Regular. There is no tachycardia. There is no gallop rub or murmur. ABDOMEN: Abdomen is soft, with discomfort to palpation in the right lower quadrant, suprapubic and left lower quadrant. Patient has normal bowel sounds. There is no abdominal distention. SKIN: There is no rash. There is no edema. There is no diaphoresis. NEURO: The patient is awake, alert, and oriented. The patient is cooperative. The patient has normal speech MUSCULOSKELETAL: There is right CVA tenderness. There is no evidence of acute injury. ED Course Vital Signs 08/27/18 16:29 Temperature 98.3 F Pulse Rate 76 Respiratory 16 Rate Blood Pressure 122/90 [Right] O2 Sat by Pulse 98 Oximetry ED Medical Decision Making - Lab Data Result diagrams: 08/27/18 16:37 08/27/18 16:37 Laboratory Tests 08/27/18 08/27/18 16:37 16:37 WBC 4.8 RBC 3.07 L Hgb 8.4 L Hct 27.2 L MCV 89 MCH 27 L MCHC 31 RDW 18.3 H Plt Count 207 Sodium 144 Potassium 3.8 Chloride 98.8 Carbon Dioxide 32 H Anion Gap 17 BUN 24 H Creatinine 4.2 H Estimated GFR 12 BUN/Creatinine Ratio 6 Glucose 96 Calcium 8.9 Total Bilirubin 2.50 H AST 17 ALT 7 Alkaline Phosphatase 338 H Total Protein 6.8 Albumin 4.2 Albumin/Globulin Ratio 1.6 - Radiology Data Radiology results: report reviewed (CT abdomen and pelvis), image reviewed (CT abdomen and pelvis) [facility] [address] [place] [address] Cat Scan Report Signed Patient: HARMEET MATA MR#: [id number] 4 : 1930 Acct:[id number] Age/Sex: 88 / F ADM Date: 08/27/18 Loc: ED Attending Dr: Harpreet srinivasan Physician: MARLIN PEREZ MD Date of Service: 08/27/18 Procedure(s): CT abdomen pelvis wo con Accession Number(s): [id number] cc: MARLIN PEREZ MD PROCEDURE: CT ABDOMEN PELVIS WO CON TECHNIQUE: Computerized axial tomography of the abdomen and pelvis was performed without intravenous contrast. This study is performed without intravascular contrast material and its sensitivity for abdominal and pelvic pathology, including neoplasms, inflammation, abscess, free fluid, thrombosis, arterial dissection and infarction, is reduced compared with a contrast enhanced study. CT DOSE LENGTH PRODUCT: 427.8 mGycm HISTORY: right flank pain, lower abdominal pain COMPARISONS: Prior CT scan abdomen and pelvis 11/29/2017 . FINDINGS: Lower Lung rangel: No significant abnormalities seen. Upper Abdomen: The gallbladder is surgically absent. Unenhanced images of the liver are unremarkable. The right adrenal gland is unremarkable. Small nodular density again seen left adrenal gland suggesting a small adrenal adenoma. The pancreas and spleen show no abnormalities. Kidneys, Ureters and Urinary bladder: Kidneys bilaterally are markedly atrophied. No masses, renal calculi or hydronephrosis are visualized. Urinary bladder is nearly empty and shows no gross abnormalities. Retroperitoneum: Atherosclerotic changes are seen in the abdominal aorta. No aneurysm is visualized. Nonspecific subcentimeter lymph nodes are seen in the retroperitoneum. No pathologically enlarged lymph nodes are identified. Bowel: No focal abnormalities are seen. No evidence of bowel obstruction ascites or free intraperitoneal gas. The appendix is not visualized. Reproductive organs: Uterus is surgically absent. No abnormal adnexal masses are seen. Other: No acute bone abnormalities are identified. There is diffuse increased density throughout the skeletal system. Lumbar spine shows ruger jersy type appearance suggesting renal osteodystrophy. IMPRESSION: No acute abnormalities are identified. Prior cholecystectomy and hysterectomy. Stable small nodular density left adrenal gland suggesting a small adrenal adenoma. Severe atrophy of both kidneys visualized. No masses, calculi or hydronephrosis visualized. 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 . This document is electronically signed by Alexis Oneil MD., Aug 27 2018 08:32:11 PM ET Transcribed By: DFN Dictated By: ALEXIS ONEIL MD Elect ronically Authenticated By: ALEXIS ONEIL MD Signed Date/Time: 08/27/181933 DD/ 39 TD/TT: 08/27/181839 - Differential Diagnosis renal colic, pyelonephritis, peptic ulcer disease, retroperitoneal hematoma Critical care attestation.: If time is entered above; I have spent that time in minutes in the direct care of this critically ill patient, excluding procedure time. ED Disposition Clinical Impression: Right flank pain, Hyperbilirubinemia Disposition: - TO HOME OR SELFCARE Is pt being admited?: No Does the pt Need Aspirin: No Condition: Stable Instructions: Flank Pain (ED) Additional Instructions: Return to the emergency department immediately should you develop worsening symptoms, fever, inability to tolerate food or liquid or any other concerns. Prescriptions: HYDROcodone/APAP 5-325 [[place] 5/325] 1 each PO Q6HR PRN #14 tablet PRN Reason: Pain Referrals: ALLISON AVELAR MD [Staff Physician] - 3-5 Days (Dr. Avelar is a primary physician. Please follow up with him to be established as a patient) ASHLEE PRUITT MD [Staff Physician] - 3-5 Days (Dr. Pruitt is a operations coordinator. Please follow-up with him for further evaluation) Time of Disposition: 19:39
--- NOTE | 2018-08-27 19:34 | Cat Scan Report ---
PROCEDURE: CT ABDOMEN PELVIS WO CON TECHNIQUE: Computerized axial tomography of the abdomen and pelvis was performed without intravenous contrast. This study is performed without intravascular contrast material and its sensitivity for ab dominal and pelvic pathology, including neoplasms, inflammation, abscess, free fluid, thrombosis, art erial dissection and infarction, is reduced compared with a contrast enhanced study. CT DOSE LENGTH PRODUCT: 427.8 mGycm HISTORY: right flank pain, lower abdominal pain COMPARISONS: Prior CT scan abdomen and pelvis 11/29/2017 . FINDINGS: Lower Lung rangel: No significant abnormalities seen. Upper Abdomen: The gallbladder is surgically absent. Unenhanced images of the liver are unremarkable . The right adrenal gland is unremarkable. Small nodular density again seen left adrenal gland sugges ting a small adrenal adenoma. The pancreas and spleen show no abnormalities. Kidneys, Ureters and Urinary bladder: Kidneys bilaterally are markedly atrophied. No masses, renal c alculi or hydronephrosis are visualized. Urinary bladder is nearly empty and shows no gross abnormali ties. Retroperitoneum: Atherosclerotic changes are seen in the abdominal aorta. No aneurysm is visualized. Nonspecific subcentimeter lymph nodes are seen in the retroperitoneum. No pathologically enlarged ly mph nodes are identified. Bowel: No focal abnormalities are seen. No evidence of bowel obstruction ascites or free intraperito radha gas. The appendix is not visualized. Reproductive organs: Uterus is surgically absent. No abnormal adnexal masses are seen. Other: No acute bone abnormalities are identified. There is diffuse increased density throughout the skeletal system. Lumbar spine shows ruger jersy type appearance suggesting renal osteodystrophy. IMPRESSION: No acute abnormalities are identified. Prior cholecystectomy and hysterectomy. Stable small nodular density left adrenal gland suggesting a small adrenal adenoma. Severe atrophy of both kidneys visualized. No masses, calculi or hydronephrosis visualized. 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 . This document is electronically signed by Alexis De La Cruz MD., Aug 27 2018 08:32:11 PM ET
[2018-08-27 20:00] VITALS: BP 139/48
== END 2018-08-27 19:55 | disposition home or self-care (01) ==
LOC: ED 16:05
DX: R10.31 Right lower quadrant pain (principal); E80.6 Other disorders of bilirubin metabolism; E11.22 Type 2 diabetes mellitus with diabetic chronic kidney disease; I13.2 Hypertensive heart and chronic kidney disease with heart failure and with stage 5 chronic kidney disease, or end stage renal disease; I50.9 Heart failure, unspecified; N18.6 End stage renal disease; I25.2 Old myocardial infarction; M19.90 Unspecified osteoarthritis, unspecified site; Z90.49 Acquired absence of other specified parts of digestive tract; Z87.891 Personal history of nicotine dependence; Z99.2 Dependence on renal dialysis
CPT/HCPCS: 36415; 74176; 80053; 85027

== ENCOUNTER 2019-01-23 08:58 | Emergency (ER) | payer MEDICARE, OTHER ==
[2019-01-23 09:04] VITALS: BP 154/48
--- NOTE | 2019-01-23 09:23 | Emergency Department Report ---
ED Neck Pain/Injury HPI - General Chief Complaint: Neck Pain/Injury Stated Complaint: NECK PAIN Time Seen by Provider: 01/23/19 09:19 Mode of arrival: Wheelchair Limitations: Physical Limitation - History of Present Illness Initial Comments: Patient with h/o djd of cervical spine s/p surgery presents to ER today with neck pain, upper, on sides of her neck, radiating to her right rib cage. no fall or recent injury. MD Complaint: neck pain - Related Data Home Medications Medication Instructions Recorded Confirmed Last Taken Simvastatin [Zocor TAB] 40 mg PO HS 09/04/17 11/29/17 04/19/18 21:00 100 Megestrol 20 mg PO QID 11/09/17 11/29/17 04/19/18 21:00 20 Pantoprazole [Protonix TAB] 40 mg PO QDAY 11/09/17 11/29/17 04/19/18 09:00 amLODIPine 5 mg PO DAILY 11/29/17 11/29/17 04/19/18 21:00 Previous Rx's Medication Instructions Recorded Last Taken Type hydrALAZINE [Apresoline TAB] 100 mg PO TID #90 tab 03/12/17 04/19/18 21:00 Rx Apixaban [Eliquis] 2.5 mg PO Q12H #30 12/03/17 04/19/18 21:00 Rx HYDROcodone/APAP 5-325 [[place] 1 each PO Q6HR PRN #14 tablet 08/27/18 Unknown Rx 5/325] Cyclobenzaprine HCl [Flexeril 5 MG 5 mg PO TID #10 tab 01/23/19 Unknown Rx TAB] Allergies Allergy/AdvReac Type Severity Reaction Status Date / Time cefazolin sodium [From Ancef] Allergy Unknown Verified 08/27/18 16:32 enalapril maleate Allergy Angioedema Verified 08/27/18 16:32 [From Vasotec] enalaprilat dihydrate Allergy Angioedema Verified 08/27/18 16:32 [From Vasotec] pseudoephedrine HCl Allergy Swelling Verified 08/27/18 16:32 [From Sudafed] Sulfa (Sulfonamide Allergy Hives Verified 08/27/18 16:32 Antibiotics) ED Review of Systems ROS: Stated complaint: NECK PAIN Other details as noted in HPI Comment: All other systems reviewed and negative Endocrine: denies: see HPI Gastrointestinal: denies: nausea Genitourinary: denies: urgency Musculoskeletal: back pain ED Past Medical Hx - Past Medical History Hx Hypertension: Yes Hx Heart Attack/AMI: Yes (coronary artery disease) Hx Congestive Heart Failure: Yes Hx Pulmonary Embolism: Yes Hx Renal Disease: Yes (dialysis MWF) Hx Arthritis: Yes Hx HIV: No - Surgical History Hx Cholecystectomy: Yes Hx Appendectomy: Yes Additional Surgical History: Hysterectomy, tubal ligation, fistula in right arm, "surgery to place a plate in neck" - Social History Smoking Status: Never Smoker Substance Use Type: Prescribed - Medications Home Medications: Home Medications Medication Instructions Recorded Confirmed Last Taken Type hydrALAZINE [Apresoline TAB] 100 mg PO TID #90 tab 03/12/17 11/29/17 04/19/18 21:00 Rx Simvastatin [Zocor TAB] 40 mg PO HS 09/04/17 11/29/17 04/19/18 21:00 History 100 Megestrol 20 mg PO QID 11/09/17 11/29/17 04/19/18 21:00 History 20 Pantoprazole [Protonix TAB] 40 mg PO QDAY 11/09/17 11/29/17 04/19/18 09:00 History amLODIPine 5 mg PO DAILY 11/29/17 11/29/17 04/19/18 21:00 History Apixaban [Eliquis] 2.5 mg PO Q12H #30 12/03/17 11/29/17 04/19/18 21:00 Rx HYDROcodone/APAP 5-325 [[place] 1 each PO Q6HR PRN #14 tablet 08/27/18 Unknown Rx 5/325] Cyclobenzaprine HCl [Flexeril 5 MG 5 mg PO TID #10 tab 01/23/19 Unknown Rx TAB] ED Physical Exam - General Limitations: Physical Limitation General appearance: alert, in no apparent distress - Head Head exam: Present: atraumatic - Eye Eye exam: Present: normal appearance, PERRL, EOMI Pupils: Present: normal accommodation - ENT ENT exam: Present: normal exam - Neck Neck exam: Present: tenderness (paraspinal) - Respiratory Respiratory exam: Present: normal lung sounds bilaterally - Cardiovascular Cardiovascular Exam: Present: regular rate, normal rhythm - GI/Abdominal GI/Abdominal exam: Present: soft - Extremities Exam Extremities exam: Present: normal inspection - Back Exam Back exam: Present: normal inspection - Neurological Exam Neurological exam: Present: alert, oriented X3, CN II-XII intact - Skin Skin exam: Present: warm ED Course Vital Signs 01/23/19 08:59 Temperature 97.9 F Pulse Rate 62 Respiratory 18 Rate Blood Pressure 154/48 O2 Sat by Pulse 100 Oximetry Critical care attestation.: If time is entered above; I have spent that time in minutes in the direct care of this critically ill patient, excluding procedure time. ED Disposition Clinical Impression: Neck pain Disposition: DC-01 TO HOME OR SELFCARE Is pt being admited?: No Does the pt Need Aspirin: No Condition: Stable Prescriptions: Cyclobenzaprine HCl [Flexeril 5 MG TAB] 5 mg PO TID #10 tab Referrals: PRIMARY CARE, [Primary Care Provider] - 3-5 Days
[2019-01-23] MEDS ORDERED: CYCLOBENZAPRINE 10 MG TAB PO ONE (09:25)
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
== END 2019-01-23 11:54 | disposition home or self-care (01) ==
LOC: ED 08:58
DX: M54.2 Cervicalgia (principal); R07.89 Other chest pain; I13.2 Hypertensive heart and chronic kidney disease with heart failure and with stage 5 chronic kidney disease, or end stage renal disease; I50.9 Heart failure, unspecified; N18.6 End stage renal disease; Z99.2 Dependence on renal dialysis; M19.90 Unspecified osteoarthritis, unspecified site; Z86.711 Personal history of pulmonary embolism; Z88.5 Allergy status to narcotic agent; Z88.8 Allergy status to other drugs, medicaments and biological substances; Z79.899 Other long term (current) drug therapy; Z88.2 Allergy status to sulfonamides; Z90.49 Acquired absence of other specified parts of digestive tract; Z90.710 Acquired absence of both cervix and uterus; Z98.51 Tubal ligation status
CPT/HCPCS: 71046; 72040; 99283

== ENCOUNTER 2019-02-03 09:28 | Outpatient (CLI) | payer MEDICARE ==
[2019-02-06 13:21] LABS: Vitamin D, 25-OH, D2 85 ng/mL
== END 2019-02-03 09:29 | disposition home or self-care (01) ==
LOC: LAB 09:28
PROVIDERS: ATTEND Internal Medicine
DX: Z13.29 Encounter for screening for other suspected endocrine disorder (principal); Z13.21 Encounter for screening for nutritional disorder; R73.09 Other abnormal glucose; I13.2 Hypertensive heart and chronic kidney disease with heart failure and with stage 5 chronic kidney disease, or end stage renal disease; N18.6 End stage renal disease; I50.9 Heart failure, unspecified; K21.9 Gastro-esophageal reflux disease without esophagitis; E78.5 Hyperlipidemia, unspecified; Z88.1 Allergy status to other antibiotic agents; Z88.8 Allergy status to other drugs, medicaments and biological substances
CPT/HCPCS: 36415; 82306; 82607; 83036; 84443

== ENCOUNTER 2019-04-03 13:39 | Emergency (ER) | payer MEDICARE ==
--- NOTE | 2019-04-03 13:51 | Event Note ---
ED Screening Note Date of service: 04/03/19 Time: 13:50 ED Screening Note: c/o lower abdominal pain x 1 month and neck and hand numbness x 2 months bilaterally in hands dialysis pt, does not make urine This initial assessment/diagnostic orders/clinical plan/treatment(s) is/are subject to change based on patients health status, clinical progression and re- assessment by fellow clinical providers in the ED. Further treatment and workup at subsequent clinical providers discretion. Patient/guardian urged not to elope from the ED as their condition may be serious if not clinically assessed and managed. Initial orders include: CT abdomen labs
[2019-04-03 15:10] LABS: Basophils % (Auto) 0.7 % (0.0-1.8); Eosinophils # (Auto) 0.2 K/mm3 (0.0-0.4); Eosinophils % (Auto) 4.2 % (0.0-4.3); Hematocrit 30.7 % (30.3-42.9); Hemoglobin 9.9 gm/dl (10.1-14.3); Lymphocytes # (Auto) 0.8 K/mm3 (1.2-5.4); Lymphocytes % (Auto) 16.2 % (13.4-35.0); Mean Corpuscular HGB Conc 32 % (30-34); Mean Corpuscular Volume 81 fl (79-97); Monocytes # (Auto) 0.4 K/mm3 (0.0-0.8); Monocytes % (Auto) 7.9 % (0.0-7.3); Red Blood Count 3.81 M/mm3 (3.65-5.03); Red Cell Distribution Width 18.3 % (13.2-15.2)
[2019-04-03 15:14] LABS: Platelet Count 133 K/mm3 (140-440)
[2019-04-03 15:23] LABS: Albumin 3.6 g/dL (3.9-5); BUN/Creatinine Ratio 4; Blood Urea Nitrogen 31 mg/dL (7-17); Calcium 8.5 mg/dL (8.4-10.2); Hemolysis Index 7
[2019-04-03 15:26] LABS: Alanine Aminotransferase < 5 units/L (7-56)
--- NOTE | 2019-04-03 16:21 | Cat Scan Report ---
CT abdomen pelvis wo con INDICATION: lower abdominal pain. TECHNIQUE: All CT scans at this location are performed using the following dose modulation technique: Automated exposure control. CONTRAST: None. COMPARISON: CT abdomen and pelvis 08/27/2018. CT abdomen: Evaluation of the parenchymal organs demonstrates persistent renal atrophy. The spleen re buddy prominent in size measuring 11.3 cm. Negative for suspicious parenchymal lesion. Negative for abdominal mass, fluid or inflammation. The bowel is not dilated or thickened. Status post previous cholecystectomy. Negative for biliary dilatation. The aorta and its branches contain atherosclerotic calcification. CT PELVIS: Negative for pelvic mass, fluid or inflammation. Status post previous hysterectomy. A small amount of pelvic free fluid is noted. Diffuse bony sclerosis is again noted typical of chronic renal failure. IMPRESSION: 1. Negative for obstruction or localized inflammation. 2. Incidental findings unchanged. 3. Small amount of pelvic free fluid. Signer Name: Delmer Conteh MD Signed: 04/03/2019 4:17 PM Workstation Name: [id number]
--- NOTE | 2019-04-03 22:27 | Emergency Department Report ---
HPI - General Chief Complaint: Extremity Problem,Nontraumatic Time Seen by Provider: 04/03/19 13:50 - HPI HPI: Room 5 The patient is an 88-year-old female presenting with a chief complaint of abdominal pain and neck pain. The patient says she has been complaining of "bladder pain" since October 2018. Patient describes the pain as intermittent and burning/pressure-like in nature. The patient has a history of end-stage renal disease and does not produce urine. Patient denies nausea vomiting but admits to chronic intermittent diarrhea for one year. Patient denies history of fever. Patient states she awakened 3 weeks ago with numbness in both hands and wrists distally. Patient denies any preceding trauma. Patient has a history of cervical spine surgery 8-10 years ago. Patient denies weakness, only numbness Location: [See above] Duration: [See above] Quality: [See above] Severity: [See above] Timing: [See above] Context: [See above] Modifying factors: [See above] Associated signs and symptoms: [see above] ED Past Medical Hx - Past Medical History Hx Hypertension: Yes Hx Heart Attack/AMI: Yes (coronary artery disease) Hx Congestive Heart Failure: Yes Hx Pulmonary Embolism: Yes Hx Renal Disease: Yes (dialysis MWF) Hx Arthritis: Yes - Surgical History Hx Cholecystectomy: Yes Hx Appendectomy: Yes Additional Surgical History: Hysterectomy, tubal ligation, fistula in right arm, "surgery to place a plate in neck" - Family History Family history: no significant - Social History Smoking Status: Never Smoker Substance Use Type: None - Medications Home Medications: Home Medications Medication Instructions Recorded Confirmed Last Taken Type hydrALAZINE [Apresoline TAB] 100 mg PO TID #90 tab 03/12/17 11/29/17 04/19/18 21:00 Rx Simvastatin [Zocor TAB] 40 mg PO HS 09/04/17 11/29/17 04/19/18 21:00 History 100 Megestrol 20 mg PO QID 11/09/17 11/29/17 04/19/18 21:00 History 20 Pantoprazole [Protonix TAB] 40 mg PO QDAY 11/09/17 11/29/17 04/19/18 09:00 History amLODIPine 5 mg PO DAILY 11/29/17 11/29/17 04/19/18 21:00 History Apixaban [Eliquis] 2.5 mg PO Q12H #30 12/03/17 11/29/17 04/19/18 21:00 Rx HYDROcodone/APAP 5-325 [[place] 1 each PO Q6HR PRN #14 tablet 08/27/18 Unknown Rx 5/325] Cyclobenzaprine HCl [Flexeril 5 MG 5 mg PO TID #10 tab 01/23/19 Unknown Rx TAB] traMADoL [Ultram] 50 mg PO Q6HR PRN #10 tablet 04/03/19 Unknown Rx ED Review of Systems ROS: Stated complaint: RT ARM NUMBNESS Other details as noted in HPI Constitutional: denies: fever Eyes: denies: eye pain ENT: denies: throat pain Respiratory: no symptoms reported Cardiovascular: denies: chest pain Endocrine: no symptoms reported Gastrointestinal: abdominal pain. denies: nausea, vomiting Genitourinary: denies: dysuria Musculoskeletal: denies: back pain Neurological: denies: headache Physical Exam - Physical Exam Vital Signs: Vital Signs 04/03/19 04/03/19 13:52 18:51 Temperature 98.5 F 98.6 F Pulse Rate 67 61 Respiratory 18 20 Rate Blood Pressure 162/54 151/55 O2 Sat by Pulse 100 100 Oximetry Physical Exam: GENERAL: The patient is well-developed well-nourished female lying on stretcher not appearing to be in acute distress. [] HEENT: Normocephalic. Atraumatic. Extraocular motions are intact. Patient has moist mucous membranes. NECK: Supple. Trachea midline CHEST/LUNGS: Clear to auscultation. There is no respiratory distress noted. HEART/CARDIOVASCULAR: Regular. There is no tachycardia. There is no gallop rub or murmur. Positive thrill right upper extremity fistula ABDOMEN: Abdomen is soft, with mild discomfort to palpation in the midepigast padmini, right lower quadrant, suprapubic and left lower quadrants. There is no rebound or guarding. Patient has normal bowel sounds. There is no abdominal distention. SKIN: There is no rash. There is no edema. There is no diaphoresis. NEURO: The patient is awake, alert, and oriented. The patient is cooperative. The patient has no focal neurologic deficits. Cranial nerves II-12 grossly intact, no drift. Resident Caregiver 5+/5 bilaterally. The patient has normal speech MUSCULOSKELETAL: T There is no evidence of acute injury. ED Course Vital Signs 04/03/19 04/03/19 13:52 18:51 Temperature 98.5 F 98.6 F Pulse Rate 67 61 Respiratory 18 20 Rate Blood Pressure 162/54 151/55 O2 Sat by Pulse 100 100 Oximetry ED Medical Decision Making - Lab Data Result diagrams: 04/03/19 14:37 04/03/19 14:37 Laboratory Tests 04/03/19 04/03/19 14:37 14:37 WBC 4.7 RBC 3.81 Hgb 9.9 L Hct 30.7 MCV 81 MCH 26 L MCHC 32 RDW 18.3 H Plt Count 133 L Lymph % (Auto) 16.2 Elbert % (Auto) 7.9 H Eos % (Auto) 4.2 Baso % (Auto) 0.7 Lymph # 0.8 L Elbert # 0.4 Eos # 0.2 Baso # 0.0 Seg Neutrophils % 71.0 H Seg Neutrophils # 3.4 Sodium 139 Potassium 4.5 Chloride 100.1 Carbon Dioxide 26 Anion Gap 17 BUN 31 H Creatinine 7.4 H Estimated GFR 6 BUN/Creatinine Ratio 4 Glucose 91 Calcium 8.5 Total Bilirubin 0.60 AST 15 ALT < 5 L Alkaline Phosphatase 285 H Total Protein 6.3 Albumin 3.6 L Albumin/Globulin Ratio 1.3 Lipase 31 - Radiology Data Radiology results: report reviewed (CT abdomen and pelvis) CT abdomen and pelvis (read by radiologist)-no acute changes seen - Differential Diagnosis colitis, small bowel obstruction, enteritis, cervical radiculopathy Critical care attestation.: If time is entered above; I have spent that time in minutes in the direct care of this critically ill patient, excluding procedure time. ED Disposition Clinical Impression: Abdominal pain, Cervical radiculopathy Disposition: TO HOME OR SELFCARE Is pt being admited?: No Does the pt Need Aspirin: No Condition: Stable Instructions: Acute Abdominal Pain (ED), Cervical Radiculopathy (ED) Additional Instructions: Return to the emergency department should you develop worsening symptoms, inability to tolerate food or liquids, high fever or any other concerns Prescriptions: traMADoL [Ultram] 50 mg PO Q6HR PRN #10 tablet PRN Reason: Pain Referrals: NIURKA VAZQUEZ MD [Staff Physician] - 3-5 Days (Dr. Vazquez is an orthopedic surgeon. Please follow up with him for further evaluation) VIELKA MATUTE MD [Staff Physician] - 3-5 Days (Dr. Matute is a blow torch burner. Please follow up with him for further evaluation) Time of Disposition: 22:27
[2019-04-03 22:36] VITALS: BP 161/56
== END 2019-04-03 23:01 | disposition home or self-care (01) ==
LOC: ED 13:39
DX: M54.12 Radiculopathy, cervical region (principal); R10.9 Unspecified abdominal pain; R19.7 Diarrhea, unspecified; E11.22 Type 2 diabetes mellitus with diabetic chronic kidney disease; I13.2 Hypertensive heart and chronic kidney disease with heart failure and with stage 5 chronic kidney disease, or end stage renal disease; I50.9 Heart failure, unspecified; N18.6 End stage renal disease; M19.90 Unspecified osteoarthritis, unspecified site; Z99.2 Dependence on renal dialysis; Z98.51 Tubal ligation status; Z88.1 Allergy status to other antibiotic agents; Z88.8 Allergy status to other drugs, medicaments and biological substances
CPT/HCPCS: 36415; 74176; 80053; 83690; 85025

== ENCOUNTER 2019-04-14 06:58 | Outpatient (CLI) | payer MEDICARE ==
--- NOTE | 2019-04-14 09:03 | Cat Scan Report ---
CT CERVICAL SPINE WITHOUT CONTRAST INDICATION: UNSPECIFIED INFLAMMATORY SPONDYLOPATHY,CERVICAL REGION. TECHNIQUE: Axial imaging performed through the cervical spine without the use of contrast. Sagittal and coronal reconstructed images were also reviewed. All CT scans at this location are performed us ing CT dose reduction for ALARA by means of automated exposure control. COMPARISON: None FINDINGS: There is normal height and alignment of the cervical vertebral bodies. Previous anterior fusion with disc spacer placement from C4-6 is noted. Partial bony fusion is noted at the C4-5 disc space. Incomp lete bony fusion is suspected at C5-6. Mild to moderate discogenic disc disease is noted at C2-3, C3- 4 and C6-7. C2-3: A moderate broad-based central disc bulge is identified which effaces the anterior thecal sac. No neural foraminal narrowing. C3-4: Mild posterior and bilateral uncovertebral spurring. A moderate diffuse posterior bulging disc is suggested at this level. Mild to moderate central canal stenosis is suggested. Mild right neural f oraminal narrowing is estimated at 25%. C4-5: Fusion changes. Mild bilateral neural foraminal narrowing is estimated at 50%. C5-6: Fusion changes. Mild posterior spurring is noted. No significant neural foraminal narrowing. C6-7: Mild posterior bulging disc. No central canal stenosis or neural foraminal narrowing is appreci ated. C7-T1: No significant abnormality. IMPRESSION: No acute process. Anterior fusion changes from C4-C6. Incomplete bony fusion of the C5-6 disc space is suspected. Moderate multilevel cervical spondylosis as described. Signer Name: Jimy Reddy Jr, MD Signed: 04/14/2019 8:59 AM Workstation Name: [id number]
== END 2019-04-14 06:59 | disposition home or self-care (01) ==
LOC: CT 06:58
PROVIDERS: ATTEND Internal Medicine
DX: M47.812 Spondylosis without myelopathy or radiculopathy, cervical region (principal); M43.22 Fusion of spine, cervical region; M50.01 Cervical disc disorder with myelopathy, high cervical region; M50.823 Other cervical disc disorders at C6-C7 level; M50.81 Other cervical disc disorders, high cervical region
CPT/HCPCS: 72125

== ENCOUNTER 2019-04-18 04:28 | Observation (INO) | payer MEDICARE ==
--- NOTE | 2019-04-18 04:54 | XRay Report ---
CHEST 1 VIEW INDICATION: chest pain dyspnea. COMPARISON: 01/23/2019 FINDINGS: Support devices: None. Heart: Normal. Lungs/Pleura: Remain hyperexpanded but clear. No pleural abnormality. IMPRESSION: 1. No acute findings. Signer Name: Ricky Teixeira MD Signed: 04/18/2019 4:49 AM Workstation Name: [id number]
[2019-04-18 05:39] LABS: Basophils # (Auto) 0.1 K/mm3 (0.0-0.1); Basophils % (Auto) 1.1 % (0.0-1.8); Eosinophils # (Auto) 0.5 K/mm3 (0.0-0.4); Eosinophils % (Auto) 10.1 % (0.0-4.3); Hematocrit 28.6 % (30.3-42.9); Hemoglobin 9.3 gm/dl (10.1-14.3); Lymphocytes # (Auto) 0.8 K/mm3 (1.2-5.4); Lymphocytes % (Auto) 15.9 % (13.4-35.0); Mean Corpuscular HGB Conc 33 % (30-34); Mean Corpuscular Volume 78 fl (79-97); Monocytes # (Auto) 0.4 K/mm3 (0.0-0.8); Monocytes % (Auto) 8.1 % (0.0-7.3); Platelet Count 194 K/mm3 (140-440); Red Blood Count 3.65 M/mm3 (3.65-5.03); Red Cell Distribution Width 16.9 % (13.2-15.2)
[2019-04-18 06:09] LABS: Albumin 3.3 g/dL (3.9-5); BUN/Creatinine Ratio 3; Blood Urea Nitrogen 24 mg/dL (7-17); Calcium 8.5 mg/dL (8.4-10.2); Hemolysis Index 14
[2019-04-18 06:10] LABS: Alanine Aminotransferase < 5 units/L (7-56)
[2019-04-18 06:21] LABS: Chol/HDL Ratio 3.47 %; HDL Cholesterol 46 mg/dL (40-59); LDL Cholesterol,Direct 100 mg/dL (50-130)
[2019-04-18] MEDS ORDERED: FAMOTIDINE 20 MG/2 ML INJ IV ONE (06:22)
[2019-04-18] MEDS ORDERED: ACETAMINOPHEN 325 MG TAB PO ONE (06:22)
[2019-04-18] MEDS ORDERED: NITROGLYCERIN 0.4 MG TAB SUBL SL PRN (06:22)
--- NOTE | 2019-04-18 06:23 | Emergency Department Report ---
ED Chest Pain HPI - General Chief Complaint: Chest Pain Stated Complaint: CHEST PAIN, NAUSEA AND VOMITING Time Seen by Provider: 04/18/19 06:07 Source: patient, family, EMS (EMS records not available at this time for chart dictation or review.), RN notes reviewed, old records reviewed Mode of arrival: Stretcher Limitations: No Limitations - History of Present Illness Initial Comments: During the history and physical examination, I am network announcer and escorted by nurse Lucina Atkins This is an 88-year-old female. Her past medical history includes end-stage renal disease on hemodialysis, GERD, pulmonary embolism, DVT, on systemic anticoagulation; jas Primary care Dr.: Cardiology: Dr Stokes Nephrology: Dr Guerrier She is brought to the hospital by emergency medical services. The patient woke up at 2:00 this morning with central and left-sided chest pain, feeling like she couldn't breathe secondary to mucus in her throat, and pain in her left upper extremity. She endorses compliance with her systemic anticoagulation. She is not able to describe a qualitative nature of her pain. She is having pain right now. She indicates her pain is improved. Uncertain if EMS medicated patient in the field. The records are not available at this time for my review. As per review of old medical records, had a nuclear stress test performed 2017 which was negative, echocardiogram performed 2017 showed ejection fraction 65- 70%, septal wall hypertrophy, dilated left atrium, pulmonary hypertension Headache cardiac catheterization performed 2016, showed nonobstructive CAD, 25% mid left circumferential stenosis, ejection fraction 55%. She's documented to have a chronic elevated troponin, and last year, when she was admitted to this hospital, was seen by her child and adolescent psychologist, who indicated "no plans to repeat ischemic evaluation or echo at this time." Complaint: chest pain -: Gradual, hour(s) Onset: during rest Pain Location: left chest Pain Radiation: LUE Severity: mild Severity scale (0 -10): 8 Quality: other Consistency: constant Improves With: nothing Worsens With: nothing Aspirin use within the Past 7 Days: (0) No - Related Data Home Medications Medication Instructions Recorded Confirmed Last Taken Simvastatin [Zocor TAB] 40 mg PO HS 09/04/17 04/18/19 04/17/19 Megestrol 20 mg PO QID 11/09/17 04/18/1920 Pantoprazole [Protonix TAB] 40 mg PO QDAY 11/09/17 04/18/19 04/17/19 amLODIPine 5 mg PO DAILY 11/29/17 04/18/19 04/17/19 Previous Rx's Medication Instructions Recorded Last Taken Type hydrALAZINE [Apresoline TAB] 100 mg PO TID #90 tab 03/12/17 04/17/19 Rx Apixaban [Eliquis] 2.5 mg PO Q12H #30 12/03/17 04/17/19 Rx Cyclobenzaprine HCl [Flexeril 5 MG 5 mg PO TID #10 tab 01/23/19 04/17/19 Rx TAB] Allergies Allergy/AdvReac Type Severity Reaction Status Date / Time cefazolin sodium [From Ancef] Allergy Unknown Verified 08/27/18 16:32 enalapril maleate Allergy Angioedema Verified 08/27/18 16:32 [From Vasotec] enalaprilat dihydrate Allergy Angioedema Verified 08/27/18 16:32 [From Vasotec] pseudoephedrine HCl Allergy Swelling Verified 08/27/18 16:32 [From Sudafed] Sulfa (Sulfonamide Allergy Hives Verified 08/27/18 16:32 Antibiotics) Heart Score - HEART Score History: Moderately suspicious EKG: Non-specific Age: > 65 Risk factors: > 3 risk factors or hx of atherosclerotic disease Troponin: 1-3x normal limit HEART Score: 7 - Critical Actions Critical Actions: >7 pts:50-65% risk of adverse cardiac event. Early invasive measures ED Review of Systems ROS: Stated complaint: CHEST PAIN, NAUSEA AND VOMITING Other details as noted in HPI Constitutional: denies: fever Eyes: denies: eye discharge Respiratory: shortness of breath. denies: wheezing Cardiovascular: chest pain. denies: syncope Gastrointestinal: denies: abdominal pain, nausea, vomiting, hematemesis, melena, hematochezia Genitourinary: denies: dysuria Musculoskeletal: myalgia Skin: denies: lesions Neurological: weakness Hematological/Lymphatic: denies: easy bleeding ED Past Medical Hx - Past Medical History Previous Medical History?: Yes Hx Hypertension: Yes Hx Heart Attack/AMI: Yes (coronary artery disease) Hx Congestive Heart Failure: Yes Hx Pulmonary Embolism: Yes (x 2 takes Eliquis) Hx Renal Disease: Yes (dialysis MWF) Hx Arthritis: Yes Hx HIV: No - Surgical History Past Surgical History?: Yes Hx Cholecystectomy: Yes Hx Appendectomy: Yes Additional Surgical History: Hysterectomy, tubal ligation, fistula in right arm, "surgery to place a plate in neck" - Social History Smoking Status: Never Smoker - Medications Home Medications: Home Medications Medication Instructions Recorded Confirmed Last Taken Type hydrALAZINE [Apresoline TAB] 100 mg PO TID #90 tab 03/12/17 04/18/19 04/17/19 Rx Simvastatin [Zocor TAB] 40 mg PO HS 09/04/17 04/18/19 04/17/19 History Megestrol 20 mg PO QID 11/09/17 04/18/19 04/17/19 History Pantoprazole [Protonix TAB] 40 mg PO QDAY 11/09/17 04/18/19 04/17/19 History amLODIPine 5 mg PO DAILY 11/29/17 04/18/19 04/17/19 History Apixaban [Eliquis] 2.5 mg PO Q12H #30 12/03/17 04/18/19 04/17/19 Rx Cyclobenzaprine HCl [Flexeril 5 MG 5 mg PO TID #10 tab 01/23/19 04/18/19 04/17/19 Rx TAB] ED Physical Exam - General Limitations: No Limitations General appearance: alert, in no apparent distress - Head Head exam: Present: atraumatic, normocephalic - Eye Eye exam: Present: normal appearance, EOMI. Absent: nystagmus - ENT ENT exam: Present: normal exam, normal orophraynx, mucous membranes moist, normal external ear exam - Neck Neck exam: Present: normal inspection, full ROM. Absent: tenderness, menin gismus - Respiratory Respiratory exam: Present: normal lung sounds bilaterally. Absent: respiratory distress - Cardiovascular Cardiovascular Exam: Present: regular rate, normal rhythm, normal heart sounds. Absent: bradycardia, tachycardia, irregular rhythm, systolic murmur, diastolic murmur, rubs, gallop - GI/Abdominal GI/Abdominal exam: Present: soft. Absent: distended, tenderness, guarding, rebound, rigid, pulsatile mass - Extremities Exam Extremities exam: Present: normal inspection (there is a right upper extremity fistula, without redness, pus or streaking), full ROM, pedal edema (1+ edema in the bilateral lower extremities), other (2+ pulses noted in the bilateral upper and lower extremities. There is no long bony tenderness. The muscular compartments are soft. The pelvis is stable.). Absent: calf tenderness - Back Exam Back exam: Present: normal inspection. Absent: tenderness, CVA tenderness (R), CVA tenderness (L), paraspinal tenderness, vertebral tenderness - Neurological Exam Neurological exam: Present: alert, other (there is no facial droop. The tongue is midline. The extraocular movements are intact bilaterally. Moving 4 extr emities spontaneously. Sensation is intact to light touch in 4 extremities spontaneously. Age-appropriate mental status.) - Psychiatric Psychiatric exam: Present: normal affect, normal mood - Skin Skin exam: Present: warm, dry, intact, normal color. Absent: rash ED Course Vital Signs 04/18/19 04/18/19 04/18/19 05:00 05:10 07:01 Temperature 98.0 F Pulse Rate 63 Respiratory 20 20 20 Rate Blood Pressure 168/53 Blood Pressure [Left] O2 Sat by Pulse 100 100 Oximetry 04/18/19 04/18/19 08:01 09:06 Temperature Pulse Rate 64 Respiratory 16 19 Rate Blood Pressure Blood Pressure 126/77 [Left] O2 Sat by Pulse 98 Oximetry - Reevaluation(s) Reevaluation #1: 04/18/19 07:21 Differential diagnosis, including but not limited to: GERD, gastritis, hiatal hernia, pneumonia, pulmonary embolism, acute coronary syndrome; stable angina versus unstable angina Assessment and plan: 88-year-old female with known history of CAD, other vascular risk factors, presenting with chest pain with some typical components. She is currently afebrile with reassuring vital signs, not tachycardic, tachypnea or hypoxic, and appears to be quite comfortable. She endorses compliance with systemic anticoagulation. Patient has elevated risk for major adverse cardiac event as per heart score, we will discuss with her child and adolescent psychologist and auricular therapist. D-dimer pending, likely plan to admit for cardiac risk stratification. Contacted covering cardiology, Dr. Nina, who agrees with plan for admission and cardiac risk stratification, indicates his group will follow in consultat ion. 04/18/19 07:23 Exhibits point in time, elevated troponin is reviewed and appreciated, this may be a type II troponin leak, as patient has had this in the past. Reevaluation #2: 04/18/19 07:[address] Baldemar Corral Reevaluation #3: 04/18/19 10:47 ct angio chest negative - Consultations Consultation #1: 04/18/19 07:39 d/w renal Dr Espinoza who will follow in consultation GAEL score - Gael Score Age > 65: (1) Yes Aspirin use within the Past 7 Days: (0) No 3 or more CAD Risk Factors: (1) Yes 2 or more Angina events in past 24 hrs: (0) No Known CAD with more than 50% Stenosis: (0) No Elevated Cardiac Markers: (1) Yes ST Deviation Greater than 0.5mm: (0) No GAEL Score: 3 ED Medical Decision Making - Lab Data Result diagrams: 04/18/19 04:47 04/18/19 04:47 Vital Signs 04/18/19 04/18/19 04/18/19 05:00 05:10 07:01 Temperature 98.0 F Pulse Rate 63 Respiratory 20 20 20 Rate Blood Pressure 168/53 O2 Sat by Pulse 100 100 Oximetry Lab Results 04/18/19 04/18/19 04/18/19 Range/Units 04:47 04:47 04:47 WBC 4.9 (4.5-11.0) K/mm3 RBC 3.65 (3.65-5.03) M/mm3 Hgb 9.3 L (10.1-14.3) gm/dl Hct 28.6 L (30.3-42.9) % MCV 78 L (79-97) fl MCH 26 L (28-32) pg MCHC 33 (30-34) % RDW 16.9 H (13.2-15.2) % Plt Count 194 (140-440) K/mm3 Lymph % (Auto) 15.9 (13.4-35.0) % Linn % (Auto) 8.1 H (0.0-7.3) % Eos % (Auto) 10.1 H (0.0-4.3) % Baso % (Auto) 1.1 (0.0-1.8) % Lymph # 0.8 L (1.2-5.4) K/mm3 Linn # 0.4 (0.0-0.8) K/mm3 Eos # 0.5 H (0.0-0.4) K/mm3 Baso # 0.1 (0.0-0.1) K/mm3 Seg Neutrophils % 64.8 (40.0-70.0) % Seg Neutrophils # 3.2 (1.8-7.7) K/mm3 Sodium 145 (137-145) mmol/L Potassium 4.1 (3.6-5.0) mmol/L Chloride 102.2 (98-107) mmol/L Carbon Dioxide 28 (22-30) mmol/L Anion Gap 19 mmol/L BUN 24 H (7-17) mg/dL Creatinine 8.3 H (0.7-1.2) mg/dL Estimated GFR 6 ml/min BUN/Creatinine Ratio 3 % Glucose 86 (65-100) mg/dL Lactic Acid 1.40 (0.7-2.0) mmol/L Calcium 8.5 (8.4-10.2) mg/dL Magnesium (1.7-2.3) mg/dL Total Bilirubin 0.50 (0.1-1.2) mg/dL AST 14 (5-40) units/L ALT < 5 L (7-56) units/L Alkaline Phosphatase 223 H (35-129) units/L Total Creatine Kinase (30-135) units/L Troponin T 0.033 H (0.00-0.029) ng/mL NT-Pro-B Natriuret Pep (0-900) pg/mL Total Protein 6.0 L (6.3-8.2) g/dL Albumin 3.3 L (3.9-5) g/dL Albumin/Globulin Ratio 1.2 % Triglycerides 75 (2-149) mg/dL Cholesterol 160 (50-199) mg/dL LDL Cholesterol Direct 100 (50-130) mg/dL HDL Cholesterol 46 (40-59) mg/dL Cholesterol/HDL Ratio 3.47 % 04/18/19 04/18/19 Range/Units 04:47 04:47 WBC (4.5-11.0) K/mm3 RBC (3.65-5.03) M/mm3 Hgb (10.1-14.3) gm/dl Hct (30.3-42.9) % MCV (79-97) fl MCH (28-32) pg MCHC (30-34) % RDW (13.2-15.2) % Plt Count (140-440) K/mm3 Lymph % (Auto) (13.4-35.0) % Linn % (Auto) (0.0-7.3) % Eos % (Auto) (0.0-4.3) % Baso % (Auto) (0.0-1.8) % Lymph # (1.2-5.4) K/mm3 Linn # (0.0-0.8) K/mm3 Eos # (0.0-0.4) K/mm3 Baso # (0.0-0.1) K/mm3 Seg Neutrophils % (40.0-70.0) % Seg Neutrophils # (1.8-7.7) K/mm3 Sodium (137-145) mmol/L Potassium (3.6-5.0) mmol/L Chloride (98-107) mmol/L Carbon Dioxide (22-30) mmol/L Anion Gap mmol/L BUN (7-17) mg/dL Creatinine (0.7-1.2) mg/dL Estimated GFR ml/min BUN/Creatinine Ratio % Glucose (65-100) mg/dL Lactic Acid (0.7-2.0) mmol/L Calcium (8.4-10.2) mg/dL Magnesium 2.20 (1.7-2.3) mg/dL Total Bilirubin (0.1-1.2) mg/dL AST (5-40) units/L ALT (7-56) units/L Alkaline Phosphatase (35-129) units/L Total Creatine Kinase 51 (30-135) units/L Troponin T (0.00-0.029) ng/mL NT-Pro-B Natriuret Pep 42892 H (0-900) pg/mL Total Protein (6.3-8.2) g/dL Albumin (3.9-5) g/dL Albumin/Globulin Ratio % Triglycerides (2-149) mg/dL Cholesterol (50-199) mg/dL LDL Cholesterol Direct (50-130) mg/dL HDL Cholesterol (40-59) mg/dL Cholesterol/HDL Ratio % - EKG Data -: EKG Interpreted by Me - EKG Data 04/18/19 07:20 EKG #1 shows a sinus rhythm, 63 bpm, normal axis, QTC prolonged, right bundle branch block, motion artifact, not consistent with STEMI. EKG #2 is unchanged from prior. Both EKGs are unchanged from prior EKG from 2019. - Radiology Data Radiology results: report reviewed, image reviewed Print Report Referring Physician: AMANDA GUNN Patient Name: HARMEET MATA Date of : 1930 Sex: Female Report Date: 2019-04-18 Report Status: Finalized Findings [facility] [address] [place] [address] XRay Report Signed Patient: HARMEET MATA MR#: [id number] 4 : 1930 Acct:[id number] Age/Sex: 88 / F ADM Date: 04/18/19 Loc: ED Attending Dr: Ordering Physician: Amanda Landers MD Date of Service: 04/18/19 Procedure(s): XR chest 1V ap Accession Number(s): [id number] cc: Amanda Landers MD Fluoro Time In Minutes: CHEST 1 VIEW INDICATION: chest pain dyspnea. COMPARISON: 01/23/2019 FINDINGS: Support devices: None. Heart: Normal. Lungs/Pleura: Remain hyperexpanded but clear. No pleural abnormality. IMPRESSION: 1. No acute findings. Signer Name: Ricky Teixeira MD Signed: 04/18/2019 4:49 AM Workstation Name: [id number] Transcribed By: Dictated By: Ricky Teixeira MD Electronically Authenticated By: Ricky Teixeira MD Signed Date/Time: 04/18/19 0649 Critical care attestation.: If time is entered above; I have spent that time in minutes in the direct care of this critically ill patient, excluding procedure time. ED Disposition Clinical Impression: CAD (coronary artery disease), Troponin level elevated, End-stage renal disease on hemodialysis Disposition: OP ADMIT IP TO THIS HOSP Is pt being admited?: Yes Does the pt Need Aspirin: Yes Condition: Stable
[2019-04-18] MEDS ORDERED: ASPIRIN 81 MG TAB CHEW PO ONE (07:24)
--- NOTE | 2019-04-18 07:28 | History and Physical Report ---
History of Present Illness Chief complaint: Chest pain History of present illness: 88-year-old woman who presents to the hospital with chest pain x1 day. It began at 2 AM this morning. In the left side of her chest estimated weight feeling that she cannot breathe. She also states that she is been having mucus in her throat and pain in her left upper extremity associated with the chest pain. She is compliant with all her medications. The pain is difficult to qualify, she thinks it is dull, it is constant. It waxes and wanes in intensity. At worst is 7 out of 10 currently it is 2 out of 10. No exacerbating or relieving factors. Denies cough, wheezing or fever Past Medical History: Nonobstructive CAD, dialysis, ESRD, hypertension, hyperlipidemia, hx of PE Past Surgical History: cholecystectomy, Other (AVF creation. ) Social history: lives with family, other (patient chews tobacco daily, she denies alcohol or illicit drug use) Family history: hypertension, other (brother had ESRD secondary to HTN ) Medications and Allergies Allergies Allergy/AdvReac Type Severity Reaction Status Date / Time cefazolin sodium [From Ancef] Allergy Unknown Verified 08/27/18 16:32 enalapril maleate Allergy Angioedema Verified 08/27/18 16:32 [From Vasotec] enalaprilat dihydrate Allergy Angioedema Verified 08/27/18 16:32 [From Vasotec] pseudoephedrine HCl Allergy Swelling Verified 08/27/18 16:32 [From Sudafed] Sulfa (Sulfonamide Allergy Hives Verified 08/27/18 16:32 Antibiotics) Home Medications Medication Instructions Recorded Confirmed Last Taken Type hydrALAZINE [Apresoline TAB] 100 mg PO TID #90 tab 03/12/17 04/18/19 04/17/19 Rx Simvastatin [Zocor TAB] 40 mg PO HS 09/04/17 04/18/19 04/17/19 History Megestrol 20 mg PO QID 11/09/17 04/18/19 04/17/19 History Pantoprazole [Protonix TAB] 40 mg PO QDAY 11/09/17 04/18/19 04/17/19 History amLODIPine 5 mg PO DAILY 11/29/17 04/18/19 04/17/19 History Apixaban [Eliquis] 2.5 mg PO Q12H #30 12/03/17 04/18/19 04/17/19 Rx Cyclobenzaprine HCl [Flexeril 5 MG 5 mg PO TID #10 tab 01/23/19 04/18/19 04/17/19 Rx TAB] Active Meds: Active Medications Nitroglycerin (Nitrostat) 0.4 mg SL .Q5MIN PRN PRN Reason: Chest Pain Review of Systems All systems: negative (See HPI) Exam - Constitutional Vitals: Temp Pulse Resp BP Pulse Ox 98.0 F 63 20 168/53 100 04/18/19 05:10 04/18/19 05:10 04/18/19 07:01 04/18/19 05:10 04/18/19 05:10 General appearance: Present: no acute distress, well-nourished - EENT Eyes: Present: PERRL ENT: hearing intact, clear oral mucosa - Neck Neck: Present: supple, normal ROM - Respiratory Respiratory effort: normal Respiratory: bilateral: CTA - Cardiovascular Heart Sounds: Present: S1 & S2. Absent: rub, click - Extremities Extremities: pulses symmetrical, No edema Peripheral Pulses: within normal limits - Abdominal General gastrointestinal: Present: soft, non-tender, non-distended, normal bowel sounds Female genitourinary: Present: normal - Integumentary Integumentary: Present: clear, warm, dry - Musculoskeletal Musculoskeletal: gait normal, strength equal bilaterally - Psychiatric Psychiatric: appropriate mood/affect, intact judgment & insight - Neurologic Neurologic: CNII-XII intact, moves all extremities VALENTE score - Valente Score Age > 65: (1) Yes Aspirin use within the Past 7 Days: (0) No 3 or more CAD Risk Factors: (1) Yes 2 or more Angina events in past 24 hrs: (0) No Known CAD with more than 50% Stenosis: (0) No Elevated Cardiac Markers: (1) Yes ST Deviation Greater than 0.5mm: (0) No VALENTE Score: 3 Results - Labs CBC & Chem 7: 04/18/19 04:47 04/18/19 04:47 Labs: Laboratory Last Values WBC 4.9 K/mm3 (4.5-11.0) 04/18/19 04:47 RBC 3.65 M/mm3 (3.65-5.03) 04/18/19 04:47 Hgb 9.3 gm/dl (10.1-14.3) L 04/18/19 04:47 Hct 28.6 % (30.3-42.9) L 04/18/19 04:47 MCV 78 fl (79-97) L 04/18/19 04:47 MCH 26 pg (28-32) L 04/18/19 04:47 MCHC 33 % (30-34) 04/18/19 04:47 RDW 16.9 % (13.2-15.2) H 04/18/19 04:47 Plt Count 194 K/mm3 (140-440) 04/18/19 04:47 Lymph % (Auto) 15.9 % (13.4-35.0) 04/18/19 04:47 [place]ite % (Auto) 8.1 % (0.0-7.3) H 04/18/19 04:47 Eos % (Auto) 10.1 % (0.0-4.3) H 04/18/19 04:47 Baso % (Auto) 1.1 % (0.0-1.8) 04/18/19 04:47 Lymph # 0.8 K/mm3 (1.2-5.4) L 04/18/19 04:47 [place]ite # 0.4 K/mm3 (0.0-0.8) 04/18/19 04:47 Eos # 0.5 K/mm3 (0.0-0.4) H 04/18/19 04:47 Baso # 0.1 K/mm3 (0.0-0.1) 04/18/19 04:47 Seg Neutrophils % 64.8 % (40.0-70.0) 04/18/19 04:47 Seg Neutrophils # 3.2 K/mm3 (1.8-7.7) 04/18/19 04:47 Sodium 145 mmol/L (137-145) 04/18/19 04:47 Potassium 4.1 mmol/L (3.6-5.0) 04/18/19 04:47 Chloride 102.2 mmol/L (98-107) 04/18/19 04:47 Carbon Dioxide 28 mmol/L (22-30) 04/18/19 04:47 Anion Gap 19 mmol/L 04/18/19 04:47 BUN 24 mg/dL (7-17) H 04/18/19 04:47 Creatinine 8.3 mg/dL (0.7-1.2) H 04/18/19 04:47 Estimated GFR 6 ml/min 04/18/19 04:47 BUN/Creatinine Ratio 3 % 04/18/19 04:47 Glucose 86 mg/dL (65-100) 04/18/19 04:47 Lactic Acid 1.40 mmol/L (0.7-2.0) 04/18/19 04:47 Calcium 8.5 mg/dL (8.4-10.2) 04/18/19 04:47 Magnesium 2.20 mg/dL (1.7-2.3) 04/18/19 04:47 Total Bilirubin 0.50 mg/dL (0.1-1.2) 04/18/19 04:47 AST 14 units/L (5-40) 04/18/19 04:47 ALT < 5 units/L (7-56) L 04/18/19 04:47 Alkaline Phosphatase 223 units/L (35-129) H 04/18/19 04:47 Total Creatine Kinase 51 units/L (30-135) 04/18/19 04:47 Troponin T 0.033 ng/mL (0.00-0.029) H 04/18/19 04:47 NT-Pro-B Natriuret Pep 92878 pg/mL (0-900) H 04/18/19 04:47 Total Protein 6.0 g/dL (6.3-8.2) L 04/18/19 04:47 Albumin 3.3 g/dL (3.9-5) L 04/18/19 04:47 Albumin/Globulin Ratio 1.2 % 04/18/19 04:47 Triglycerides 75 mg/dL (2-149) 04/18/19 04:47 Cholesterol 160 mg/dL (50-199) 04/18/19 04:47 LDL Cholesterol Direct 100 mg/dL (50-130) 04/18/19 04:47 HDL Cholesterol 46 mg/dL (40-59) 04/18/19 04:47 Cholesterol/HDL Ratio 3.47 % 04/18/19 04:47 - Imaging and Cardiology Chest x-ray: image reviewed (No acute findings) Assessment and Plan Assessment and plan: 88-year-old woman who presents with chest pain. Previous cardiac work-up Lexiscan MPI stress test done 10/2017 was negative. Echo done 10/2017 showed EF 65-70%, septal wall hypertrophy, LA mild to mod dilated, mod pulm HTN with RVSP 57mmHg. LHC done 03/2016 showed nonobstructive CAD, 25% mid left circ stenosis, EF >65%. Atypical chest pain aspirin, EKG no acute findings, chest x-ray neg, troponins negative so far, serial CE, keep NPO for now cardiology consult to determine modality for coronary risk stratification -Known history of nonobstructive CAD -Case discussed with ED physician, CT ordered and pending, elevated d-dimer noted Moderate pulmonary hypertension; management per cardiology ESRD; HD per renal Hypertensive urgency; optimize BP meds AOCD, cont epo, stable Moderate malnutrition; screen making supervisor consult History of DVT and PE; continue anticoagulation
[2019-04-18 07:56] LABS: INR 1.13 (0.87-1.13)
[2019-04-18] MEDS ORDERED: HYDROcodone/ACETAMINOPHEN 5-325 MG TAB PO PRN (08:56)
[2019-04-18] MEDS ORDERED: traMADol 50 MG TAB PO PRN (08:56)
[2019-04-18] MEDS: MEGESTROL 20 MG TAB PO SCH ×4 (10:00→21:29)
--- NOTE | 2019-04-18 10:09 | Cat Scan Report ---
CTA CHEST WITH IV CONTRAST INDICATION: Chest pain. Shortness of breath. Elevated d-dimer. TECHNIQUE: Axial CT images were obtained through the chest after injection of 100 mL Omnipaque 350 IV contrast. 3 plane MIP reconstructions were produced. All CT scans at this location are performed using CT dose reduction for ALARA by means of automated exposure control. COMPARISON: One view of the chest from earlier today. FINDINGS: PULMONARY ARTERIES: Well-opacified without distinct thromboemboli. AORTA AND ARTERIES: The aorta is patent and normal in caliber with mild atherosclerosis. The great ve ssels are patent and normal in caliber with mild atherosclerosis. There is mild generalized coronary atherosclerosis. MEDIASTINUM: No distinct abnormality of the thyroid gland is identified. The trachea and main bronchi are patent and normal in caliber. No mass or lymphadenopathy is seen. The heart is mildly enlarged w ithout a significant pericardial effusion. LUNGS: There are small bilateral pleural effusions, right greater than left, with associated atelecta sis. No pneumothorax is seen. The lungs are otherwise clear. ADDITIONAL FINDINGS: Venous stents are noted along the right upper extremity. UPPER ABDOMEN: No acute findings. BONES: No acute abnormality or aggressive appearing lesion is seen. Degenerative changes are noted th roughout the spine. IMPRESSION: 1. No CT evidence for pulmonary embolism. 2. Small bilateral pleural effusions. 3. Additional findings as above. Signer Name: Too Lilly MD Signed: 04/18/2019 10:05 AM Workstation Name: [id number]
--- NOTE | 2019-04-18 10:16 | Consultation ---
History of Present Illness Consult date: 04/18/19 Consult reason: chest pain History of present illness: Patient woke up arond 3:00 AM with anterior chest discomfort,like heaviness in lower chest with nausea,SOB,did not get better,hence was brought to ER,EKG showed S.R,RBBB,old ASMI,no acute changes,elevated d dimer noted,CT odf chest was negative for PE,slowly her chest tightness improved,and presently without chest pain or SOB. Past History Past Medical History: ESRD (on HD for 18 years.), hypertension Social history: lives with family (Lives with daughter.). denies: smoking, alcohol abuse Medications and Allergies Allergies Allergy/AdvReac Type Severity Reaction Status Date / Time cefazolin sodium [From Ancef] Allergy Unknown Verified 08/27/18 16:32 enalapril maleate Allergy Angioedema Verified 08/27/18 16:32 [From Vasotec] enalaprilat dihydrate Allergy Angioedema Verified 08/27/18 16:32 [From Vasotec] pseudoephedrine HCl Allergy Swelling Verified 08/27/18 16:32 [From Sudafed] Sulfa (Sulfonamide Allergy Hives Verified 08/27/18 16:32 Antibiotics) Home Medications Medication Instructions Recorded Confirmed Last Taken Type hydrALAZINE [Apresoline TAB] 100 mg PO TID #90 tab 03/12/17 04/18/19 04/17/19 Rx Simvastatin [Zocor TAB] 40 mg PO HS 09/04/17 04/18/19 04/17/19 History Megestrol 20 mg PO QID 11/09/17 04/18/19 04/17/19 History Pantoprazole [Protonix TAB] 40 mg PO QDAY 11/09/17 04/18/19 04/17/19 History amLODIPine 5 mg PO DAILY 11/29/17 04/18/19 04/17/19 History Apixaban [Eliquis] 2.5 mg PO Q12H #30 12/03/17 04/18/19 04/17/19 Rx Cyclobenzaprine HCl [Flexeril 5 MG 5 mg PO TID #10 tab 01/23/19 04/18/19 04/17/19 Rx TAB] Active Meds: Active Medications Acetaminophen/Hydrocodone Bitart ([place] 5/325) 1 each PO Q6HR PRN PRN Reason: PAIN Amlodipine Besylate (Amlodipine) 5 mg PO DAILY [facility] Apixaban (Eliquis) 2.5 mg PO Q12H [facility]; Protocol Hydralazine HCl (Apresoline) 100 mg PO TID [facility] Megestrol Acetate (Megestrol) 20 mg PO QID [facility] Miscellaneous Medication (Cyclobenzaprine Hcl [Flexeril 5 Mg Tab]) 5 mg PO TID [facility] Miscellaneous Medication (Simvastatin) 40 mg PO HS [facility] Nitroglycerin (Nitrostat) 0.4 mg SL .Q5MIN PRN PRN Reason: Chest Pain Pantoprazole Sodium (Protonix) 40 mg PO QDAY [facility] Tramadol HCl (Ultram) 50 mg PO Q6HR PRN PRN Reason: PAIN Review of Systems Constitutional: no weight gain Ears, nose, mouth and throat: no ear discharge Breasts: no deferred Cardiovascular: chest pain, palpitations, shortness of breath Respiratory: shortness of breath, no cough Gastrointestinal: nausea Genitourinary Female: no hematuria Rectal: no bleeding Musculoskeletal: no neck pain Integumentary: no rash Neurological: no headaches, no loss of vision Psychiatric: no anxiety Endocrine: no cold intolerance Hematologic/Lymphatic: no easy bleeding Allergic/Immunologic: no urticaria Physical Examination Vital Signs Resp Pulse Ox 20 100 04/18/19 05:00 04/18/19 05:00 General appearance: no acute distress HEENT: Positive: PERRL Neck: Positive: neck supple Cardiac: Positive: Reg Rate and Rhythm, S4. Negative: Audible Murmur Lungs: Positive: clear to auscultation Neuro: Positive: Grossly Intact Abdomen: Positive: Unremarkable, Soft Female genitourinary: deferred Skin: Negative: Rash Extremities: Absent: edema Results 04/18/19 04:47 04/18/19 04:47 Cardiac Enzymes 04/18/19 Range/Units 04:47 AST 14 (5-40) units/L Coagulation 04/18/19 Range/Units 07:26 PT 14.7 (12.2-14.9) Sec. INR 1.13 (0.87-1.13) Lipids 04/18/19 Range/Units 04:47 Triglycerides 75 (2-149) mg/dL Cholesterol 160 (50-199) mg/dL HDL Cholesterol 46 (40-59) mg/dL Cholesterol/HDL Ratio 3.47 % CBC 04/18/19 Range/Units 04:47 WBC 4.9 (4.5-11.0) K/mm3 RBC 3.65 (3.65-5.03) M/mm3 Hgb 9.3 L (10.1-14.3) gm/dl Hct 28.6 L (30.3-42.9) % Plt Count 194 (140-440) K/mm3 Lymph # 0.8 L (1.2-5.4) K/mm3 [place] # 0.4 (0.0-0.8) K/mm3 Eos # 0.5 H (0.0-0.4) K/mm3 Baso # 0.1 (0.0-0.1) K/mm3 Comprehensive Metabolic Panel 04/18/19 Range/Units 04:47 Sodium 145 (137-145) mmol/L Potassium 4.1 (3.6-5.0) mmol/L Chloride 102.2 (98-107) mmol/L Carbon Dioxide 28 (22-30) mmol/L BUN 24 H (7-17) mg/dL Creatinine 8.3 H (0.7-1.2) mg/dL Glucose 86 (65-100) mg/dL Calcium 8.5 (8.4-10.2) mg/dL AST 14 (5-40) units/L ALT < 5 L (7-56) units/L Alkaline Phosphatase 223 H (35-129) units/L Total Protein 6.0 L (6.3-8.2) g/dL Albumin 3.3 L (3.9-5) g/dL - Imaging and Cardiology Stress echo: other (iv Lexiscan MPI 10/2027 was negative.) Echo: other (10/2017>EF 65-70%,septal wall hypertrophy,LA mild to moderately dilated,moderate pulmonary hypertension with RVSP 57 mm hg.) Cardiac cath: other (03/2016>non obstructive CAD,25% mid left circumflex stenosis,EF.65%.) EKG interpretations - EKG Sinus rhythms and dysrhythmias: sinus rhythm (RBBB,62/mt,ASMI,age undetermined.) Assessment and Plan An episode of prolonged chest pain associated with nausea and SOB,woke up from sleep,mildly elevated troponin's noted.Chest pain improved,being followed by in office,apparently planning to have cardiac w/u done.Considering her symptoms,will go head and schedule for pharmacologic MPI and echo,was noted to have pulmonary hypertension in past.Etiology of her chest pain is not pedro r,patient walks with walker at home. - Patient Problems (1) Elevated troponin Current Visit: Yes Status: Acute (2) CAD (coronary artery disease) Current Visit: Yes Status: Chronic Qualifiers: (3) End-stage renal disease on hemodialysis Current Visit: Yes Status: Chronic (4) Acute chest pain Current Visit: No Status: Acute (5) Right bundle branch block Current Visit: No Status: Acute (6) Anemia Current Visit: No Status: Chronic Qualifiers: Anemia type: due to chronic kidney disease Chronic kidney disease stage: on chronic dialysis Qualified Code(s): N18.6 - End stage renal disease; D63.1 - Anemia in chronic kidney disease; D63.1 - Anemia in chronic kidney disease; Z9 9.2 - Dependence on renal dialysis; Z99.2 - Dependence on renal dialysis; Z99.2 - Dependence on renal dialysis; Z99.2 - Dependence on renal dialysis (7) Hyperlipidemia Current Visit: No Status: Chronic Qualifiers: Hyperlipidemia type: mixed hyperlipidemia Qualified Code(s): E78.2 - Mixed hyperlipidemia (8) Personal history of PE (pulmonary embolism) Current Visit: No Status: Chronic
[2019-04-18] MEDS ORDERED: SODIUM CHLORIDE 0.9% 100 ML IV PRN (11:23)
[2019-04-18] MEDS ORDERED: SODIUM CHLORIDE*PRIMING MACHINE ONLY FOR DIALYSIS MC ONE (12:13)
--- NOTE | 2019-04-18 13:41 | Consultation ---
History of Present Illness - Reason for Consult end stage renal disease - History of Present Illness Very pleasant 88-year-old -[place] female, well-known to our outpatient dialysis unit, with a history of end-stage renal disease setting of hypertension diabetes, with a functional right upper extremity AV fistula, who presented to the emergency department secondary to chest pain. Pain started in the middle the night and woke her from sleep. She came to the emergency department for further evaluation. It seems that her chest pain has gotten significantly better after administration of sublingual nitroglycerin in the ER. Patient is seen in the hemodialysis unit inpatient this afternoon. She is tolerating hemodialysis session well with removal of 2 L goal ultrafiltration. Blood pressures have been stable. Cardiology input noted. Past History Past Medical History: ESRD (on HD for 18 years.), hypertension Social history: lives with family (Lives with daughter.). denies: smoking, alcohol abuse Medications and Allergies Allergies Allergy/AdvReac Type Severity Reaction Status Date / Time cefazolin sodium [From Ancef] Allergy Unknown Verified 08/27/18 16:32 enalapril maleate Allergy Angioedema Verified 08/27/18 16:32 [From Vasotec] enalaprilat dihydrate Allergy Angioedema Verified 08/27/18 16:32 [From Vasotec] pseudoephedrine HCl Allergy Swelling Verified 08/27/18 16:32 [From Sudafed] Sulfa (Sulfonamide Allergy Hives Verified 08/27/18 16:32 Antibiotics) Home Medications Medication Instructions Recorded Confirmed Last Taken Type hydrALAZINE [Apresoline TAB] 100 mg PO TID #90 tab 03/12/17 04/18/19 04/17/19 Rx Simvastatin [Zocor TAB] 40 mg PO HS 09/04/17 04/18/19 04/17/19 History Megestrol 20 mg PO QID 11/09/17 04/18/19 04/17/19 History Pantoprazole [Protonix TAB] 40 mg PO QDAY 11/09/17 04/18/19 04/17/19 History amLODIPine 5 mg PO DAILY 11/29/17 04/18/19 04/17/19 History Apixaban [Eliquis] 2.5 mg PO Q12H #30 12/03/17 04/18/19 04/17/19 Rx Cyclobenzaprine HCl [Flexeril 5 MG 5 mg PO TID #10 tab 01/23/19 04/18/19 04/17/19 Rx TAB] Active Meds: Active Medications Acetaminophen/Hydrocodone Bitart ([place] 5/325) 1 each PO Q6HR PRN PRN Reason: PAIN Amlodipine Besylate (Amlodipine) 5 mg PO DAILY [facility] Apixaban (Eliquis) 2.5 mg PO Q12H [facility]; Protocol Cyclobenzaprine HCl (Flexeril) 5 mg PO TID [facility] Hydralazine HCl (Apresoline) 100 mg PO TID [facility] Sodium Chloride (Nacl 0.9%) 100 mls @ 999 mls/hr IV ELDA PRN PRN Reason: Hypotension Megestrol Acetate (Megestrol) 20 mg PO QID [facility] Nitroglycerin (Nitrostat) 0.4 mg SL .Q5MIN PRN PRN Reason: Chest Pain Pantoprazole Sodium (Protonix) 40 mg PO QDAY [facility] Pravastatin Sodium (Pravachol) 80 mg PO QHS [facility] Tramadol HCl (Ultram) 50 mg PO Q6HR PRN PRN Reason: PAIN Review of Systems All systems: negative Constitutional: fatigue, weakness Cardiovascular: chest pain Exam - Vital Signs Vital signs: Vital Signs Resp Pulse Ox 20 100 04/18/19 05:00 04/18/19 05:00 - General Appearance General appearance: well-developed, well-nourished, appears stated age, frail EENT: ATNC, PERRL Neck: Present: neck supple, trachea midline Respiratory: Clear to Ascultation Heart: regular, S1S2 Gastrointestinal: Present: normal, normoactive bowel sounds Integumentary: no rash, warm and dry Neurologic: no focal deficit Musculoskeletal: Present: deferred Psychiatric: mood/affect appropriate Results - Lab Results 04/18/19 04:47 04/18/19 04:47 Most recent lab results Calcium 8.5 mg/dL (8.4-10.2) 04/18/19 04:47 Magnesium 2.20 mg/dL (1.7-2.3) 04/18/19 04:47 Assessment and Plan - Patient Problems (1) ESRD on dialysis Current Visit: No Status: Chronic Plan to address problem: We'll maintain on Thursday inpatient hemodialysis schedule. (2) Chest pain Current Visit: Yes Status: Acute Plan to address problem: CT was negative for any evidence of PE. D-dimer was elevated. Troponin levels being monitored. Cardiology input reviewed. Further recommendations per cardiology team. (3) Anemia in chronic kidney disease Current Visit: No Status: Acute Qualifiers: Chronic kidney disease stage: on chronic dialysis Qualified Code(s): N18.6 - End stage renal disease; D63.1 - Anemia in chronic kidney disease; Z99.2 - D ependence on renal dialysis Plan to address problem: TL therapy with hemodialysis sessions. (4) Hypertensive chronic kidney disease with stage 5 chronic kidney disease or end stage renal disease Current Visit: No Status: Chronic Plan to address problem: Monitor blood pressures on current regimen. (5) Secondary hyperparathyroidism (of renal origin) Current Visit: No Status: Chronic Plan to address problem: Continue current outpatient phosphorus binders.
[2019-04-18] MEDS: hydrALAZINE 100 MG TAB PO SCH ×2 (14:00→21:30)
[2019-04-18] MEDS ORDERED: NON-FORMULARY EACH (Cyclobenzaprine Hcl [Flexeril 5 Mg Tab] 5 MG) PO SCH (14:00)
[2019-04-18] MEDS: PANTOPRAZOLE 40 MG TAB PO SCH (14:00)
[2019-04-18] MEDS: CYCLOBENZAPRINE 10 MG TAB PO SCH ×2 (14:00→21:29)
[2019-04-18] MEDS: amLODIPine 10 MG TAB PO SCH (16:00)
[2019-04-18] MEDS: APIXABAN 2.5 MG TAB PO SCH ×2 (16:00→21:29)
[2019-04-18 16:39] LABS: Hepatitis B Surface Antigen Non-Reactive (Negative); Hepatitis C Virus Antibody Reactive (NonReactive)
[2019-04-18] MEDS ORDERED: NON-FORMULARY EACH (Simvastatin 40 MG) PO SCH (22:00)
[2019-04-18] MEDS ORDERED: PRAVASTATIN 80 MG TAB PO SCH (22:00)
[2019-04-19] MEDS: hydrALAZINE 100 MG TAB PO SCH (08:15)
[2019-04-19] MEDS: CYCLOBENZAPRINE 10 MG TAB PO SCH (08:15)
[2019-04-19] MEDS ORDERED: REGADENOSON 0.4 MG/5 ML INJ IV ONE (08:38)
[2019-04-19] MEDS ORDERED: ACETAMINOPHEN 325 MG TAB PO PRN (09:38)
--- NOTE | 2019-04-19 09:56 | Progress Note ---
Assessment and Plan cp typical angina nstemi type 2 htn urgency chol esrd on hd rec: in view of normal myocardial perfusion and normal lv function, may be hugo rovascular disease as cause of cp and nstemi type 2, start imdur 30mg daily and may be discharge from [facility] point of view Subjective Date of service: 04/19/19 Principal diagnosis: cp and abnl trop Interval history: cp free Objective Vital Signs Temp Pulse Resp BP Pulse Ox 04/19/19 08:55 166/48 04/19/19 08:53 167/53 04/19/19 08:51 179/47 04/19/19 08:49 188/43 04/19/19 08:46 174/66 04/19/19 08:39 177/50 04/19/19 02:52 99.1 F 73 18 158/46 98 04/18/19 22:52 98.5 F 77 18 166/50 100 04/18/19 19:16 98.7 F 64 18 184/54 97 04/18/19 15:20 98.5 F 59 L 16 209/59 99 04/18/19 14:20 98.2 F 61 20 150/58 04/18/19 13:45 64 142/57 04/18/19 13:30 53 L 146/50 04/18/19 13:15 60 144/50 04/18/19 13:00 64 131/43 04/18/19 12:45 67 128/46 04/18/19 12:30 64 132/48 04/18/19 12:15 68 155/39 04/18/19 12:00 60 153/55 04/18/19 11:45 61 156/54 04/18/19 11:30 62 170/63 04/18/19 11:15 54 L 171/55 04/18/19 11:00 57 L 188/57 04/18/19 10:50 63 190/60 04/18/19 10:30 98.1 F 64 20 193/65 04/18/19 10:25 104 H - Physical Examination General: Appears Well HEENT: Positive: PERRL Neck: Positive: neck supple, trachea midline Cardiac: Positive: Reg Rate and Rhythm Lungs: Positive: clear to auscultation Neuro: Positive: Grossly Intact Abdomen: Positive: Unremarkable, Soft Skin: Negative: Rash Extremities: Absent: edema - Imaging and Cardiology Pharmacologic stress test: report reviewed (normal myocardial perfusion and normal lv function) Stress echo: other (iv Lexiscan MPI 10/2027 was negative.) Echo: report reviewed (normal lv funciton mild pulmonary htn ), other (10/2017>EF 65-70%,septal wall hypertrophy,LA mild to moderately dilated,moderate pulmonary hypertension with RVSP 57 mm hg.) Cardiac cath: other (03/2016>non obstructive CAD,25% mid left circumflex stenosis,EF.65%.) - Telemetry EKG Rhythm: Sinus Rhythm - EKG Sinus rhythms and dysrhythmias: sinus rhythm (RBBB,62/mt,ASMI,age undetermined.)
--- NOTE | 2019-04-19 10:09 | Treadmill Report ---
NUCLEAR PERFUSION STUDY REASON FOR STUDY: Chest pain and abnormal troponin suggestive of non-STEMI type 2. IMAGING PROTOCOL: Single isotope used documented as single isotope protocol. IMAGING RESULTS: Normal cavity size from stress to rest. Normal distribution of radionuclide in the anterior, inferior, septal, and apical regions. Gated SPECT, EF greater than 65%. The patient infused Lexiscan with no EKG changes. SUMMARY: 1. Negative Lexiscan EKG. 2. Normal rest and stress myocardial perfusion scan. No significant stress ischemia. No wall motion abnormality. Gated SPECT, EF greater than 65%. JOB# [id number] ANNALEE/DAVION
--- NOTE | 2019-04-19 10:13 | Discharge Summary ---
Providers - Providers Date of Admission: 04/18/19 07:26 Attending physician: BRIANNA KULKARNI MD 04/18/19 06:21 Consult to Physician [CONS] Urgent Comment: Dr. Watson spoke to Dr. Elkins @ 07:24- [facility] Consulting Provider: SELWYN JOHN Physician Instructions: Reason For Exam: cp known to your group 04/18/19 06:22 Consult to Physician [CONS] Urgent Comment: Dr. Palacios spoke to Dr. Espinoza @ 07:30am- [facility] Consulting Provider: CHAVEZ LORD Physician Instructions: Reason For Exam: esrd 04/18/19 11:23 Consult to Dietitian/Nutrition [CONS] Routine Physician Instructions: Reason For Exam: Reason for Consult: Malnutrition Primary care physician: [employer]IATION MECH[employer]IC Hospitalization Condition: Stable Hospital course: 88-year-old woman who presents with chest pain. Previous cardiac work-up Lexiscan MPI stress test done 10/2017 was negative. Echo done 10/2017 showed EF 65-70%, septal wall hypertrophy, LA mild to mod dilated, mod pulm HTN with RVSP 57mmHg. LHC done 03/2016 showed nonobstructive CAD, 25% mid left circ stenosis, EF >65%. chest pain likely due to stable angina aspirin, EKG no acute findings, chest x-ray neg, troponins negative so far, serial CE, cta neg for PE, MPI was neg -Known history of nonobstructive CAD, dw dye mixer, added imdur Preventative health counseling performed for 17 minutes Moderate pulmonary hypertension; meds optimized per dye mixer, op fup ESRD; HD per renal Hep C positive, OP fup Hypertensive urgency; optimized BP meds AOCD, cont epo, stable Moderate malnutrition; received tile molder consult History of DVT and PE; continued anticoagulation Disposition: - TO HOME OR SELFCARE Time spent for discharge: 33 mins Core Measure Documentation - Palliative Care Palliative Care/ Comfort Measures: Not Applicable - Core Measures Any of the following diagnoses?: none Exam - Constitutional Vitals: Temp Pulse Resp BP Pulse Ox 99.1 F 73 18 166/48 98 04/19/19 02:52 04/19/19 02:52 04/19/19 02:52 04/19/19 08:55 04/19/19 02:52 General appearance: Present: no acute distress, well-nourished - EENT Eyes: Present: PERRL ENT: hearing intact, clear oral mucosa - Neck Neck: Present: supple, normal ROM - Respiratory Respiratory effort: normal Respiratory: bilateral: CTA - Cardiovascular Heart Sounds: Present: S1 & S2. Absent: rub, click - Extremities Extremities: pulses symmetrical, No edema Peripheral Pulses: within normal limits - Abdominal General gastrointestinal: Present: soft, non-tender, non-distended, normal bowel sounds Female genitourinary: Present: normal - Integumentary Integumentary: Present: clear, warm, dry - Musculoskeletal Musculoskeletal: gait normal, strength equal bilaterally - Psychiatric Psychiatric: appropriate mood/affect, intact judgment & insight - Neurologic Neurologic: CNII-XII intact, moves all extremities Plan Follow up with: SELWYN JOHN MD [Staff Physician] - 7 Days (04/21/2019 @ 2:00PM) PRIMARY CARE, [Primary Care Provider] - 3-5 Days Prescriptions: RX: ISOSORBIDE MONOnitrate [Imdur ER] 30 mg PO QDAY #90 tablet
[2019-04-19] MEDS: MEGESTROL 20 MG TAB PO SCH (12:18)
[2019-04-19] MEDS: amLODIPine 10 MG TAB PO SCH (12:25)
[2019-04-19] MEDS: APIXABAN 2.5 MG TAB PO SCH (12:26)
[2019-04-19] MEDS: PANTOPRAZOLE 40 MG TAB PO SCH (12:26)
[2019-04-19 12:44] VITALS: BP 176/38
[2019-04-20] MEDS ORDERED: amLODIPine 5 MG TAB PO SCH (10:00)
== END 2019-04-19 16:05 | disposition home or self-care (01) ==
LOC: ED 04:28 → 4A 07:26
PROVIDERS: ADMIT Internal Medicine; ATTEND Internal Medicine
DX: R07.89 Other chest pain (principal); I16.0 Hypertensive urgency; I12.0 Hypertensive chronic kidney disease with stage 5 chronic kidney disease or end stage renal disease; N18.6 End stage renal disease; I25.10 Atherosclerotic heart disease of native coronary artery without angina pectoris; R74.8 Abnormal levels of other serum enzymes; E46 Unspecified protein-calorie malnutrition; R11.2 Nausea with vomiting, unspecified; Z99.2 Dependence on renal dialysis; Z86.711 Personal history of pulmonary embolism; Z86.718 Personal history of other venous thrombosis and embolism
CPT/HCPCS: 36415; 71045; 71275; 78452; 80053; 80061; 80074; 82140; 82550; 83735; 83880; 84484; 85025; 85379; 85610; 93005; 93010; 93017; 93306; 96374; 99284; A9270; A9502; G0378; J2785; J7030; Q9967

== ENCOUNTER 2019-05-18 06:33 | Inpatient (IN) | payer MEDICARE ==
--- NOTE | 2019-05-18 06:56 | Emergency Department Report ---
ED General Adult HPI - General Chief complaint: Abdominal Pain Stated complaint: WEAKNESS Time Seen by Provider: 05/18/19 06:42 Source: patient Mode of arrival: Stretcher Limitations: No Limitations - History of Present Illness Initial comments: This is an 88-year-old female who lives with her daughter and arrived here via EMS. She complains of generalized weakness. She states that she has not moved her bowels for 2 days and has mid abdominal discomfort. She is not suffering with abdominal pain at the time of my encounter; the pain is resolved. The discomfort is vague anterior and nonradiating. She does not complain of fever or chills. She denies nausea or vomiting. Patient is anuric hemodialysis patient, last dialyzed on Thursday. She is a good historian for age. She states that a tubal ligation, and appendectomy. She states that she is compliant with her blood pressure medicine and anticoagulant but did not take them this morning yet. Her previous admission in March 2019 was for chest pain: 88-year-old woman who presents with chest pain. Previous cardiac work-up Lexiscan MPI stress test done 10/2017 was negative. Echo done 10/2017 showed EF 65-70%, septal wall hypertrophy, LA mild to mod dilated, mod pulm HTN with RVSP 57mmHg. LHC done 03/2016 showed nonobstructive CAD, 25% mid left circ stenosis, EF >65%. 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 Preventative health counseling performed for 17 minutes Moderate pulmonary hypertension; meds optimized per milk condenser, op fup ESRD; HD per renal Hep C positive, OP fup Hypertensive urgency; optimized BP meds AOCD, cont epo, stable Moderate malnutrition; received clinical nurse specialist consult History of DVT and PE; continued anticoagulation Disposition: TO HOME OR SELFCARE Time spent for discharge: 33 mins -: Gradual Location: abdomen Radiation: non-radiation Severity scale (0 -10): 5 Quality: aching Consistency: now resolved Improves with: none Worsens with: none Associated Symptoms: denies other symptoms, other (Constipation) Treatments Prior to Arrival: none - Related Data Home Medications Medication Instructions Recorded Confirmed Last Taken Simvastatin [Zocor TAB] 40 mg PO HS 09/04/17 04/18/19 04/17/19 Pantoprazole [Protonix TAB] 40 mg PO QDAY 11/09/17 04/18/19 04/17/19 megestroL [Megestrol] 20 mg PO QID 11/09/17 04/18/19 04/17/19 amLODIPine 5 mg PO DAILY 11/29/17 04/18/19 04/17/19 Previous Rx's Medication Instructions Recorded Last Taken Type hydrALAZINE [Apresoline TAB] 100 mg PO TID #90 tab 03/12/17 04/17/19 Rx Apixaban [Eliquis] 2.5 mg PO Q12H #30 12/03/17 04/17/19 Rx Cyclobenzaprine HCl [Flexeril 5 MG 5 mg PO TID #10 tab 01/23/19 04/17/19 Rx TAB] ISOSORBIDE MONOnitrate [Imdur ER] 30 mg PO QDAY #90 tablet 04/19/19 Unknown Rx Allergies Allergy/AdvReac Type Severity Reaction Status Date / Time cefazolin sodium [From Ancef] Allergy Unknown Verified 08/27/18 16:32 enalapril maleate Allergy Angioedema Verified 08/27/18 16:32 [From Vasotec] enalaprilat dihydrate Allergy Angioedema Verified 08/27/18 16:32 [From Vasotec] gabapentin [From Neurontin] Allergy Swelling Verified 05/18/19 06:42 hydralazine [From Apresoline] Allergy Swelling Verified 05/18/19 06:42 pseudoephedrine HCl Allergy Swelling Verified 08/27/18 16:32 [From Sudafed] Sulfa (Sulfonamide Allergy Hives Verified 08/27/18 16:32 Antibiotics) ED Review of Systems ROS: Stated complaint: WEAKNESS Other details as noted in HPI Constitutional: denies: chills, fever Eyes: denies: eye pain, eye discharge, vision change ENT: denies: ear pain, throat pain Respiratory: denies: cough, shortness of breath, wheezing Cardiovascular: denies: chest pain, palpitations Endocrine: no symptoms reported Gastrointestinal: abdominal pain, constipation. denies: nausea, diarrhea Genitourinary: as per HPI (Does not urinate) Musculoskeletal: denies: back pain, arthralgia Skin: denies: rash, lesions Neurological: denies: headache, weakness Psychiatric: denies: anxiety, depression Hematological/Lymphatic: as per HPI (On oral anticoagulant) ED Past Medical Hx - Past Medical History Previous Medical History?: Yes Hx Hypertension: Yes Hx Heart Attack/AMI: Yes (coronary artery disease) Hx Congestive Heart Failure: Yes Hx Pulmonary Embolism: Yes (x 2 takes Eliquis) Hx Renal Disease: Yes (dialysis MWF) Hx Arthritis: Yes Hx HIV: No - Surgical History Past Surgical History?: Yes Hx Cholecystectomy: Yes Hx Appendectomy: Yes Additional Surgical History: Hysterectomy, tubal ligation, fistula in right arm, "surgery to place a plate in neck" - Social History Smoking Status: Never Smoker Substance Use Type: None - Medications Home Medications: Home Medications Medication Instructions Recorded Confirmed Last Taken Type hydrALAZINE [Apresoline TAB] 100 mg PO TID #90 tab 03/12/17 04/18/19 04/17/19 Rx Simvastatin [Zocor TAB] 40 mg PO HS 09/04/17 04/18/19 04/17/19 History Pantoprazole [Protonix TAB] 40 mg PO QDAY 11/09/17 04/18/19 04/17/19 History megestroL [Megestrol] 20 mg PO QID 11/09/17 04/18/19 04/17/19 History amLODIPine 5 mg PO DAILY 11/29/17 04/18/19 04/17/19 History Apixaban [Eliquis] 2.5 mg PO Q12H #30 12/03/17 04/18/19 04/17/19 Rx Cyclobenzaprine HCl [Flexeril 5 MG 5 mg PO TID #10 tab 01/23/19 04/18/19 04/17/19 Rx TAB] ISOSORBIDE MONOnitrate [Imdur ER] 30 mg PO QDAY #90 tablet 04/19/19 Unknown Rx ED Physical Exam - General Limitations: No Limitations General appearance: alert, in no apparent distress - Head Head exam: Present: atraumatic, normocephalic - Eye Eye exam: Present: normal appearance. Absent: scleral icterus - ENT ENT exam: Present: mucous membranes moist - Neck Neck exam: Present: normal inspection - Respiratory Respiratory exam: Present: normal lung sounds bilaterally. Absent: respiratory distress - Cardiovascular Cardiovascular Exam: Present: regular rate, normal rhythm. Absent: systolic murmur, diastolic murmur, rubs, gallop - GI/Abdominal GI/Abdominal exam: Present: soft, normal bowel sounds. Absent: distended, tenderness, guarding, rebound, rigid, organomegaly, mass, bruit, pulsatile mass, hernia - Rectal Rectal exam: Present: deferred - Extremities Exam Extremities exam: Present: normal inspection - Back Exam Back exam: Present: normal inspection, other (Kyphotic). Absent: CVA tenderness (R), CVA tenderness (L) - Neurological Exam Neurological exam: Present: alert, oriented X3, CN II-XII intact. Absent: motor sensory deficit - Psychiatric Psychiatric exam: Present: normal affect, normal mood - Skin Skin exam: Present: warm, dry, intact, normal color. Absent: rash ED Course Vital Signs 05/18/19 05/18/19 05/18/19 06:44 06:45 07:15 Temperature 97.6 F Pulse Rate 64 76 Respiratory 18 14 Rate Blood Pressure 184/53 Blood Pressure 190/61 [Left] O2 Sat by Pulse 96 95 96 Oximetry 05/18/19 05/18/19 05/18/19 08:01 08:03 09:06 Temperature 97.6 F Pulse Rate 68 67 62 Respiratory 13 13 13 Rate Blood Pressure 184/42 Blood Pressure 186/56 186/45 [Left] O2 Sat by Pulse 97 98 98 Oximetry - Reevaluation(s) Reevaluation #1: Patient has no signs of an intra-abdominal emergency. Her exam was benign. She is found to have being congestive heart failure with poorly controlled hypertension. Today is her dialysis day. She is 88 years old. She will be put in the hospital for dialysis and further medical stabilization on the hospitalist service. Discussed with Dr. Guerrier. 05/18/19 10:34 ED Medical Decision Making - Lab Data Result diagrams: 05/18/19 06:50 05/18/19 06:50 Laboratory Results - last 24 hr 05/18/19 05/18/19 05/18/19 06:50 06:50 06:50 WBC 4.9 RBC 4.06 Hgb 10.4 Hct 32.7 MCV 80 MCH 26 L MCHC 32 RDW 18.7 H Lymph % (Auto) 19.7 [place] % (Auto) 11.5 H Eos % (Auto) 7.3 H Baso % (Auto) 1.0 Lymph # 1.0 L [place] # 0.6 Eos # 0.4 Baso # 0.1 Seg Neutrophils % 60.5 Seg Neutrophils # 3.0 PT 15.6 H INR 1.22 H APTT 30.3 Sodium 142 Chloride 96.2 L Carbon Dioxide 26 BUN 41 H Creatinine 7.3 H Estimated GFR 6 BUN/Creatinine Ratio 6 Glucose 83 Lactic Acid Calcium 8.9 Magnesium 2.10 Total Bilirubin 0.40 Alkaline Phosphatase 141 H Troponin T 0.032 H NT-Pro-B Natriuret Pep 91033 H Total Protein 6.5 Albumin 3.6 L Albumin/Globulin Ratio 1.2 Lipase 05/18/19 05/18/19 06:50 06:50 WBC RBC Hgb Hct MCV MCH MCHC RDW Lymph % (Auto) [place] % (Auto) Eos % (Auto) Baso % (Auto) Lymph # [place] # Eos # Baso # Seg Neutrophils % Seg Neutrophils # PT INR APTT Sodium Chloride Carbon Dioxide BUN Creatinine Estimated GFR BUN/Creatinine Ratio Glucose Lactic Acid 1.70 Calcium Magnesium Total Bilirubin Alkaline Phosphatase Troponin T NT-Pro-B Natriuret Pep Total Protein Albumin Albumin/Globulin Ratio Lipase 42 - EKG Data -: EKG Interpreted by Ga EKG shows normal: sinus rhythm Rate: normal - EKG Data Interpretation: nonspecific ST-T wave maxim, other (Right bundle branch block) - Radiology Data Radiology results: report reviewed (Chest x-ray mild pulmonary edema, abdominal film no acute process), image reviewed Critical care attestation.: If time is entered above; I have spent that time in minutes in the direct care of this critically ill patient, excluding procedure time. ED Disposition Clinical Impression: End-stage renal disease needing dialysis, Poorly-controlled hypertension, Abdominal pain Acute on chronic congestive heart failure Qualifiers: Heart failure type: unspecified Qualified Code(s): I50.9 - Heart failure, unspecified Disposition: OP ADMIT IP TO THIS HOSP Is pt being admited?: Yes Does the pt Need Aspirin: Yes Condition: Stable Instructions: Abdominal Pain (ED) Time of Disposition: 10:35
[2019-05-18 07:31] LABS: Basophils # (Auto) 0.1 K/mm3 (0.0-0.1); Eosinophils # (Auto) 0.4 K/mm3 (0.0-0.4); Eosinophils % (Auto) 7.3 % (0.0-4.3); Hematocrit 32.7 % (30.3-42.9); Hemoglobin 10.4 gm/dl (10.1-14.3); Lymphocytes % (Auto) 19.7 % (13.4-35.0); Mean Corpuscular HGB Conc 32 % (30-34); Mean Corpuscular Volume 80 fl (79-97); Monocytes # (Auto) 0.6 K/mm3 (0.0-0.8); Monocytes % (Auto) 11.5 % (0.0-7.3); Red Blood Count 4.06 M/mm3 (3.65-5.03); Red Cell Distribution Width 18.7 % (13.2-15.2)
[2019-05-18 07:44] LABS: INR 1.22 (0.87-1.13); Partial Thromboplastin Time 30.3 Sec. (24.2-36.6)
--- NOTE | 2019-05-18 07:50 | XRay Report ---
ABDOMEN 1 VIEW(S) INDICATION / CLINICAL INFORMATION: abd pain. COMPARISON: None available. FINDINGS: TUBES / LINES: None. BOWEL GAS PATTERN/EXTRALUMINAL GAS: No significant abnormality. No pneumatosis or secondary signs of free air. ADDITIONAL FINDINGS: No significant additional findings. IMPRESSION: 1. No acute abnormality. Signer Name: Dixon Liang MD Signed: 05/18/2019 7:46 AM Workstation Name: [id number]
--- NOTE | 2019-05-18 07:51 | XRay Report ---
CHEST 1 VIEW INDICATION / CLINICAL INFORMATION: hypertension. COMPARISON: 04/18/2019 FINDINGS: SUPPORT DEVICES: None. HEART / MEDIASTINUM: Unchanged LUNGS / PLEURA: There is venous congestion and mild perihilar edema.. No pneumothorax. ADDITIONAL FINDINGS: No significant additional findings. IMPRESSION: 1. There is mild pulmonary edema and venous congestion. Signer Name: Dixon Liang MD Signed: 05/18/2019 7:47 AM Workstation Name: [id number]
[2019-05-18 07:56] LABS: Hemolysis Index 145
[2019-05-18 08:01] LABS: Alanine Aminotransferase TNR units/L (7-56); Bilirubin,Direct TNR mg/dL (0-0.2); Creatine Kinase MB TNR ng/mL (0.0-4.0)
[2019-05-18 08:02] LABS: Chol/HDL Ratio TNR %; HDL Cholesterol TNR mg/dL (40-59); LDL Cholesterol,Direct TNR mg/dL (50-130)
[2019-05-18 08:03] LABS: Blood Urea Nitrogen TNR mg/dL (7-17)
[2019-05-18 08:04] LABS: BUN/Creatinine Ratio TNR; Calcium TNR mg/dL (8.4-10.2)
[2019-05-18 08:05] LABS: Albumin TNR g/dL (3.9-5)
[2019-05-18 08:25] LABS: Albumin 3.7 g/dL (3.9-5); BUN/Creatinine Ratio 5; Blood Urea Nitrogen 40 mg/dL (7-17); Creatine Kinase MB 1.3 ng/mL (0.0-4.0); Hemolysis Index 34
[2019-05-18 08:28] LABS: Alanine Aminotransferase < 5 units/L (7-56); Bilirubin,Direct < 0.2 mg/dL (0-0.2)
[2019-05-18 08:43] LABS: LDL Cholesterol,Direct 147 mg/dL (50-130); Platelet Count 142 K/mm3 (140-440)
[2019-05-18 08:44] LABS: HDL Cholesterol 46 mg/dL (40-59)
[2019-05-18] MEDS ORDERED: ASPIRIN 81 MG TAB CHEW PO ONE (10:36)
[2019-05-18] MEDS ORDERED: EPOETIN ALFA 10,000 UNIT/1 ML INJ IV PRN (10:39)
[2019-05-18] MEDS ORDERED: HEPARIN 10,000 UNITS/10 ML VIAL IV PRN (10:39)
[2019-05-18] MEDS ORDERED: SODIUM CHLORIDE 0.9% 100 ML IV PRN (10:39)
[2019-05-18] MEDS ORDERED: hydrALAZINE 20 MG/1 ML INJ IV PRN (12:26)
--- NOTE | 2019-05-18 12:26 | History and Physical Report ---
History of Present Illness Date of admission: 05/18/19 10:36 Chief complaint: abdominal pain History of present illness: 88-year-old woman who presents to the hospital with multiple complaints which include abdominal pain, constipation. Vague complaints also include quadriparesis. States that she is has weakness in all her extremities, unable to walk. She has noon cervical spinal stenosis, she was following with a surgeon. She made 1 appointments with that surgeon, and gave them her MRI disks. They reviewed the MRI and said that it was a lot of motion artifact, given her advanced age and comorbidities and severity of disease, she was referred to [place] [facility]. She missed her appointments and is scheduled for an appointment on June 06. She is yet to be seen by a spine surgeon at [place], she has had neck pain on and off numbness in her extremities on and off, but at this point she is complaining that she has weakness in all extremities and is unable to walk. When she was seen at Dr. Louie castillo who was the neurosurgeon who saw her, she was given the walker and recommended to have physical therapy and follow-up at [place]. Past Medical History: Nonobstructive CAD, dialysis, ESRD, hypertension, hyperlipidemia, hx of PE Past Surgical History: cholecystectomy, Other (AVF creation. ) Social history: lives with family, other (patient chews tobacco daily, she denies alcohol or illicit drug use) Family history: hypertension, other (brother had ESRD secondary to HTN ) Medications and Allergies Allergies Allergy/AdvReac Type Severity Reaction Status Date / Time cefazolin sodium [From Ancef] Allergy Unknown Verified 08/27/18 16:32 enalapril maleate Allergy Angioedema Verified 08/27/18 16:32 [From Vasotec] enalaprilat dihydrate Allergy Angioedema Verified 08/27/18 16:32 [From Vasotec] gabapentin [From Neurontin] Allergy Swelling Verified 05/18/19 06:42 hydralazine [From Apresoline] Allergy Swelling Verified 05/18/19 06:42 pseudoephedrine HCl Allergy Swelling Verified 08/27/18 16:32 [From Sudafed] Sulfa (Sulfonamide Allergy Hives Verified 08/27/18 16:32 Antibiotics) Home Medications Medication Instructions Recorded Confirmed Last Taken Type hydrALAZINE [Apresoline TAB] 100 mg PO TID #90 tab 03/12/17 05/18/19 04/17/19 Rx Simvastatin [Zocor TAB] 40 mg PO HS 09/04/17 05/18/19 04/17/19 History Pantoprazole [Protonix TAB] 40 mg PO QDAY 11/09/17 05/18/19 04/17/19 History megestroL [Megestrol] 40 mg PO QID 11/09/17 05/18/19 04/17/19 History Apixaban [Eliquis] 2.5 mg PO Q12H #30 12/03/17 05/18/19 05/17/19 06:00 Rx Cyclobenzaprine HCl [Flexeril 5 MG 5 mg PO TID #10 tab 01/23/19 05/18/19 04/17/19 Rx TAB] ISOSORBIDE MONOnitrate [Imdur ER] 30 mg PO QDAY #90 tablet 04/19/19 05/18/19 05/17/19 06:00 Rx Apixaban [Eliquis] 2.5 mg PO DAILY 05/18/19 05/18/19 05/17/19 21:00 History Cinacalcet [Sensipar] 30 mg PO QDAY 05/18/19 05/18/19 05/17/19 06:00 History Gabapentin [Neurontin] 100 mg PO HS 05/18/19 05/18/19 05/17/19 21:00 History Active Meds: Active Medications Amlodipine Besylate (Amlodipine) 5 mg PO DAILY [facility] Apixaban (Eliquis) 2.5 mg PO Q12H [facility]; Protocol Epoetin Checo (Procrit) 10,000 unit IV ELDA PRN PRN Reason: hemodialysis Heparin Sodium (Porcine) (Heparin 10,000 Units/10 Ml) 1,000 unit IV ELDA PRN PRN Reason: hemodialysis Hydralazine HCl (Apresoline) 100 mg PO TID [facility] Hydralazine HCl (Apresoline) 10 mg IV Q4HR PRN PRN Reason: BP >160/100 Sodium Chloride (Nacl 0.9%) 100 mls @ 999 mls/hr IV ELDA PRN PRN Reason: Hypotension Isosorbide Mononitrate (Imdur) 30 mg PO QDAY [facility] Megestrol Acetate (Megestrol) 20 mg PO QID JONO Miscellaneous Medication (Cyclobenzaprine Hcl [Flexeril 5 Mg Tab]) 5 mg PO TID JONO Miscellaneous Medication (Simvastatin) 40 mg PO HS JONO Pantoprazole Sodium (Protonix) 40 mg PO QDAY JONO Review of Systems All systems: negative (as stated in HPI) Exam - Constitutional Vitals: Temp Pulse Resp BP Pulse Ox 97.6 F 64 12 168/43 99 05/18/19 11:14 05/18/19 11:14 05/18/19 11:14 05/18/19 11:14 05/18/19 11:01 General appearance: Present: no acute distress, well-nourished - EENT Eyes: Present: PERRL ENT: hearing intact, clear oral mucosa - Neck Neck: Present: supple, normal ROM - Respiratory Respiratory effort: normal Respiratory: bilateral: CTA - Cardiovascular Heart Sounds: Present: S1 & S2. Absent: rub, click - Extremities Extremities: pulses symmetrical, No edema Peripheral Pulses: within normal limits - Abdominal General gastrointestinal: Present: soft, non-tender, non-distended, normal bowel sounds Female genitourinary: Present: normal - Integumentary Integumentary: Present: clear, warm, dry - Musculoskeletal Musculoskeletal: other (Left lower extremity weakness, weakness in hands bilaterally, unable to walk) - Psychiatric Psychiatric: appropriate mood/affect, intact judgment & insight - Neurologic Neurologic: CNII-XII intact, moves all extremities (Weakness in all extremities) GAEL score - Gael Score Age > 65: (1) Yes Aspirin use within the Past 7 Days: (0) No 3 or more CAD Risk Factors: (1) Yes 2 or more Angina events in past 24 hrs: (0) No Known CAD with more than 50% Stenosis: (0) No Elevated Cardiac Markers: (1) Yes ST Deviation Greater than 0.5mm: (0) No GAEL Score: 3 Results - Labs CBC & Chem 7: 05/18/19 06:50 05/18/19 06:50 Labs: Laboratory Last Values WBC 4.9 K/mm3 (4.5-11.0) 05/18/19 06:50 RBC 4.06 M/mm3 (3.65-5.03) 05/18/19 06:50 Hgb 10.4 gm/dl (10.1-14.3) 05/18/19 06:50 Hct 32.7 % (30.3-42.9) 05/18/19 06:50 MCV 80 fl (79-97) 05/18/19 06:50 MCH 26 pg (28-32) L 05/18/19 06:50 MCHC 32 % (30-34) 05/18/19 06:50 RDW 18.7 % (13.2-15.2) H 05/18/19 06:50 Plt Count 142 K/mm3 (140-440) 05/18/19 06:50 Lymph % (Auto) 19.7 % (13.4-35.0) 05/18/19 06:50 [place] % (Auto) 11.5 % (0.0-7.3) H 05/18/19 06:50 Eos % (Auto) 7.3 % (0.0-4.3) H 05/18/19 06:50 Baso % (Auto) 1.0 % (0.0-1.8) 05/18/19 06:50 Lymph # 1.0 K/mm3 (1.2-5.4) L 05/18/19 06:50 [place] # 0.6 K/mm3 (0.0-0.8) 05/18/19 06:50 Eos # 0.4 K/mm3 (0.0-0.4) 05/18/19 06:50 Baso # 0.1 K/mm3 (0.0-0.1) 05/18/19 06:50 Seg Neutrophils % 60.5 % (40.0-70.0) 05/18/19 06:50 Seg Neutrophils # 3.0 K/mm3 (1.8-7.7) 05/18/19 06:50 PT 15.6 Sec. (12.2-14.9) H 05/18/19 06:50 INR 1.22 (0.87-1.13) H 05/18/19 06:50 APTT 30.3 Sec. (24.2-36.6) 05/18/19 06:50 Sodium 143 mmol/L (137-145) 05/18/19 06:50 Sodium TNR 05/18/19 06:50 Potassium 4.0 mmol/L (3.6-5.0) 05/18/19 06:50 Potassium TNR 05/18/19 06:50 Chloride 97.2 mmol/L (98-107) L 05/18/19 06:50 Chloride TNR 05/18/19 06:50 Carbon Dioxide 24 mmol/L (22-30) 05/18/19 06:50 Carbon Dioxide TNR 05/18/19 06:50 Anion Gap 26 mmol/L 05/18/19 06:50 Anion Gap TNR 05/18/19 06:50 BUN 40 mg/dL (7-17) H 05/18/19 06:50 BUN TNR 05/18/19 06:50 Creatinine 7.4 mg/dL (0.7-1.2) H 05/18/19 06:50 Creatinine TNR 05/18/19 06:50 Estimated GFR 6 ml/min 05/18/19 06:50 Estimated GFR TNR 05/18/19 06:50 BUN/Creatinine Ratio 5 % 05/18/19 06:50 BUN/Creatinine Ratio TNR 05/18/19 06:50 Glucose 82 mg/dL (65-100) 05/18/19 06:50 Glucose TNR 05/18/19 06:50 Lactic Acid 1.70 mmol/L (0.7-2.0) 05/18/19 06:50 Calcium 9.0 mg/dL (8.4-10.2) 05/18/19 06:50 Calcium TNR 05/18/19 06:50 Magnesium 2.10 mg/dL (1.7-2.3) 05/18/19 06:50 Magnesium TNR 05/18/19 06:50 Total Bilirubin 0.40 mg/dL (0.1-1.2) 05/18/19 06:50 Total Bilirubin TNR 05/18/19 06:50 Direct Bilirubin < 0.2 mg/dL (0-0.2) 05/18/19 06:50 Direct Bilirubin TNR 05/18/19 06:50 Indirect Bilirubin TNR 05/18/19 06:50 AST 17 units/L (5-40) 05/18/19 06:50 AST TNR 05/18/19 06:50 ALT < 5 units/L (7-56) L 05/18/19 06:50 ALT TNR 05/18/19 06:50 Alkaline Phosphatase 146 units/L (35-129) H 05/18/19 06:50 Alkaline Phosphatase TNR 05/18/19 06:50 Total Creatine Kinase 87 units/L (30-135) 05/18/19 06:50 Total Creatine Kinase TNR 05/18/19 06:50 CK-MB (CK-2) 1.3 ng/mL (0.0-4.0) 05/18/19 06:50 CK-MB (CK-2) TNR 05/18/19 06:50 CK-MB (CK-2) Rel Index 1.4 (0-4) 05/18/19 06:50 CK-MB (CK-2) Rel Index TNR 05/18/19 06:50 Troponin T 0.036 ng/mL (0.00-0.029) H 05/18/19 06:50 Troponin T TNR 05/18/19 06:50 NT-Pro-B Natriuret Pep 80668 pg/mL (0-900) H 05/18/19 06:50 NT-Pro-B Natriuret Pep TNR 05/18/19 06:50 Total Protein 6.5 g/dL (6.3-8.2) 05/18/19 06:50 Total Protein TNR 05/18/19 06:50 Albumin 3.7 g/dL (3.9-5) L 05/18/19 06:50 Albumin TNR 05/18/19 06:50 Albumin/Globulin Ratio 1.3 % 05/18/19 06:50 Albumin/Globulin Ratio TNR 05/18/19 06:50 Triglycerides 109 mg/dL (2-149) 05/18/19 06:50 Triglycerides TNR 05/18/19 06:50 Cholesterol 201 mg/dL (50-199) H 05/18/19 06:50 Cholesterol TNR 05/18/19 06:50 LDL Cholesterol Direct 147 mg/dL (50-130) H 05/18/19 06:50 LDL Cholesterol Direct TNR 05/18/19 06:50 HDL Cholesterol 46 mg/dL (40-59) 05/18/19 06:50 HDL Cholesterol TNR 05/18/19 06:50 Cholesterol/HDL Ratio TNR 05/18/19 06:50 Lipase 42 units/L (13-60) 05/18/19 06:50 Blood Type O POSITIVE 05/18/19 06:50 Antibody Screen Negative 05/18/19 06:50 Assessment and Plan Assessment and plan: 88-year-old woman complaining of generalized weakness.who presents she is complaining of constipation for 2 days and mild abdominal discomfort. Abdominal pain has resolved at this time. But she described as vague anterior and nonradiating. She denied fevers or chills nausea or vomiting. The patient is anuric hemodialysis patient, last dialysis on Thursday, she has not missed any dialysis sessions. -She is also complaining of quadriparesis. Patient has a known history of cervical spinal stenosis Previous cardiac work-up Lexiscan MPI stress test done 10/2017 was negative. Echo done 10/2017 showed EF 65-70%, septal wall hypertrophy, LA mild to mod dilated, mod pulm HTN with RVSP 57mmHg. LHC done 03/2016 showed nonobstructive CAD, 25% mid left circ stenosis, EF >65%. Vitals reviewed blood pressure elevated 186/45, pulse of 64, temperature 97.6. Respiratory rate of 12. Chest x-ray; mild pulmonary edema and venous congestion Abdominal x-ray; no acute abnormality Labs reviewed, CBC unremarkable, chemistry shows elevated BNP of 50,000, albumin 3.7, LDL 201 acute Quadriparesis; has known hx of cervical spinal stenosis start steroids, stat MR spine and ct spine called her neurosurgeon office, Dr Palma's office, at , awaiting a call back Abdominal pain; now resolved, no further work-up indicated. Abdominal x-ray negative. Hypertensive urgency Should improve after dialysis, BP medications to be optimized. Acute on chronic diastolic heart failure/ With pulmonary edema, Should improve with dialysis, patient is anuric. Constipation; stool softeners Preventative health counseling performed for 17 minutes Moderate pulmonary hypertension; meds optimized per radio announcer, op fup ESRD; HD per renal Hep C positive, OP fup AOCD, cont epo, stable Moderate malnutrition; received sweat box attendant consult History of DVT and PE; continued anticoagulation
[2019-05-18] MEDS ORDERED: SENNOSIDES/DOCUSATE SODIUM 8.6/50 MG TAB PO PRN (12:37)
[2019-05-18] MEDS ORDERED: amLODIPine 10 MG TAB PO SCH (13:00)
--- NOTE | 2019-05-18 13:34 | Consultation ---
History of Present Illness - Reason for Consult Consult date: 05/18/19 end stage renal disease Requesting physician: ALLISON FREDERICK - History of Present Illness 88-year-old lady who is well-known to me with history of hypertension, nonobstructive coronary artery disease and end-stage renal disease on hemodialysis since about the year 1999. She dialyzes on a Thursday, Thursday and Thursday schedule at [facility] dialysis clinic. Patient has degenerative disease of the spine and recently saw neurosurgeon. Records of that visit are not available for me to review at this time. Patient is very upset that she is still having neck pain and her hands and feet have no feeling. She says she was told by the neurosurgeon that she will need surgery but there was no plans made for this. She complains of weakness of both her legs and she is no longer able to walk. She gets around with a wheelchair now. She also has weakness in both upper extremities with left worse than right. She also complains of abdominal discomfort and constipation. 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 She called my office a few days ago requesting for recommendation regarding assisted placement as family has not been able to take care of her. I had recommended [facility] assisted but she said her daughter walked and did not feel the nurses took good care of the patient. She would prefer to go to [facility] where her brother stayed about 10 years ago and at that time she was happy with the care. I have asked her to tell her daughter to go visited now as it may not be the same as it was 10 years ago patient is very upset that she appears to be due to deteriorating. She was meant to dialyze today. She has pulmonary edema on chest x-ray. Past History Past Medical History: CAD, ESRD, hypertension Past Surgical History: cholecystectomy, hysterectomy Social history: lives with family. denies: smoking, alcohol abuse, prescription drug abuse, IV drug use Family history: diabetes, hypertension, stroke, other (Father had a stroke several vascular accident and . Mother during childbirth of heart disease. Brother had hypertension, diabetes mellitus and end-stage renal disease before he . He was her twin) Medications and Allergies Allergies Allergy/AdvReac Type Severity Reaction Status Date / Time cefazolin sodium [From [facility]] Allergy Unknown Verified 08/27/18 16:32 enalapril maleate Allergy Angioedema Verified 08/27/18 16:32 [From Vasotec] enalaprilat dihydrate Allergy Angioedema Verified 08/27/18 16:32 [From Vasotec] gabapentin [From Neurontin] Allergy Swelling Verified 05/18/19 06:42 hydralazine [From Apresoline] Allergy Swelling Verified 05/18/19 06:42 pseudoephedrine HCl Allergy Swelling Verified 08/27/18 16:32 [From Sudafed] Sulfa (Sulfonamide Allergy Hives Verified 08/27/18 16:32 Antibiotics) Home Medications Medication Instructions Recorded Confirmed Last Taken Type hydrALAZINE [Apresoline TAB] 100 mg PO TID #90 tab 03/12/17 04/18/19 04/17/19 Rx Simvastatin [Zocor TAB] 40 mg PO HS 09/04/17 04/18/19 04/17/19 History Pantoprazole [Protonix TAB] 40 mg PO QDAY 11/09/17 04/18/19 04/17/19 History megestroL [Megestrol] 20 mg PO QID 11/09/17 04/18/19 04/17/19 History amLODIPine 5 mg PO DAILY 11/29/17 04/18/19 04/17/19 History Apixaban [Eliquis] 2.5 mg PO Q12H #30 12/03/17 04/18/19 04/17/19 Rx Cyclobenzaprine HCl [Flexeril 5 MG 5 mg PO TID #10 tab 01/23/19 04/18/19 04/17/19 Rx TAB] ISOSORBIDE MONOnitrate [Imdur ER] 30 mg PO QDAY #90 tablet 04/19/19 Unknown Rx Active Meds: Active Medications Apixaban (Eliquis) 2.5 mg PO Q12H JONO; Protocol Epoetin Checo (Procrit) 10,000 unit IV ELDA PRN PRN Reason: hemodialysis Heparin Sodium (Porcine) (Heparin 10,000 Units/10 Ml) 1,000 unit IV ELDA PRN PRN Reason: hemodialysis Hydralazine HCl (Apresoline) 100 mg PO TID JONO Hydralazine HCl (Apresoline) 10 mg IV Q4HR PRN PRN Reason: BP >160/100 Sodium Chloride (Nacl 0.9%) 100 mls @ 999 mls/hr IV ELDA PRN PRN Reason: Hypotension Isosorbide Mononitrate (Imdur) 30 mg PO QDAY [facility] Megestrol Acetate (Megestrol) 20 mg PO QID [facility] Miscellaneous Medication (Cyclobenzaprine Hcl [Flexeril 5 Mg Tab]) 5 mg PO TID [facility] Miscellaneous Medication (Simvastatin) 40 mg PO HS JONO Nifedipine (Procardia Xl) 60 mg PO QDAY JONO Pantoprazole Sodium (Protonix) 40 mg PO QDAY [facility] Polyethylene Glycol (Miralax 3350) 17 gm PO QDAY JONO Senna/Docusate Sodium (Senokot S) 2 tab PO Q12H PRN PRN Reason: Laxative Effect Review of Systems All systems: negative (Constitutional: no fever or chills. No anorexia or weight loss. HEENT: No sore throat or sinus drainage no hearing or vision impairment . Cardiovascular: No chest pain, shortness of breath, admits to palpitations, lower extremity swelling or dizziness. Respiratory: No cough, sputum, shortness of breath, hemoptysis or wheezing. Gastrointestinal: Admits to nausea but no vomiting, admits to minimal abdominal discomfort and constipation., hematemesis or melena. Genitourinary: She does not make any urine. hematologic: No abnormal bleeding or bruising. Integumentary: no pruritus or rash. Neurolog ical: No headache no focal weakness or numbness, no syncope or seizures. Musculoskeletal: No joint pains no stiffness. Psychiatry: no anxiety or depression) Exam - Vital Signs Vital signs: Vital Signs Temp Pulse Resp BP Pulse Ox 97.6 F 64 18 190/61 96 05/18/19 06:44 05/18/19 06:44 05/18/19 06:44 05/18/19 06:44 05/18/19 06:44 - Physical Exam Narrative exam: Elderly -[place] female lying in bed in no acute distress HEENT: NCAT, arcus senilis, pink oral mucous membrane Neck: Supple, no venous distention CVS: S1S2 RRR with no murmur, rub or gallop Chest: Clear to auscultation though breath sounds to be diminished in lower zones Abdomen: Protuberant, soft, nontender, no organomegaly, bowel sounds are present Extremities: No edema Genitourinary deferred Skin warm and dry, hyperpigmentation in the legs Neuro: Awake, alert Muscle poweris 1/5 in both lower extremities and 3/5 in the left upper extremities and 4/5 in the right upper extremity Results - Lab Results 05/18/19 06:50 05/18/19 06:50 Most recent lab results Calcium 9.0 mg/dL (8.4-10.2) 05/18/19 06:50 Calcium TNR 05/18/19 06:50 Magnesium 2.10 mg/dL (1.7-2.3) 05/18/19 06:50 Magnesium TNR 05/18/19 06:50 Assessment and Plan - Patient Problems (1) Quadriparesis (muscle weakness) Current Visit: Yes Status: Acute Plan to address problem: I am concerned about cervical spinal stenosis. Get records from neurosurgeon Dr. Mckeon (2) End-stage renal disease needing dialysis Current Visit: Yes Status: Acute Plan to address problem: Hemodialysis on a Thursday, Thursday and Thursday schedule. We will dialyze today for fluid overload (3) Anemia in ESRD (end-stage renal disease) Current Visit: No Status: Chronic Plan to address problem: Give erythropoietin on dialysis. (4) Hypertensive chronic kidney disease with stage 5 chronic kidney disease or end stage renal disease Current Visit: No Status: Chronic Plan to address problem: Blood pressure is uncontrolled and this may be volume related. Resume antihypertensive medications. Follow-up blood pressure following fluid removal on dialysis. (5) Fluid overload Current Visit: Yes Status: Acute Plan to address problem: Hemodialysis today for fluid removal. (6) Constipation Current Visit: Yes Status: Acute Plan to address problem: Agree with treating with laxatives. Follow-up
[2019-05-18 13:35] LABS: Hepatitis B Surface Antigen Non-Reactive (Negative); Hepatitis C Virus Antibody Reactive (NonReactive)
--- NOTE | 2019-05-18 13:46 | Consultation ---
History of Present Illness Consult date: 05/18/19 Requesting physician: BRIANNA KULKARNI Consult reason: other (pulm HTN, DCHF) History of present illness: Pt is an 88 y.o. AA female with a past medical hx of ESRD on HD (M/W/F), CAD, pulm HTN, HTN, HLD, TR, and prior DVT/PE. She is followed in our office by Dr. RYAN Stokes. Pt presented with c/o of abdominal pain and constipation x 1 week. Pt also reports intermittent nausea without emesis. No acute findings on abd XR. Cardiology has been consulted for pulm HTN and ?diastolic HF. Upon exam, pt denies CP, SOB, cough, and edema. Trop elevated 0.036. ECG shows NSR w/RBBB. Echo done 04/18/2019 - EF 55-60%; mild TR; elevated LV end-diastolic pressure; RVSP 47 mmHg. Lexiscan stress MPI done 04/19/2019 - negative for ischemia. LHC done 04/18/2016 - mild non-obstructive CAD with 25% mid LCx stenosis; R dominant system; hyperdynamic LV function, EF > 65%; uncontrolled HTN. Past History Past Medical History: CAD, ESRD, hypertension, hyperlipidemia, pulmonary embolism (hx of DVT/PE), other (pulm HTN, tricuspid regurg, HCV) Past Surgical History: cholecystectomy, hysterectomy Social history: lives with family. denies: smoking, alcohol abuse, prescription drug abuse Family history: diabetes, hypertension, stroke, other (CKD) Medications and Allergies Allergies Allergy/AdvReac Type Severity Reaction Status Date / Time cefazolin sodium [From Ance[facility]] Allergy Unknown Verified 08/27/18 16:32 enalapril maleate Allergy Angioedema Verified 08/27/18 16:32 [From Vasotec] enalaprilat dihydrate Allergy Angioedema Verified 08/27/18 16:32 [From Vasotec] gabapentin [From Neurontin] Allergy Swelling Verified 05/18/19 06:42 hydralazine [From Apresoline] Allergy Swelling Verified 05/18/19 06:42 pseudoephedrine HCl Allergy Swelling Verified 08/27/18 16:32 [From Sudafed] Sulfa (Sulfonamide Allergy Hives Verified 08/27/18 16:32 Antibiotics) Home Medications Medication Instructions Recorded Confirmed Last Taken Type hydrALAZINE [Apresoline TAB] 100 mg PO TID #90 tab 03/12/17 04/18/19 04/17/19 Rx Simvastatin [Zocor TAB] 40 mg PO HS 09/04/17 04/18/19 04/17/19 History Pantoprazole [Protonix TAB] 40 mg PO QDAY 11/09/17 04/18/19 04/17/19 History megestroL [Megestrol] 20 mg PO QID 11/09/17 04/18/19 04/17/19 History amLODIPine 5 mg PO DAILY 11/29/17 04/18/19 04/17/19 History Apixaban [Eliquis] 2.5 mg PO Q12H #30 12/03/17 04/18/19 04/17/19 Rx Cyclobenzaprine HCl [Flexeril 5 MG 5 mg PO TID #10 tab 01/23/19 04/18/19 04/17/19 Rx TAB] ISOSORBIDE MONOnitrate [Imdur ER] 30 mg PO QDAY #90 tablet 04/19/19 Unknown Rx Active Meds: Active Medications Apixaban (Eliquis) 2.5 mg PO Q12HR JONO; Protocol Epoetin Checo (Procrit) 10,000 unit IV ELDA PRN PRN Reason: hemodialysis Heparin Sodium (Porcine) (Heparin 10,000 Units/10 Ml) 1,000 unit IV ELDA PRN PRN Reason: hemodialysis Hydralazine HCl (Apresoline) 100 mg PO TID JONO Hydralazine HCl (Apresoline) 10 mg IV Q4HR PRN PRN Reason: BP >160/100 Sodium Chloride (Nacl 0.9%) 100 mls @ 999 mls/hr IV ELDA PRN PRN Reason: Hypotension Isosorbide Mononitrate (Imdur) 30 mg PO QDAY JONO Megestrol Acetate (Megestrol) 20 mg PO QID [facility] Miscellaneous Medication (Cyclobenzaprine Hcl [Flexeril 5 Mg Tab]) 5 mg PO TID [facility] Miscellaneous Medication (Simvastatin) 40 mg PO HS JONO Nifedipine (Procardia Xl) 60 mg PO QDAY JONO Pantoprazole Sodium (Protonix) 40 mg PO QDAY [facility] Polyethylene Glycol (Miralax 3350) 17 gm PO QDAY JONO Senna/Docusate Sodium (Senokot S) 2 tab PO Q12H PRN PRN Reason: Laxative Effect Review of Systems Constitutional: no weight loss, no weight gain, no fever, no chills, no sweats Ears, nose, mouth and throat: no ear pain, no nose pain, no nasal congestion, no mouth pain, no dysphagia Cardiovascular: no chest pain, no orthopnea, no palpitations, no rapid/irregular heart beat, no edema, no syncope, no lightheadedness, no shortness of breath, no dyspnea on exertion Respiratory: no cough, no shortness of breath, no dyspnea on exertion Gastrointestinal: abdominal pain, nausea, constipation, no vomiting, no diarrhea Genitourinary Female: no flank pain, no dysuria Musculoskeletal: no muscle weakness, no muscle cramps Integumentary: no rash, no wounds Neurological: no head injury, no paralysis, no weakness, no parathesias, no numbness, no tingling, no seizures, no syncope, no tremors, no vertigo, no headaches Endocrine: no cold intolerance, no heat intolerance Hematologic/Lymphatic: no easy bruising, no easy bleeding Allergic/Immunologic: no urticaria Physical Examination Last Vital Signs Temp 97.6 F 05/18/19 11:14 Pulse 64 05/18/19 11:14 Resp 12 05/18/19 11:14 BP 168/43 05/18/19 11:14 Pulse Ox 99 05/18/19 11:01 General appearance: no acute distress HEENT: Positive: EOMI, Normocephaly, Mucus Membranes Moist Neck: Positive: neck supple, trachea midline. Negative: JVD/HJR Cardiac: Positive: Reg Rate and Rhythm, S1/S2 Lungs: Positive: clear to auscultation, No Wheeze, Rales, Rhonchi Neuro: Positive: Grossly Intact, Motor Function Intact, Coordination Normal, Sensory Function Intact Abdomen: Positive: Soft, Active Bowel Sounds, Tender Skin: Negative: Rash, Suspicious Lesions, Wound Musculoskeletal: No Pain Extremities: Present: upper extr. pulses, lower extr. pulses. Absent: edema Results 05/18/19 06:50 05/18/19 06:50 Cardiac Enzymes 05/18/19 05/18/19 Range/Units 06:50 06:50 AST TNR 17 CK-MB (CK-2) TNR 1.3 Coagulation 02/19/20 Range/Units 06:50 PT 15.6 H (12.2-14.9) Sec. INR 1.22 H (0.87-1.13) APTT 30.3 (24.2-36.6) Sec. Lipids 05/18/19 05/18/19 Range/Units 06:50 06:50 Triglycerides TNR 109 Cholesterol TNR 201 H HDL Cholesterol TNR 46 Cholesterol/HDL Ratio TNR CBC 05/18/19 Range/Units 06:50 WBC 4.9 (4.5-11.0) K/mm3 RBC 4.06 (3.65-5.03) M/mm3 Hgb 10.4 (10.1-14.3) gm/dl Hct 32.7 (30.3-42.9) % Plt Count 142 (140-440) K/mm3 Lymph # 1.0 L (1.2-5.4) K/mm3 [place] # 0.6 (0.0-0.8) K/mm3 Eos # 0.4 (0.0-0.4) K/mm3 Baso # 0.1 (0.0-0.1) K/mm3 Comprehensive Metabolic Panel 05/18/19 05/18/19 Range/Units 06:50 06:50 Sodium TNR 143 Potassium TNR 4.0 Chloride TNR 97.2 L Carbon Dioxide TNR 24 BUN TNR 40 H Creatinine TNR 7.4 H Glucose TNR 82 Calcium TNR 9.0 Direct Bilirubin TNR < 0.2 Indirect Bilirubin TNR AST TNR 17 ALT TNR < 5 L Alkaline Phosphatase TNR 146 H Total Protein TNR 6.5 Albumin TNR 3.7 L - Imaging and Cardiology Echo: report reviewed (04/18/2019 - EF 55-60%; mild TR; elevated LV end-diastolic pressure; RVSP 47 mmHg) Cardiac cath: report reviewed ([facility] 04/18/2016 - mild non-obstructive CAD with 25% mid LCx stenosis; R dominant system; hyperdynamic LV function, EF > 65%; uncontrolled HTN) EKG: report reviewed, image reviewed - EKG Interpretation EKG: no acute changes EKG interpretations - EKG Sinus rhythms and dysrhythmias: sinus rhythm AV and intraventricular conduction: right bundle branch block Assessment and Plan Currently stable cardiac status. No apparent acute cardiac issues. Previous ischemic eval 04/18 - negative. Echo 04/18 - EF 55-60%; mild TR; RVSP 47 mmHg. No plan for further cardiac workup at time. Resume home cardiac regimen. Will follow on as needed basis. Workup of abd pain/constipation per primary care team. The patient has been seen in conjunction with Dr. Griffith, who agrees with the assessment and plan of care. - Patient Problems (1) Abdominal pain Current Visit: Yes Status: Acute Qualifiers: Abdominal location: generalized Qualified Code(s): R10.84 - Generalized abdominal pain (2) Constipation Current Visit: Yes Status: Acute (3) End-stage renal disease needing dialysis Current Visit: Yes Status: Acute (4) Hypertensive urgency Current Visit: Yes Status: Acute (5) Nonobstructive atherosclerosis of coronary artery Current Visit: Yes Status: Chronic (6) Pulmonary HTN Current Visit: Yes Status: Chronic (7) Tricuspid regurgitation Current Visit: Yes Status: Chronic (8) Hypertension Current Visit: Yes Status: Chronic Qualifiers: Hypertension type: essential hypertension Qualified Code(s): I10 - Essential (primary) hypertension (9) Hyperlipidemia Current Visit: Yes Status: Chronic Qualifiers: Hyperlipidemia type: mixed hyperlipidemia Qualified Code(s): E78.2 - Mixed hyperlipidemia (10) Hx of deep venous thrombosis Current Visit: Yes Status: Chronic (11) Hx of pulmonary embolus Current Visit: Yes Status: Chronic
[2019-05-18] MEDS ORDERED: NON-FORMULARY EACH (Cyclobenzaprine Hcl [Flexeril 5 Mg Tab] 5 MG) PO SCH (14:00)
[2019-05-18] MEDS ORDERED: NIFEdipine XL 60 MG TAB PO SCH (15:00)
[2019-05-18] MEDS ORDERED: dexAMETHasone 20 MG/5 ML VIAL IV SCH (15:06)
[2019-05-18] MEDS ORDERED: LORazepam 2 MG/ML VIAL IV NR (15:30)
--- NOTE | 2019-05-18 16:59 | Cat Scan Report ---
CT CERVICAL SPINE: 05/18/2019 INDICATION / CLINICAL INFORMATION: quadriparesis, known hx of c spinal stenosis. COMPARISON: 04/14/2019 FINDINGS: CT images of the cervical spine were obtained. Images are evaluated in the axial, coronal, and sagitt al planes. Comparison is made to the recent prior exam from 04/14/2019. Overall, there is been no change. Again seen is evidence of the prior anterior fusion at the C4-C6 levels. Vertebral body screws and an terior fusion plate are present at the C4-C6 levels. Disc fusion material is present within the disc spaces at the C4-5 and C5-6 levels, with unchanged appearance. There is no evidence of acute osseous injury. There is no definite evidence of osseous canal or osseo us foraminal narrowing. LEVEL BY LEVEL ANALYSIS: . CRANIOCERVICAL JUNCTION: Unremarkable. PARASPINAL STRUCTURES: Unremarkable IMPRESSION: Postoperative and degenerative change. No significant change when compared to 04/14/[address] scans at this location are performed using dose reduction to ALARA by means of automated expos ure control. Signer Name: Willie Yeager MD Signed: 05/18/2019 4:55 PM Workstation Name: [facility] [id number]
--- NOTE | 2019-05-18 17:32 | Magnetic Resonance Report ---
MRI CERVICAL SPINE 05/18/2019 INDICATION / CLINICAL INFORMATION: quadriparesis, known hx of c spinal stenosis. COMPARISON: None available. FINDINGS: GENERAL OBSERVATIONS: Unenhanced MR images of the cervical spine were obtained. Postoperative and multilevel degenerative changes are present. There is been prior anterior fusion at the C4-C6 levels. [id number] ANALYSIS: C7-T1: No significant abnormality. C6-7: Mild diffuse disc bulging with central disc protrusion. No evidence of stenosis or nerve root c ompression. C5-6: Postoperative changes, with some residual mild canal narrowing, and no evidence of lateralizati on. C5-6: Postoperative change, with small central disc protrusion. Flattening of the ventral surface of the spinal cord is present. Patchy areas of increased T2-weighted signal are present within the spina l cord at this level, which may be an indication of prior compressive myelomalacia. C3-4: Prominent diffuse disc bulging and broad-based right-sided disc protrusion. Severe central tiesha l stenosis is present, associated with significant flattening of the spinal cord. Right lateral reces s and foraminal narrowing is also present at this level. C2-3: Mild diffuse disc bulging. CRANIO-CERVICAL JUNCTION: Unremarkable. BONE MARROW: No focal abnormality. PARASPINAL SOFT TISSUES: No significant abnormality. IMPRESSION: Status post anterior fusion at C4-C6. T2-weighted signal change within the cervical cord at the C4-5 fused level, as an indication of prior compressive myelomalacia. Severe stenosis at C3-4, with superimposed right lateralization. Signer Name: Willie Yeager MD Signed: 05/18/2019 5:28 PM Workstation Name: [id number]
--- NOTE | 2019-05-18 18:15 | Event Note ---
Spoke to the midlevel at Dr. blue's office. He states that the patient came to see them, they do not have any report of her MRI, she only gave them the disc which they reviees. They reviewed the disc and she has severe spinal stenosis in the cervical spine. There was a lot of motion artifact. They stated that it because the patient was elderly and had multiple comorbidities and given the extensive has cervical spinal stenosis, the referred her to [place]. She missed her appointment this month and had appointment rescheduled for June 07, 2019. The patient was given a walker in physical therapy and was told to follow-up at [facility]. At this point they cannot provide any care for the patient as they have already referred her to a higher level institution. Call the [facility] [facility] transfer center to see if they would accept for transfer, patient currently on Decadron, MRI report reviewed. Waiting to hear back from spine surgeon at [facility]. MR c spine; Status post anterior fusion at C4-C6. T2-weighted signal change within the cervical cord at the C4-5 fused level, as an indication of prior compressive myelomalacia. Severe stenosis at C3-4, with superimposed right lateralization.
[2019-05-18] MEDS: POLYETHYLENE GLYCOL 3350 17 GM POWDER PO SCH (19:10)
[2019-05-18] MEDS: CYCLOBENZAPRINE 10 MG TAB PO SCH (20:32)
[2019-05-18] MEDS: hydrALAZINE 100 MG TAB PO SCH (20:33)
[2019-05-18] MEDS ORDERED: NON-FORMULARY EACH (Simvastatin 40 MG) PO SCH (22:00)
[2019-05-18] MEDS: APIXABAN 2.5 MG TAB PO SCH ×2 (22:00→22:39)
[2019-05-18] MEDS: PRAVASTATIN 80 MG TAB PO SCH (22:32)
[2019-05-18] MEDS: METOPROLOL TARTRATE 50 MG TAB PO SCH (22:32)
[2019-05-18] MEDS: dexAMETHasone 4 MG/ML VIAL IV SCH (22:38)
[2019-05-18] MEDS: MEGESTROL 20 MG TAB PO SCH ×3 (22:39→22:41)
[2019-05-19] MEDS: dexAMETHasone 4 MG/ML VIAL IV SCH ×4 (02:09→17:46)
[2019-05-19] MEDS: CYCLOBENZAPRINE 10 MG TAB PO SCH ×3 (03:15→13:55)
[2019-05-19] MEDS: hydrALAZINE 100 MG TAB PO SCH ×4 (03:16→23:27)
[2019-05-19] MEDS: MEGESTROL 20 MG TAB PO SCH ×3 (09:19→17:46)
[2019-05-19] MEDS: APIXABAN 2.5 MG TAB PO SCH (09:19)
[2019-05-19] MEDS: POLYETHYLENE GLYCOL 3350 17 GM POWDER PO SCH (09:20)
[2019-05-19] MEDS: METOPROLOL TARTRATE 50 MG TAB PO SCH ×2 (09:54→23:28)
[2019-05-19] MEDS ORDERED: amLODIPine 10 MG TAB PO SCH (10:00)
[2019-05-19] MEDS ORDERED: PANTOPRAZOLE 40 MG TAB PO SCH (10:00)
--- NOTE | 2019-05-19 11:45 | Discharge Summary ---
Providers - Providers Date of Admission: 05/18/19 10:36 Attending physician: BRIANNA KULKARNI MD 05/18/19 12:36 Consult to Physician [CONS] Routine Comment: Consulting Provider: YARITZA BURRELL Physician Instructions: Reason For Exam: pulm htn, DCHF 05/18/19 12:37 Consult to Dietitian/Nutrition [CONS] Routine Physician Instructions: Reason For Exam: Reason for Consult: Malnutrition 05/18/19 13:23 Consult to Case Management [CONS] Routine Services Needed at Discharge: Physical Therapy Comment:: Arrange for placement at [facility] 05/18/19 13:24 Physical Therapy Evaluation and Treat [CONS] Routine Comment: Reason For Exam: Evaluate patient with LE weakness and gait abn Mode of Transport?: Wheelchair Weight bearing status?: Full wt bearing Primary care physician: OPTOMECHANICAL TECHNICIAN Hospitalization Condition: Stable Hospital course: 88-year-old woman complaining of generalized weakness.who presents she is complaining of constipation for 2 days and mild abdominal discomfort. Abdominal pain has resolved at this time. But she described as vague anterior and nonradiating. She denied fevers or chills nausea or vomiting. The patient is anuric hemodialysis patient, last dialysis on Thursday, she has not missed any dialysis sessions. -She is also complaining of quadriparesis. Patient has a known history of cervical spinal stenosis Previous cardiac work-up Lexiscan MPI stress test done 10/2017 was negative. Echo done 10/2017 showed EF 65-70%, septal wall hypertrophy, LA mild to mod dilated, mod pulm HTN with RVSP 57mmHg. LHC done 03/2016 showed nonobstructive CAD, 25% mid left circ stenosis, EF >65%. Vitals reviewed blood pressure elevated 186/45, pulse of 64, temperature 97.6. Respiratory rate of 12. Chest x-ray; mild pulmonary edema and venous congestion Abdominal x-ray; no acute abnormality Labs reviewed, CBC unremarkable, chemistry shows elevated BNP of 50,000, albumin 3.7, LDL 201 acute Quadriparesis; due to severe cervical spinal stenosis has known hx of cervical spinal stenosis start steroids, stat MR spine and ct spine Spoke to her neurosurgeon Dr. winters who stated that he had referred her to [place]. -As neurosurgery is not available at this hospital she was transferred to [place] for evaluation by neurosurgeon. Abdominal pain; now resolved, no further work-up indicated. Abdominal x-ray negative. Hypertensive urgency Should improve after dialysis, BP medications to be optimized. Acute on chronic diastolic heart failure/ With pulmonary edema, Improved with dialysis, patient is anuric. Constipation; stool softeners Preventative health counseling performed for 17 minutes Moderate pulmonary hypertension; meds optimized per performance improvement consultant, op fup ESRD; HD per renal Hep C positive, OP fup AOCD, cont epo, stable Moderate malnutrition; received automotive service management teacher consult History of DVT and PE; continued anticoagulation Disposition: DC/TX-02 SHRT-TRM GEN HOSP IP Time spent for discharge: 35 minutes Core Measure Documentation - Palliative Care Palliative Care/ Comfort Measures: Not Applicable - Core Measures Any of the following diagnoses?: none Exam - Constitutional Vitals: Temp Pulse Resp BP Pulse Ox 98.9 F 65 18 125/34 100 05/19/19 08:00 05/19/19 10:00 05/19/19 08:00 05/19/19 08:00 05/19/19 02:18 General appearance: Present: no acute distress, well-nourished - EENT Eyes: Present: PERRL ENT: hearing intact, clear oral mucosa - Neck Neck: Present: supple, normal ROM - Respiratory Respiratory effort: normal Respiratory: bilateral: CTA - Cardiovascular Heart Sounds: Present: S1 & S2. Absent: rub, click - Extremities Extremities: pulses symmetrical, No edema Peripheral Pulses: within normal limits - Abdominal General gastrointestinal: Present: soft, non-tender, non-distended, normal bowel sounds Female genitourinary: Present: normal - Integumentary Integumentary: Present: clear, warm, dry - Musculoskeletal Musculoskeletal: other (Weakness in bilateral hands, and left lower extremity., Inability to walk) - Psychiatric Psychiatric: appropriate mood/affect, intact judgment & insight - Neurologic Neurologic: CNII-XII intact, focal deficits Plan Follow up with: PRIMARY CARE, [Primary Care Provider] - 3-5 Days
[2019-05-20] MEDS: MEGESTROL 20 MG TAB PO SCH (00:04)
[2019-05-20] MEDS: APIXABAN 2.5 MG TAB PO SCH (00:04)
[2019-05-20] MEDS: dexAMETHasone 4 MG/ML VIAL IV SCH (00:05)
[2019-05-20] MEDS: PRAVASTATIN 80 MG TAB PO SCH (00:05)
[2019-05-20] MEDS: CYCLOBENZAPRINE 10 MG TAB PO SCH (00:07)
[2019-05-20 03:02] VITALS: BP 129/46
[2019-05-20] MEDS ORDERED: SODIUM CHLORIDE 0.9% 100 ML IV PRN (09:00)
== END 2019-05-20 04:00 | disposition short-term general hospital (02) | DRG 52 ==
LOC: ED 06:33 → 2B-ACE 10:36 → OBSVTOIN 05-19 13:54
PROVIDERS: ADMIT Internal Medicine; ATTEND Internal Medicine
DX: G82.50 Quadriplegia, unspecified (principal); I50.33 Acute on chronic diastolic (congestive) heart failure; N18.6 End stage renal disease; R10.9 Unspecified abdominal pain; I16.0 Hypertensive urgency; K59.00 Constipation, unspecified; I27.20 Pulmonary hypertension, unspecified
CPT/HCPCS: 36415; 71045; 72125; 72141; 74018; 80048; 80061; 80074; 80076; 82140; 82465; 82550; 82553; 83690; 83718; 83721; 83735; 83880; 84478; 84484; 85025; 85610; 85730; 86850; 86900; 86901; 87040; 93005; 93010; G0378; A9270-GY; J1100

== ENCOUNTER 2021-02-14 07:08 | Emergency (ER) | payer MEDICARE ==
[2021-02-14] MEDS ORDERED: NITROGLYCERIN 0.4 MG TAB SUBL SL PRN (07:43)
[2021-02-14] MEDS ORDERED: ACETAMINOPHEN 500 MG TAB PO ONE (07:43)
[2021-02-14] MEDS ORDERED: FAMOTIDINE 20 MG TAB PO ONE (07:43)
--- NOTE | 2021-02-14 07:44 | Emergency Department Report ---
ED General Adult HPI - General Chief complaint: Fall Stated complaint: FELL AND HURT LEFT SIDE PUI?: No Time Seen by Provider: 02/14/21 07:27 Source: patient, family, RN notes reviewed, old records reviewed Mode of arrival: Wheelchair Limitations: Physical Limitation - History of Present Illness Initial comments: Nephrology:. Dr Emilia Guerrier Past medical history: Anuric, end-stage renal disease on hemodialysis, Thursday, Thursday and Thursday. Last hemodialysis session is yesterday. History of pulmonary embolism, on Eliquis, congestive heart failure, constipation, pulmonary hypertension. Also has a history of cervical spine disease. The patient is accompanied by her daughter. Patient daughter present to the emergency room today with a complaint of fall, and left-sided pain. Prior to the fall, the patient states she is not having any symptoms. She fell from sitting, and landed on her left shoulder, and possibly head, as well as her left hip. She has sharp throbbing pain, which increases with palpation and range of motion, and decreases with rest. The patient denies headache, neck pain, abdominal pain, extremity weakness and numbness. The patient denies fecal incontinence. On review of systems, the patient endorses chest pain last night. The chest pain was central. She states it did not radiate to the back, arms or neck. The patient denies vomiting, diaphoresis and exertional shortness of breath. The patient endorses compliance with Eliquis, and denies travel, surgery, immobilization, leg pain or leg swelling. Her chest pain is resolved at this time. -: Sudden Location: chest, left, lower extremity Radiation: non-radiation Severity scale (0 -10): 8 Consistency: other Improves with: other Worsens with: other Associated Symptoms: other - Related Data Home Medications Medication Instructions Recorded Confirmed Last Taken Simvastatin (NF) [Zocor TAB] 40 mg PO HS 09/04/17 05/18/19 04/17/19 Pantoprazole [Protonix TAB] 40 mg PO QDAY 11/09/17 05/18/19 04/17/19 megestroL [Megestrol] 40 mg PO QID 11/09/17 05/18/19 04/17/19 Apixaban [Eliquis] 2.5 mg PO DAILY 05/18/19 05/18/19 05/17/19 21:00 Cinacalcet [Sensipar] 30 mg PO QDAY 05/18/19 05/18/19 05/17/19 06:00 Gabapentin [Neurontin] 100 mg PO HS 05/18/19 05/18/19 05/17/19 21:00 Previous Rx's Medication Instructions Recorded Last Taken Type hydrALAZINE [Apresoline TAB] 100 mg PO TID #90 tab 03/12/17 04/17/19 Rx Apixaban [Eliquis] 2.5 mg PO Q12H #30 12/03/17 05/17/19 06:00 Rx ISOSORBIDE MONOnitrate [Imdur ER] 30 mg PO QDAY #90 tablet 04/19/19 05/17/19 06:00 Rx Acetaminophen [Non-Aspirin Extra 500 mg PO Q6HR PRN #30 tablet 02/14/21 Unknown Rx Strength] Allergies Allergy/AdvReac Type Severity Reaction Status Date / Time cefazolin sodium [From Ancef] Allergy Unknown Verified 02/14/21 08:06 enalapril maleate Allergy Angioedema Verified 02/14/21 08:06 [From Vasotec] enalaprilat dihydrate Allergy Angioedema Verified 02/14/21 08:06 [From Vasotec] gabapentin [From Neurontin] Allergy Swelling Verified 02/14/21 08:06 hydralazine [From Apresoline] Allergy Swelling Verified 02/14/21 08:06 pseudoephedrine HCl Allergy Swelling Verified 02/14/21 08:06 [From Sudafed] Sulfa (Sulfonamide Allergy Hives Verified 02/14/21 08:06 Antibiotics) ED Review of Systems ROS: Stated complaint: FELL AND HURT LEFT SIDE Other details as noted in HPI Constitutional: denies: fever Eyes: denies: eye discharge ENT: denies: epistaxis Respiratory: denies: cough Cardiovascular: chest pain Gastrointestinal: denies: abdominal pain, nausea, vomiting, diarrhea, hematemesis, melena, hematochezia Musculoskeletal: arthralgia, myalgia Neurological: denies: weakness, numbness Hematological/Lymphatic: denies: easy bleeding ED Past Medical Hx - Past Medical History Hx Hypertension: Yes Hx Heart Attack/AMI: Yes (coronary artery disease) Hx Congestive Heart Failure: Yes Hx Pulmonary Embolism: Yes (x 2 takes Eliquis) Hx Renal Disease: Yes (dialysis MWF) Hx Arthritis: Yes Hx HIV: No - Surgical History Hx Cholecystectomy: Yes Hx Appendectomy: Yes Additional Surgical History: Hysterectomy, tubal ligation, fistula in right arm, "surgery to place a plate in neck" - Social History Smoking Status: Never Smoker - Medications Home Medications: Home Medications Medication Instructions Recorded Confirmed Last Taken Type hydrALAZINE [Apresoline TAB] 100 mg PO TID #90 tab 03/12/17 05/18/19 04/17/19 Rx Simvastatin (NF) [Zocor TAB] 40 mg PO HS 09/04/17 05/18/19 04/17/19 History Pantoprazole [Protonix TAB] 40 mg PO QDAY 11/09/17 05/18/19 04/17/19 History megestroL [Megestrol] 40 mg PO QID 11/09/17 05/18/19 04/17/19 History Apixaban [Eliquis] 2.5 mg PO Q12H #30 12/03/17 05/18/19 05/17/19 06:00 Rx ISOSORBIDE MONOnitrate [Imdur ER] 30 mg PO QDAY #90 tablet 04/19/19 05/18/19 05/17/19 06:00 Rx Apixaban [Eliquis] 2.5 mg PO DAILY 05/18/19 05/18/19 05/17/19 21:00 History Cinacalcet [Sensipar] 30 mg PO QDAY 05/18/19 05/18/19 05/17/19 06:00 History Gabapentin [Neurontin] 100 mg PO HS 05/18/19 05/18/19 05/17/19 21:00 History Acetaminophen [Non-Aspirin Extra 500 mg PO Q6HR PRN #30 tablet 02/14/21 Unknown Rx Strength] ED Physical Exam - General Limitations: Physical Limitation General appearance: alert, in no apparent distress - Head Head exam: Present: atraumatic, normocephalic - Eye Eye exam: Present: normal appearance, EOMI. Absent: nystagmus - ENT ENT exam: Present: normal exam, normal orophraynx, mucous membranes moist, normal external ear exam - Neck Neck exam: Present: normal inspection, full ROM. Absent: tenderness, meningismus - Respiratory Respiratory exam: Present: normal lung sounds bilaterally. Absent: respiratory distress, wheezes, rales, rhonchi, stridor, decreased breath sounds - Cardiovascular Cardiovascular Exam: Present: regular rate, normal rhythm, normal heart sounds. Absent: bradycardia, tachycardia, irregular rhythm, systolic murmur, diastolic murmur, rubs, gallop - GI/Abdominal GI/Abdominal exam: Present: soft. Absent: distended, tenderness, guarding, rebound, rigid, pulsatile mass - Extremities Exam Extremities exam: Present: normal inspection (Right upper extremity fistula noted, with no redness, pus history), other (2+ pulses noted in the bilateral upper and lower extremities. There is no long bony tenderness. The pelvis is minimally tender on the left hip.). Absent: calf tenderness - Back Exam Back exam: Present: normal inspection, full ROM. Absent: tenderness, CVA tenderness (R), CVA tenderness (L), paraspinal tenderness, vertebral tenderness - Neurological Exam Neurological exam: Present: alert, other (No facial droop. Tongue midline. Extraocular movements intact bilaterally. Facial sensation intact to light touch in V1, V2, V3 distribution bilaterally. 5 and a 5 strength in 4 extremities. Sensation intact to light touch in 4 extremities.). Absent: motor sensory deficit (Downgoing plantar reflexes bilaterally) - Psychiatric Psychiatric exam: Present: normal affect, normal mood - Skin Skin exam: Present: warm, dry, intact, normal color. Absent: rash ED Course Vital Signs 02/14/21 02/14/21 02/14/21 07:23 07:56 08:00 Temperature 98.8 F Pulse Rate 60 60 57 L Respiratory 18 9 L 10 L Rate Blood Pressure Blood Pressure [Left] Blood Pressure 123/41 [Right] O2 Sat by Pulse 100 99 97 Oximetry 02/14/21 02/14/21 02/14/21 08:04 08:26 08:35 Temperature Pulse Rate Respiratory Rate Blood Pressure 150/45 Blood Pressure 150/45 [Left] Blood Pressure [Right] O2 Sat by Pulse 99 100 Oximetry 02/14/21 02/14/21 02/14/21 08:45 09:00 09:15 Temperature Pulse Rate 50 L 50 L Respiratory 15 10 L Rate Blood Pressure 157/49 149/46 139/45 Blood Pressure [Left] Blood Pressure [Right] O2 Sat by Pulse 99 98 100 Oximetry 02/14/21 02/14/2102/14/21 09:30 09:45 10:00 Temperature Pulse Rate 53 L 54 L 53 L Respiratory 12 13 13 Rate Blood Pressure 147/44 148/44 156/45 Blood Pressure [Left] Blood Pressure [Right] O2 Sat by Pulse 100 100 100 Oximetry 02/14/21 02/14/21 02/14/21 10:15 10:30 10:45 Temperature Pulse Rate 55 L 53 L 60 Respiratory 15 13 15 Rate Blood Pressure 152/50 148/42 148/42 Blood Pressure [Left] Blood Pressure [Right] O2 Sat by Pulse 100 100 99 Oximetry - Reevaluation(s) Reevaluation #1: 02/14/21 08:44 Differential diagnosis, including but not limited to: Fall, sprain, strain, closed head injury, cervical spine injury, GERD, gastritis, hiatal hernia, pneumonia, coronary artery disease Assessment and plan: 89-year-old female, who was afebrile, with reassuring vital signs, on systemic anticoagulation, who is not currently tachycardic, tachypneic or hypoxic, presenting to the ER with a primary complaint of mechanical fall. She endorses secondary complaint of chest pain on review of systems. In terms of the patient's fall and pain, we will obtain plain films of the hip/pelvis, x-ray the chest, noncontrast CT scan of the brain and cervical spine. In terms of the patient's chest pain, EKG unchanged from prior. Low-grade tr oponin, likely type II troponin leak. Prior heart catheterization report reviewed and appreciated in medical records. Advanced age is reviewed and appreciated. Cardiac vascular risk factors are rev iewed and appreciated. Patient is pain-free at this time. Repeat EKG, repeat troponin pending. Have requested cardiology consultation to make recommendations in terms of patient's optimal strategy for cardiac risk ratification. Patient is chest pain-free at this time, she did not endorse chest pain as a complaint, and she admitted chest pain on review of systems. 02/14/21 10:12 Patient reassessed multiple times. She is not in any acute distress. She states no pain at this time. CT scans unremarkable for acute findings. X- rays unremarkable for acute findings. Repeat EKG is unchanged from prior. Repeat troponin is pending. Cardiology consultation is pending. Updated patient and son with her permission. 02/14/21 11:12 Final reevaluation. X-rays negative for acute findings. CT scans negative for acute findings. Troponin downtrending, now within normal limits, and EKG unchanged x2. Seen and evaluated by cardiology, Anibal Ledezma, working with [facility] cardiology. The patient informed him that she is not having chest pain with palpitations. The cardiology team advises at discharge is acceptable from their perspective. Patient observed in this ER for hours without clinical decompensation. She is resting comfortably in her stretcher and in no acute distress. We will therefore discharge. Return precautions reviewed. All questions answered ED Medical Decision Making - Lab Data Result diagrams: 02/14/21 07:51 02/14/21 07:51 Vital Signs 02/14/21 02/14/21 02/14/21 07:23 07:56 08:00 Temperature 98.8 F Pulse Rate 60 60 57 L Respiratory 18 9 L 10 L Rate Blood Pressure [Left] Blood Pressure 123/41 [Right] O2 Sat by Pulse 100 99 97 Oximetry 02/14/21 02/14/21 08:04 08:26 Temperature Pulse Rate Respiratory Rate Blood Pressure 150/45 [Left] Blood Pressure [Right] O2 Sat by Pulse 99 Oximetry Lab Results 02/14/21 02/14/21 02/14/21 Range/Units 07:51 07:51 07:51 WBC 4.0 L (4.5-11.0) K/mm3 RBC 4.48 (3.65-5.03) M/mm3 Hgb 11.6 (10.1-14.3) gm/dl Hct 37.3 (30.3-42.9) % MCV 83 (79-97) fl MCH 26 L (28-32) pg MCHC 31 (30-34) % RDW 16.4 H (13.2-15.2) % PT 14.2 (12.2-14.9) Sec. INR 0.99 (0.87-1.13) Sodium 139 (137-145) mmol/L Potassium 3.7 (3.6-5.0) mmol/L Chloride 95.9 L (98-107) mmol/L Carbon Dioxide 30 (22-30) mmol/L Anion Gap 17 mmol/L BUN 21 H (7-17) mg/dL Creatinine 4.4 H (0.6-1.2) mg/dL Estimated GFR 11 ml/min BUN/Creatinine Ratio 5 % Glucose 84 (65-100) mg/dL Calcium 9.1 (8.4-10.2) mg/dL Magnesium (1.7-2.3) mg/dL Total Creatine Kinase (30-135) units/L Troponin T 0.033 H (0.00-0.029) ng/mL 02/14/21 Range/Units 07:51 WBC (4.5-11.0) K/mm3 RBC (3.65-5.03) M/mm3 Hgb (10.1-14.3) gm/dl Hct (30.3-42.9) % MCV (79-97) fl MCH (28-32) pg MCHC (30-34) % RDW (13.2-15.2) % PT (12.2-14.9) Sec. INR (0.87-1.13) Sodium (137-145) mmol/L Potassium (3.6-5.0) mmol/L Chloride (98-107) mmol/L Carbon Dioxide (22-30) mmol/L Anion Gap mmol/L BUN (7-17) mg/dL Creatinine (0.6-1.2) mg/dL Estimated GFR ml/min BUN/Creatinine Ratio % Glucose (65-100) mg/dL Calcium (8.4-10.2) mg/dL Magnesium 2.00 (1.7-2.3) mg/dL Total Creatine Kinase 42 (30-135) units/L Troponin T (0.00-0.029) ng/mL - EKG Data -: EKG Interpreted by Il - EKG Data 02/14/21 08:42 EKG #1 is interpreted at 07: 44 EKG today is unchanged when compared to prior EKG from 05/19/2019 Sinus bradycardia, 57 bpm, there is a normal axis, with a right bundle branch block, Q waves noted aVL, there is low voltage, the QTC is 438 ms. This is an abnormal EKG. This is not a STEMI - Radiology Data Radiology results: pending, report reviewed, image reviewed CT head/brain wo con INDICATION / CLINICAL INFORMATION: 89 years Female; fall closed head injury. TECHNIQUE: Routine CT head without contrast. All CT scans at this location are performed using CT dose reduction for ALARA by means of automated exposure control. COMPARISON: None. FINDINGS: BRAIN / INTRACRANIAL CONTENTS: No acute hemorrhage, mass effect, midline shift, hydrocephalus, or acute, large territorial infarct. Mild, diffuse cerebral and cerebellar atrophy. However, findings are asymmetrically more prominent in the parietal lo bes. There are moderate, somewhat confluent areas of decreased attenuation in the white matter of the cerebral hemispheres, as well as the gangliocapsular regions. These are nonspecific findings and may be related to microangiopathy (hypertension, diabetes, atherosclerosis), given the patient's age. It might be difficult to evaluate for small areas of ischemia without diffusion imaging by MRI. CRANIOCERVICAL JUNCTION: No significant abnormality. ORBITS: No significant abnormality of visualized orbits. SINUSES / MASTOIDS: Visualized paranasal sinuses and mastoid air cells are essentially clear. ADDITIONAL FINDINGS: Significant, bilateral temporomandibular joint disease. Atherosclerotic disease is seen in the anterior and posterior circulation. IMPRESSION: 1. No focal mass, hemorrhage, hydrocephalus, or acute, large territorial infarct. Signer Name: Jonas Rosas MD, III Signed: 02/14/2021 7:57 AM Workstation Name: [id number] LEFT HIP 2 VIEWS INDICATION / CLINICAL INFORMATION: Left hip pain after fall COMPARISON: CT abdomen and pelvis without contrast from 04/03/2019 FINDINGS: BONES and JOINT(S): No acute fracture or subluxation. 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 SOFT TISSUES: Severe generalized atherosclerosis is again seen without other significant abnormalities. ADDITIONAL FINDINGS: None. IMPRESSION: 1. No acute findings. No significant i nterval change. Signer Name: Too Lilly MD Signed: 02/14/2021 7:48 AM Workstation Name: [id number] CHEST 1 VIEW 02/14/2021 7:39 AM INDICATION / CLINICAL INFORMATION: Left chest pain after fall. COMPARISON: One view of the chest from 05/18/2019 FINDINGS: SUPPORT DEVICES: None. HEART / MEDIASTINUM: Normal size of the cardiac silhouette with similar aortic atherosclerosis. LUNGS / PLEURA: No significant pulmonary abnormality. No significant pleural effusion. No pneumothorax. ADDITIONAL FINDINGS: Stents are again seen along the right axilla with similar postoperative changes and a stent along the left upper extremity. IMPRESSION: 1. No acute abnormality of the chest. Signer Name: Too Lilly MD Signed: 02/14/2021 7:46 AM Workstation Name: [id number] CT cervical spine wo con INDICATION / CLINICAL INFORMATION: 89 years Female; fall closed head injury. TECHNIQUE: Axial CT images of the cervical spine were obtained. Sagittal and coronal reformatted images were produced. All CT scans at this location are performed using CT dose reduction for ALARA by means of automated exposure control. COMPARISON: 05/18/2019 and 04/14/2019-CT; MRI- 05/18/2019 FINDINGS: POST-SURGICAL CHANGES: Anterior fusion hardware seen from C4 through C6-also seen on prior exam. Posterior fusion hardware seen at C3-4, which is new from prior. ALIGNMENT: Mild excessive kyphosis of the thoracic spine. VERTEBRAE: No signs of fracture. Vertebral bodies are grossly normal in height throughout. Scattered lucencies seen throughout the marrow of the visualized axial skeleton. Similar findings seen on prior exams. Chronic or marrow placement process might be considered. Please clinically correlate. INTRAVERTEBRAL DISCS: Disc spaces are fairly well-maintained throughout without significant canal stenosis. PARASPINAL SOFT TISSUES: No significant abnormality. ADDITIONAL FINDINGS: None. IMPRESSION: 1. No signs of acute bony trauma to the cervical spine. Signer Name: Jonas Rosas MD, III Signed: 02/14/2021 8:04 AM Workstation Name: [id number] Critical care attestation.: If time is entered above; I have spent that time in minutes in the direct care of this critically ill patient, excluding procedure time. ED Disposition Clinical Impression: End stage renal disease, History of chest pain, Fall, Left hip pain, Ant icoagulated Disposition: 01 HOME / SELF CARE / HOMELESS Is pt being admited?: No Does the pt Need Aspirin: No Condition: Good Instructions: Hip Pain Additional Instructions: Pain typically gets worse before gets better after blunt trauma. Patient may alternate ice packs and heat packs as needed for physical pain. Patient may take [id number] Tylenol/acetaminophen as needed for physical pain. Please continue current outpatient medications. Please follow-up with your outpatient primary care doctor within the next week. Please follow-up with your outpatient pattern carrier within the next month or as scheduled. Please follow-up with an outpatient hand spring former within the next week. Please have your primary care doctor contact the medical records department to obtain copies of laboratory studies and radiology studies, and follow-up on nonemergent incidental findings. Please return to the emergency room right away with new pain, worsened pain, migration of pain, projectile vomiting, change in mental status, confusion, inability tolerate liquid feeds, new, worsened or different symptoms not present on the initial emergency room evaluation. Referrals: CHAVEZ GUERRIER MD [Staff Physician] - 3-5 Days [facility] [Provider Group] - 3-5 Days
[2021-02-14 08:05] LABS: Hematocrit 37.3 % (30.3-42.9); Hemoglobin 11.6 gm/dl (10.1-14.3); Mean Corpuscular HGB Conc 31 % (30-34); Mean Corpuscular Volume 83 fl (79-97); Red Blood Count 4.48 M/mm3 (3.65-5.03); Red Cell Distribution Width 16.4 % (13.2-15.2)
[2021-02-14 08:15] LABS: INR 0.99 (0.87-1.13)
[2021-02-14 08:17] LABS: Calcium 9.1 mg/dL (8.4-10.2)
--- NOTE | 2021-02-14 08:51 | XRay Report ---
CHEST 1 VIEW 02/14/2021 7:39 AM INDICATION / CLINICAL INFORMATION: Left chest pain after fall. COMPARISON: One view of the chest from 05/18/2019 FINDINGS: SUPPORT DEVICES: None. HEART / MEDIASTINUM: Normal size of the cardiac silhouette with similar aortic atherosclerosis. LUNGS / PLEURA: No significant pulmonary abnormality. No significant pleural effusion. No pneumothora x. ADDITIONAL FINDINGS: Stents are again seen along the right axilla with similar postoperative changes and a stent along the left upper extremity. IMPRESSION: 1. No acute abnormality of the chest. Signer Name: Too Lilly MD Signed: 02/14/2021 8:46 AM Workstation Name: [id number]
--- NOTE | 2021-02-14 08:52 | XRay Report ---
LEFT HIP 2 VIEWS INDICATION / CLINICAL INFORMATION: Left hip pain after fall COMPARISON: CT abdomen and pelvis without contrast from 04/03/2019 FINDINGS: BONES and JOINT(S): No acute fracture or subluxation. Mild/moderate osteoarthritis of the hips is unc hanged. SOFT TISSUES: Severe generalized atherosclerosis is again seen without other significant abnormalitie s. ADDITIONAL FINDINGS: None. IMPRESSION: 1. No acute findings. No significant interval change. Signer Name: Too Lilly MD Signed: 02/14/2021 8:48 AM Workstation Name: [email or web address]
--- NOTE | 2021-02-14 09:02 | Cat Scan Report ---
CT head/brain wo con INDICATION / CLINICAL INFORMATION: 89 years Female; fall closed head injury. TECHNIQUE: Routine CT head without contrast. All CT scans at this location are performed using CT dos e reduction for ALARA by means of automated exposure control. COMPARISON: None. FINDINGS: BRAIN / INTRACRANIAL CONTENTS: No acute hemorrhage, mass effect, midline shift, hydrocephalus, or acu te, large territorial infarct. Mild, diffuse cerebral and cerebellar atrophy. However, findings are asymmetrically more prominent in the parietal lobes. There are moderate, somewhat confluent areas of decreased attenuation in the white matter of the cere bral hemispheres, as well as the gangliocapsular regions. These are nonspecific findings and may be r elated to microangiopathy (hypertension, diabetes, atherosclerosis), given the patient's age. It migh t be difficult to evaluate for small areas of ischemia without diffusion imaging by MRI. CRANIOCERVICAL JUNCTION: No significant abnormality. ORBITS: No significant abnormality of visualized orbits. SINUSES / MASTOIDS: Visualized paranasal sinuses and mastoid air cells are essentially clear. ADDITIONAL FINDINGS: Significant, bilateral temporomandibular joint disease. Atherosclerotic disease is seen in the anterior and posterior circulation. IMPRESSION: 1. No focal mass, hemorrhage, hydrocephalus, or acute, large territorial infarct. Signer Name: Jonas Rosas MD, III Signed: 02/14/2021 8:57 AM Workstation Name: [id number]
--- NOTE | 2021-02-14 09:09 | Cat Scan Report ---
CT cervical spine wo con INDICATION / CLINICAL INFORMATION: 89 years Female; fall closed head injury. TECHNIQUE: Axial CT images of the cervical spine were obtained. Sagittal and coronal reformatted images were pr oduced. All CT scans at this location are performed using CT dose reduction for ALARA by means of aut omated exposure control. COMPARISON: 05/18/2019 and 04/14/2019-CT; MRI-05/18/2019 FINDINGS: POST-SURGICAL CHANGES: Anterior fusion hardware seen from C4 through C6-also seen on prior exam. Post erior fusion hardware seen at C3-4, which is new from prior. ALIGNMENT: Mild excessive kyphosis of the thoracic spine. VERTEBRAE: No signs of fracture. Vertebral bodies are grossly normal in height throughout. Scattered lucencies seen throughout the marrow of the visualized axial skeleton. Similar findings see n on prior exams. Chronic or marrow placement process might be considered. Please clinically correlat e. INTRAVERTEBRAL DISCS: Disc spaces are fairly well-maintained throughout without significant canal tan nosis. PARASPINAL SOFT TISSUES: No significant abnormality. ADDITIONAL FINDINGS: None. IMPRESSION: 1. No signs of acute bony trauma to the cervical spine. Signer Name: Jonas Rosas MD, III Signed: 02/14/2021 9:04 AM Workstation Name: [id number]
[2021-02-14 09:15] LABS: Chol/HDL Ratio 3.26 %
[2021-02-14 09:38] LABS: Platelet Count 143 K/mm3 (140-440)
[2021-02-14 10:56] VITALS: BP 148/42
--- NOTE | 2021-02-14 13:04 | Consultation ---
History of Present Illness Consult date: 02/14/21 Requesting physician: AUSTEN FLORENCE Consult reason: chest pain History of present illness: Pt is an 89 y.o. 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 Patient reports while getting into the car she thought she was supporting herself and misstepped and fell on her left s chandler. She reports that after falling she had left-sided pain. She reports that following her fall she had pain on her shoulder hips side of her chest that was worse with palpitation and movement however at time of interview patient states she is pain free. Patient denies any cardiac symptoms prior to falling and at time of interview including syncope, palpitations, chest pain, shortness of breath, or dizziness. Patient followed by Dr. RYAN Stokes. Cardiology is consulted for atypical chest pain. Past History Past Medical History: CAD, DVT, ESRD, hyperlipidemia, pulmonary embolism Past Surgical History: No surgical history Social history: no significant social history Family history: no significant family history Medications and Allergies Allergies Allergy/AdvReac Type Severity Reaction Status Date / Time cefazolin sodium [From Ancef] Allergy Unknown Verified 02/14/21 08:06 enalapril maleate Allergy Angioedema Verified 02/14/21 08:06 [From Vasotec] enalaprilat dihydrate Allergy Angioedema Verified 02/14/21 08:06 [From Vasotec] gabapentin [From Neurontin] Allergy Swelling Verified 02/14/21 08:06 hydralazine [From Apresoline] Allergy Swelling Verified 02/14/21 08:06 pseudoephedrine HCl Allergy Swelling Verified 02/14/21 08:06 [From Sudafed] Sulfa (Sulfonamide Allergy Hives Verified 02/14/21 08:06 Antibiotics) Home Medications Medication Instructions Recorded Confirmed Last Taken Type hydrALAZINE [Apresoline TAB] 100 mg PO TID #90 tab 03/12/17 05/18/19 04/17/19 Rx Simvastatin (NF) [Zocor TAB] 40 mg PO HS 09/04/17 05/18/19 04/17/19 History Pantoprazole [Protonix TAB] 40 mg PO QDAY 11/09/17 05/18/19 04/17/19 History megestroL [Megestrol] 40 mg PO QID 11/09/17 05/18/19 04/17/19 History Apixaban [Eliquis] 2.5 mg PO Q12H #30 12/03/17 05/18/19 05/17/19 06:00 Rx ISOSORBIDE MONOnitrate [Imdur ER] 30 mg PO QDAY #90 tablet 04/19/19 05/18/19 05/17/19 06:00 Rx Apixaban [Eliquis] 2.5 mg PO DAILY 05/18/19 05/18/19 05/17/19 21:00 History Cinacalcet [Sensipar] 30 mg PO QDAY 05/18/19 05/18/19 05/17/19 06:00 History Gabapentin [Neurontin] 100 mg PO HS 05/18/19 05/18/19 05/17/19 21:00 History Acetaminophen [Non-Aspirin Extra 500 mg PO Q6HR PRN #30 tablet 02/14/21 Unknown Rx Strength] Review of Systems Constitutional: no weight loss, no weight gain, no fever, no chills Ears, nose, mouth and throat: no nose pain, no nasal congestion, no nasal discharge Cardiovascular: no chest pain, no orthopnea, no palpitations, no rapid/irregular heart beat, no edema, no syncope Respiratory: no cough, no cough with sputum, no shortness of breath, no dyspnea on exertion Gastrointestinal: no abdominal pain, no nausea, no vomiting Musculoskeletal: no neck stiffness, no neck pain, no shooting arm pain Integumentary: no rash, no pruritis, no redness Neurological: no head injury, no transient paralysis, no paralysis, no weakness, no parathesias, no syncope Psychiatric: no anxiety, no memory loss Endocrine: no cold intolerance, no heat intolerance Hematologic/Lymphatic: no easy bruising, no easy bleeding Physical Examination Vital Signs Temp Pulse Resp BP Pulse Ox 98.8 F 60 18 123/41 100 02/14/21 07:23 02/14/21 07:23 02/14/21 07:23 02/14/21 07:23 02/14/21 07:23 General appearance: no acute distress HEENT: Positive: PERRL Cardiac: Positive: Reg Rate and Rhythm Lungs: Positive: Normal Exam Neuro: Positive: Grossly Intact Abdomen: Positive: Soft, Active Bowel Sounds Skin: Negative: Rash, Suspicious Lesions, Ulceration Extremities: Present: upper extr. pulses. Absent: edema Results 02/14/21 07:51 02/14/21 07:51 Coagulation 02/14/21 Range/Units 07:51 PT 14.2 (12.2-14.9) Sec. INR 0.99 (0.87-1.13) Lipids 02/14/21 Range/Units 07:51 Triglycerides 71 (2-149) mg/dL Cholesterol 186 (50-199) mg/dL HDL Cholesterol 57 (40-59) mg/dL Cholesterol/HDL Ratio 3.26 % CBC 02/14/21 Range/Units 07:51 WBC 4.0 L (4.5-11.0) K/mm3 RBC 4.48 (3.65-5.03) M/mm3 Hgb 11.6 (10.1-14.3) gm/dl Hct 37.3 (30.3-42.9) % Plt Count 143 (140-440) K/mm3 Comprehensive Metabolic Panel 02/14/21 Range/Units 07:51 Sodium 139 (137-145) mmol/L Potassium 3.7 (3.6-5.0) mmol/L Chloride 95.9 L (98-107) mmol/L Carbon Dioxide 30 (22-30) mmol/L BUN 21 H (7-17) mg/dL Creatinine 4.4 H (0.6-1.2) mg/dL Glucose 84 (65-100) mg/dL Calcium 9.1 (8.4-10.2) mg/dL - Imaging and Cardiology Echo: report reviewed Cardiac cath: report reviewed EKG interpretations - Telemetry EKG Rhythm: Sinus Rhythm - EKG Sinus rhythms and dysrhythmias: sinus rhythm AV and intraventricular conduction: right bundle branch block Repolarization changes or abnormalities: nonspecific abnormality, ST segment, and/or T wave Assessment and Plan Pt is an 89 y.o. 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 Lexiscan stress MPI 04/19/2019 - negative for ischemia. [facility] 04/18/2016 - mild non-obstructive CAD with 25% mid LCx stenosis; R dominant system; hyperdynamic LV function, EF > 65%; uncontrolled HTN. Plan: ECG shows NSR w/RBBB no acute ischemic changes. No change from previous EKG. Troponins minimally elevated and down trending 0.033->0.02. This appears to be patients baseline. Patient is chest pain free and denies any symptoms Continue present management Patient cardiac status is stable for discharge Patient seen in conjunction with Dr. Stokes agrees with this plan of care - Patient Problems (1) Atypical chest pain Status: Acute (2) End-stage renal disease needing dialysis Status: Acute (3) Fall Status: Acute (4) Right bundle branch block Status: Acute (5) CAD (coronary artery disease) Status: Chronic Qualifiers: (6) Hx of deep venous thrombosis Status: Chronic (7) Hx of pulmonary embolus Status: Chronic (8) Hyperlipidemia Status: Chronic Qualifiers: (9) Hypertension Status: Chronic (10) Pulmonary HTN Status: Chronic (11) Tricuspid regurgitation Status: Chronic
--- NOTE | 2021-02-15 09:01 | Electrocardiograph Report ---
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
--- NOTE | 2021-02-15 09:03 | Electrocardiograph Report ---
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
== END 2021-02-14 11:28 | disposition home or self-care (01) ==
LOC: ED 07:08
DX: I13.2 Hypertensive heart and chronic kidney disease with heart failure and with stage 5 chronic kidney disease, or end stage renal disease (principal); N18.6 End stage renal disease; I50.9 Heart failure, unspecified; Z99.2 Dependence on renal dialysis; M25.552 Pain in left hip; R07.89 Other chest pain; M25.512 Pain in left shoulder; Z90.49 Acquired absence of other specified parts of digestive tract; Z90.710 Acquired absence of both cervix and uterus; Z98.51 Tubal ligation status; Z88.8 Allergy status to other drugs, medicaments and biological substances; Z79.899 Other long term (current) drug therapy; Z79.01 Long term (current) use of anticoagulants; W18.39XA Other fall on same level, initial encounter; Y93.89 Activity, other specified; Y92.89 Other specified places as the place of occurrence of the external cause; Y99.8 Other external cause status
CPT/HCPCS: 36415; 70450; 71045; 72125; 80048; 80061; 82550; 83735; 84484; 85027; 85610; 93005; 99285